=== PATIENT | male | born 1945 | race Caucasian/White ===

== ENCOUNTER 2016-03-18 11:15 | Inpatient (IN) | payer MEDICARE, OTHER ==
[~2016-03-18] VITALS: Ht 180.3 cm; Wt 81.6 kg
[2016-03-18] MEDS ORDERED: PRAV10TA2 PO (11:37)
[2016-03-18] MEDS ORDERED: AMLO10TA2 PO (11:37)
[2016-03-18] MEDS ORDERED: METF500T4 PO (11:37)
[2016-03-18] MEDS ORDERED: FLUO20TA11 PO (11:37)
[2016-03-18 12:19] LABS: BASO % 0 % (0-3); EOS % 0 % (0-3); HEMATOCRIT 48.8 % (39.0-53.0); LYMPH # 1.9 x10^3/uL (1.0-4.8); LYMPH % 12 % (24-48); MEAN CORPUSCULAR HEMOGLOBIN 30 pg (25-35); MEAN CORPUSCULAR HGB CONC 33 g/dL (31-37); MEAN CORPUSCULAR VOLUME 90 fL (79-100); MONO % 6 % (0-9); NEUT % 82 % (31-73); PLATELET COUNT 232 x10^3/uL (140-400); WHITE BLOOD COUNT 15.9 x10^3/uL (4.0-11.0)
[2016-03-18] MEDS ORDERED: CYAN10005 PO (12:27)
--- NOTE | 2016-03-18 12:27 | RAD ---
Clinical indications: Altered mental status. Fall. Neck pain.. NONCONTRAST HEAD CT Technique: Noncontrast axial cross sectional scanning of the head was performed. PQRS Compliance Statement: One or more of the following individualized dose reduction techniques were utilized for this examination: 1. Automated exposure control 2. Adjustment of the mA and/or kV according to patient size 3. Use of iterative reconstruction technique Comparison: None available. Findings: No acute intracranial hemorrhage or midline shift or mass-effect or r extra-axial fluid collection is seen. Mild ventriculomegaly is seen commensurate with the amount of cerebral atrophy. There is extensive hypodensity of both sides of the cerebellum and there is hypodensity involving occipital lobes bilaterally. Findings may represent edema from an acute or subacute infarct involving the posterior circulation. No skull fracture or pneumocephalus is seen. No opacification of the mastoid sinuses or the middle ear cavities is seen. There is opacification of the upper aspect of the right maxillary sinus The maxillary sinuses are not completely seen in this study. Impression: Extensive edema of the cerebellum on both sides and the medial aspect of both occipital lobes consistent with acute or subacute infarct of at least 24 hours involving the posterior circulation. MRI study of the brain with and without contrast and intracranial MRA is recommended. No acute intracranial hemorrhage is seen. Right maxillary sinusitis. CERVICAL SPINE CT WITHOUT CONTRAST Technique: Noncontrast helical CT scanning of the cervical spine was performed. Multiplanar 2-D reconstructions were generated. PQRS Compliance Statement: One or more of the following individualized dose reduction techniques were utilized for this examination: 1. Automated exposure control 2. Adjustment of the mA and/or kV according to patient size 3. Use of iterative reconstruction technique Findings: No acute fracture is evident. There is moderate degenerative disc space narrowing and endplate spurring at C3-4 and C4-5. No discitis or osteolytic process or prevertebral soft tissue swelling is evident. IMPRESSION: No acute fracture.
[2016-03-18 12:28] LABS: CALCIUM 9.6 mg/dL (8.5-10.1); GFR 73.5; POTASSIUM 3.9 mmol/L (3.5-5.1)
--- NOTE | 2016-03-18 12:39 | RAD ---
Portable AP upright view CXR: Clinical indications: Fell yesterday. Altered mental status.. Findings: No acute lung infiltrate or pleural effusion or pulmonary edema or lung mass or pneumothorax is seen. The heart size, pulmonary vasculature, mediastinum and both avni are unremarkable. Impression: No acute radiographic abnormality is seen.
[2016-03-18 13:00] LABS: BILIRUBIN,URINE NEGATIVE (NEG); GLUCOSE,URINE NEGATIVE (NEG); NITRITE,URINE NEGATIVE (NEG); PH,URINE 7.5; PROTEIN,URINE 30 mg/dL (NEG-TRACE)
--- NOTE | 2016-03-18 13:01 | EKG ---
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
[2016-03-18 13:02] LABS: BARBITURATES NEG (NEG); BENZODIAZEPINES NEG (NEG); CANNABINOIDS NEG (NEG); COCAINE NEG (NEG); ETHANOL, URINE NEG (NEG); METHADONE NEG (NEG); OPIATES NEG (NEG); PHENCYCLIDINE NEG (NEG)
--- NOTE | 2016-03-18 13:09 | PHYS DOC ---
Past Medical History Past Medical History: Depression, Diabetes-Type II, High Cholesterol, Hypertension Past Surgical History: Other Additional Past Surgical Histo: cleft palate repair Additional Information: 4-5 cigarettes per day Alcohol Use: Rarely Drug Use: Marijuana Social History Narrative: reports using marijuana once per month Adult General Chief Complaint Chief Complaint: ALTERED MENTAL STATUS HPI HPI This is a 70-year-old male who had a fall night at his assisted living facility and has significant right periorbital swelling and bruising as well as questionable slurring of speech. Patient at this time is able to answer all my questions and follow my commands. He denies any specific complaints. He is not sure why he fell. Patient does have history of hypertension, diabetes type 2, hypercholesterolemia. He denies any chest pain or shortness of breath. He denies any headache. He denies any fever or chills. Review of Systems Review of Systems Constitutional: Denies fever or chills [] Eyes: Denies change in visual acuity, redness, or eye pain [] HENT: Denies nasal congestion or sore throat [] Respiratory: Denies cough or shortness of breath [] Cardiovascular: No additional information not addressed in HPI [] GI: Denies abdominal pain, nausea, vomiting, bloody stools or diarrhea [] : Denies dysuria or hematuria [] Musculoskeletal: Denies back pain or joint pain [] Integument: Denies rash or skin lesions [] Neurologic: Denies headache, focal weakness or sensory changes [] Endocrine: Denies polyuria or polydipsia [] Current Medications Current Medications Current Medications Medications (Trade) Dose Ordered Sig/John Start Time Stop Time Status Last Admin Dose Admin Ondansetron HCl (Zofran) 4 mg PRN Q8HRS PRN 03/18/16 13:15 03/19/16 13:14 Allergies Allergies Allergies Coded Allergies Type Severity Reaction Last Updated Verified iodine Allergy Intermediate 03/18/16 Yes Physical Exam Physical Exam Constitutional: Well developed, well nourished, no acute distress, non-toxic appearance. [] HENT: Normocephalic, noted area of periorbital swelling and ecchymosis on the right with no evidence of any entrapment, bilateral external ears normal, oropharynx moist, no oral exudates, nose normal. [] Eyes: PERRLA, EOMI, conjunctiva normal, no discharge. [] Neck: Normal range of motion, no tenderness, supple, no stridor. [] Cardiovascular:Heart rate regular rhythm, no murmur [] Lungs & Thorax: Bilateral breath sounds clear to auscultation [] Abdomen: Bowel sounds normal, soft, no tenderness, no masses, no pulsatile masses. [] Skin: Warm, dry, no erythema, no rash. [] Back: No tenderness, no CVA tenderness. [] Extremities: No tenderness, no cyanosis, no clubbing, ROM intact, no edema. [] Neurologic: Alert and oriented X 3, normal motor function, normal sensory function, no focal deficits noted. [] Psychologic: Affect normal, judgement normal, mood normal. [] Current Patient Data Vital Signs Vital Signs Date Time Temp Pulse Resp B/P Pulse Ox O2 Delivery O2 Flow Rate FiO2 03/18/16 13:00 90 18 150/67 92 03/18/16 11:15 97.8 Room Air 97.8 Lab Values Laboratory Tests Test 03/18/16 12:10 03/18/16 12:40 White Blood Count 15.9x10^3/uL (4.0-11.0) H Red Blood Count 5.40x10^6/uL (4.30-5.70) Hemoglobin 16.0g/dL (13.0-17.5) Hematocrit 48.8% (39.0-53.0) Mean Corpuscular Volume 90fL (79-100) Mean Corpuscular Hemoglobin 30pg (25-35) Mean Corpuscular Hemoglobin Concent 33g/dL (31-37) Red Cell Distribution Width 14.0% (11.5-14.5) Platelet Count 232x10^3/uL (140-400) Neutrophils (%) (Auto) 82% (31-73) H Lymphocytes (%) (Auto) 12% (24-48) L Monocytes (%) (Auto) 6% (0-9) Eosinophils (%) (Auto) 0% (0-3) Basophils (%) (Auto) 0% (0-3) Neutrophils # (Auto) 13.0x10^3uL (1.8-7.7) H Lymphocytes # (Auto) 1.9x10^3/uL (1.0-4.8) Monocytes # (Auto) 0.9x10^3/uL (0.0-1.1) Eosinophils # (Auto) 0.0x10^3/uL (0.0-0.7) Basophils # (Auto) 0.0x10^3/uL (0.0-0.2) Segmented Neutrophils % 86% (35-66) H Band Neutrophils % 2% (0-9) Lymphocytes % 6% (24-48) L Monocytes % 5% (0-10) Basophils % 1% (0-3) Platelet Estimate Adequate (ADEQUATE) Sodium Level 140mmol/L (136-145) Potassium Level 3.9mmol/L (3.5-5.1) Chloride Level 104mmol/L (98-107) Carbon Dioxide Level 26mmol/L (21-32) Anion Gap 10 (6-14) Blood Urea Nitrogen 19mg/dL (8-26) Creatinine 1.0mg/dL (0.7-1.3) Estimated GFR (Cockcroft-Gault) 73.5 Glucose Level 150mg/dL (70-99) H Calcium Level 9.6mg/dL (8.5-10.1) Troponin I Quantitative < 0.017ng/mL (0.000-0.055) Urine Collection Type U cath Urine Color Yellow Urine Clarity Clear Urine pH 7.5 Urine Specific [place] 1.015 Urine Protein 30mg/dL (NEG-TRACE) Urine Glucose (UA) Negativemg/dL (NEG) Urine Ketones (Stick) Negativemg/dL (NEG) Urine Blood Negative (NEG) Urine Nitrite Negative (NEG) Urine Bilirubin Negative (NEG) Urine Urobilinogen Dipstick 1.0mg/dL (0.2 mg/dL) Urine Leukocyte Esterase Negative (NEG) Urine RBC Occ/HPF (0-2) Urine WBC 0/HPF (0-4) Urine Squamous Epithelial Cells Few/LPF Urine Bacteria 0/HPF (0-FEW) Urine Mucus Slight/LPF Urine Opiates Screen Neg (NEG) Urine Methadone Screen Neg (NEG) Urine Barbiturates Neg (NEG) Urine Phencyclidine Screen Neg (NEG) Urine Amphetamine/Methamphetamine Neg (NEG) Urine Benzodiazepines Screen Neg (NEG) Urine Cocaine Screen Neg (NEG) Urine Cannabinoids Screen Neg (NEG) Urine Ethyl Alcohol Neg (NEG) Laboratory Tests 03/18/16 12:10 Laboratory Tests 03/18/16 12:10 EKG EKG EKG as interpreted by me shows sinus rhythm with rate of 56 bpm. I do not see any acute signs of ischemia on this EKG. Intervals are normal. Radiology/Procedures Radiology/Procedures CT of the head/cervical spine demonstrates the following: NONCONTRAST HEAD CT Technique: Noncontrast axial cross sectional scanning of the head was performed. PQRS Compliance Statement: One or more of the following individualized dose reduction techniques were utilized for this examination: 1. Automated exposure control 2. Adjustment of the mA and/or kV according to patient size 3. Use of iterative reconstruction technique Comparison: None available. Findings: No acute intracranial hemorrhage or midline shift or mass-effect or r extra-axial fluid collection is seen. Mild ventriculomegaly is seen commensurate with the amount of cerebral atrophy. There is extensive hypodensity of both sides of the cerebellum and there is hypodensity involving occipital lobes bilaterally. Findings may represent edema from an acute or subacute infarct involving the posterior circulation. No skull fracture or pneumocephalus is seen. No opacification of the mastoid sinuses or the middle ear cavities is seen. There is opacification of the upper aspect of the right maxillary sinus The maxillary sinuses are not completely seen in this study. Impression: Extensive edema of the cerebellum on both sides and the medial aspect of both occipital lobes consistent with acute or subacute infarct of at least 24 hours involving the posterior circulation. MRI study of the brain with and without contrast and intracranial MRA is recommended. No acute intracranial hemorrhage is seen. Right maxillary sinusitis. CERVICAL SPINE CT WITHOUT CONTRAST Technique: Noncontrast helical CT scanning of the cervical spine was performed. Multiplanar 2-D reconstructions were generated. PQRS Compliance Statement: One or more of the following individualized dose reduction techniques were utilized for this examination: 1. Automated exposure control 2. Adjustment of the mA and/or kV according to patient size 3. Use of iterative reconstruction technique Findings: No acute fracture is evident. There is moderate degenerative disc space narrowing and endplate spurring at C3-4 and C4-5. No discitis or osteolytic process or prevertebral soft tissue swelling is evident. IMPRESSION: No acute fracture. Brain MRI demonstrated the followin. There are large recent infarcts of the bilateral cerebellum, also foci of the occipital temporal lobes greater on the right and also the thalami greater on the left. Signal features characteristics favor acute/early subacute infarcts. There is some associated mild hemorrhage most notable right temporal and left occipital lobes. There is abnormal signal in the proximal left intradural vertebral artery at the skull base concerning for thromboembolism. Critical results were called Tyrese Angel 03/18/2016 at 14:22. 2. There is generalized supratentorial atrophy. 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 3. There is air-fluid level right maxillary sinus with heterogeneous signal characteristics which may be due to complex debris/mucus or blood products. There is right preseptal periorbital soft tissue swelling. There may be right inferior orbital wall fracture. There is fluid in the right mastoid air cells. One view of the chest does not demonstrate acute cardiopulmonary process. Course & Med Decision Making Course & Med Decision Making Pertinent Labs and Imaging studies reviewed. (See chart for details) 70-year-old male who had a fall at his nursing facility had CT without contrast demonstrated findings concerning for acute versus subacute infarct of the cerebellar area with noted edema. He had a brain MRI that also demonstrated acute infarct of the cerebellum with noted vertebral artery thromboembolism as well as areas of hemorrhage in the temporal lobe. These findings were all communicated to the neurologist. Trauma surgery was additionally consult that is there is evidence of a possible right inferior orbital wall fracture for which a CT of the maxillofacial bones was administered. Patient has no signs of entrapment upon my exam is not having any obvious extraocular motion abnormalities. Laboratory work was unremarkable otherwise. He is admitted to the ICU with these imaging findings for further evaluation and treatment with neurology and trauma surgery. Dragon Disclaimer Dragon Disclaimer This electronic medical record was generated, in whole or in part, using a voice recognition dictation system. Departure Departure Impression: Primary Impression: Cerebellar edema Additional Impressions: Fall Head injury Disposition: 09 ADMITTED INPATIENT Admitting Physician: Suraj Martines Condition: STABLE Problem Qualifiers TYRESE ANGEL DO Mar 18, 2016 13:09
[2016-03-18] MEDS ORDERED: ONDANSETRON PF 4 MG/2 ML VIAL. IV PRN ×2 (13:15→14:15)
[2016-03-18 13:23] LABS: BACTERIA,URINE 0 /HPF (0-FEW); RBC,URINE OCC /HPF (0-2); SQUAMOUS EPITHELIAL CELL,UR FEW /LPF; WBC,URINE 0 /HPF (0-4)
[2016-03-18 13:26] LABS: % BASOS 1 % (0-3); PLT ESTIMATE ADEQUATE (ADEQUATE)
[2016-03-18] MEDS ORDERED: IV NORMAL SALINE 1000ML BAG 1,000 ML IV ONE (13:30)
[2016-03-18] MEDS ORDERED: GADOBUTROL 7.5 MMOL/7.5 ML VIAL IV ONE (13:45)
[2016-03-18] MEDS: IV NORMAL SALINE 1000ML BAG 1,000 ML IV SCH ×2 (14:03→15:10)
[2016-03-18] MEDS ORDERED: 0.9 % SODIUM CHLORIDE 10 ML DISP.SYRIN. IV PRN (14:15)
[2016-03-18] MEDS ORDERED: ACETAMINOPHEN 650 MG SUPP.RECT. PR PRN (14:15)
[2016-03-18] MEDS ORDERED: ACETAMINOPHEN 325 MG TABLET. PO PRN (14:15)
[2016-03-18] MEDS ORDERED: LABETALOL 20 MG/4 ML DISP.SYRIN. IV PRN (14:15)
--- NOTE | 2016-03-18 14:28 | RAD ---
PROCEDURE MRI brain without and with contrast. HISTORY Severe altered mental status, severe weakness TECHNIQUE Multiplanar, multi sequential pre and post contrast MR imaging was performed of the brain. Contrast: 7.5 cc Gadavist COMPARISON There is no previous similar exam available. FINDINGS There are large foci of restricted diffusion of the cerebellum bilaterally greater on the right with associated T2 and FLAIR hyperintense signal and mild mass effect, no significant associated enhancement. There are also foci of restricted diffusion of the bilateral occipital temporal lobes greater on the right, also foci of the thalami greater on the left. These foci are associated with variable T2 and FLAIR hyperintense signal abnormality. There is abnormal signal in the left intradural vertebral artery proximally. There are some small foci of decreased signal gradient echo sequence such as of the right temporal lobe and left occipital lobe likely due to small foci of associated hemorrhage. There is mild generalized supratentorial atrophy, ventricular size within normal limits. There is old infarct extending to the cortical surface of the left parietal lobe with associated gliosis, also small old lacunar infarct of the left centrum semiovale. There is other minimal T2 and FLAIR hyperintense signal abnormality of the periventricular white matter bilaterally. There is mild to moderate fluid of the right mastoid air cells, left mastoid air cells aerated. There is air-fluid level right maxillary sinus, heterogeneous internal signal characteristics. There is mild sphenoid sinus and mild to moderate patchy ethmoid air cell mucosal thickening, also mild frontal sinus mucosal thickening. Cerebellar tonsils are normal in location. There is preservation of the marrow signal clivus. No abnormality pineal gland or pituitary gland. There is no nodular parenchymal or leptomeningeal enhancement. There is nonspecific right pre septal periorbital soft tissue swelling. There may be right inferior orbital wall fracture. IMPRESSION 1. There are large recent infarcts of the bilateral cerebellum, also foci of the occipital temporal lobes greater on the right and also the thalami greater on the left. Signal features characteristics favor acute/early subacute infarcts. There is some associated mild hemorrhage most notable right temporal and left occipital lobes. There is abnormal signal in the proximal left intradural vertebral artery at the skull base concerning for thromboembolism. Critical results were called Tyrese Angel 03/18/2016 at 14:22. 2. There is generalized supratentorial atrophy. 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 3. There is air-fluid level right maxillary sinus with heterogeneous signal characteristics which may be due to complex debris/mucus or blood products. There is right preseptal periorbital soft tissue swelling. There may be right inferior orbital wall fracture. There is fluid in the right mastoid air cells. Electronically signed by: Rene Brand MD (Mar 18, 2016 14:27:31)
--- NOTE | 2016-03-18 14:46 | ACF ---
Admission Forms Criteria NEUROLOGY GRG Clinical Indications for Admission to Inpatient Care (Place ' X' for any and all applicable criteria): Hospital admission is needed for appropriate care of the patient because of ANY ONE of the following: [ ]I. New-onset or worsening altered mental status remaining after emergency or observation level care (as appropriate) (9)(10)(11) [ ]II. Severe [employer] infections or inflammatory conditions, including ANY ONE of the following(1)(2)(3): [ ]a) Intracranial abscess [ ]b) Spinal abscess or myelitis [ ]c) Tuberculous or other nonbacterial, nonviral [employer] infection(8) [ ]III. Encephalitis(1)(2)(3) [ ]IV. Status epilepticus or repetitive seizures not controlled with emergent treatment [A] (7)(8) [ ]V. Transient alteration in consciousness with high-risk etiology; examples include (12)(13): [ ]a) Cardiovascular source [ ]b) Cataplexy [ ]. Cerebral aneurysm requiring ANY ONE of the following(14): [ ]a) IV antihypertensives or vasoactive agents [ ]b) Sedation and analgesia for suspected leak [ ]c) Need for external ventricular drainage and cerebral perfusion pressure monitoring [ ]d) Emergent evaluation to determine need for surgical clipping or endovascular coiling by interventional radiology. If surgery is required ( Also use Craniotomy, Supratentorial, for Surgery of Bleeding Intracranial Aneurysm (for bleeding aneurysm) or Craniotomy, Supratentorial (for nonbleeding aneurysm) as appropriate. [ ]VII. Altered mental status that is severe or persistent(16) [X]VIII New-onset severe neurologic findings requiring inpatient care; examples include: [ ]a) Papilledema [X]b) Cerebral edema [ ]c) Mass effect on imaging [ ]IX. New-onset severe neurologic symptom requiring inpatient care indicated by ANY ONE of the following: [ ]a) Aphasia(15) [ ]b) Weakness (grade 3 or less) [ ]c) Paralysis (eg, hemiplegia) [ ]d) Spasticity(16) [ ]e) Ataxia(17) [ ]f) Amnesia(18) [ ]g) Involuntary movements(19) [ ]h) Vertigo [ ]i) Other severe neurologic symptom not treatable at alternative level of care (eg, observation care) [ ]X. Guillain-Endicott syndrome(20) [ ]XI. Myasthenia gravis crisis or inpatient monitoring need as indicated by ANY ONE of the following(21): [ ]a) Inadequate airway protection [ ]b) Respiratory insufficiency requiring intubation or inpatient. monitoring [ ]c) Progressive dysphagia with failure to thrive [ ]d) Intensive treatment (eg, course of plasmapheresis) with inadequate outpatient situation to monitor patients status [ ]XII. Multiple sclerosis or other acute demyelinating disease requiring inpatient care as indicated by ANY ONE of the following (22)(23): [ ]a) Acute severe deterioration requiring inpatient treatment (eg, IV steroids, plasmapheresis, close observation) [ ]b) Acute complication requiring inpatient care (eg, sepsis, severe decubitus, aspiration) [ ]XIII. Intracranial hypertension (eg, pseudotumor cerebri) requiring inpatient care (eg, acute visual loss, inadequate oral intake) (24) [ ]XIV.Parkinson disease requiring inpatient care (Also use Optimal Recovery Care Criteria or General Recovery Criteria as appropriate) indicated by ANY ONE of the following(25): [ ]a) Infection (eg, aspiration pneumonia) not treatable at alternative level of care [ ]b) Volume depletion not responsive to emergency and observation care treatment (as appropriate) [ ]c) Life-threatening agitation or psychotic behavior not treatable on emergency, observation care, or alternative level (eg, residential) basis [ ]d) Severe medication withdrawal effects (eg, freezing, neuroleptic malignant syndrome) not responsive to emergency and observation care treatment (as appropriate) [ ]e) Other severe manifestation not treatable at alternative level of care [ ]XV.Amyotrophic lateral sclerosis with inpatient care needs as indicated by ANY ONE of the following(26): [ ]a) Acute complications requiring inpatient care (Use Optimal Recovery Care Criteria or General Recovery Criteria as appropriate); examples include: [ ]i) Aspiration pneumonia [ ]ii) Sepsis [ ]b) Dehydration or hypovolemia (not responsive to emergency and observation care treatment as appropriate) AND artificial support desired [ ]c) Inadequate airway protection AND artificial support desired [ ]d) Severe ventilatory insufficiency AND artificial support desired [ ]XVI.Severe myopathy, neuropathy, or other neuromuscular disease as indicated by ANY ONE of the following: [ ]a) New-onset severe diffuse weakness (eg, strength 3/5 or less) [ ]b) Severe dysphagia [ ]c) Dyspnea at rest or with minimal exertion (new) [ ]d) Inadequate airway protection [ ]e) Inadequate ventilation as indicated by ANY ONE of the following : [ ]i) Partial pressure of carbon dioxide greater than 44 mm Hg (5.9 kPa) (new) [ ]ii) Reduced peak expiratory flow rate (new) [ ]iii) Vital capacity less than 50% of predicted ( less than 15 mL/kg) [ ]iv) Peak inspiratory force less negative than -30 cm H20 (-2942 Pa) [ ]XVII.Complications of congenital or degenerative disease (eg, infection, seizures, dehydration, injury) not responsive to emergency and observation care treatment (as appropriate ) [C](16)(29)(30) [ ]XVIII.Suspected or confirmed nerve or muscle toxic injury, including ANY ONE of the following: [ ]a) Rhabdomyolysis(31) [ ]b) Botulism(32) [ ]c) Other severe toxin-induced sign or symptom [ ]XIX. Neurologic trauma requiring inpatient treatment (medical) indicated by ANY ONE of the following(33)(34): [ ]a) Vital signs or neurologic signs more frequently than every 4 hours [ ]b) Hyperosmolar therapy [ ]c) Respiratory monitoring [ ]d) Intracranial pressure monitoring and treatment [ ]e) Stabilization and immobilization device placement (eg, braces, body jacket) [ ]f) Intubation & mechanical ventilation for airway protection or therapeutic hyperventilation [ ]g) Other treatment or monitoring needed that requires inpatient level of care [ ]XX.Complications of neurologic devices (eg, ventricular shunt, neurostimulator) requiring ANY ONE of the following(35)(36): [ ]a) IV antibiotics with monitoring while awaiting culture results [ ]b) Monitoring for hydrocephalus [ ]XXI Vasculitis with ANY ONE of the following(4)(5): [ ]a) Altered mental status [ ]b) Psychosis [ ]c) Seizures [ ]XXII. Neurology condition and ALL of the following: [ ]a) Symptom or finding for which emergency and observation care have failed or are not considered appropriate (Use General Criteria: Observation Care as appropriate) [ ]b) Presence of ANY ONE of the following: [ ]i) A General Admission Criteria [ ]ii A Pediatric General Admission Criteria The original [facility] content created by Angeline Carranza has been revised. The portions of the content which have been revised are identified through the use of italic text or in bold, and [facility] has neither reviewed nor approved the modified material. All other unmodified content is copyright [facility] Please see references footnoted in the original [facility] edition 2016 Admission Criteria Met?: Yes GA ARENAS Mar 18, 2016 14:46
[2016-03-18] MEDS ORDERED: ENOXAPARIN 40 MG/0.4 ML DISP.SYRIN. SQ SCH (15:00)
--- NOTE | 2016-03-18 15:23 | PDOC2 ---
NEUROLOGY CONSULT Date of Admission Date of Admission DATE: 03/18/16 TIME: 15:16 Reason for Consult Reason for Consult: stroke Referring Physician Referring Physician: Dr. Martines Source Source: Chart review, Patient History of Present Illness History of Present Illness The patient is a 70-year-old right-handed male assisted living resident who fell last night. He continued to have trouble with walking today and was brought into the emergency department. There is no prior history of stroke, seizure, or head injury. He has abnormal CT had an MRI as reviewed below. He denies dysarthria, dysphagia, or diplopia. Past Medical History Cardiovascular: HTN Past Surgical History Past Surgical History: No pertinent history Family History Family History: CVA Social History Social History Smokes a half a pack of cigarettes per day, occasional alcohol, lives in assisted living, single Current Medications Current Medications Current Medications Ondansetron HCl 4 mg 4 mg PRN Q8HRS PRN IV NAUSEA/VOMITING; Start 03/18/16 at 13:15; Stop 03/19/16 at 13:14 Sodium Chloride 1,000 ml @ 125 mls/hr Q8H IV Last administered on 03/18/16 15 :10; Start 03/18/16 at 15:00; Stop 03/19/16 at 14:59 Sodium Chloride (Iv Sodium Chloride 0.9% 1000ml Bag) 1,000 ml @ 1,000 mls/hr 1X ONCE IV Last administered on 03/18/16 13:19; Start 03/18/16 at 13:30; Stop 03/18/16 at 14:29; Status DC Gadobutrol (Gadavist) 7.5 mmol 1X ONCE IV Last administered on 03/18/16 14:04 ; Start 03/18/16 at 13:45; Stop 03/18/16 at 13:48; Status DC Sodium Chloride 3 ml 3 ml QSHIFT PRN IV AFTER MEDS AND BLOOD DRAWS; Start 03/18 at 14:15 Sodium Chloride (Iv Sodium Chloride 0.9% 1000ml Bag) 1,000 ml @ 100 mls/hr Q10H IV ; Start 03/18/16 at 14:03 Labetalol HCl (Normodyne) 10 mg PRN Q10MIN PRN IV HYPERTENSION, SEE COMMENTS; Start 03/18/16 at 14:15 Acetaminophen (Tylenol) 650 mg PRN Q6HRS PRN PO FEVER; Start 03/18/16 at 14:15 Acetaminophen (Tylenol) 650 mg PRN Q6HRS PRN ME FEVER; Start 03/18/16 at 14:15 Ondansetron HCl (Zofran) 4 mg PRN Q6HRS PRN IV NAUSEA/VOMITING; Start 03/18/16 at 14:15 Enoxaparin Sodium (Lovenox 40mg Syringe) 40 mg Q24H SQ Last administered on t 15:14; Start 03/18/16 at 15:00 Active Scripts Active Reported Vitamin B-12 (Cyanocobalamin (Vitamin B-12)) 1,000 Mcg Tablet 1 Tab PO DAILY Pravastatin Sodium 10 Mg Tablet 1 Tab PO QHS Metformin Hcl 500 Mg Tablet 1 Tab PO BID Fluoxetine Hcl 20 Mg Tablet 1 Tab PO DAILY Amlodipine Besylate 10 Mg Tablet 10 Mg PO DAILY Allergies Allergies: Coded Allergies: iodine (Verified Allergy, Intermediate, 03/18/16) ROS Review of System Patient denies fevers, chills, weight loss, dyspnea, angina, abdominal pain, change in bowels, or dysuria. 14 point review of systems is negative. Physical Exam Physical Examination PHYSICAL EXAMINATION: Vital signs: see above. General appearance is normal and in no acute distress. HEENT: Normocephalic, large ecchymosis over the right orbit. Eyes, nose, ears , and throat are unremarkable. Neck is supple. No lymphadenopathy. No bruits are heard over the carotid artery. No crepitus. NEUROLOGICAL EXAMINATION: Mental Status Examination: Alert. Oriented to time, place, and person. Answers questions and follows commends. I cannot examine the right eye, the left pupil does react. Extraocular movements are intact. Visual field exam shows no defect on the direct confrontation. No motor or sensory deficits on the facial exam. Uvula in the midline and the soft palate elevated symmetrically. No deviation of the tongue to any direction. Gross hearing is normal. Shoulder shrug normal. Muscle tone is normal. Muscle strength is 5. Deep tendon reflexes are 2+ all around. Plantar reflex is with flexion response bilaterally. There is bilateral dysmetria on finger-nose finger. Alternative movements are accurate. Gait not tested. Sensory exam shows no deficits. No cerebellar signs are elicited. Vitals VITALS Vital Signs Date Time Temp Pulse Resp B/P Pulse Ox O2 Delivery O2 Flow Rate FiO2 03/18/16 15:07 72 16 156/83 95 Room Air 03/18/16 11:15 97.8 97.8 Labs Labs Laboratory Tests Test 03/18/16 12:10 03/18/16 12:40 White Blood Count 15.9x10^3/uL (4.0-11.0) Red Blood Count 5.40x10^6/uL (4.30-5.70) Hemoglobin 16.0g/dL (13.0-17.5) Hematocrit 48.8% (39.0-53.0) Mean Corpuscular Volume 90fL (79-100) Mean Corpuscular Hemoglobin 30pg (25-35) Mean Corpuscular Hemoglobin Concent 33g/dL (31-37) Red Cell Distribution Width 14.0% (11.5-14.5) Platelet Count 232x10^3/uL (140-400) Neutrophils (%) (Auto) 82% (31-73) Lymphocytes (%) (Auto) 12% (24-48) Monocytes (%) (Auto) 6% (0-9) Eosinophils (%) (Auto) 0% (0-3) Basophils (%) (Auto) 0% (0-3) Neutrophils # (Auto) 13.0x10^3uL (1.8-7.7) Lymphocytes # (Auto) 1.9x10^3/uL (1.0-4.8) Monocytes # (Auto) 0.9x10^3/uL (0.0-1.1) Eosinophils # (Auto) 0.0x10^3/uL (0.0-0.7) Basophils # (Auto) 0.0x10^3/uL (0.0-0.2) Segmented Neutrophils % 86% (35-66) Band Neutrophils % 2% (0-9) Lymphocytes % 6% (24-48) Monocytes % 5% (0-10) Basophils % 1% (0-3) Platelet Estimate Adequate (ADEQUATE) Sodium Level 140mmol/L (136-145) Potassium Level 3.9mmol/L (3.5-5.1) Chloride Level 104mmol/L (98-107) Carbon Dioxide Level 26mmol/L (21-32) Anion Gap 10 (6-14) Blood Urea Nitrogen 19mg/dL (8-26) Creatinine 1.0mg/dL (0.7-1.3) Estimated GFR (Cockcroft-Gault) 73.5 Glucose Level 150mg/dL (70-99) Calcium Level 9.6mg/dL (8.5-10.1) Troponin I Quantitative < 0.017ng/mL (0.000-0.055) Urine Collection Type U cath Urine Color Yellow Urine Clarity Clear Urine pH 7.5 Urine Specific [place] 1.015 Urine Protein 30mg/dL (NEG-TRACE) Urine Glucose (UA) Negativemg/dL (NEG) Urine Ketones (Stick) Negativemg/dL (NEG) Urine Blood Negative (NEG) Urine Nitrite Negative (NEG) Urine Bilirubin Negative (NEG) Urine Urobilinogen Dipstick 1.0mg/dL (0.2 mg/dL) Urine Leukocyte Esterase Negative (NEG) Urine RBC Occ/HPF (0-2) Urine WBC 0/HPF (0-4) Urine Squamous Epithelial Cells Few/LPF Urine Bacteria 0/HPF (0-FEW) Urine Mucus Slight/LPF Urine Opiates Screen Neg (NEG) Urine Methadone Screen Neg (NEG) Urine Barbiturates Neg (NEG) Urine Phencyclidine Screen Neg (NEG) Urine Amphetamine/Methamphetamine Neg (NEG) Urine Benzodiazepines Screen Neg (NEG) Urine Cocaine Screen Neg (NEG) Urine Cannabinoids Screen Neg (NEG) Urine Ethyl Alcohol Neg (NEG) Laboratory Tests Test 03/18/16 12:10 03/18/16 12:40 White Blood Count 15.9x10^3/uL (4.0-11.0) Red Blood Count 5.40x10^6/uL (4.30-5.70) Hemoglobin 16.0g/dL (13.0-17.5) Hematocrit 48.8% (39.0-53.0) Mean Corpuscular Volume 90fL (79-100) Mean Corpuscular Hemoglobin 30pg (25-35) Mean Corpuscular Hemoglobin Concent 33g/dL (31-37) Red Cell Distribution Width 14.0% (11.5-14.5) Platelet Count 232x10^3/uL (140-400) Neutrophils (%) (Auto) 82% (31-73) Lymphocytes (%) (Auto) 12% (24-48) Monocytes (%) (Auto) 6% (0-9) Eosinophils (%) (Auto) 0% (0-3) Basophils (%) (Auto) 0% (0-3) Neutrophils # (Auto) 13.0x10^3uL (1.8-7.7) Lymphocytes # (Auto) 1.9x10^3/uL (1.0-4.8) Monocytes # (Auto) 0.9x10^3/uL (0.0-1.1) Eosinophils # (Auto) 0.0x10^3/uL (0.0-0.7) Basophils # (Auto) 0.0x10^3/uL (0.0-0.2) Segmented Neutrophils % 86% (35-66) Band Neutrophils % 2% (0-9) Lymphocytes % 6% (24-48) Monocytes % 5% (0-10) Basophils % 1% (0-3) Platelet Estimate Adequate (ADEQUATE) Sodium Level 140mmol/L (136-145) Potassium Level 3.9mmol/L (3.5-5.1) Chloride Level 104mmol/L (98-107) Carbon Dioxide Level 26mmol/L (21-32) Anion Gap 10 (6-14) Blood Urea Nitrogen 19mg/dL (8-26) Creatinine 1.0mg/dL (0.7-1.3) Estimated GFR (Cockcroft-Gault) 73.5 Glucose Level 150mg/dL (70-99) Calcium Level 9.6mg/dL (8.5-10.1) Troponin I Quantitative < 0.017ng/mL (0.000-0.055) Urine Collection Type U cath Urine Color Yellow Urine Clarity Clear Urine pH 7.5 Urine Specific [place] 1.015 Urine Protein 30mg/dL (NEG-TRACE) Urine Glucose (UA) Negativemg/dL (NEG) Urine Ketones (Stick) Negativemg/dL (NEG) Urine Blood Negative (NEG) Urine Nitrite Negative (NEG) Urine Bilirubin Negative (NEG) Urine Urobilinogen Dipstick 1.0mg/dL (0.2 mg/dL) Urine Leukocyte Esterase Negative (NEG) Urine RBC Occ/HPF (0-2) Urine WBC 0/HPF (0-4) Urine Squamous Epithelial Cells Few/LPF Urine Bacteria 0/HPF (0-FEW) Urine Mucus Slight/LPF Urine Opiates Screen Neg (NEG) Urine Methadone Screen Neg (NEG) Urine Barbiturates Neg (NEG) Urine Phencyclidine Screen Neg (NEG) Urine Amphetamine/Methamphetamine Neg (NEG) Urine Benzodiazepines Screen Neg (NEG) Urine Cocaine Screen Neg (NEG) Urine Cannabinoids Screen Neg (NEG) Urine Ethyl Alcohol Neg (NEG) Images Images Brain MRI and CT head images reviewed. Brain MRI report: 1. There are large recent infarcts of the bilateral cerebellum, also foci of the occipital temporal lobes greater on the right and also the thalami greater on the left. Signal features characteristics favor acute/early subacute infarcts. There is some associated mild hemorrhage most notable right temporal and left occipital lobes. There is abnormal signal in the right orbital wall fracture proximal left intradural vertebral artery at the skull base concerning for thromboembolism. Critical results were called Tyrese Angel 03/18/2016 at 14:22. 2. There is generalized supratentorial atrophy. 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 3. There is air-fluid level right maxillary sinus with heterogeneous signal characteristics which may be due to complex debris/mucus or blood products. There is right preseptal periorbital soft tissue swelling. There may be right inferior orbital wall fracture. There is fluid in the right mastoid air cells. 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 Martines Thank you for letting me help with the patient's care. ABHISHEK DIAZ MD Mar 18, 2016 15:23
[2016-03-18 18:05] VITALS: BP 159/77
[2016-03-18 19:00] VITALS: BP 153/71
[2016-03-18 20:00] VITALS: BP 158/73
[2016-03-18 21:00] VITALS: BP 147/68
[2016-03-18 22:00] VITALS: BP 161/77
[2016-03-18 23:00] VITALS: BP 157/75
[2016-03-19] VITALS (22 sets, daily range): BP systolic 106–179; BP diastolic 56–117
[2016-03-19] MEDS: IV NORMAL SALINE 1000ML BAG 1,000 ML IV SCH ×3 (00:03→07:00)
[2016-03-19 07:21] LABS: CALCIUM 8.3 mg/dL (8.5-10.1); CREATININE 0.8 mg/dL (0.7-1.3); POTASSIUM 3.7 mmol/L (3.5-5.1)
[2016-03-19 07:23] LABS: CHOLESTEROL/HDL RATIO 3.8
[2016-03-19 07:25] LABS: BASO % 0 % (0-3); EOS % 0 % (0-3); HEMATOCRIT 43.2 % (39.0-53.0); HEMOGLOBIN 14.1 g/dL (13.0-17.5); LYMPH # 2.2 x10^3/uL (1.0-4.8); LYMPH % 19 % (24-48); MEAN CORPUSCULAR HEMOGLOBIN 29 pg (25-35); MEAN CORPUSCULAR HGB CONC 33 g/dL (31-37); MEAN CORPUSCULAR VOLUME 90 fL (79-100); MONO % 8 % (0-9); NEUT % 74 % (31-73); PLATELET COUNT 198 x10^3/uL (140-400); RED BLOOD COUNT 4.79 x10^6/uL (4.30-5.70); RED CELL DISTRIBUTION WIDTH 14.1 % (11.5-14.5); WHITE BLOOD COUNT 11.8 x10^3/uL (4.0-11.0)
[2016-03-19] MEDS: METFORMIN 500 MG TABLET. PO SCH ×2 (08:00→16:59)
[2016-03-19] MEDS: AMLODIPINE BESYLATE 10 MG TABLET PO SCH (09:00)
[2016-03-19] MEDS: FLUOXETINE HCL 20 MG CAPSULE PO SCH (09:00)
[2016-03-19] MEDS: CYANOCOBALAMIN (VITAMIN B-12) 1,000 MCG TABLET. PO SCH (09:00)
--- NOTE | 2016-03-19 10:04 | RAD ---
MAXILLOFACIAL WO CONTRAST History:orbital wall fracture Technique: Noncontrast CT imaging was performed of the maxillofacial region, multiplanar reconstruction images submitted. Exposure: One or more of the following individualized dose reduction techniques were utilized for this exam: 1. Automated exposure control. 2. Adjustment of the mA and/or KV according to patient size. 3. Use of iterative reconstruction technique. Comparison: There is no previous similar exam available. Findings:There is displaced inferior right orbital wall fracture, displacement of bone fragment inferiorly by approximately 6 mm. No appreciable muscle involvement is identified at the fracture site, fat present. There is dependent air-fluid level of the right maxillary sinus with density measurements suggestive of hemorrhage. There is right preseptal periorbital soft tissue swelling. Globes are symmetric in size and density characteristics, no asymmetric postseptal density identified. There is mild left maxillary sinus mucosal thickening. There is fracture of the right nasal bone although probably chronic. There is bony defect of the right paracentral and central maxillary bone although this is also probably chronic. There is a horizontally oriented tooth in this region. There is abnormal periapical lucency about another right paracentral maxillary tooth. The entirety of the mandible was not entirely included on this exam. There is abnormal low-density of the bilateral cerebellum as seen on recent CT head exam. Impression: 1.There is displaced right inferior orbital wall fracture, dependent hemorrhage in the right maxillary sinus. 2. There is bony defect of the central right paracentral maxillary bone although this may be chronic, horizontally oriented tooth in this area, also abnormal periapical lucency about another right paracentral maxillary tooth which may be due to loosening or infection. Mandible was not entirely included on this exam. 3. There is again abnormal low-density of the visualized bilateral cerebellum as seen on recent head CT exam.
--- NOTE | 2016-03-19 10:05 | PDOC2 ---
CONSULT Date of Consult Date of Consult DATE: 03/19/16 TIME: 09:59 Reason for Consult Reason for Consult: Trauma fall Identification/Chief Complaint Chief Complaint Headache Source Source: Patient History of Present Illness Reason for Visit: 70 yo male who fell hitting his head on the floor. Fell due to loss of balance likely from stroke. Resting comfortably sitting up in chair. Past Medical History Cardiovascular: HTN Past Surgical History Past Surgical History: No pertinent history Current Problem List Problem List Problems Medical Problems: (1) Cerebellar edema Status: Acute (2) Fall Status: Acute (3) Head injury Status: Acute Current Medications Current Medications Current Medications Ondansetron HCl 4 mg 4 mg PRN Q8HRS PRN IV NAUSEA/VOMITING; Start 03/18/16 at 13:15; Stop 03/19/16 at 13:14 Sodium Chloride 1,000 ml @ 125 mls/hr Q8H IV Last administered on 03/19/16 00 :13; Start 03/18/16 at 15:00; Stop 03/19/16 at 14:59 Sodium Chloride (Iv Sodium Chloride 0.9% 1000ml Bag) 1,000 ml @ 1,000 mls/hr 1X ONCE IV Last administered on 03/18/16 13:19; Start 03/18/16 at 13:30; Stop 03/18/16 at 14:29; Status DC Gadobutrol (Gadavist) 7.5 mmol 1X ONCE IV Last administered on 03/18/16 14:04 ; Start 03/18/16 at 13:45; Stop 03/18/16 at 13:48; Status DC Sodium Chloride 3 ml 3 ml QSHIFT PRN IV AFTER MEDS AND BLOOD DRAWS; Start 03/18 at 14:15 Sodium Chloride (Iv Sodium Chloride 0.9% 1000ml Bag) 1,000 ml @ 100 mls/hr Q10H IV ; Start 03/18/16 at 14:03 Labetalol HCl (Normodyne) 10 mg PRN Q10MIN PRN IV HYPERTENSION, SEE COMMENTS; Start 03/18/16 at 14:15 Acetaminophen (Tylenol) 650 mg PRN Q6HRS PRN PO FEVER; Start 03/18/16 at 14:15 Acetaminophen (Tylenol) 650 mg PRN Q6HRS PRN [place] FEVER; Start 03/18/16 at 14:15 Ondansetron HCl (Zofran) 4 mg PRN Q6HRS PRN IV NAUSEA/VOMITING; Start 03/18/16 at 14:15 Enoxaparin Sodium (Lovenox 40mg Syringe) 40 mg Q24H SQ Last administered on t 15:14; Start 03/18/16 at 15:00; Stop 03/18/16 at 15:18; Status DC Amlodipine Besylate (Norvasc) 10 mg DAILY PO ; Start 03/19/16 at 09:00 Cyanocobalamin (Vitamin B-12) 1,000 mcg DAILY PO ; Start 03/19/16 at 09:00 Metformin HCl (Glucophage) 500 mg BIDWMEALS PO ; Start 03/19/16 at 08:00 Fluoxetine HCl (Prozac) 20 mg DAILY PO ; Start 03/19/16 at 09:00 Atorvastatin Calcium (Lipitor) 5 mg QHS PO ; Start 03/19/16 at 21:00 Active Scripts Active Reported Vitamin B-12 (Cyanocobalamin (Vitamin B-12)) 1,000 Mcg Tablet 1 Tab PO DAILY Pravastatin Sodium 10 Mg Tablet 1 Tab PO QHS Metformin Hcl 500 Mg Tablet 1 Tab PO BID Fluoxetine Hcl 20 Mg Tablet 1 Tab PO DAILY Amlodipine Besylate 10 Mg Tablet 10 Mg PO DAILY Allergies Allergies: Coded Allergies: iodine (Verified Allergy, Intermediate, 03/18/16) ROS HEENT: YES: [place] Physical Exam General: Alert, Oriented X3, Cooperative, mild distress HEENT: Other (contusion over both eyes R>L no visual loss) Lungs: Clear to auscultation, Normal air movement Heart: Regular rate, No murmurs Abdomen: Normal bowel sounds, Soft, No tenderness Extremities: No clubbing, No cyanosis, No edema Skin: No significant lesion Neuro: Normal speech Psych/Mental Status: Mental status NL Vitals VITALS Vital Signs Date Time Temp Pulse Resp B/P Pulse Ox O2 Delivery O2 Flow Rate FiO2 03/19/16 06:00 82 19 147/78 95 Room Air 03/19/16 04:00 98.2 98.2 Labs Labs Laboratory Tests Test 03/18/16 12:10 03/18/16 12:40 03/19/16 06:31 White Blood Count 15.9x10^3/uL (4.0-11.0) 11.8x10^3/uL (4.0-11.0) Red Blood Count 5.40x10^6/uL (4.30-5.70) 4.79x10^6/uL (4.30-5.70) Hemoglobin 16.0g/dL (13.0-17.5) 14.1g/dL (13.0-17.5) Hematocrit 48.8% (39.0-53.0) 43.2% (39.0-53.0) Mean Corpuscular Volume 90fL (79-100) 90fL (79-100) Mean Corpuscular Hemoglobin 30pg (25-35) 29pg (25-35) Mean Corpuscular Hemoglobin Concent 33g/dL (31-37) 33g/dL (31-37) Red Cell Distribution Width 14.0% (11.5-14.5) 14.1% (11.5-14.5) Platelet Count 232x10^3/uL (140-400) 198x10^3/uL (140-400) Neutrophils (%) (Auto) 82% (31-73) 74% (31-73) Lymphocytes (%) (Auto) 12% (24-48) 19% (24-48) Monocytes (%) (Auto) 6% (0-9) 8% (0-9) Eosinophils (%) (Auto) 0% (0-3) 0% (0-3) Basophils (%) (Auto) 0% (0-3) 0% (0-3) Neutrophils # (Auto) 13.0x10^3uL (1.8-7.7) 8.7x10^3uL (1.8-7.7) Lymphocytes # (Auto) 1.9x10^3/uL (1.0-4.8) 2.2x10^3/uL (1.0-4.8) Monocytes # (Auto) 0.9x10^3/uL (0.0-1.1) 0.9x10^3/uL (0.0-1.1) Eosinophils # (Auto) 0.0x10^3/uL (0.0-0.7) 0.0x10^3/uL (0.0-0.7) Basophils # (Auto) 0.0x10^3/uL (0.0-0.2) 0.0x10^3/uL (0.0-0.2) Segmented Neutrophils % 86% (35-66) Band Neutrophils % 2% (0-9) Lymphocytes % 6% (24-48) Monocytes % 5% (0-10) Basophils % 1% (0-3) Platelet Estimate Adequate (ADEQUATE) Sodium Level 140mmol/L (136-145) 141mmol/L (136-145) Potassium Level 3.9mmol/L (3.5-5.1) 3.7mmol/L (3.5-5.1) Chloride Level 104mmol/L (98-107) 107mmol/L (98-107) Carbon Dioxide Level 26mmol/L (21-32) 22mmol/L (21-32) Anion Gap 10 (6-14) 12 (6-14) Blood Urea Nitrogen 19mg/dL (8-26) 15mg/dL (8-26) Creatinine 1.0mg/dL (0.7-1.3) 0.8mg/dL (0.7-1.3) Estimated GFR (Cockcroft-Gault) 73.5 95.0 Glucose Level 150mg/dL (70-99) 118mg/dL (70-99) Calcium Level 9.6mg/dL (8.5-10.1) 8.3mg/dL (8.5-10.1) Troponin I Quantitative < 0.017ng/mL (0.000-0.055) Urine Collection Type U cath Urine Color Yellow Urine Clarity Clear Urine pH 7.5 Urine Specific [place] 1.015 Urine Protein 30mg/dL (NEG-TRACE) Urine Glucose (UA) Negativemg/dL (NEG) Urine Ketones (Stick) Negativemg/dL (NEG) Urine Blood Negative (NEG) Urine Nitrite Negative (NEG) Urine Bilirubin Negative (NEG) Urine Urobilinogen Dipstick 1.0mg/dL (0.2 mg/dL) Urine Leukocyte Esterase Negative (NEG) Urine RBC Occ/HPF (0-2) Urine WBC 0/HPF (0-4) Urine Squamous Epithelial Cells Few/LPF Urine Bacteria 0/HPF (0-FEW) Urine Mucus Slight/LPF Urine Opiates Screen Neg (NEG) Urine Methadone Screen Neg (NEG) Urine Barbiturates Neg (NEG) Urine Phencyclidine Screen Neg (NEG) Urine Amphetamine/Methamphetamine Neg (NEG) Urine Benzodiazepines Screen Neg (NEG) Urine Cocaine Screen Neg (NEG) Urine Cannabinoids Screen Neg (NEG) Urine Ethyl Alcohol Neg (NEG) Triglycerides Level 102mg/dL (0-150) Cholesterol Level 133mg/dL (0-200) LDL Cholesterol, Calculated 78mg/dL (0-100) VLDL Cholesterol, Calculated 20mg/dL (0-40) HDL Cholesterol 35mg/dL (40-60) Cholesterol/HDL Ratio 3.8 Laboratory Tests Test 03/18/16 12:10 03/18/16 12:40 03/19/16 06:31 White Blood Count 15.9x10^3/uL (4.0-11.0) 11.8x10^3/uL (4.0-11.0) Red Blood Count 5.40x10^6/uL (4.30-5.70) 4.79x10^6/uL (4.30-5.70) Hemoglobin 16.0g/dL (13.0-17.5) 14.1g/dL (13.0-17.5) Hematocrit 48.8% (39.0-53.0) 43.2% (39.0-53.0) Mean Corpuscular Volume 90fL (79-100) 90fL (79-100) Mean Corpuscular Hemoglobin 30pg (25-35) 29pg (25-35) Mean Corpuscular Hemoglobin Concent 33g/dL (31-37) 33g/dL (31-37) Red Cell Distribution Width 14.0% (11.5-14.5) 14.1% (11.5-14.5) Platelet Count 232x10^3/uL (140-400) 198x10^3/uL (140-400) Neutrophils (%) (Auto) 82% (31-73) 74% (31-73) Lymphocytes (%) (Auto) 12% (24-48) 19% (24-48) Monocytes (%) (Auto) 6% (0-9) 8% (0-9) Eosinophils (%) (Auto) 0% (0-3) 0% (0-3) Basophils (%) (Auto) 0% (0-3) 0% (0-3) Neutrophils # (Auto) 13.0x10^3uL (1.8-7.7) 8.7x10^3uL (1.8-7.7) Lymphocytes # (Auto) 1.9x10^3/uL (1.0-4.8) 2.2x10^3/uL (1.0-4.8) Monocytes # (Auto) 0.9x10^3/uL (0.0-1.1) 0.9x10^3/uL (0.0-1.1) Eosinophils # (Auto) 0.0x10^3/uL (0.0-0.7) 0.0x10^3/uL (0.0-0.7) Basophils # (Auto) 0.0x10^3/uL (0.0-0.2) 0.0x10^3/uL (0.0-0.2) Segmented Neutrophils % 86% (35-66) Band Neutrophils % 2% (0-9) Lymphocytes % 6% (24-48) Monocytes % 5% (0-10) Basophils % 1% (0-3) Platelet Estimate Adequate (ADEQUATE) Sodium Level 140mmol/L (136-145) 141mmol/L (136-145) Potassium Level 3.9mmol/L (3.5-5.1) 3.7mmol/L (3.5-5.1) Chloride Level 104mmol/L (98-107) 107mmol/L (98-107) Carbon Dioxide Level 26mmol/L (21-32) 22mmol/L (21-32) Anion Gap 10 (6-14) 12 (6-14) Blood Urea Nitrogen 19mg/dL (8-26) 15mg/dL (8-26) Creatinine 1.0mg/dL (0.7-1.3) 0.8mg/dL (0.7-1.3) Estimated GFR (Cockcroft-Gault) 73.5 95.0 Glucose Level 150mg/dL (70-99) 118mg/dL (70-99) Calcium Level 9.6mg/dL (8.5-10.1) 8.3mg/dL (8.5-10.1) Troponin I Quantitative < 0.017ng/mL (0.000-0.055) Urine Collection Type U cath Urine Color Yellow Urine Clarity Clear Urine pH 7.5 Urine Specific [place] 1.015 Urine Protein 30mg/dL (NEG-TRACE) Urine Glucose (UA) Negativemg/dL (NEG) Urine Ketones (Stick) Negativemg/dL (NEG) Urine Blood Negative (NEG) Urine Nitrite Negative (NEG) Urine Bilirubin Negative (NEG) Urine Urobilinogen Dipstick 1.0mg/dL (0.2 mg/dL) Urine Leukocyte Esterase Negative (NEG) Urine RBC Occ/HPF (0-2) Urine WBC 0/HPF (0-4) Urine Squamous Epithelial Cells Few/LPF Urine Bacteria 0/HPF (0-FEW) Urine Mucus Slight/LPF Urine Opiates Screen Neg (NEG) Urine Methadone Screen Neg (NEG) Urine Barbiturates Neg (NEG) Urine Phencyclidine Screen Neg (NEG) Urine Amphetamine/Methamphetamine Neg (NEG) Urine Benzodiazepines Screen Neg (NEG) Urine Cocaine Screen Neg (NEG) Urine Cannabinoids Screen Neg (NEG) Urine Ethyl Alcohol Neg (NEG) Triglycerides Level 102mg/dL (0-150) Cholesterol Level 133mg/dL (0-200) LDL Cholesterol, Calculated 78mg/dL (0-100) VLDL Cholesterol, Calculated 20mg/dL (0-40) HDL Cholesterol 35mg/dL (40-60) Cholesterol/HDL Ratio 3.[address] of the head showing evidence of stroke and right orbital fracture Maxillary CT pending Assessment/Plan Assessment/Plan Patient stable. Neurology addressing stroke May need OMF surgery for orbital fracture once edema has resolved. No general surgical concerns ANA GARCIA MD Mar 19, 2016 10:05
--- NOTE | 2016-03-19 11:52 | RAD ---
ANGIOGRAPHY NECK WO CONTRAST History:CVA Technique: Noncontrast MR angiography was performed of the neck, multiplanar reconstruction images submitted. Contrast: None as per request Comparison: There is no previous similar exam available, correlation made with MRI brain performed yesterday Findings:Any determination of stenosis is based on NASCET criteria. There is motion degradation. Exam is also limited without any contrast. Left vertebral artery is mostly not seen, minimal flow proximally. There is antegrade flow of segments of the bilateral common and internal carotid arteries as well as right vertebral artery. No significant focal stenosis is identified of the cervical internal carotid arteries allowing for motion artifact. Common carotid arteries are overall patent without significant focal stenosis. Origins are not adequately evaluated on this exam, artifact in this area and not fully included. Impression: 1.Exam is degraded by motion, also on contrast. Cervical left vertebral artery is mostly not seen other than minimal flow proximally, otherwise appears occluded. Critical results called to the patient's nurse Daniella 03/19/2016 11:47 AM.
--- NOTE | 2016-03-19 11:53 | RAD ---
ANGIOGRAPHY BRAIN WO CONTRAST History:CVA Technique: 3-D [id number] MR angiography was performed of the head. Comparison: There is no previous similar exam available, correlation made with MRI brain performed on 03/18/2016 which demonstrated large cerebellar infarcts and abnormal signal left vertebral artery Findings:Determination of stenosis is based on NASCET criteria. There is motion degradation. Both vertebral arteries constitute the basilar artery although small caliber distal left intradural vertebral artery and proximally not well visualized with truncated appearance. There is least moderate narrowing of the right vertebrobasilar junction. 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 PICAs are not seen on this exam. There is visualization bilateral AICAs, larger caliber on the right. There is visualization bilateral superior cerebellar arteries. There is visualization of the petrous, cavernous, common internal carotid arteries bilaterally. There is visualization of the anterior, middle, posterior cerebral arteries bilaterally. However there is more truncated appearance of the left posterior cerebral artery distally at the P3 segment. No significant posterior communicating arteries are visualized. No significant anterior communicating artery is visualized. There is mild more focal narrowing of the left P1-P2 junction. There is other scattered wall irregularity of the intracranial vasculature probably due to intracranial atherosclerosis. 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 There is at least moderate narrowing of the right vertebrobasilar junction. There is truncated appearance of the distal left posterior cerebral artery, likely occluded. Critical results called to the patient's nurse Daniella 03/19/2016 11:47 AM.
[2016-03-19] MEDS ORDERED: IV NORMAL SALINE 1000ML BAG 1,000 ML IV SCH (17:01)
[2016-03-19] MEDS ORDERED: ENALAPRILAT 2.5 MG/2 ML VIAL. IV ONE (18:30)
--- NOTE | 2016-03-19 18:36 | PDOC ---
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 Fall precautions History of Present Illness History of Present Illness Seen this am 8 doing better sitting inchair Vitals Vitals Vital Signs Date Time Temp Pulse Resp B/P Pulse Ox O2 Delivery O2 Flow Rate FiO2 03/19/16 17:00 99.1 69 16 157/77 94 Room Air 99.1 Physical Exam General: Alert, Oriented X3, Cooperative, mild distress Heart: Regular rate, Normal S1, Normal S2, No murmurs Lungs: Wheezing Abdomen: Normal bowel sounds, Soft, No tenderness Extremities: No clubbing, No cyanosis, No edema Skin: No significant lesion, Other (failed finger nose test, right eye bruise) Labs LABS Laboratory Tests Test 03/19/16 06:31 03/19/16 17:43 White Blood Count 11.8x10^3/uL (4.0-11.0) Red Blood Count 4.79x10^6/uL (4.30-5.70) Hemoglobin 14.1g/dL (13.0-17.5) Hematocrit 43.2% (39.0-53.0) Mean Corpuscular Volume 90fL (79-100) Mean Corpuscular Hemoglobin 29pg (25-35) Mean Corpuscular Hemoglobin Concent 33g/dL (31-37) Red Cell Distribution Width 14.1% (11.5-14.5) Platelet Count 198x10^3/uL (140-400) Neutrophils (%) (Auto) 74% (31-73) Lymphocytes (%) (Auto) 19% (24-48) Monocytes (%) (Auto) 8% (0-9) Eosinophils (%) (Auto) 0% (0-3) Basophils (%) (Auto) 0% (0-3) Neutrophils # (Auto) 8.7x10^3uL (1.8-7.7) Lymphocytes # (Auto) 2.2x10^3/uL (1.0-4.8) Monocytes # (Auto) 0.9x10^3/uL (0.0-1.1) Eosinophils # (Auto) 0.0x10^3/uL (0.0-0.7) Basophils # (Auto) 0.0x10^3/uL (0.0-0.2) Sodium Level 141mmol/L (136-145) Potassium Level 3.7mmol/L (3.5-5.1) Chloride Level 107mmol/L (98-107) Carbon Dioxide Level 22mmol/L (21-32) Anion Gap 12 (6-14) Blood Urea Nitrogen 15mg/dL (8-26) Creatinine 0.8mg/dL (0.7-1.3) Estimated GFR (Cockcroft-Gault) 95.0 Glucose Level 118mg/dL (70-99) Calcium Level 8.3mg/dL (8.5-10.1) Triglycerides Level 102mg/dL (0-150) Cholesterol Level 133mg/dL (0-200) LDL Cholesterol, Calculated 78mg/dL (0-100) VLDL Cholesterol, Calculated 20mg/dL (0-40) HDL Cholesterol 35mg/dL (40-60) Cholesterol/HDL Ratio 3.8 Glucose (Fingerstick) 108mg/dL (70-99) Assessment and Plan Assessmemt and Plan Problems Medical Problems: (1) Cerebellar edema Status: Acute (2) Fall Status: Acute (3) Head injury Status: Acute Problems: Comment Review of Relevant I have reviewed the following items sandro (where applicable) has been applied. Labs Laboratory Tests Test 03/18/16 12:10 03/18/16 12:40 03/18/16 18:20 03/19/16 06:31 White Blood Count 15.9x10^3/uL (4.0-11.0) 11.8x10^3/uL (4.0-11.0) Red Blood Count 5.40x10^6/uL (4.30-5.70) 4.79x10^6/uL (4.30-5.70) Hemoglobin 16.0g/dL (13.0-17.5) 14.1g/dL (13.0-17.5) Hematocrit 48.8% (39.0-53.0) 43.2% (39.0-53.0) Mean Corpuscular Volume 90fL (79-100) 90fL (79-100) Mean Corpuscular Hemoglobin 30pg (25-35) 29pg (25-35) Mean Corpuscular Hemoglobin Concent 33g/dL (31-37) 33g/dL (31-37) Red Cell Distribution Width 14.0% (11.5-14.5) 14.1% (11.5-14.5) Platelet Count 232x10^3/uL (140-400) 198x10^3/uL (140-400) Neutrophils (%) (Auto) 82% (31-73) 74% (31-73) Lymphocytes (%) (Auto) 12% (24-48) 19% (24-48) Monocytes (%) (Auto) 6% (0-9) 8% (0-9) Eosinophils (%) (Auto) 0% (0-3) 0% (0-3) Basophils (%) (Auto) 0% (0-3) 0% (0-3) Neutrophils # (Auto) 13.0x10^3uL (1.8-7.7) 8.7x10^3uL (1.8-7.7) Lymphocytes # (Auto) 1.9x10^3/uL (1.0-4.8) 2.2x10^3/uL (1.0-4.8) Monocytes # (Auto) 0.9x10^3/uL (0.0-1.1) 0.9x10^3/uL (0.0-1.1) Eosinophils # (Auto) 0.0x10^3/uL (0.0-0.7) 0.0x10^3/uL (0.0-0.7) Basophils # (Auto) 0.0x10^3/uL (0.0-0.2) 0.0x10^3/uL (0.0-0.2) Segmented Neutrophils % 86% (35-66) Band Neutrophils % 2% (0-9) Lymphocytes % 6% (24-48) Monocytes % 5% (0-10) Basophils % 1% (0-3) Platelet Estimate Adequate (ADEQUATE) Sodium Level 140mmol/L (136-145) 141mmol/L (136-145) Potassium Level 3.9mmol/L (3.5-5.1) 3.7mmol/L (3.5-5.1) Chloride Level 104mmol/L (98-107) 107mmol/L (98-107) Carbon Dioxide Level 26mmol/L (21-32) 22mmol/L (21-32) Anion Gap 10 (6-14) 12 (6-14) Blood Urea Nitrogen 19mg/dL (8-26) 15mg/dL (8-26) Creatinine 1.0mg/dL (0.7-1.3) 0.8mg/dL (0.7-1.3) Estimated GFR (Cockcroft-Gault) 73.5 95.0 Glucose Level 150mg/dL (70-99) 118mg/dL (70-99) Calcium Level 9.6mg/dL (8.5-10.1) 8.3mg/dL (8.5-10.1) Troponin I Quantitative < 0.017ng/mL (0.000-0.055) Urine Collection Type U cath Urine Color Yellow Urine Clarity Clear Urine pH 7.5 Urine Specific [place] 1.015 Urine Protein 30mg/dL (NEG-TRACE) Urine Glucose (UA) Negativemg/dL (NEG) Urine Ketones (Stick) Negativemg/dL (NEG) Urine Blood Negative (NEG) Urine Nitrite Negative (NEG) Urine Bilirubin Negative (NEG) Urine Urobilinogen Dipstick 1.0mg/dL (0.2 mg/dL) Urine Leukocyte Esterase Negative (NEG) Urine RBC Occ/HPF (0-2) Urine WBC 0/HPF (0-4) Urine Squamous Epithelial Cells Few/LPF Urine Bacteria 0/HPF (0-FEW) Urine Mucus Slight/LPF Urine Opiates Screen Neg (NEG) Urine Methadone Screen Neg (NEG) Urine Barbiturates Neg (NEG) Urine Phencyclidine Screen Neg (NEG) Urine Amphetamine/Methamphetamine Neg (NEG) Urine Benzodiazepines Screen Neg (NEG) Urine Cocaine Screen Neg (NEG) Urine Cannabinoids Screen Neg (NEG) Urine Ethyl Alcohol Neg (NEG) Nasal Screen MRSA (PCR) Negative (Negative) Triglycerides Level 102mg/dL (0-150) Cholesterol Level 133mg/dL (0-200) LDL Cholesterol, Calculated 78mg/dL (0-100) VLDL Cholesterol, Calculated 20mg/dL (0-40) HDL Cholesterol 35mg/dL (40-60) Cholesterol/HDL Ratio 3.8 Test 03/19/16 17:43 Glucose (Fingerstick) 108mg/dL (70-99) Laboratory Tests Test 03/19/16 06:31 03/19/16 17:43 White Blood Count 11.8x10^3/uL (4.0-11.0) Red Blood Count 4.79x10^6/uL (4.30-5.70) Hemoglobin 14.1g/dL (13.0-17.5) Hematocrit 43.2% (39.0-53.0) Mean Corpuscular Volume 90fL (79-100) Mean Corpuscular Hemoglobin 29pg (25-35) Mean Corpuscular Hemoglobin Concent 33g/dL (31-37) Red Cell Distribution Width 14.1% (11.5-14.5) Platelet Count 198x10^3/uL (140-400) Neutrophils (%) (Auto) 74% (31-73) Lymphocytes (%) (Auto) 19% (24-48) Monocytes (%) (Auto) 8% (0-9) Eosinophils (%) (Auto) 0% (0-3) Basophils (%) (Auto) 0% (0-3) Neutrophils # (Auto) 8.7x10^3uL (1.8-7.7) Lymphocytes # (Auto) 2.2x10^3/uL (1.0-4.8) Monocytes # (Auto) 0.9x10^3/uL (0.0-1.1) Eosinophils # (Auto) 0.0x10^3/uL (0.0-0.7) Basophils # (Auto) 0.0x10^3/uL (0.0-0.2) Sodium Level 141mmol/L (136-145) Potassium Level 3.7mmol/L (3.5-5.1) Chloride Level 107mmol/L (98-107) Carbon Dioxide Level 22mmol/L (21-32) Anion Gap 12 (6-14) Blood Urea Nitrogen 15mg/dL (8-26) Creatinine 0.8mg/dL (0.7-1.3) Estimated GFR (Cockcroft-Gault) 95.0 Glucose Level 118mg/dL (70-99) Calcium Level 8.3mg/dL (8.5-10.1) Triglycerides Level 102mg/dL (0-150) Cholesterol Level 133mg/dL (0-200) LDL Cholesterol, Calculated 78mg/dL (0-100) VLDL Cholesterol, Calculated 20mg/dL (0-40) HDL Cholesterol 35mg/dL (40-60) Cholesterol/HDL Ratio 3.8 Glucose (Fingerstick) 108mg/dL (70-99) Medications Current Medications Ondansetron HCl 4 mg 4 mg PRN Q8HRS PRN IV NAUSEA/VOMITING; Start 03/18/16 at 13:15; Stop 03/19/16 at 11:12; Status DC Sodium Chloride 1,000 ml @ 125 mls/hr Q8H IV Last administered on 03/19/16 07 :00; Start 03/18/16 at 15:00; Stop 03/19/16 at 14:59; Status DC Sodium Chloride (Iv Sodium Chloride 0.9% 1000ml Bag) 1,000 ml @ 1,000 mls/hr 1X ONCE IV Last administered on 03/18/16 13:19; Start 03/18/16 at 13:30; Stop 03/18/16 at 14:29; Status DC Gadobutrol (Gadavist) 7.5 mmol 1X ONCE IV Last administered on 03/18/16 14:04 ; Start 03/18/16 at 13:45; Stop 03/18/16 at 13:48; Status DC Sodium Chloride 3 ml 3 ml QSHIFT PRN IV AFTER MEDS AND BLOOD DRAWS; Start 03/18 at 14:15 Sodium Chloride (Iv Sodium Chloride 0.9% 1000ml Bag) 1,000 ml @ 100 mls/hr Q10H IV ; Start 03/18/16 at 14:03; Stop 03/19/16 at 17:01; Status DC Labetalol HCl (Normodyne) 10 mg PRN Q10MIN PRN IV HYPERTENSION, SEE COMMENTS; Start 03/18/16 at 14:15 Acetaminophen (Tylenol) 650 mg PRN Q6HRS PRN PO FEVER; Start 03/18/16 at 14:15 Acetaminophen (Tylenol) 650 mg PRN Q6HRS PRN [place] FEVER; Start 03/18/16 at 14:15 Ondansetron HCl (Zofran) 4 mg PRN Q6HRS PRN IV NAUSEA/VOMITING; Start 03/18/16 at 14:15 Enoxaparin Sodium (Lovenox 40mg Syringe) 40 mg Q24H SQ Last administered on t 15:14; Start 03/18/16 at 15:00; Stop 03/18/16 at 15:18; Status DC Amlodipine Besylate (Norvasc) 10 mg DAILY PO ; Start 03/19/16 at 09:00 Cyanocobalamin (Vitamin B-12) 1,000 mcg DAILY PO ; Start 03/19/16 at 09:00 Metformin HCl (Glucophage) 500 mg BIDWMEALS PO ; Start 03/19/16 at 08:00 Fluoxetine HCl (Prozac) 20 mg DAILY PO ; Start 03/19/16 at 09:00 Atorvastatin Calcium 5 mg 5 mg QHS PO ; Start 03/19/16 at 21:00 Sodium Chloride (Iv Sodium Chloride 0.9% 1000ml Bag) 1,000 ml @ 125 mls/hr Q8H IV Last administered on 03/19/16 17:41; Start 03/19/16 at 17:01; Stop at 16:59 Active Scripts Active Reported Vitamin B-12 (Cyanocobalamin (Vitamin B-12)) 1,000 Mcg Tablet 1 Tab PO DAILY Pravastatin Sodium 10 Mg Tablet 1 Tab PO QHS Metformin Hcl 500 Mg Tablet 1 Tab PO BID Fluoxetine Hcl 20 Mg Tablet 1 Tab PO DAILY Amlodipine Besylate 10 Mg Tablet 10 Mg PO DAILY Vitals/I & O Vital Sign - Last 24 Hours 03/18/16 03/18/16 03/18/16 03/18/16 19:00 20:00 21:00 22:00 Temp 97.6 97.6 Pulse 84 87 82 87 Resp B/P 153/71 158/73 147/68 161/77 Pulse Ox 97 97 91 93 O2 Delivery Room Air Room Air Room Air Room Air 03/18/16 03/19/16 03/19/16 03/19/16 23:00 00:00 01:00 02:00 Temp 98.0 98.0 Pulse 62 59 71 67 Resp 19 12 15 14 B/P 157/75 153/60 135/63 171/83 Pulse Ox 95 94 95 95 O2 Delivery Room Air Room Air Room Air Room Air 03/19/16 03/19/16 03/19/16 03/19/16 03:00 04:00 05:00 06:00 Temp 98.2 98.2 Pulse 54 71 62 82 Resp 21 16 19 B/P 106/56 120/59 113/61 147/78 Pulse Ox 96 94 95 95 O2 Delivery Room Air Room Air Room Air Room Air 03/19/16 03/19/16 03/19/16 03/19/16 08:00 09:00 10:00 12:00 Temp 97.8 98.7 97.8 98.7 Pulse 56 54 62 66 Resp 15 16 16 14 B/P 179/101 171/77 153/75 153/79 Pulse Ox 94 94 94 97 O2 Delivery Room Air Room Air Room Air Room Air 03/19/16 03/19/16 03/19/16 03/19/16 13:00 14:00 15:00 16:00 Temp 99.1 99.1 Pulse 58 56 56 65 Resp 14 16 16 B/P 132/68 162/84 133/71 166/82 Pulse Ox 95 95 95 95 O2 Delivery Room Air Room Air Room Air Room Air 03/19/16 17:00 Temp 99.1 99.1 Pulse 69 Resp 16 B/P 157/77 Pulse Ox 94 O2 Delivery Room Air Intake and Output 03/18/16 03/18/16 03/19/16 15:00 23:00 07:00 Intake Total 1000 ml 0 ml 1440.0 ml Output Total 1200 ml 300 ml 475 ml Balance -200 ml -300 ml 965.0 ml DIAMOND RILEY MD Mar 19, 2016 18:36
--- NOTE | 2016-03-19 18:52 | PDOC ---
PROGRESS NOTES Assessment Problems Medical Problems: (1) Cerebellar edema Status: Acute (2) Fall Status: Acute (3) Head injury Status: Acute CVAs: bilateral cerebellum, occipital temporal lobes greater on the right, and also the thalami greater on the left. Mild hemorrhagic transformation. Left vertebral, basilar artery thrombosis Orbital fractures Plan He has severe cerebrovascular disease as described above, causing multiple infarcts in the posterior circulation. Unfortunately there is hemorrhagic transformation making anticoagulation contraindicated. He is not a candidate for interventional radiology at this late time. Thankfully he is neurologically stable. Continue supportive care. Still awaiting swallow evaluation, nursing will do bedside evaluation for now. Holding on antiplatelet agents or anticoagulation because of the hemorrhagic transformation All rehabilitation modalities Apparently does not need transfer regarding the orbital fracture but eventually will need ENT consultation. Subjective He denies pain Objective Vital Signs Date Time Temp Pulse Resp B/P Pulse Ox O2 Delivery O2 Flow Rate FiO2 03/19/16 17:00 99.1 69 16 157/77 94 Room Air 99.1 Intake and Output 03/19/16 07:00 Intake Total 2440.0 ml Output Total 1975 ml Balance 465.0 ml Intake Oral 0 ml IV Total 2440.0 ml Output Urine Total 1975 ml # Voids 1 PHYSICAL EXAM Alert. Oriented to time, place and person. Unable to examine the right eye well, left pupil reacts and eyes move freely CN: no focal findings. Muscle tone: normal. Muscle strength: 5/5 DTR: 1+ Plantar reflex: Flexor Gait: not examined in bed. Sensory exam: no abnormal findings. Bilateral dysmetria, truncakl ataxia Review of Relevant I have reviewed the following items sandro (where applicable) has been applied. Labs Laboratory Tests Test 03/18/16 12:10 03/18/16 12:40 03/18/16 18:20 03/19/16 06:31 White Blood Count 15.9x10^3/uL (4.0-11.0) 11.8x10^3/uL (4.0-11.0) Red Blood Count 5.40x10^6/uL (4.30-5.70) 4.79x10^6/uL (4.30-5.70) Hemoglobin 16.0g/dL (13.0-17.5) 14.1g/dL (13.0-17.5) Hematocrit 48.8% (39.0-53.0) 43.2% (39.0-53.0) Mean Corpuscular Volume 90fL (79-100) 90fL (79-100) Mean Corpuscular Hemoglobin 30pg (25-35) 29pg (25-35) Mean Corpuscular Hemoglobin Concent 33g/dL (31-37) 33g/dL (31-37) Red Cell Distribution Width 14.0% (11.5-14.5) 14.1% (11.5-14.5) Platelet Count 232x10^3/uL (140-400) 198x10^3/uL (140-400) Neutrophils (%) (Auto) 82% (31-73) 74% (31-73) Lymphocytes (%) (Auto) 12% (24-48) 19% (24-48) Monocytes (%) (Auto) 6% (0-9) 8% (0-9) Eosinophils (%) (Auto) 0% (0-3) 0% (0-3) Basophils (%) (Auto) 0% (0-3) 0% (0-3) Neutrophils # (Auto) 13.0x10^3uL (1.8-7.7) 8.7x10^3uL (1.8-7.7) Lymphocytes # (Auto) 1.9x10^3/uL (1.0-4.8) 2.2x10^3/uL (1.0-4.8) Monocytes # (Auto) 0.9x10^3/uL (0.0-1.1) 0.9x10^3/uL (0.0-1.1) Eosinophils # (Auto) 0.0x10^3/uL (0.0-0.7) 0.0x10^3/uL (0.0-0.7) Basophils # (Auto) 0.0x10^3/uL (0.0-0.2) 0.0x10^3/uL (0.0-0.2) Segmented Neutrophils % 86% (35-66) Band Neutrophils % 2% (0-9) Lymphocytes % 6% (24-48) Monocytes % 5% (0-10) Basophils % 1% (0-3) Platelet Estimate Adequate (ADEQUATE) Sodium Level 140mmol/L (136-145) 141mmol/L (136-145) Potassium Level 3.9mmol/L (3.5-5.1) 3.7mmol/L (3.5-5.1) Chloride Level 104mmol/L (98-107) 107mmol/L (98-107) Carbon Dioxide Level 26mmol/L (21-32) 22mmol/L (21-32) Anion Gap 10 (6-14) 12 (6-14) Blood Urea Nitrogen 19mg/dL (8-26) 15mg/dL (8-26) Creatinine 1.0mg/dL (0.7-1.3) 0.8mg/dL (0.7-1.3) Estimated GFR (Cockcroft-Gault) 73.5 95.0 Glucose Level 150mg/dL (70-99) 118mg/dL (70-99) Calcium Level 9.6mg/dL (8.5-10.1) 8.3mg/dL (8.5-10.1) Troponin I Quantitative < 0.017ng/mL (0.000-0.055) Urine Collection Type U cath Urine Color Yellow Urine Clarity Clear Urine pH 7.5 Urine Specific [place] 1.015 Urine Protein 30mg/dL (NEG-TRACE) Urine Glucose (UA) Negativemg/dL (NEG) Urine Ketones (Stick) Negativemg/dL (NEG) Urine Blood Negative (NEG) Urine Nitrite Negative (NEG) Urine Bilirubin Negative (NEG) Urine Urobilinogen Dipstick 1.0mg/dL (0.2 mg/dL) Urine Leukocyte Esterase Negative (NEG) Urine RBC Occ/HPF (0-2) Urine WBC 0/HPF (0-4) Urine Squamous Epithelial Cells Few/LPF Urine Bacteria 0/HPF (0-FEW) Urine Mucus Slight/LPF Urine Opiates Screen Neg (NEG) Urine Methadone Screen Neg (NEG) Urine Barbiturates Neg (NEG) Urine Phencyclidine Screen Neg (NEG) Urine Amphetamine/Methamphetamine Neg (NEG) Urine Benzodiazepines Screen Neg (NEG) Urine Cocaine Screen Neg (NEG) Urine Cannabinoids Screen Neg (NEG) Urine Ethyl Alcohol Neg (NEG) Nasal Screen MRSA (PCR) Negative (Negative) Triglycerides Level 102mg/dL (0-150) Cholesterol Level 133mg/dL (0-200) LDL Cholesterol, Calculated 78mg/dL (0-100) VLDL Cholesterol, Calculated 20mg/dL (0-40) HDL Cholesterol 35mg/dL (40-60) Cholesterol/HDL Ratio 3.8 Test 03/19/16 17:43 Glucose (Fingerstick) 108mg/dL (70-99) Laboratory Tests Test 03/19/16 06:31 03/19/16 17:43 White Blood Count 11.8x10^3/uL (4.0-11.0) Red Blood Count 4.79x10^6/uL (4.30-5.70) Hemoglobin 14.1g/dL (13.0-17.5) Hematocrit 43.2% (39.0-53.0) Mean Corpuscular Volume 90fL (79-100) Mean Corpuscular Hemoglobin 29pg (25-35) Mean Corpuscular Hemoglobin Concent 33g/dL (31-37) Red Cell Distribution Width 14.1% (11.5-14.5) Platelet Count 198x10^3/uL (140-400) Neutrophils (%) (Auto) 74% (31-73) Lymphocytes (%) (Auto) 19% (24-48) Monocytes (%) (Auto) 8% (0-9) Eosinophils (%) (Auto) 0% (0-3) Basophils (%) (Auto) 0% (0-3) Neutrophils # (Auto) 8.7x10^3uL (1.8-7.7) Lymphocytes # (Auto) 2.2x10^3/uL (1.0-4.8) Monocytes # (Auto) 0.9x10^3/uL (0.0-1.1) Eosinophils # (Auto) 0.0x10^3/uL (0.0-0.7) Basophils # (Auto) 0.0x10^3/uL (0.0-0.2) Sodium Level 141mmol/L (136-145) Potassium Level 3.7mmol/L (3.5-5.1) Chloride Level 107mmol/L (98-107) Carbon Dioxide Level 22mmol/L (21-32) Anion Gap 12 (6-14) Blood Urea Nitrogen 15mg/dL (8-26) Creatinine 0.8mg/dL (0.7-1.3) Estimated GFR (Cockcroft-Gault) 95.0 Glucose Level 118mg/dL (70-99) Calcium Level 8.3mg/dL (8.5-10.1) Triglycerides Level 102mg/dL (0-150) Cholesterol Level 133mg/dL (0-200) LDL Cholesterol, Calculated 78mg/dL (0-100) VLDL Cholesterol, Calculated 20mg/dL (0-40) HDL Cholesterol 35mg/dL (40-60) Cholesterol/HDL Ratio 3.8 Glucose (Fingerstick) 108mg/dL (70-99) Medications Current Medications Ondansetron HCl 4 mg 4 mg PRN Q8HRS PRN IV NAUSEA/VOMITING; Start 03/18/16 at 13:15; Stop 03/19/16 at 11:12; Status DC Sodium Chloride 1,000 ml @ 125 mls/hr Q8H IV Last administered on 03/19/16 07 :00; Start 03/18/16 at 15:00; Stop 03/19/16 at 14:59; Status DC Sodium Chloride (Iv Sodium Chloride 0.9% 1000ml Bag) 1,000 ml @ 1,000 mls/hr 1X ONCE IV Last administered on 03/18/16 13:19; Start 03/18/16 at 13:30; Stop 03/18/16 at 14:29; Status DC Gadobutrol (Gadavist) 7.5 mmol 1X ONCE IV Last administered on 03/18/16 14:04 ; Start 03/18/16 at 13:45; Stop 03/18/16 at 13:48; Status DC Sodium Chloride 3 ml 3 ml QSHIFT PRN IV AFTER MEDS AND BLOOD DRAWS; Start 03/18 at 14:15 Sodium Chloride (Iv Sodium Chloride 0.9% 1000ml Bag) 1,000 ml @ 100 mls/hr Q10H IV ; Start 03/18/16 at 14:03; Stop 03/19/16 at 17:01; Status DC Labetalol HCl (Normodyne) 10 mg PRN Q10MIN PRN IV HYPERTENSION, SEE COMMENTS; Start 03/18/16 at 14:15 Acetaminophen (Tylenol) 650 mg PRN Q6HRS PRN PO FEVER; Start 03/18/16 at 14:15 Acetaminophen (Tylenol) 650 mg PRN Q6HRS PRN [place] FEVER; Start 03/18/16 at 14:15 Ondansetron HCl (Zofran) 4 mg PRN Q6HRS PRN IV NAUSEA/VOMITING; Start 03/18/16 at 14:15 Enoxaparin Sodium (Lovenox 40mg Syringe) 40 mg Q24H SQ Last administered on t 15:14; Start 03/18/16 at 15:00; Stop 03/18/16 at 15:18; Status DC Amlodipine Besylate (Norvasc) 10 mg DAILY PO ; Start 03/19/16 at 09:00 Cyanocobalamin (Vitamin B-12) 1,000 mcg DAILY PO ; Start 03/19/16 at 09:00 Metformin HCl (Glucophage) 500 mg BIDWMEALS PO ; Start 03/19/16 at 08:00 Fluoxetine HCl (Prozac) 20 mg DAILY PO ; Start 03/19/16 at 09:00 Atorvastatin Calcium 5 mg 5 mg QHS PO ; Start 03/19/16 at 21:00 Sodium Chloride (Iv Sodium Chloride 0.9% 1000ml Bag) 1,000 ml @ 125 mls/hr Q8H IV Last administered on 03/19/16t 17:41; Start 03/19/16 at 17:01; Stop at 18:37; Status DC Enalaprilat 2.5 mg 2.5 mg 1X ONCE IV ; Start 03/19/16 at 18:30; Stop 03/19/16 at 18:31; Status UNV Amino Acids/ Glycerin/ Electrolytes (Procalamine) 1,000 ml @ 80 mls/hr [id number] IV ; Start 03/19/16 at 18:30; Status UNV Active Scripts Active Reported Vitamin B-12 (Cyanocobalamin (Vitamin B-12)) 1,000 Mcg Tablet 1 Tab PO DAILY Pravastatin Sodium 10 Mg Tablet 1 Tab PO QHS Metformin Hcl 500 Mg Tablet 1 Tab PO BID Fluoxetine Hcl 20 Mg Tablet 1 Tab PO DAILY Amlodipine Besylate 10 Mg Tablet 10 Mg PO DAILY Vitals/I & O Vital Sign - Last 24 Hours 03/18/16 03/18/16 03/18/16 03/18/16 19:00 20:00 21:00 22:00 Temp 97.6 97.6 Pulse 84 87 82 87 Resp 17 B/P 153/71 158/73 147/68 161/77 Pulse Ox 97 97 91 93 O2 Delivery Room Air Room Air Room Air Room Air 03/18/16 03/19/16 03/19/16 03/19/16 23:00 00:00 01:00 02:00 Temp 98.0 98.0 Pulse 62 59 71 67 Resp 19 15 14 B/P 157/75 153/60 135/63 171/83 Pulse Ox 95 94 95 95 O2 Delivery Room Air Room Air Room Air Room Air 03/19/16 03/19/16 03/19/16 03/19/16 03:00 04:00 05:00 06:00 Temp 98.2 98.2 Pulse 54 71 62 82 Resp 19 B/P 106/56 120/59 113/61 147/78 Pulse Ox 96 94 95 95 O2 Delivery Room Air Room Air Room Air Room Air 03/19/16 03/19/16 03/19/16 03/19/16 08:00 09:00 10:00 12:00 Temp 97.8 98.7 97.8 98.7 Pulse 56 54 62 66 Resp 16 14 B/P 179/101 171/77 153/75 153/79 Pulse Ox 94 94 94 97 O2 Delivery Room Air Room Air Room Air Room Air 03/19/16 03/19/16 03/19/16 03/19/16 13:00 14:00 15:00 16:00 Temp 99.1 99.1 Pulse 58 56 56 65 Resp 16 16 B/P 132/68 162/84 133/71 166/82 Pulse Ox 95 95 95 95 O2 Delivery Room Air Room Air Room Air Room Air 03/19/16 17:00 Temp 99.1 99.1 Pulse 69 Resp 16 B/P 157/77 Pulse Ox 94 O2 Delivery Room Air Intake and Output 03/18/16 03/18/16 03/19/16 15:00 23:00 07:00 Intake Total 1000 ml 0 ml 1440.0 ml Output Total 1200 ml 300 ml 475 ml Balance -200 ml -300 ml 965.0 ml Images MRA: There is severe narrowing of the proximal basilar artery with abnormal signal likely due to internal thromboembolism. 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 There is at least moderate narrowing of the right vertebrobasilar junction. There is truncated appearance of the distal left posterior cerebral artery, likely occluded. Echocardiogram: Pending ABHISHEK DIAZ MD Mar 19, 2016 18:52
[2016-03-19] MEDS: ATORVASTATIN CALCIUM 10 MG TABLET. PO SCH (20:35)
[2016-03-19] MEDS: AA 3%/ELECTROLYTE-TPN SOLN/GLY 1,000 ML IV SCH (20:36)
[2016-03-20] VITALS (20 sets, daily range): BP systolic 115–167; BP diastolic 46–90
--- NOTE | 2016-03-20 04:04 | HP ---
ADMIT DATE: 03/18/2016 CHIEF COMPLAINT: CVA. HISTORY OF PRESENT ILLNESS: A 70-year-old male patient with history of hypertension brought to the hospital after sustaining a mechanical fall last night. The patient was living at an assisted living facility. At the time of arrival, the patient was noted to have some right-sided bruise, which is obvious due to his fall, but at the time of examination, his mentation is clear. Denies any symptoms to suggest slurring of speech or weakness. PAST MEDICAL HISTORY: Hypertension. PAST SURGICAL HISTORY: None. FAMILY HISTORY: CVA. PERSONAL HISTORY: Former smoker, no alcohol, no drug abuse. REVIEW OF SYSTEMS: CONSTITUTIONAL: No fever or chills. EYES: No recent vision changes. SKIN: No rash or itching. CARDIOVASCULAR: No chest pain, syncope, palpitations or edema. RESPIRATORY: No shortness of breath, cough. GASTROINTESTINAL: No nausea, vomiting, diarrhea or abdominal pain. NEUROLOGICAL: No headache, paralysis. ENDOCRINOLOGIC: No cold or heat intolerance. GENITOURINARY: No burning with urination, no urgency. MUSCULOSKELETAL: Falls. LYMPHATICS: No enlarged nodes. PSYCHIATRIC: No anxiety or depression. PHYSICAL EXAMINATION: GENERAL: The patient is not in acute distress, able to answer questions. VITAL SIGNS: At the time of exam, temperature 97.8, pulse is 72, respirations 16, blood pressure 156/83, pulse ox 95% on room air. HEENT: Head normocephalic and right-sided large ecchymosis around the right orbit seen. NECK: Supple, no JVD. LUNGS: Clear to auscultation. HEART: Regular rate and rhythm; S1, S2 present; pulses intact. ABDOMEN: Soft and positive bowel sounds. EXTREMITIES: No cyanosis or edema. NEUROLOGIC: Alert and oriented x 3, able to answer all questions, following commands. Strength is intact in all of her upper and lower extremities. PSYCHIATRIC: Normal affect, normal mood. SKIN: No ulceration. LABORATORY FINDINGS: Hemoglobin is 16, hematocrit 48, MCV is 90, MCHC is 33, platelets 232. Chemistry: Sodium 140, potassium 3.9, chloride 104, carbon dioxide 26, anion gap is 10, BUN is 19, creatinine 1, GFR 75. Troponin is less than 0.017. Toxicology negative. Urine negative. IMAGING STUDIES: 1. Head and cervical spine CT, extensive edema of the cerebellum on both sides and medial aspect of the both occipital lobes consistent with acute and subacute infarct. 2. Chest x-ray, no acute radiographic findings. 3. MRI of brain ordered pending. ASSESSMENT: 1. 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 2. Possible petechial hemorrhages. 3. Right orbital fracture. 4. Hypertension. 5. Type 2 diabetes mellitus. 6. Hyperlipidemia. PLAN: 1. MRI of brain is pending. 2. Neurology has been consulted. Case discussed with Dr. Mahoney. 3. Ophthalmology has been consulted. 4. The patient has been admitted to critical care unit to monitor vitals, neuro checks closely. 5. Blood pressure goal less than 150 systolic blood pressure. 6. Home medication is to be verified and continued. 7. Workup such as echocardiogram and carotid Dopplers. 8. Prognosis guarded. 9. Physical therapy and occupational therapy. DIAMOND RILEY MD DR: LEANDRA/antonio JOB#: [id number] / [id number] JENNIFER
[2016-03-20] MEDS: METFORMIN 500 MG TABLET. PO SCH ×2 (08:00→15:52)
[2016-03-20] MEDS: FLUOXETINE HCL 20 MG CAPSULE PO SCH (09:00)
[2016-03-20] MEDS: CYANOCOBALAMIN (VITAMIN B-12) 1,000 MCG TABLET. PO SCH (09:00)
--- NOTE | 2016-03-20 09:01 | PDOC ---
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 Fall precautions SNU placement History of Present Illness History of Present Illness Seen this am 10 doing better sitting inchair Vitals Vitals Vital Signs Date Time Temp Pulse Resp B/P Pulse Ox O2 Delivery O2 Flow Rate FiO2 03/20/16 06:00 52 15 142/84 96 Room Air 03/20/16 04:00 98.9 98.9 Physical Exam General: Alert, Oriented X3, Cooperative, mild distress Heart: Regular rate, Normal S1, Normal S2, No murmurs Lungs: Wheezing Abdomen: Normal bowel sounds, Soft, No tenderness Extremities: No clubbing, No cyanosis, No edema Skin: No significant lesion, Other (failed finger nose test, right eye bruise) Labs LABS Laboratory Tests Test 03/19/16 17:43 Glucose (Fingerstick) 108mg/dL (70-99) Assessment and Plan Assessmemt and Plan Problems Medical Problems: (1) Cerebellar edema Status: Acute (2) Fall Status: Acute (3) Head injury Status: Acute Problems: Comment Review of Relevant I have reviewed the following items sandro (where applicable) has been applied. Labs Laboratory Tests Test 03/18/16 12:10 03/18/16 12:40 03/18/16 18:20 03/19/16 06:31 White Blood Count 15.9x10^3/uL (4.0-11.0) 11.8x10^3/uL (4.0-11.0) Red Blood Count 5.40x10^6/uL (4.30-5.70) 4.79x10^6/uL (4.30-5.70) Hemoglobin 16.0g/dL (13.0-17.5) 14.1g/dL (13.0-17.5) Hematocrit 48.8% (39.0-53.0) 43.2% (39.0-53.0) Mean Corpuscular Volume 90fL (79-100) 90fL (79-100) Mean Corpuscular Hemoglobin 30pg (25-35) 29pg (25-35) Mean Corpuscular Hemoglobin Concent 33g/dL (31-37) 33g/dL (31-37) Red Cell Distribution Width 14.0% (11.5-14.5) 14.1% (11.5-14.5) Platelet Count 232x10^3/uL (140-400) 198x10^3/uL (140-400) Neutrophils (%) (Auto) 82% (31-73) 74% (31-73) Lymphocytes (%) (Auto) 12% (24-48) 19% (24-48) Monocytes (%) (Auto) 6% (0-9) 8% (0-9) Eosinophils (%) (Auto) 0% (0-3) 0% (0-3) Basophils (%) (Auto) 0% (0-3) 0% (0-3) Neutrophils # (Auto) 13.0x10^3uL (1.8-7.7) 8.7x10^3uL (1.8-7.7) Lymphocytes # (Auto) 1.9x10^3/uL (1.0-4.8) 2.2x10^3/uL (1.0-4.8) Monocytes # (Auto) 0.9x10^3/uL (0.0-1.1) 0.9x10^3/uL (0.0-1.1) Eosinophils # (Auto) 0.0x10^3/uL (0.0-0.7) 0.0x10^3/uL (0.0-0.7) Basophils # (Auto) 0.0x10^3/uL (0.0-0.2) 0.0x10^3/uL (0.0-0.2) Segmented Neutrophils % 86% (35-66) Band Neutrophils % 2% (0-9) Lymphocytes % 6% (24-48) Monocytes % 5% (0-10) Basophils % 1% (0-3) Platelet Estimate Adequate (ADEQUATE) Sodium Level 140mmol/L (136-145) 141mmol/L (136-145) Potassium Level 3.9mmol/L (3.5-5.1) 3.7mmol/L (3.5-5.1) Chloride Level 104mmol/L (98-107) 107mmol/L (98-107) Carbon Dioxide Level 26mmol/L (21-32) 22mmol/L (21-32) Anion Gap 10 (6-14) 12 (6-14) Blood Urea Nitrogen 19mg/dL (8-26) 15mg/dL (8-26) Creatinine 1.0mg/dL (0.7-1.3) 0.8mg/dL (0.7-1.3) Estimated GFR (Cockcroft-Gault) 73.5 95.0 Glucose Level 150mg/dL (70-99) 118mg/dL (70-99) Calcium Level 9.6mg/dL (8.5-10.1) 8.3mg/dL (8.5-10.1) Troponin I Quantitative < 0.017ng/mL (0.000-0.055) Urine Collection Type U cath Urine Color Yellow Urine Clarity Clear Urine pH 7.5 Urine Specific [place] 1.015 Urine Protein 30mg/dL (NEG-TRACE) Urine Glucose (UA) Negativemg/dL (NEG) Urine Ketones (Stick) Negativemg/dL (NEG) Urine Blood Negative (NEG) Urine Nitrite Negative (NEG) Urine Bilirubin Negative (NEG) Urine Urobilinogen Dipstick 1.0mg/dL (0.2 mg/dL) Urine Leukocyte Esterase Negative (NEG) Urine RBC Occ/HPF (0-2) Urine WBC 0/HPF (0-4) Urine Squamous Epithelial Cells Few/LPF Urine Bacteria 0/HPF (0-FEW) Urine Mucus Slight/LPF Urine Opiates Screen Neg (NEG) Urine Methadone Screen Neg (NEG) Urine Barbiturates Neg (NEG) Urine Phencyclidine Screen Neg (NEG) Urine Amphetamine/Methamphetamine Neg (NEG) Urine Benzodiazepines Screen Neg (NEG) Urine Cocaine Screen Neg (NEG) Urine Cannabinoids Screen Neg (NEG) Urine Ethyl Alcohol Neg (NEG) Nasal Screen MRSA (PCR) Negative (Negative) Triglycerides Level 102mg/dL (0-150) Cholesterol Level 133mg/dL (0-200) LDL Cholesterol, Calculated 78mg/dL (0-100) VLDL Cholesterol, Calculated 20mg/dL (0-40) HDL Cholesterol 35mg/dL (40-60) Cholesterol/HDL Ratio 3.8 Test 03/19/16 17:43 Glucose (Fingerstick) 108mg/dL (70-99) Laboratory Tests Test 03/19/16 17:43 Glucose (Fingerstick) 108mg/dL (70-99) Medications Current Medications Ondansetron HCl 4 mg 4 mg PRN Q8HRS PRN IV NAUSEA/VOMITING; Start 03/18/16 at 13:15; Stop 03/19/16 at 11:12; Status DC Sodium Chloride 1,000 ml @ 125 mls/hr Q8H IV Last administered on 03/19/16 07 :00; Start 03/18/16 at 15:00; Stop 03/19/16 at 14:59; Status DC Sodium Chloride (Iv Sodium Chloride 0.9% 1000ml Bag) 1,000 ml @ 1,000 mls/hr 1X ONCE IV Last administered on 03/18/16 13:19; Start 03/18/16 at 13:30; Stop 03/18/16 at 14:29; Status DC Gadobutrol (Gadavist) 7.5 mmol 1X ONCE IV Last administered on 03/18/16 14:04 ; Start 03/18/16 at 13:45; Stop 03/18/16 at 13:48; Status DC Sodium Chloride 3 ml 3 ml QSHIFT PRN IV AFTER MEDS AND BLOOD DRAWS; Start 03/18 at 14:15 Sodium Chloride (Iv Sodium Chloride 0.9% 1000ml Bag) 1,000 ml @ 100 mls/hr Q10H IV ; Start 03/18/16 at 14:03; Stop 03/19/16 at 17:01; Status DC Labetalol HCl (Normodyne) 10 mg PRN Q10MIN PRN IV HYPERTENSION, SEE COMMENTS; Start 03/18/16 at 14:15 Acetaminophen (Tylenol) 650 mg PRN Q6HRS PRN PO FEVER; Start 03/18/16 at 14:15 Acetaminophen (Tylenol) 650 mg PRN Q6HRS PRN [place] FEVER; Start 03/18/16 at 14:15 Ondansetron HCl (Zofran) 4 mg PRN Q6HRS PRN IV NAUSEA/VOMITING; Start 03/18/16 at 14:15 Enoxaparin Sodium (Lovenox 40mg Syringe) 40 mg Q24H SQ Last administered on 15:14; Start 03/18/16 at 15:00; Stop 03/18/16 at 15:18; Status DC Amlodipine Besylate (Norvasc) 10 mg DAILY PO ; Start 03/19/16 at 09:00 Cyanocobalamin (Vitamin B-12) 1,000 mcg DAILY PO ; Start 03/19/16 at 09:00 Metformin HCl (Glucophage) 500 mg BIDWMEALS PO ; Start 03/19/16 at 08:00 Fluoxetine HCl (Prozac) 20 mg DAILY PO ; Start 03/19/16 at 09:00 Atorvastatin Calcium 5 mg 5 mg QHS PO Last administered on 03/19/16 20:35; Start 03/19/16 at 21:00 Sodium Chloride (Iv Sodium Chloride 0.9% 1000ml Bag) 1,000 ml @ 125 mls/hr Q8H IV Last administered on 03/19/16 17:41; Start 03/19/16 at 17:01; Stop at 18:37; Status DC Enalaprilat 2.5 mg 2.5 mg 1X ONCE IV ; Start 03/19/16 at 18:30; Stop 03/19/16 at 18:47; Status DC Amino Acids/ Glycerin/ Electrolytes (Procalamine) 1,000 ml @ 80 mls/hr [id number] IV Last administered on 03/19/16 20:36; Start 03/19/16 at 18:30 Active Scripts Active Reported Vitamin B-12 (Cyanocobalamin (Vitamin B-12)) 1,000 Mcg Tablet 1 Tab PO DAILY Pravastatin Sodium 10 Mg Tablet 1 Tab PO QHS Metformin Hcl 500 Mg Tablet 1 Tab PO BID Fluoxetine Hcl 20 Mg Tablet 1 Tab PO DAILY Amlodipine Besylate 10 Mg Tablet 10 Mg PO DAILY Vitals/I & O Vital Sign - Last 24 Hours 03/19/16 03/19/16 03/19/16 03/19/16 10:00 12:00 13:00 14:00 Temp 98.7 98.7 Pulse 62 66 58 56 Resp 16 14 14 16 B/P 153/75 153/79 132/68 162/84 Pulse Ox 94 97 95 95 O2 Delivery Room Air Room Air Room Air Room Air 03/19/16 03/19/16 03/19/16 03/19/16 15:00 16:00 17:00 18:00 Temp 99.1 99.1 Pulse 56 65 69 56 Resp 14 B/P 133/71 166/82 157/77 162/80 Pulse Ox 95 95 94 95 O2 Delivery Room Air Room Air Room Air Room Air 03/19/16 03/19/16 03/19/16 03/19/16 19:00 20:00 21:00 22:00 Temp 98.4 98.4 Pulse 56 68 98 54 Resp 14 B/P 143/77 147/64 151/117 160/63 Pulse Ox 95 94 95 98 O2 Delivery Room Air Room Air Room Air Room Air 03/19/16 03/20/16 03/20/16 03/20/16 23:00 00:00 01:00 02:00 Temp 98.8 98.8 Pulse 58 70 70 58 Resp 14 B/P 148/63 167/80 165/89 147/81 Pulse Ox 94 95 95 94 O2 Delivery Room Air Room Air Room Air Room Air 03/20/16 03/20/16 03/20/16 03/20/16 03:00 04:00 05:00 06:00 Temp 98.9 98.9 Pulse 54 52 52 52 Resp 11 20 16 15 B/P 137/56 117/58 147/46 142/84 Pulse Ox 95 94 93 96 O2 Delivery Room Air Room Air Room Air Room Air Intake and Output 03/19/16 03/19/16 03/20/16 15:00 23:00 07:00 Intake Total 1281 ml 313 ml Output Total 400 ml 725 ml 850 ml Balance -400 ml 556 ml -537 ml DIAMOND RILEY MD Mar 20, 2016 09:01
[2016-03-20] MEDS: AA 3%/ELECTROLYTE-TPN SOLN/GLY 1,000 ML IV SCH ×2 (10:45→21:17)
--- NOTE | 2016-03-20 14:10 | PDOC ---
PROGRESS NOTES Assessment Problems Medical Problems: (1) Cerebellar edema Status: Acute (2) Fall Status: Acute (3) Head injury Status: Acute CVAs: bilateral cerebellum, occipital temporal lobes greater on the right, and also the thalami greater on the left. Mild hemorrhagic transformation. Left vertebral, basilar artery thrombosis Orbital fractures Plan He has severe cerebrovascular disease as described above, causing multiple infarcts in the posterior circulation. Unfortunately there is hemorrhagic transformation making anticoagulation contraindicated. He is not a candidate for interventional radiology at this late time. Thankfully he is neurologically stable. Continue supportive care. Note swallow evaluation, NPO. Holding on antiplatelet agents or anticoagulation because of the hemorrhagic transformation All rehabilitation modalities Apparently does not need transfer regarding the orbital fracture but eventually will need ENT consultation. Follow-up head CT tomorrow Transfer out of ICU tomorrow if head CT stable Subjective No complaints Objective Vital Signs Date Time Temp Pulse Resp B/P Pulse Ox O2 Delivery O2 Flow Rate FiO2 03/20/16 06:00 52 15 142/84 96 Room Air 03/20/16 04:00 98.9 98.9 Intake and Output 03/20/16 07:00 Intake Total 1594 ml Output Total 1975 ml Balance -381 ml IV Total 1594 ml Output Urine Total 1975 ml # Voids 1 PHYSICAL EXAM Alert. Oriented to time, place and person. right eye swelling much better, PERRL, EOMI CN: no focal findings. Muscle tone: normal. Muscle strength: 5/5 DTR: 1+ Plantar reflex: Flexor Gait: not examined in bed. Sensory exam: no abnormal findings. Bilateral dysmetria, truncal ataxia, better Review of Relevant I have reviewed the following items sandro (where applicable) has been applied. Labs Laboratory Tests Test 03/18/16 18:20 03/19/16 06:31 03/19/16 17:43 Nasal Screen MRSA (PCR) Negative (Negative) White Blood Count 11.8x10^3/uL (4.0-11.0) Red Blood Count 4.79x10^6/uL (4.30-5.70) Hemoglobin 14.1g/dL (13.0-17.5) Hematocrit 43.2% (39.0-53.0) Mean Corpuscular Volume 90fL (79-100) Mean Corpuscular Hemoglobin 29pg (25-35) Mean Corpuscular Hemoglobin Concent 33g/dL (31-37) Red Cell Distribution Width 14.1% (11.5-14.5) Platelet Count 198x10^3/uL (140-400) Neutrophils (%) (Auto) 74% (31-73) Lymphocytes (%) (Auto) 19% (24-48) Monocytes (%) (Auto) 8% (0-9) Eosinophils (%) (Auto) 0% (0-3) Basophils (%) (Auto) 0% (0-3) Neutrophils # (Auto) 8.7x10^3uL (1.8-7.7) Lymphocytes # (Auto) 2.2x10^3/uL (1.0-4.8) Monocytes # (Auto) 0.9x10^3/uL (0.0-1.1) Eosinophils # (Auto) 0.0x10^3/uL (0.0-0.7) Basophils # (Auto) 0.0x10^3/uL (0.0-0.2) Sodium Level 141mmol/L (136-145) Potassium Level 3.7mmol/L (3.5-5.1) Chloride Level 107mmol/L (98-107) Carbon Dioxide Level 22mmol/L (21-32) Anion Gap 12 (6-14) Blood Urea Nitrogen 15mg/dL (8-26) Creatinine 0.8mg/dL (0.7-1.3) Estimated GFR (Cockcroft-Gault) 95.0 Glucose Level 118mg/dL (70-99) Calcium Level 8.3mg/dL (8.5-10.1) Triglycerides Level 102mg/dL (0-150) Cholesterol Level 133mg/dL (0-200) LDL Cholesterol, Calculated 78mg/dL (0-100) VLDL Cholesterol, Calculated 20mg/dL (0-40) HDL Cholesterol 35mg/dL (40-60) Cholesterol/HDL Ratio 3.8 Glucose (Fingerstick) 108mg/dL (70-99) Laboratory Tests Test 03/19/16 17:43 Glucose (Fingerstick) 108mg/dL (70-99) Medications Current Medications Ondansetron HCl 4 mg 4 mg PRN Q8HRS PRN IV NAUSEA/VOMITING; Start 03/18/16 at 13:15; Stop 03/19/16 at 11:12; Status DC Sodium Chloride 1,000 ml @ 125 mls/hr Q8H IV Last administered on 03/19/16 07 :00; Start 03/18/16 at 15:00; Stop 03/19/16 at 14:59; Status DC Sodium Chloride (Iv Sodium Chloride 0.9% 1000ml Bag) 1,000 ml @ 1,000 mls/hr 1X ONCE IV Last administered on 03/18/16 13:19; Start 03/18/16 at 13:30; Stop 03/18/16 at 14:29; Status DC Gadobutrol (Gadavist) 7.5 mmol 1X ONCE IV Last administered on 03/18/16 14:04 ; Start 03/18/16 at 13:45; Stop 03/18/16 at 13:48; Status DC Sodium Chloride 3 ml 3 ml QSHIFT PRN IV AFTER MEDS AND BLOOD DRAWS; Start 03/18 at 14:15 Sodium Chloride (Iv Sodium Chloride 0.9% 1000ml Bag) 1,000 ml @ 100 mls/hr Q10H IV ; Start 03/18/16 at 14:03; Stop 03/19/16 at 17:01; Status DC Labetalol HCl (Normodyne) 10 mg PRN Q10MIN PRN IV HYPERTENSION, SEE COMMENTS; Start 03/18/16 at 14:15 Acetaminophen (Tylenol) 650 mg PRN Q6HRS PRN PO FEVER; Start 03/18/16 at 14:15 Acetaminophen (Tylenol) 650 mg PRN Q6HRS PRN [place] FEVER; Start 03/18/16 at 14:15 Ondansetron HCl (Zofran) 4 mg PRN Q6HRS PRN IV NAUSEA/VOMITING; Start 03/18/16 at 14:15 Enoxaparin Sodium (Lovenox 40mg Syringe) 40 mg Q24H SQ Last administered on 15:14; Start 03/18/16 at 15:00; Stop 03/18/16 at 15:18; Status DC Amlodipine Besylate (Norvasc) 10 mg DAILY PO ; Start 03/19/16 at 09:00 Cyanocobalamin (Vitamin B-12) 1,000 mcg DAILY PO ; Start 03/19/16 at 09:00 Metformin HCl (Glucophage) 500 mg BIDWMEALS PO ; Start 03/19/16 at 08:00 Fluoxetine HCl (Prozac) 20 mg DAILY PO ; Start 03/19/16 at 09:00 Atorvastatin Calcium 5 mg 5 mg QHS PO Last administered on 03/19/16 20:35; Start 03/19/16 at 21:00 Sodium Chloride (Iv Sodium Chloride 0.9% 1000ml Bag) 1,000 ml @ 125 mls/hr Q8H IV Last administered on 03/19/16 17:41; Start 03/19/16 at 17:01; Stop at 18:37; Status DC Enalaprilat 2.5 mg 2.5 mg 1X ONCE IV ; Start 03/19/16 at 18:30; Stop 03/19/16 at 18:47; Status DC Amino Acids/ Glycerin/ Electrolytes (Procalamine) 1,000 ml @ 80 mls/hr [id number] IV Last administered on 03/20/16 10:45; Start 03/19/16 at 18:30 Active Scripts Active Reported Vitamin B-12 (Cyanocobalamin (Vitamin B-12)) 1,000 Mcg Tablet 1 Tab PO DAILY Pravastatin Sodium 10 Mg Tablet 1 Tab PO QHS Metformin Hcl 500 Mg Tablet 1 Tab PO BID Fluoxetine Hcl 20 Mg Tablet 1 Tab PO DAILY Amlodipine Besylate 10 Mg Tablet 10 Mg PO DAILY Vitals/I & O Vital Sign - Last 24 Hours 03/19/16 03/19/16 03/19/16 03/19/16 15:00 16:00 17:00 18:00 Temp 99.1 99.1 Pulse 56 65 69 56 Resp 14 B/P 133/71 166/82 157/77 162/80 Pulse Ox 95 95 94 95 O2 Delivery Room Air Room Air Room Air Room Air 03/19/16 03/19/16 03/19/16 03/19/16 19:00 20:00 21:00 22:00 Temp 98.4 98.4 Pulse 56 68 98 54 Resp 14 B/P 143/77 147/64 151/117 160/63 Pulse Ox 95 94 95 98 O2 Delivery Room Air Room Air Room Air Room Air 03/19/16 03/20/16 03/20/16 03/20/16 23:00 00:00 01:00 02:00 Temp 98.8 98.8 Pulse 58 70 70 58 Resp 14 16 23 14 B/P 148/63 167/80 165/89 147/81 Pulse Ox 94 95 95 94 O2 Delivery Room Air Room Air Room Air Room Air 03/20/16 03/20/16 03/20/16 03/20/16 03:00 04:00 05:00 06:00 Temp 98.9 98.9 Pulse 54 52 52 52 Resp 11 20 16 15 B/P 137/56 117/58 147/46 142/84 Pulse Ox 95 94 93 96 O2 Delivery Room Air Room Air Room Air Room Air Intake and Output 03/19/16 03/19/16 03/20/16 15:00 23:00 07:00 Intake Total 1281 ml 313 ml Output Total 400 ml 725 ml 850 ml Balance -400 ml 556 ml -537 ml ABHISHEK DIAZ MD Mar 20, 2016 14:10
[2016-03-20] MEDS: AMLODIPINE BESYLATE 10 MG TABLET PO SCH (17:17)
[2016-03-20] MEDS: ATORVASTATIN CALCIUM 10 MG TABLET. PO SCH (21:00)
[2016-03-21] VITALS (7 sets, daily range): BP systolic 126–159; BP diastolic 62–84
[2016-03-21] MEDS: FLUOXETINE HCL 20 MG CAPSULE PO SCH (09:06)
[2016-03-21] MEDS: CYANOCOBALAMIN (VITAMIN B-12) 1,000 MCG TABLET. PO SCH (09:07)
[2016-03-21] MEDS: AMLODIPINE BESYLATE 10 MG TABLET PO SCH (09:07)
[2016-03-21] MEDS: METFORMIN 500 MG TABLET. PO SCH ×2 (09:09→17:00)
--- NOTE | 2016-03-21 09:44 | PDOC ---
PROGRESS NOTES Assessment Problems Medical Problems: (1) Cerebellar edema Status: Acute (2) Fall Status: Acute (3) Head injury Status: Acute CVAs: bilateral cerebellum, occipital temporal lobes greater on the right, and also the thalami greater on the left. Mild hemorrhagic transformation. Left vertebral, basilar artery thrombosis Orbital fractures Plan He has severe cerebrovascular disease as described above, causing multiple infarcts in the posterior circulation. Unfortunately there is hemorrhagic transformation making anticoagulation contraindicated. He is not a candidate for interventional radiology at this late time. Thankfully he is neurologically stable. Continue supportive care. Note swallow evaluation, NPO, will need decision regarding PEG. Holding on antiplatelet agents or anticoagulation because of the hemorrhagic transformation Rehabilitation modalities Eventually will need ENT consultation. Follow-up head CT today Transfer out of ICU today if head CT stable Subjective No complaints, denies pain Objective Vital Signs Date Time Temp Pulse Resp B/P Pulse Ox O2 Delivery O2 Flow Rate FiO2 03/21/16 09:07 73 127/67 03/21/16 08:00 99.1 16 96 Room Air 99.1 Intake and Output 03/21/16 07:00 Intake Total 1507 ml Output Total 2600 ml Balance -1093 ml IV Total 1507 ml Output Urine Total 2600 ml PHYSICAL EXAM Alert. Oriented to time, place and person. PERRL, EOMI CN: no focal findings. Muscle tone: normal. Muscle strength: 5/5 DTR: 1+ Plantar reflex: Flexor Gait: not examined in bed. Sensory exam: no abnormal findings. Bilateral dysmetria, truncal ataxia, improving Review of Relevant I have reviewed the following items sandro (where applicable) has been applied. Labs Laboratory Tests Test 03/19/16 17:43 03/20/16 17:14 Glucose (Fingerstick) 108mg/dL (70-99) 116mg/dL (70-99) Laboratory Tests Test 03/20/16 17:14 Glucose (Fingerstick) 116mg/dL (70-99) Medications Current Medications Ondansetron HCl 4 mg 4 mg PRN Q8HRS PRN IV NAUSEA/VOMITING; Start 03/18/16 at 13:15; Stop 03/19/16 at 11:12; Status DC Sodium Chloride 1,000 ml @ 125 mls/hr Q8H IV Last administered on 03/19/16t 07 :00; Start 03/18/16 at 15:00; Stop 03/19/16 at 14:59; Status DC Sodium Chloride (Iv Sodium Chloride 0.9% 1000ml Bag) 1,000 ml @ 1,000 mls/hr 1X ONCE IV Last administered on 03/18/16 13:19; Start 03/18/16 at 13:30; Stop 03/18/16 at 14:29; Status DC Gadobutrol (Gadavist) 7.5 mmol 1X ONCE IV Last administered on 03/18/16 14:04 ; Start 03/18/16 at 13:45; Stop 03/18/16 at 13:48; Status DC Sodium Chloride 3 ml 3 ml QSHIFT PRN IV AFTER MEDS AND BLOOD DRAWS; Start 03/18 at 14:15 Sodium Chloride (Iv Sodium Chloride 0.9% 1000ml Bag) 1,000 ml @ 100 mls/hr Q10H IV ; Start 03/18/16 at 14:03; Stop 03/19/16 at 17:01; Status DC Labetalol HCl (Normodyne) 10 mg PRN Q10MIN PRN IV HYPERTENSION, SEE COMMENTS; Start 03/18/16 at 14:15 Acetaminophen (Tylenol) 650 mg PRN Q6HRS PRN PO FEVER; Start 03/18/16 at 14:15 Acetaminophen (Tylenol) [address] FEVER; Start 03/18/16 at 14:15 Ondansetron HCl (Zofran) 4 mg PRN Q6HRS PRN IV NAUSEA/VOMITING; Start 03/18/16 at 14:15 Enoxaparin Sodium (Lovenox 40mg Syringe) 40 mg Q24H SQ Last administered on 15:14; Start 03/18/16 at 15:00; Stop 03/18/16 at 15:18; Status DC Amlodipine Besylate (Norvasc) 10 mg DAILY PO Last administered on 03/21/16 09: 07; Start 03/19/16 at 09:00 Cyanocobalamin (Vitamin B-12) 1,000 mcg DAILY PO Last administered on 09:07; Start 03/19/16 at 09:00 Metformin HCl (Glucophage) 500 mg BIDWMEALS PO Last administered on 03/21/16 09:09; Start 03/19/16 at 08:00 Fluoxetine HCl (Prozac) 20 mg DAILY PO Last administered on 03/21/16 09:06; Start 03/19/16 at 09:00 Atorvastatin Calcium 5 mg 5 mg QHS PO Last administered on 03/19/16 20:35; Start 03/19/16 at 21:00 Sodium Chloride (Iv Sodium Chloride 0.9% 1000ml Bag) 1,000 ml @ 125 mls/hr Q8H IV Last administered on 03/19/16 17:41; Start 03/19/16 at 17:01; Stop at 18:37; Status DC Enalaprilat 2.5 mg 2.5 mg 1X ONCE IV ; Start 03/19/16 at 18:30; Stop 03/19/16 at 18:47; Status DC Amino Acids/ Glycerin/ Electrolytes (Procalamine) 1,000 ml @ 80 mls/hr [id number] IV Last administered on 03/20/16 21:17; Start 03/19/16 at 18:30 Active Scripts Active Reported Vitamin B-12 (Cyanocobalamin (Vitamin B-12)) 1,000 Mcg Tablet 1 Tab PO DAILY Pravastatin Sodium 10 Mg Tablet 1 Tab PO QHS Metformin Hcl 500 Mg Tablet 1 Tab PO BID Fluoxetine Hcl 20 Mg Tablet 1 Tab PO DAILY Amlodipine Besylate 10 Mg Tablet 10 Mg PO DAILY Vitals/I & O Vital Sign - Last 24 Hours 03/20/16 03/20/16 03/20/16 03/20/16 10:00 11:00 12:00 13:00 Temp 98.2 98.2 Pulse 60 58 88 54 Resp B/P 128/71 115/75 131/64 147/76 Pulse Ox 94 95 97 96 O2 Delivery Room Air Room Air Room Air Room Air 03/20/16 03/20/16 03/20/16 03/20/16 14:00 15:00 16:00 17:00 Temp 98.0 98.0 Pulse 56 82 53 65 Resp 14 16 16 15 B/P 132/65 160/90 140/72 160/90 Pulse Ox 94 97 97 94 O2 Delivery Room Air Room Air Room Air Room Air 03/20/16 03/20/16 03/20/16 03/21/16 17:17 17:57 20:00 00:00 Temp 98.6 98.6 98.6 98.6 Pulse 68 62 62 Resp 16 19 20 B/P 160/90 138/79 133/82 126/62 Pulse Ox 92 97 97 O2 Delivery Room Air Room Air Room Air 03/21/16 03/21/16 03/21/16 04:00 08:00 09:07 Temp 98.1 99.1 98.1 99.1 Pulse 65 62 73 Resp 30 16 B/P 145/73 159/84 127/67 Pulse Ox 97 96 O2 Delivery Room Air Room Air Intake and Output 03/20/16 03/20/16 03/21/16 15:00 23:00 07:00 Intake Total 918 ml 589 ml Output Total 350 ml 1750 ml 500 ml Balance -350 ml -832 ml 89 ml Images Echocardiogram pending ABHISHEK DIAZ MD Mar 21, 2016 09:43
--- NOTE | 2016-03-21 10:20 | RAD ---
INDICATION: f/u posterior fossa strokes, hemorrhages COMPARISON: 03/18/2016 TECHNIQUE: Axial CT images obtained through the head without intravenous contrast. FINDINGS: No evidence of midline shift. Ventricles and sulci are again prominent. Repeat demonstration of foci of low attenuation within the bilateral cerebellum as well as scattered throughout the supratentorial region as well including the right greater than left occipital lobe. There is high density material in the right maxillary sinus. The patient's known microhemorrhages seen on MRI are not as well seen on CT IMPRESSION: 1. Repeat demonstration of low attenuation within the bilateral cerebellum as well as within the bilateral cerebral hemispheres including the occipital lobes which could be secondary to edema from the patient's known stroke. The patient's known regions of microhemorrhages seen on MRI are not as well seen on CT. 2. There is some high density material within the right maxillary sinus. Could be from sinusitis or sinus congestion. PQRS Compliance Statement: One or more of the following individualized dose reduction techniques were utilized for this examination: 1. Automated exposure control 2. Adjustment of the mA and/or kV according to patient size 3. Use of iterative reconstruction technique
--- NOTE | 2016-03-21 11:51 | PDOC2 ---
CONSULT Date of Consult Date of Consult DATE: 03/21/16 TIME: 11:41 Reason for Consult Reason for Consult: S. 70 yrs W male, had a fall before or after a stroke he developed at home and hit his face on hard surface. Came to [facility] , and had an orbital fracture Rt. The lids are bruised , no change in vision, no double vision with one or both eyes open. Seeing reasonably well. O. EOM Full and normal, no restriction in eye movements in any gaze direction, no diplopia in any gaze direction binocularly Ext 2+ bruising of all lids, and nose , no gross laceration seen Conj No subconjunctival hemorrhage seen OU Cornea clear and compact OU AC moderate normal depth OU no hyphema OU Pupil 3 mm round reacting equal , no APD OU Lens NS 2+ with cortical changes OU Fundus Good red reflex, No gross vitreous or retinal bleed seen OU A. Traumatic Orbital Fracture Rt/ Cataract OU/ Bruising of Lids P. Reassurance Explained to pt that there was no sign of muscle entrapment after orbital fracture, so no intervention needed at this time. Bruising would clear up with time Needed complete exam in my office when discharged from [facility]. Thanking you, Margret Fox MD Past Medical History Cardiovascular: HTN Past Surgical History Past Surgical History: No pertinent history Current Problem List Problem List Problems Medical Problems: (1) Cerebellar edema Status: Acute (2) Fall Status: Acute (3) Head injury Status: Acute Current Medications Current Medications Current Medications Ondansetron HCl 4 mg 4 mg PRN Q8HRS PRN IV NAUSEA/VOMITING; Start 03/18/16 at 13:15; Stop 03/19/16 at 11:12; Status DC Sodium Chloride 1,000 ml @ 125 mls/hr Q8H IV Last administered on 03/19/16 07 :00; Start 03/18/16 at 15:00; Stop 03/19/16 at 14:59; Status DC Sodium Chloride (Iv Sodium Chloride 0.9% 1000ml Bag) 1,000 ml @ 1,000 mls/hr 1X ONCE IV Last administered on 03/18/16 13:19; Start 03/18/16 at 13:30; Stop 03/18/16 at 14:29; Status DC Gadobutrol (Gadavist) 7.5 mmol 1X ONCE IV Last administered on 03/18/16 14:04 ; Start 03/18/16 at 13:45; Stop 03/18/16 at 13:48; Status DC Sodium Chloride 3 ml 3 ml QSHIFT PRN IV AFTER MEDS AND BLOOD DRAWS; Start 03/18 at 14:15 Sodium Chloride (Iv Sodium Chloride 0.9% 1000ml Bag) 1,000 ml @ 100 mls/hr Q10H IV ; Start 03/18/16 at 14:03; Stop 03/19/16 at 17:01; Status DC Labetalol HCl (Normodyne) 10 mg PRN Q10MIN PRN IV HYPERTENSION, SEE COMMENTS; Start 03/18/16 at 14:15 Acetaminophen (Tylenol) 650 mg PRN Q6HRS PRN PO FEVER; Start 03/18/16 at 14:15 Acetaminophen (Tylenol) 650 mg PRN Q6HRS PRN [place] FEVER; Start 03/18/16 at 14:15 Ondansetron HCl (Zofran) 4 mg PRN Q6HRS PRN IV NAUSEA/VOMITING; Start 03/18/16 at 14:15 Enoxaparin Sodium (Lovenox 40mg Syringe) 40 mg Q24H SQ Last administered on 15:14; Start 03/18/16 at 15:00; Stop 03/18/16 at 15:18; Status DC Amlodipine Besylate (Norvasc) 10 mg DAILY PO Last administered on 03/21/16 09: 07; Start 03/19/16 at 09:00 Cyanocobalamin (Vitamin B-12) 1,000 mcg DAILY PO Last administered on 09:07; Start 03/19/16 at 09:00 Metformin HCl (Glucophage) 500 mg BIDWMEALS PO Last administered on 03/21/16 09:09; Start 03/19/16 at 08:00 Fluoxetine HCl (Prozac) 20 mg DAILY PO Last administered on 03/21/16 09:06; Start 03/19/16 at 09:00 Atorvastatin Calcium 5 mg 5 mg QHS PO Last administered on 03/19/16 20:35; Start 03/19/16 at 21:00 Sodium Chloride (Iv Sodium Chloride 0.9% 1000ml Bag) 1,000 ml @ 125 mls/hr Q8H IV Last administered on 03/19/16 17:41; Start 03/19/16 at 17:01; Stop at 18:37; Status DC Enalaprilat 2.5 mg 2.5 mg 1X ONCE IV ; Start 03/19/16 at 18:30; Stop 03/19/16 at 18:47; Status DC Amino Acids/ Glycerin/ Electrolytes (Procalamine) 1,000 ml @ 80 mls/hr [id number] IV Last administered on 03/20/16 21:17; Start 03/19/16 at 18:30 Enoxaparin Sodium (Lovenox 30mg Syringe) 30 mg Q24H SQ ; Start 03/21/16 at 10:45 Aspirin (Aspirin) 300 mg DAILY [place] ; Start 03/21/16 at 11:00 Active Scripts Active Reported Vitamin B-12 (Cyanocobalamin (Vitamin B-12)) 1,000 Mcg Tablet 1 Tab PO DAILY Pravastatin Sodium 10 Mg Tablet 1 Tab PO QHS Metformin Hcl 500 Mg Tablet 1 Tab PO BID Fluoxetine Hcl 20 Mg Tablet 1 Tab PO DAILY Amlodipine Besylate 10 Mg Tablet 10 Mg PO DAILY Allergies Allergies: Coded Allergies: iodine (Verified Allergy, Intermediate, 03/18/16) Vitals VITALS Vital Signs Date Time Temp Pulse Resp B/P Pulse Ox O2 Delivery O2 Flow Rate FiO2 03/21/16 09:07 73 127/67 03/21/16 08:00 99.1 16 96 Room Air 99.1 Labs Labs Laboratory Tests Test 03/19/16 17:43 03/20/16 17:14 Glucose (Fingerstick) 108mg/dL (70-99) 116mg/dL (70-99) Laboratory Tests Test 03/20/16 17:14 Glucose (Fingerstick) 116mg/dL (70-99) MELINDA FOX MD Mar 21, 2016 11:51
--- NOTE | 2016-03-21 13:16 | PDOC ---
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 Fall precautions SNU placement add dvt ppx and asa as per neuro CT repeated on 03/21 History of Present Illness History of Present Illness doing better sitting inchair still right side weakness, failed swallow Vitals Vitals Vital Signs Date Time Temp Pulse Resp B/P Pulse Ox O2 Delivery O2 Flow Rate FiO2 03/21/16 09:07 73 127/67 03/21/16 08:00 99.1 16 96 Room Air 99.1 Physical Exam General: Alert, Oriented X3, Cooperative, mild distress Heart: Regular rate, Normal S1, Normal S2, No murmurs Lungs: Wheezing Abdomen: Normal bowel sounds, Soft, No tenderness Extremities: No clubbing, No cyanosis, No edema Skin: No significant lesion, Other (failed finger nose test, right eye bruise) Labs LABS Laboratory Tests Test 03/20/16 17:14 Glucose (Fingerstick) 116mg/dL (70-99) Review of Systems Review of Systems no fever, chills, sob or chest pain Assessment and Plan Assessmemt and Plan Problems Medical Problems: (1) Cerebellar edema Status: Acute (2) Fall Status: Acute (3) Head injury Status: Acute Problems: Comment Review of Relevant I have reviewed the following items sandro (where applicable) has been applied. Labs Laboratory Tests Test 03/19/16 17:43 03/20/16 17:14 Glucose (Fingerstick) 108mg/dL (70-99) 116mg/dL (70-99) Laboratory Tests Test 03/20/16 17:14 Glucose (Fingerstick) 116mg/dL (70-99) Medications Current Medications Ondansetron HCl 4 mg 4 mg PRN Q8HRS PRN IV NAUSEA/VOMITING; Start 03/18/16 at 13:15; Stop 03/19/16 at 11:12; Status DC Sodium Chloride 1,000 ml @ 125 mls/hr Q8H IV Last administered on 03/19/16t 07 :00; Start 03/18/16 at 15:00; Stop 03/19/16 at 14:59; Status DC Sodium Chloride (Iv Sodium Chloride 0.9% 1000ml Bag) 1,000 ml @ 1,000 mls/hr 1X ONCE IV Last administered on 03/18/16 13:19; Start 03/18/16 at 13:30; Stop 03/18/16 at 14:29; Status DC Gadobutrol (Gadavist) 7.5 mmol 1X ONCE IV Last administered on 03/18/16 14:04 ; Start 03/18/16 at 13:45; Stop 03/18/16 at 13:48; Status DC Sodium Chloride 3 ml 3 ml QSHIFT PRN IV AFTER MEDS AND BLOOD DRAWS; Start 03/18 at 14:15 Sodium Chloride (Iv Sodium Chloride 0.9% 1000ml Bag) 1,000 ml @ 100 mls/hr Q10H IV ; Start 03/18/16 at 14:03; Stop 03/19/16 at 17:01; Status DC Labetalol HCl (Normodyne) 10 mg PRN Q10MIN PRN IV HYPERTENSION, SEE COMMENTS; Start 03/18/16 at 14:15 Acetaminophen (Tylenol) 650 mg PRN Q6HRS PRN PO FEVER; Start 03/18/16 at 14:15 Acetaminophen (Tylenol) 650 mg PRN Q6HRS PRN [place] FEVER; Start 03/18/16 at 14:15 Ondansetron HCl (Zofran) 4 mg PRN Q6HRS PRN IV NAUSEA/VOMITING; Start 03/18/16 at 14:15 Enoxaparin Sodium (Lovenox 40mg Syringe) 40 mg Q24H SQ Last administered on 15:14; Start 03/18/16 at 15:00; Stop 03/18/16 at 15:18; Status DC Amlodipine Besylate (Norvasc) 10 mg DAILY PO Last administered on 03/21/16 09: 07; Start 03/19/16 at 09:00 Cyanocobalamin (Vitamin B-12) 1,000 mcg DAILY PO Last administered on 09:07; Start 03/19/16 at 09:00 Metformin HCl (Glucophage) 500 mg BIDWMEALS PO Last administered on 03/21/16 09:09; Start 03/19/16 at 08:00 Fluoxetine HCl (Prozac) 20 mg DAILY PO Last administered on 03/21/16 09:06; Start 03/19/16 at 09:00 Atorvastatin Calcium 5 mg 5 mg QHS PO Last administered on 03/19/16 20:35; Start 03/19/16 at 21:00 Sodium Chloride (Iv Sodium Chloride 0.9% 1000ml Bag) 1,000 ml @ 125 mls/hr Q8H IV Last administered on 03/19/16 17:41; Start 03/19/16 at 17:01; Stop at 18:37; Status DC Enalaprilat 2.5 mg 2.5 mg 1X ONCE IV ; Start 03/19/16 at 18:30; Stop 03/19/16 at 18:47; Status DC Amino Acids/ Glycerin/ Electrolytes (Procalamine) 1,000 ml @ 80 mls/hr [id number] IV Last administered on 03/20/16 21:17; Start 03/19/16 at 18:30 Enoxaparin Sodium (Lovenox 30mg Syringe) 30 mg Q24H SQ ; Start 03/21/16 at 10:45 Aspirin (Aspirin) 300 mg DAILY [place] ; Start 03/21/16 at 11:00 Active Scripts Active Reported Vitamin B-12 (Cyanocobalamin (Vitamin B-12)) 1,000 Mcg Tablet 1 Tab PO DAILY Pravastatin Sodium 10 Mg Tablet 1 Tab PO QHS Metformin Hcl 500 Mg Tablet 1 Tab PO BID Fluoxetine Hcl 20 Mg Tablet 1 Tab PO DAILY Amlodipine Besylate 10 Mg Tablet 10 Mg PO DAILY Vitals/I & O Vital Sign - Last 24 Hours 03/20/16 03/20/16 03/20/16 03/20/16 14:00 15:00 16:00 17:00 Temp 98.0 98.0 Pulse 56 82 53 65 Resp 14 16 16 15 B/P 132/65 160/90 140/72 160/90 Pulse Ox 94 97 97 94 O2 Delivery Room Air Room Air Room Air Room Air 03/20/16 03/20/16 03/20/16 03/21/16 17:17 17:57 20:00 00:00 Temp 98.6 98.6 98.6 98.6 Pulse 68 62 62 Resp 16 19 20 B/P 160/90 138/79 133/82 126/62 Pulse Ox 92 97 97 O2 Delivery Room Air Room Air Room Air 03/21/16 03/21/16 03/21/16 04:00 08:00 09:07 Temp 98.1 99.1 98.1 99.1 Pulse 65 62 73 Resp 30 16 B/P 145/73 159/84 127/67 Pulse Ox 97 96 O2 Delivery Room Air Room Air Intake and Output 03/20/16 03/20/16 03/21/16 15:00 23:00 07:00 Intake Total 918 ml 589 ml Output Total 350 ml 1750 ml 500 ml Balance -350 ml -832 ml 89 ml WM BRADLEY MD Mar 21, 2016 13:16
[2016-03-21] MEDS: ENOXAPARIN 30 MG/0.3 ML DISP.SYRIN. SQ SCH (13:36)
[2016-03-21] MEDS: AA 3%/ELECTROLYTE-TPN SOLN/GLY 1,000 ML IV SCH ×2 (13:37→21:41)
--- NOTE | 2016-03-21 18:57 | CARD ---
APPROVED REPORT EXAM: Two-dimensional and M-mode echocardiogram with Doppler and color Doppler. Other Information Quality : Good INDICATION CVA/TIA 2D DIMENSIONS RVDd3.3 (2.9-3.5cm)Left Atrium(2D)4.2 (1.6-4.0cm) IVSd1.2 (0.7-1.1cm)Aortic Root(2D)3.1 (2.0-3.7cm) LVDd4.8 (3.9-5.9cm)LVOT Diameter2.3 (1.8-2.4cm) PWd1.0 (0.7-1.1cm)LVDs2.9 (2.5-4.0cm) FS (%) 30.0 %SV78.5 ml LVEF(%)60.0 (>50%) Aortic Valve AoV Peak Parrish.111.6cm/sAoV VTI19.6cm AO Peak GR.5.0mmHgLVOT VTI 16.43cm AO Mean GR.2mmHgAVA (VTI)3.50cm2 Mitral Valve MV E Jpwczulj68.6cm/sMV DECEL WVYF147er MV A Funbobgk32.3cm/sE/A Ratio0.7 TDI Lateral E' P. V7.59cm/sMedial E' P. V5.66cm/s E/Lateral E'7.1E/Medial E'9.5 Tricuspid Valve TR P. Nbdqmdbn024bx/sRAP BFJPHZCH8auVu TR Peak Gr.11qjVxHXRX60esEh Pulmonary Vein S1 Lwjcblqt01.3cm/sS2 Gzxddpkm24.52cm/s D2 Kceimvzn86.5cm/sPVa ovnvsjeu725salv LEFT VENTRICLE The left ventricle is normal size. There is mild concentric left ventricular hypertrophy. The left ve ntricular systolic function is normal and the ejection fraction is within normal range. The Ejection Fraction is 60%. There is normal LV segmental wall motion. Transmitral Doppler flow pattern is Grade I-abnormal relaxation pattern. RIGHT VENTRICLE The right ventricle is normal size. The right ventricular systolic function is normal. ATRIA The left atrium is mildly dilated. The right atrium size is normal. The interatrial septum is intact with no evidence for an atrial septal defect or patent foramen ovale as noted on 2-D or Doppler imagi ng. AORTIC VALVE The aortic valve is calcified but opens well. Doppler and Color Flow revealed no significant aortic r egurgitation. There is no significant aortic valvular stenosis. MITRAL VALVE The mitral valve is calcified but opens well. There is no evidence of mitral valve prolapse. There is no mitral valve stenosis. Doppler and Color-flow revealed trace mitral regurgitation. TRICUSPID VALVE The tricuspid valve is normal in structure Doppler and Color Flow revealed trace tricuspid regurgitat ion. There is mild pulmonary hypertension. The PA pressure was estimated at 34 mmHg. There is no tric uspid valve stenosis. PULMONIC VALVE The pulmonary valve is normal in structure Doppler and Color Flow revealed trace pulmonic valvular re gurgitation. There is no pulmonic valvular stenosis. GREAT VESSELS The aortic root is normal in size. The ascending aorta is mildly dilated at 3.4 cm. The IVC is normal in size and collapses >50% with inspiration. PERICARDIAL EFFUSION There is no evidence of significant pericardial effusion. Critical Notification Critical Value: No <Conclusion> The left ventricular systolic function is normal and the ejection fraction is within normal range. The Ejection Fraction is 60%. There is mild concentric left ventricular hypertrophy. Transmitral Doppler flow pattern is Grade I-abnormal relaxation pattern. The left atrium is mildly dilated. The right atrium size is normal. The aortic valve is calcified but opens well. Doppler and Color-flow revealed trace mitral regurgitation. The mitral valve is calcified but opens well. Doppler and Color Flow revealed trace tricuspid regurgitation. There is mild pulmonary hypertension. The PA pressure was estimated at 34 mmHg. Doppler and Color Flow revealed trace pulmonic valvular regurgitation. The ascending aorta is mildly dilated at 3.4 cm. There is no evidence of significant pericardial effusion.
[2016-03-21] MEDS: ASPIRIN 300 MG SUPP.RECT PR SCH (19:42)
[2016-03-21] MEDS: ATORVASTATIN CALCIUM 10 MG TABLET. PO SCH (19:42)
[2016-03-22 03:51] VITALS: BP 139/78
[2016-03-22 05:54] LABS: BASO # 0.1 x10^3/uL (0.0-0.2); BASO % 1 % (0-3); CALCIUM 8.9 mg/dL (8.5-10.1); CREATININE 0.9 mg/dL (0.7-1.3); EOS % 1 % (0-3); GFR 82.9; HEMATOCRIT 45.8 % (39.0-53.0); HEMOGLOBIN 15.3 g/dL (13.0-17.5); LYMPH # 2.8 x10^3/uL (1.0-4.8); LYMPH % 27 % (24-48); MEAN CORPUSCULAR HEMOGLOBIN 29 pg (25-35); MEAN CORPUSCULAR HGB CONC 33 g/dL (31-37); MEAN CORPUSCULAR VOLUME 87 fL (79-100); MONO % 7 % (0-9); NEUT % 65 % (31-73); PLATELET COUNT 260 x10^3/uL (140-400); POTASSIUM 3.6 mmol/L (3.5-5.1); RED BLOOD COUNT 5.24 x10^6/uL (4.30-5.70); WHITE BLOOD COUNT 10.6 x10^3/uL (4.0-11.0)
[2016-03-22 07:00] VITALS: BP 135/78
[2016-03-22] MEDS: METFORMIN 500 MG TABLET. PO SCH ×3 (08:00→16:55)
[2016-03-22] MEDS: AA 3%/ELECTROLYTE-TPN SOLN/GLY 1,000 ML IV SCH ×2 (09:42→20:58)
--- NOTE | 2016-03-22 10:22 | PDOC2 ---
GI CONSULT Reason For Consult: PEG HPI: HPI: 70 y/o male admitted from assisted living after fall, trouble walking. Imaging revealed CVAs and right inferior orbital wall fracture. He is neurologically stable but failed a swallow eval. GI consult was requested for possible PEG placement. Discussed briefly w/ MANPOWER DEVELOPMENT SPECIALIST MANAGER; videoswallow is planned for today. The pt is w/o complaints except his mouth is dry. Denies GI history including reflux/heartburn, n/v, abd pain, diarrhea, constipation, hematochezia/melena. No previous EGD or colonoscopy. No abd surgeries. PMH: PMH: HTN, HLD, DM, depression, cleft palate repair FH: Family History: CVA Social History: Smoke: <1 pack per day ALCOHOL: none Drugs: None ROS: GEN: Denies fevers, chills, sweats HEENT: Denies sore throat CV: Denies chest pain RESP: Denies shortness of air, cough GI: Per HPI : Denies hematuria, dysuria ENDO: Denies weight changes NEURO: Denies confusion MSK: Denies joint pain/swelling SKIN: +bruising VItals: Vitals: Vital Signs Date Time Temp Pulse Resp B/P Pulse Ox O2 Delivery O2 Flow Rate FiO2 03/22/16 07:00 97.7 66 22 135/78 97 Room Air 97.7 Labs: Labs: Laboratory Tests Test 03/21/16 13:12 03/21/16 16:39 03/21/16 21:11 03/22/16 04:40 Glucose (Fingerstick) 149mg/dL (70-99) 104mg/dL (70-99) 92mg/dL (70-99) White Blood Count 10.6x10^3/uL (4.0-11.0) Red Blood Count 5.24x10^6/uL (4.30-5.70) Hemoglobin 15.3g/dL (13.0-17.5) Hematocrit 45.8% (39.0-53.0) Mean Corpuscular Volume 87fL (79-100) Mean Corpuscular Hemoglobin 29pg (25-35) Mean Corpuscular Hemoglobin Concent 33g/dL (31-37) Red Cell Distribution Width 14.0% (11.5-14.5) Platelet Count 260x10^3/uL (140-400) Neutrophils (%) (Auto) 65% (31-73) Lymphocytes (%) (Auto) 27% (24-48) Monocytes (%) (Auto) 7% (0-9) Eosinophils (%) (Auto) 1% (0-3) Basophils (%) (Auto) 1% (0-3) Neutrophils # (Auto) 6.9x10^3uL (1.8-7.7) Lymphocytes # (Auto) 2.8x10^3/uL (1.0-4.8) Monocytes # (Auto) 0.7x10^3/uL (0.0-1.1) Eosinophils # (Auto) 0.1x10^3/uL (0.0-0.7) Basophils # (Auto) 0.1x10^3/uL (0.0-0.2) Sodium Level 140mmol/L (136-145) Potassium Level 3.6mmol/L (3.5-5.1) Chloride Level 104mmol/L (98-107) Carbon Dioxide Level 25mmol/L (21-32) Anion Gap 11 (6-14) Blood Urea Nitrogen 23mg/dL (8-26) Creatinine 0.9mg/dL (0.7-1.3) Estimated GFR (Cockcroft-Gault) 82.9 Glucose Level 110mg/dL (70-99) Calcium Level 8.9mg/dL (8.5-10.1) Test 03/22/16 07:44 Glucose (Fingerstick) 107mg/dL (70-99) Allergies: Coded Allergies: iodine (Verified Allergy, Intermediate, 03/18/16) Medications: Current Medications Medications (Trade) Dose Ordered Sig/John Route PRN Reason Start Time Stop Time Status Last Admin Dose Admin Enoxaparin Sodium (Lovenox 30mg Syringe) 30 mg Q24H SQ 03/21/16 10:45 03/21/16 13:36 Imaging: Imaging: MANPOWER DEVELOPMENT SPECIALIST MANAGER Bedside Swallow Eval: Pt demo's inconsistent s/s aspiration across consistencies. Noted discoordination of both oral pharyngeal swallow phases, c/w CVA. Current dysphagia appears mild. No safe PO consistency identified. Duration of need for NPO dependent on progress over next 2-3 days. See full BSE report for details. Recommendations: NPO. Will continue MANPOWER DEVELOPMENT SPECIALIST MANAGER f/u to determine safety of PO intake. PE: GEN: NAD HEENT: ecchymosis LUNGS: clear anteriorly HEART: RRR ABD: NABS, S/ND/NT EXTREMITY: No edema SKIN: No rashes, no jaundice NEURO/PSYCH: A & O 3 A/P: A/P: S/p CVAs w/ abnormal swallow eval CRC screen -no previous colonoscopy -- Discussed PEG placement w/ pt; he would like to proceed w/ video swallow and consider based on results. MARGE MARSHALL Mar 22, 2016 10:22
[2016-03-22] MEDS ORDERED: BARIUM SULFATE 40% (APPLE) 148 GM PWD. PO ONE (10:30)
[2016-03-22 11:00] VITALS: BP 127/74
--- NOTE | 2016-03-22 11:06 | RAD ---
Video dysphasia study, 03/22/2016: History: Dysphasia The swallowing mechanism was examined fluoroscopically in the lateral projection while the patient ingested a variety of food materials mixed with barium. 0.9 minutes of fluoroscopy time was utilized. One video fluoroscopic loop was recorded by a member of the speech Department. The patient demonstrated good oral control of the barium materials. When ingesting the thin liquids there was mild transient laryngeal penetration. No luiz aspiration occurred. Similar findings were evident when the patient ingested the thin liquids with a straw. Within the patient ingested the thicker materials and barium coated solids were there was no significant laryngeal penetration or aspiration. The majority of the barium bolus passed normally through the cervical esophagus. IMPRESSION: No evidence of aspiration.
--- NOTE | 2016-03-22 11:56 | PDOC ---
PROGRESS NOTES Assessment Problems Medical Problems: (1) Cerebellar edema Status: Acute (2) Fall Status: Acute (3) Head injury Status: Acute CVAs: bilateral cerebellum, occipital temporal lobes greater on the right, and also the thalami greater on the left. Mild hemorrhagic transformation. Left vertebral, basilar artery thrombosis Orbital fractures Plan He has severe cerebrovascular disease as described above, causing multiple infarcts in the posterior circulation. Unfortunately there is hemorrhagic transformation making anticoagulation contraindicated. He is not a candidate for interventional radiology at this late time. Thankfully he is neurologically stable. Continue supportive care. Note swallow evaluation, NPO, will need decision regarding PEG. I discussed this with the patient's daughter Given the negative follow-up head CT for gross hemorrhage, I started Lovenox and rectal aspirin Rehabilitation modalities Eventually will need ENT consultation. SNU evaluation Subjective No complaints, denies pain Objective Vital Signs Date Time Temp Pulse Resp B/P Pulse Ox O2 Delivery O2 Flow Rate FiO2 03/22/16 11:00 97.5 67 20 127/74 93 Room Air 97.5 Intake and Output 03/22/16 07:00 Intake Total 1237 ml Output Total 1075 ml Balance 162 ml Intake Oral 0 ml IV Total 957 ml Other 280 ml Output Urine Total 1075 ml PHYSICAL EXAM Alert. Oriented to time, place and person. PERRL, EOMI CN: no focal findings. Muscle tone: normal. Muscle strength: 5/5 DTR: 1+ Plantar reflex: Flexor Gait: not examined in bed. Sensory exam: no abnormal findings. Bilateral dysmetria, truncal ataxia Review of Relevant I have reviewed the following items sandro (where applicable) has been applied. Labs Laboratory Tests Test 03/20/16 17:14 03/21/16 13:12 03/21/16 16:39 03/21/16 21:11 Glucose (Fingerstick) 116mg/dL (70-99) 149mg/dL (70-99) 104mg/dL (70-99) 92mg/dL (70-99) Test 03/22/16 04:40 03/22/16 07:44 03/22/16 11:08 White Blood Count 10.6x10^3/uL (4.0-11.0) Red Blood Count 5.24x10^6/uL (4.30-5.70) Hemoglobin 15.3g/dL (13.0-17.5) Hematocrit 45.8% (39.0-53.0) Mean Corpuscular Volume 87fL (79-100) Mean Corpuscular Hemoglobin 29pg (25-35) Mean Corpuscular Hemoglobin Concent 33g/dL (31-37) Red Cell Distribution Width 14.0% (11.5-14.5) Platelet Count 260x10^3/uL (140-400) Neutrophils (%) (Auto) 65% (31-73) Lymphocytes (%) (Auto) 27% (24-48) Monocytes (%) (Auto) 7% (0-9) Eosinophils (%) (Auto) 1% (0-3) Basophils (%) (Auto) 1% (0-3) Neutrophils # (Auto) 6.9x10^3uL (1.8-7.7) Lymphocytes # (Auto) 2.8x10^3/uL (1.0-4.8) Monocytes # (Auto) 0.7x10^3/uL (0.0-1.1) Eosinophils # (Auto) 0.1x10^3/uL (0.0-0.7) Basophils # (Auto) 0.1x10^3/uL (0.0-0.2) Sodium Level 140mmol/L (136-145) Potassium Level 3.6mmol/L (3.5-5.1) Chloride Level 104mmol/L (98-107) Carbon Dioxide Level 25mmol/L (21-32) Anion Gap 11 (6-14) Blood Urea Nitrogen 23mg/dL (8-26) Creatinine 0.9mg/dL (0.7-1.3) Estimated GFR (Cockcroft-Gault) 82.9 Glucose Level 110mg/dL (70-99) Calcium Level 8.9mg/dL (8.5-10.1) Glucose (Fingerstick) 107mg/dL (70-99) 157mg/dL (70-99) Laboratory Tests Test 03/21/16 13:12 03/21/16 16:39 03/21/16 21:11 03/22/16 04:40 Glucose (Fingerstick) 149mg/dL (70-99) 104mg/dL (70-99) 92mg/dL (70-99) White Blood Count 10.6x10^3/uL (4.0-11.0) Red Blood Count 5.24x10^6/uL (4.30-5.70) Hemoglobin 15.3g/dL (13.0-17.5) Hematocrit 45.8% (39.0-53.0) Mean Corpuscular Volume 87fL (79-100) Mean Corpuscular Hemoglobin 29pg (25-35) Mean Corpuscular Hemoglobin Concent 33g/dL (31-37) Red Cell Distribution Width 14.0% (11.5-14.5) Platelet Count 260x10^3/uL (140-400) Neutrophils (%) (Auto) 65% (31-73) Lymphocytes (%) (Auto) 27% (24-48) Monocytes (%) (Auto) 7% (0-9) Eosinophils (%) (Auto) 1% (0-3) Basophils (%) (Auto) 1% (0-3) Neutrophils # (Auto) 6.9x10^3uL (1.8-7.7) Lymphocytes # (Auto) 2.8x10^3/uL (1.0-4.8) Monocytes # (Auto) 0.7x10^3/uL (0.0-1.1) Eosinophils # (Auto) 0.1x10^3/uL (0.0-0.7) Basophils # (Auto) 0.1x10^3/uL (0.0-0.2) Sodium Level 140mmol/L (136-145) Potassium Level 3.6mmol/L (3.5-5.1) Chloride Level 104mmol/L (98-107) Carbon Dioxide Level 25mmol/L (21-32) Anion Gap 11 (6-14) Blood Urea Nitrogen 23mg/dL (8-26) Creatinine 0.9mg/dL (0.7-1.3) Estimated GFR (Cockcroft-Gault) 82.9 Glucose Level 110mg/dL (70-99) Calcium Level 8.9mg/dL (8.5-10.1) Test 03/22/16 07:44 03/22/16 11:08 Glucose (Fingerstick) 107mg/dL (70-99) 157mg/dL (70-99) Medications Current Medications Ondansetron HCl 4 mg 4 mg PRN Q8HRS PRN IV NAUSEA/VOMITING; Start 03/18/16 at 13:15; Stop 03/19/16 at 11:12; Status DC Sodium Chloride 1,000 ml @ 125 mls/hr Q8H IV Last administered on 03/19/16 07 :00; Start 03/18/16 at 15:00; Stop 03/19/16 at 14:59; Status DC Sodium Chloride (Iv Sodium Chloride 0.9% 1000ml Bag) 1,000 ml @ 1,000 mls/hr 1X ONCE IV Last administered on 03/18/16 13:19; Start 03/18/16 at 13:30; Stop 03/18/16 at 14:29; Status DC Gadobutrol (Gadavist) 7.5 mmol 1X ONCE IV Last administered on 03/18/16 14:04 ; Start 03/18/16 at 13:45; Stop 03/18/16 at 13:48; Status DC Sodium Chloride 3 ml 3 ml QSHIFT PRN IV AFTER MEDS AND BLOOD DRAWS; Start 03/18 at 14:15 Sodium Chloride (Iv Sodium Chloride 0.9% 1000ml Bag) 1,000 ml @ 100 mls/hr Q10H IV ; Start 03/18/16 at 14:03; Stop 03/19/16 at 17:01; Status DC Labetalol HCl (Normodyne) 10 mg PRN Q10MIN PRN IV HYPERTENSION, SEE COMMENTS; Start 03/18/16 at 14:15 Acetaminophen (Tylenol) 650 mg PRN Q6HRS PRN PO FEVER; Start 03/18/16 at 14:15 Acetaminophen (Tylenol) 650 mg PRN Q6HRS PRN [place] FEVER; Start 03/18/16 at 14:15 Ondansetron HCl (Zofran) 4 mg PRN Q6HRS PRN IV NAUSEA/VOMITING; Start 03/18/16 at 14:15 Enoxaparin Sodium (Lovenox 40mg Syringe) 40 mg Q24H SQ Last administered on 15:14; Start 03/18/16 at 15:00; Stop 03/18/16 at 15:18; Status DC Amlodipine Besylate (Norvasc) 10 mg DAILY PO Last administered on 03/21/16 09: 07; Start 03/19/16 at 09:00 Cyanocobalamin (Vitamin B-12) 1,000 mcg DAILY PO Last administered on 09:07; Start 03/19/16 at 09:00 Metformin HCl (Glucophage) 500 mg BIDWMEALS PO Last administered on 03/21/16 09:09; Start 03/19/16 at 08:00 Fluoxetine HCl (Prozac) 20 mg DAILY PO Last administered on 03/21/16 09:06; Start 03/19/16 at 09:00 Atorvastatin Calcium 5 mg 5 mg QHS PO Last administered on 03/19/16 20:35; Start 03/19/16 at 21:00 Sodium Chloride (Iv Sodium Chloride 0.9% 1000ml Bag) 1,000 ml @ 125 mls/hr Q8H IV Last administered on 03/19/16 17:41; Start 03/19/16 at 17:01; Stop at 18:37; Status DC Enalaprilat 2.5 mg 2.5 mg 1X ONCE IV ; Start 03/19/16 at 18:30; Stop 03/19/16 at 18:47; Status DC Amino Acids/ Glycerin/ Electrolytes (Procalamine) 1,000 ml @ 80 mls/hr [id number] IV Last administered on 03/22/16 09:42; Start 03/19/16 at 18:30 Enoxaparin Sodium (Lovenox 30mg Syringe) 30 mg Q24H SQ Last administered on 13:36; Start 03/21/16 at 10:45 Aspirin (Aspirin) 300 mg DAILY [place] ; Start 03/21/16 at 11:00 Barium Sulfate (Varibar Thin Liquid) 148 gm 1X ONCE PO ; Start 03/22/16 at 10: 30; Stop 03/22/16 at 10:31; Status DC Active Scripts Active Reported Vitamin B-12 (Cyanocobalamin (Vitamin B-12)) 1,000 Mcg Tablet 1 Tab PO DAILY Pravastatin Sodium 10 Mg Tablet 1 Tab PO QHS Metformin Hcl 500 Mg Tablet 1 Tab PO BID Fluoxetine Hcl 20 Mg Tablet 1 Tab PO DAILY Amlodipine Besylate 10 Mg Tablet 10 Mg PO DAILY Vitals/I & O Vital Sign - Last 24 Hours 03/21/16 03/21/16 03/21/16 03/21/16 12:00 15:00 19:00 19:45 Temp 98.6 97.5 97.6 98.6 97.5 97.6 Pulse 63 69 70 Resp 14 16 24 B/P 133/68 137/77 144/74 Pulse Ox 95 92 93 O2 Delivery Room Air Room Air Room Air Room Air 03/21/16 03/22/16 03/22/16 03/22/16 23:00 03:51 07:00 11:00 Temp 98.4 97.7 97.7 97.5 98.4 97.7 97.7 97.5 Pulse 79 72 66 67 Resp 22 20 22 20 B/P 126/77 139/78 135/78 127/74 Pulse Ox 95 93 97 93 O2 Delivery Room Air Room Air Room Air Room Air Intake and Output 03/21/16 03/21/16 03/22/16 15:00 23:00 07:00 Intake Total 0 ml 280 ml 957 ml Output Total 300 ml 150 ml 625 ml Balance -300 ml 130 ml [address]: 1. Repeat demonstration of low attenuation within the bilateral cerebellum as well as within the bilateral cerebral hemispheres including the occipital lobes which could be secondary to edema from the patient's known stroke. The patient's known regions of microhemorrhages seen on MRI are not as well seen on CT. 2. There is some high density material within the right maxillary sinus. Could be from sinusitis or sinus congestion. ABHISHEK DIAZ MD Mar 22, 2016 11:56
[2016-03-22] MEDS: ASPIRIN 300 MG SUPP.RECT PR SCH (12:31)
[2016-03-22] MEDS: CYANOCOBALAMIN (VITAMIN B-12) 1,000 MCG TABLET. PO SCH (12:31)
[2016-03-22] MEDS: AMLODIPINE BESYLATE 10 MG TABLET PO SCH (12:31)
[2016-03-22] MEDS: ENOXAPARIN 30 MG/0.3 ML DISP.SYRIN. SQ SCH (12:34)
[2016-03-22] MEDS: FLUOXETINE HCL 20 MG CAPSULE PO SCH (12:44)
[2016-03-22 14:56] VITALS: BP 137/70
--- NOTE | 2016-03-22 15:25 | PDOC ---
PROGRESS NOTES Chief Complaint Chief Complaint Cerebellar shower emboli with hemorrhagic transformation ASSESSMENT AND PLAN: 1. 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 Vascular risk stratification: occlusion/narrowing of proximal basilar artery, left intradural vertebral artery, right vertebrobasilar junction, distal left posterior cerebral artery. on lovenox, asa as per Dr Rae's recommendation 3. Orbital fracture, R: healing. no intervention recommended by ophthal. 4. Dysphagia: rpt video swallow study w/o aspiration.. rec. regular (cardiac ) diet. stop PPN 5. HTN: well controlled on current 6. DM: very good control. 7. Dispo: OT/PT eval. poss SNF placement Vitals Vitals Vital Signs Date Time Temp Pulse Resp B/P Pulse Ox O2 Delivery O2 Flow Rate FiO2 03/22/16 14:56 97.5 60 18 137/70 96 Room Air 97.5 Physical Exam General: Alert, Cooperative, No acute distress Heart: Regular rate, No murmurs Lungs: Clear Abdomen: Normal bowel sounds, Soft, No tenderness Extremities: No clubbing, No cyanosis, No edema Skin: No significant lesion, Other (R orbital hematoma) Labs LABS Laboratory Tests Test 03/21/16 16:39 03/21/16 21:11 03/22/16 04:40 03/22/16 07:44 Glucose (Fingerstick) 104mg/dL (70-99) 92mg/dL (70-99) 107mg/dL (70-99) White Blood Count 10.6x10^3/uL (4.0-11.0) Red Blood Count 5.24x10^6/uL (4.30-5.70) Hemoglobin 15.3g/dL (13.0-17.5) Hematocrit 45.8% (39.0-53.0) Mean Corpuscular Volume 87fL (79-100) Mean Corpuscular Hemoglobin 29pg (25-35) Mean Corpuscular Hemoglobin Concent 33g/dL (31-37) Red Cell Distribution Width 14.0% (11.5-14.5) Platelet Count 260x10^3/uL (140-400) Neutrophils (%) (Auto) 65% (31-73) Lymphocytes (%) (Auto) 27% (24-48) Monocytes (%) (Auto) 7% (0-9) Eosinophils (%) (Auto) 1% (0-3) Basophils (%) (Auto) 1% (0-3) Neutrophils # (Auto) 6.9x10^3uL (1.8-7.7) Lymphocytes # (Auto) 2.8x10^3/uL (1.0-4.8) Monocytes # (Auto) 0.7x10^3/uL (0.0-1.1) Eosinophils # (Auto) 0.1x10^3/uL (0.0-0.7) Basophils # (Auto) 0.1x10^3/uL (0.0-0.2) Sodium Level 140mmol/L (136-145) Potassium Level 3.6mmol/L (3.5-5.1) Chloride Level 104mmol/L (98-107) Carbon Dioxide Level 25mmol/L (21-32) Anion Gap 11 (6-14) Blood Urea Nitrogen 23mg/dL (8-26) Creatinine 0.9mg/dL (0.7-1.3) Estimated GFR (Cockcroft-Gault) 82.9 Glucose Level 110mg/dL (70-99) Calcium Level 8.9mg/dL (8.5-10.1) Test 03/22/16 11:08 Glucose (Fingerstick) 157mg/dL (70-99) Review of Systems Review of Systems denies MANCERA. ready to "get up and go" Comment Review of Relevant JAKE KEE MD Mar 22, 2016 15:25
[2016-03-22 19:55] VITALS: BP 122/72
[2016-03-22] MEDS: ATORVASTATIN CALCIUM 10 MG TABLET. PO SCH (20:57)
[2016-03-22 23:20] VITALS: BP 124/72
[2016-03-23 03:21] VITALS: BP 127/67
[2016-03-23 07:00] VITALS: BP 137/69
[2016-03-23 07:19] LABS: BASO % 0 % (0-3); EOS % 1 % (0-3); HEMATOCRIT 44.2 % (39.0-53.0); HEMOGLOBIN 14.6 g/dL (13.0-17.5); LYMPH # 2.8 x10^3/uL (1.0-4.8); LYMPH % 29 % (24-48); MEAN CORPUSCULAR HEMOGLOBIN 30 pg (25-35); MEAN CORPUSCULAR HGB CONC 33 g/dL (31-37); MEAN CORPUSCULAR VOLUME 89 fL (79-100); MONO % 7 % (0-9); NEUT % 63 % (31-73); PLATELET COUNT 239 x10^3/uL (140-400); RED BLOOD COUNT 4.94 x10^6/uL (4.30-5.70); RED CELL DISTRIBUTION WIDTH 13.7 % (11.5-14.5); WHITE BLOOD COUNT 9.7 x10^3/uL (4.0-11.0)
[2016-03-23 07:51] LABS: CALCIUM 8.7 mg/dL (8.5-10.1); CREATININE 0.8 mg/dL (0.7-1.3); POTASSIUM 4.2 mmol/L (3.5-5.1)
[2016-03-23] MEDS: ASPIRIN 300 MG SUPP.RECT PR SCH (09:00)
--- NOTE | 2016-03-23 09:51 | PDOC ---
Objective: Objective: Per RN - doing well w/ swallowing/eating. No GI concerns. Vital Signs: Vital Signs Date Time Temp Pulse Resp B/P Pulse Ox O2 Delivery O2 Flow Rate FiO2 03/23/16 07:00 97.8 65 22 137/69 92 Room Air 97.8 Labs: Laboratory Tests Test 03/22/16 11:08 03/22/16 17:07 03/22/16 20:46 03/23/16 06:50 Glucose (Fingerstick) 157mg/dL 92mg/dL 102mg/dL White Blood Count 9.7x10^3/uL Red Blood Count 4.94x10^6/uL Hemoglobin 14.6g/dL Hematocrit 44.2% Mean Corpuscular Volume 89fL Mean Corpuscular Hemoglobin 30pg Mean Corpuscular Hemoglobin Concent 33g/dL Red Cell Distribution Width 13.7% Platelet Count 239x10^3/uL Neutrophils (%) (Auto) 63% Lymphocytes (%) (Auto) 29% Monocytes (%) (Auto) 7% Eosinophils (%) (Auto) 1% Basophils (%) (Auto) 0% Neutrophils # (Auto) 6.1x10^3uL Lymphocytes # (Auto) 2.8x10^3/uL Monocytes # (Auto) 0.7x10^3/uL Eosinophils # (Auto) 0.1x10^3/uL Basophils # (Auto) 0.0x10^3/uL Sodium Level 142mmol/L Potassium Level 4.2mmol/L Chloride Level 105mmol/L Carbon Dioxide Level 25mmol/L Anion Gap 12 Blood Urea Nitrogen 21mg/dL Creatinine 0.8mg/dL Estimated GFR (Cockcroft-Gault) 95.0 Glucose Level 97mg/dL Calcium Level 8.7mg/dL Test 03/23/16 07:19 Glucose (Fingerstick) 100mg/dL PE: GEN: NAD NEURO/PSYCH: asleep A/P: S/p CVAs -had abnormal bedside swallow w/ normal videoswallow, no issues w/ swallowing -- Other per Dr. Lerner. MARGE MARSHALL Mar 23, 2016 09:51
[2016-03-23] MEDS ORDERED: ASPIRIN 325 MG TABLET PO SCH (10:00)
[2016-03-23] MEDS: AA 3%/ELECTROLYTE-TPN SOLN/GLY 1,000 ML IV SCH (10:00)
--- NOTE | 2016-03-23 10:05 | PDOC ---
PROGRESS NOTES Assessment Problems Medical Problems: (1) Cerebellar edema Status: Acute (2) Fall Status: Acute (3) Head injury Status: Acute CVAs: bilateral cerebellum, occipital temporal lobes greater on the right, and also the thalami greater on the left. Mild hemorrhagic transformation. Left vertebral, basilar artery thrombosis Orbital fractures Note swallow results Plan Diet ordered Continue supportive care. Oral aspirin Rehabilitation modalities Eventually will need ENT consultation. SNU evaluation Subjective He denies pain Objective Vital Signs Date Time Temp Pulse Resp B/P Pulse Ox O2 Delivery O2 Flow Rate FiO2 03/23/16 07:00 97.8 65 22 137/69 92 Room Air 97.8 Intake and Output 03/23/16 07:00 Intake Total 840 ml Output Total 800 ml Balance 40 ml Intake Oral 840 ml Output Urine Total 800 ml PHYSICAL EXAM Alert. Oriented to time, place and person. PERRL, EOMI CN: no focal findings. Muscle tone: normal. Muscle strength: 5/5 DTR: 1+ Plantar reflex: Flexor Gait: not examined in bed. Sensory exam: no abnormal findings. Bilateral dysmetria, truncal ataxia Review of Relevant I have reviewed the following items sandro (where applicable) has been applied. Labs Laboratory Tests Test 03/21/16 13:12 03/21/16 16:39 03/21/16 21:11 03/22/16 04:40 Glucose (Fingerstick) 149mg/dL (70-99) 104mg/dL (70-99) 92mg/dL (70-99) White Blood Count 10.6x10^3/uL (4.0-11.0) Red Blood Count 5.24x10^6/uL (4.30-5.70) Hemoglobin 15.3g/dL (13.0-17.5) Hematocrit 45.8% (39.0-53.0) Mean Corpuscular Volume 87fL (79-100) Mean Corpuscular Hemoglobin 29pg (25-35) Mean Corpuscular Hemoglobin Concent 33g/dL (31-37) Red Cell Distribution Width 14.0% (11.5-14.5) Platelet Count 260x10^3/uL (140-400) Neutrophils (%) (Auto) 65% (31-73) Lymphocytes (%) (Auto) 27% (24-48) Monocytes (%) (Auto) 7% (0-9) Eosinophils (%) (Auto) 1% (0-3) Basophils (%) (Auto) 1% (0-3) Neutrophils # (Auto) 6.9x10^3uL (1.8-7.7) Lymphocytes # (Auto) 2.8x10^3/uL (1.0-4.8) Monocytes # (Auto) 0.7x10^3/uL (0.0-1.1) Eosinophils # (Auto) 0.1x10^3/uL (0.0-0.7) Basophils # (Auto) 0.1x10^3/uL (0.0-0.2) Sodium Level 140mmol/L (136-145) Potassium Level 3.6mmol/L (3.5-5.1) Chloride Level 104mmol/L (98-107) Carbon Dioxide Level 25mmol/L (21-32) Anion Gap 11 (6-14) Blood Urea Nitrogen 23mg/dL (8-26) Creatinine 0.9mg/dL (0.7-1.3) Estimated GFR (Cockcroft-Gault) 82.9 Glucose Level 110mg/dL (70-99) Calcium Level 8.9mg/dL (8.5-10.1) Test 03/22/16 07:44 03/22/16 11:08 03/22/16 17:07 03/22/16 20:46 Glucose (Fingerstick) 107mg/dL (70-99) 157mg/dL (70-99) 92mg/dL (70-99) 102mg/dL (70-99) Test 03/23/16 06:50 03/23/16 07:19 White Blood Count 9.7x10^3/uL (4.0-11.0) Red Blood Count 4.94x10^6/uL (4.30-5.70) Hemoglobin 14.6g/dL (13.0-17.5) Hematocrit 44.2% (39.0-53.0) Mean Corpuscular Volume 89fL (79-100) Mean Corpuscular Hemoglobin 30pg (25-35) Mean Corpuscular Hemoglobin Concent 33g/dL (31-37) Red Cell Distribution Width 13.7% (11.5-14.5) Platelet Count 239x10^3/uL (140-400) Neutrophils (%) (Auto) 63% (31-73) Lymphocytes (%) (Auto) 29% (24-48) Monocytes (%) (Auto) 7% (0-9) Eosinophils (%) (Auto) 1% (0-3) Basophils (%) (Auto) 0% (0-3) Neutrophils # (Auto) 6.1x10^3uL (1.8-7.7) Lymphocytes # (Auto) 2.8x10^3/uL (1.0-4.8) Monocytes # (Auto) 0.7x10^3/uL (0.0-1.1) Eosinophils # (Auto) 0.1x10^3/uL (0.0-0.7) Basophils # (Auto) 0.0x10^3/uL (0.0-0.2) Sodium Level 142mmol/L (136-145) Potassium Level 4.2mmol/L (3.5-5.1) Chloride Level 105mmol/L (98-107) Carbon Dioxide Level 25mmol/L (21-32) Anion Gap 12 (6-14) Blood Urea Nitrogen 21mg/dL (8-26) Creatinine 0.8mg/dL (0.7-1.3) Estimated GFR (Cockcroft-Gault) 95.0 Glucose Level 97mg/dL (70-99) Calcium Level 8.7mg/dL (8.5-10.1) Glucose (Fingerstick) 100mg/dL (70-99) Laboratory Tests Test 03/22/16 11:08 03/22/16 17:07 03/22/16 20:46 03/23/16 06:50 Glucose (Fingerstick) 157mg/dL (70-99) 92mg/dL (70-99) 102mg/dL (70-99) White Blood Count 9.7x10^3/uL (4.0-11.0) Red Blood Count 4.94x10^6/uL (4.30-5.70) Hemoglobin 14.6g/dL (13.0-17.5) Hematocrit 44.2% (39.0-53.0) Mean Corpuscular Volume 89fL (79-100) Mean Corpuscular Hemoglobin 30pg (25-35) Mean Corpuscular Hemoglobin Concent 33g/dL (31-37) Red Cell Distribution Width 13.7% (11.5-14.5) Platelet Count 239x10^3/uL (140-400) Neutrophils (%) (Auto) 63% (31-73) Lymphocytes (%) (Auto) 29% (24-48) Monocytes (%) (Auto) 7% (0-9) Eosinophils (%) (Auto) 1% (0-3) Basophils (%) (Auto) 0% (0-3) Neutrophils # (Auto) 6.1x10^3uL (1.8-7.7) Lymphocytes # (Auto) 2.8x10^3/uL (1.0-4.8) Monocytes # (Auto) 0.7x10^3/uL (0.0-1.1) Eosinophils # (Auto) 0.1x10^3/uL (0.0-0.7) Basophils # (Auto) 0.0x10^3/uL (0.0-0.2) Sodium Level 142mmol/L (136-145) Potassium Level 4.2mmol/L (3.5-5.1) Chloride Level 105mmol/L (98-107) Carbon Dioxide Level 25mmol/L (21-32) Anion Gap 12 (6-14) Blood Urea Nitrogen 21mg/dL (8-26) Creatinine 0.8mg/dL (0.7-1.3) Estimated GFR (Cockcroft-Gault) 95.0 Glucose Level 97mg/dL (70-99) Calcium Level 8.7mg/dL (8.5-10.1) Test 03/23/16 07:19 Glucose (Fingerstick) 100mg/dL (70-99) Medications Current Medications Ondansetron HCl 4 mg 4 mg PRN Q8HRS PRN IV NAUSEA/VOMITING; Start 03/18/16 at 13:15; Stop 03/19/16 at 11:12; Status DC Sodium Chloride 1,000 ml @ 125 mls/hr Q8H IV Last administered on 03/19/16t 07 :00; Start 03/18/16 at 15:00; Stop 03/19/16 at 14:59; Status DC Sodium Chloride (Iv Sodium Chloride 0.9% 1000ml Bag) 1,000 ml @ 1,000 mls/hr 1X ONCE IV Last administered on 03/18/16 13:19; Start 03/18/16 at 13:30; Stop 03/18/16 at 14:29; Status DC Gadobutrol (Gadavist) 7.5 mmol 1X ONCE IV Last administered on 03/18/16 14:04 ; Start 03/18/16 at 13:45; Stop 03/18/16 at 13:48; Status DC Sodium Chloride 3 ml 3 ml QSHIFT PRN IV AFTER MEDS AND BLOOD DRAWS; Start 03/18 at 14:15 Sodium Chloride (Iv Sodium Chloride 0.9% 1000ml Bag) 1,000 ml @ 100 mls/hr Q10H IV ; Start 03/18/16 at 14:03; Stop 03/19/16 at 17:01; Status DC Labetalol HCl (Normodyne) 10 mg PRN Q10MIN PRN IV HYPERTENSION, SEE COMMENTS; Start 03/18/16 at 14:15 Acetaminophen (Tylenol) 650 mg PRN Q6HRS PRN PO FEVER Last administered on 03/22 20:57; Start 03/18/16 at 14:15 Acetaminophen (Tylenol) 650 mg PRN Q6HRS PRN MO FEVER; Start 03/18/16 at 14:15 Ondansetron HCl (Zofran) 4 mg PRN Q6HRS PRN IV NAUSEA/VOMITING; Start 03/18/16 at 14:15 Enoxaparin Sodium (Lovenox 40mg Syringe) 40 mg Q24H SQ Last administered on 15:14; Start 03/18/16 at 15:00; Stop 03/18/16 at 15:18; Status DC Amlodipine Besylate (Norvasc) 10 mg DAILY PO Last administered on 03/22/16 12: 31; Start 03/19/16 at 09:00 Cyanocobalamin (Vitamin B-12) 1,000 mcg DAILY PO Last administered on 12:31; Start 03/19/16 at 09:00 Metformin HCl (Glucophage) 500 mg BIDWMEALS PO Last administered on 03/22/16 16:55; Start 03/19/16 at 08:00 Fluoxetine HCl (Prozac) 20 mg DAILY PO Last administered on 03/22/16 12:44; Start 03/19/16 at 09:00 Atorvastatin Calcium 5 mg 5 mg QHS PO Last administered on 03/22/16 20:57; Start 03/19/16 at 21:00 Sodium Chloride (Iv Sodium Chloride 0.9% 1000ml Bag) 1,000 ml @ 125 mls/hr Q8H IV Last administered on 03/19/16 17:41; Start 03/19/16 at 17:01; Stop at 18:37; Status DC Enalaprilat 2.5 mg 2.5 mg 1X ONCE IV ; Start 03/19/16 at 18:30; Stop 03/19/16 at 18:47; Status DC Amino Acids/ Glycerin/ Electrolytes (Procalamine) 1,000 ml @ 80 mls/hr [id number] IV Last administered on 03/22/16 20:58; Start 03/19/16 at 18:30 Enoxaparin Sodium (Lovenox 30mg Syringe) 30 mg Q24H SQ Last administered on 12:34; Start 03/21/16 at 10:45 Aspirin (Aspirin) 300 mg DAILY MO Last administered on 03/22/16 12:31; Start 03/21/16 at 11:00; Stop 03/23/16 at 09:39; Status DC Barium Sulfate (Varibar Thin Liquid) 148 gm 1X ONCE PO ; Start 03/22/16 at 10: 30; Stop 03/22/16 at 10:31; Status DC Aspirin (Guy Aspirin) 325 mg DAILYWBKFT PO ; Start 03/23/16 at 10:00 Active Scripts Active Reported Vitamin B-12 (Cyanocobalamin (Vitamin B-12)) 1,000 Mcg Tablet 1 Tab PO DAILY Pravastatin Sodium 10 Mg Tablet 1 Tab PO QHS Metformin Hcl 500 Mg Tablet 1 Tab PO BID Fluoxetine Hcl 20 Mg Tablet 1 Tab PO DAILY Amlodipine Besylate 10 Mg Tablet 10 Mg PO DAILY Vitals/I & O Vital Sign - Last 24 Hours 03/22/16 03/22/16 03/22/16 03/22/16 11:00 12:31 14:56 19:55 Temp 97.5 97.5 98.1 97.5 97.5 98.1 Pulse 67 67 60 69 Resp 20 18 18 B/P 127/74 127/74 137/70 122/72 Pulse Ox 93 96 94 O2 Delivery Room Air Room Air Room Air 03/22/16 03/22/16 03/23/16 03/23/16 20:00 23:20 03:21 07:00 Temp 98.0 98.2 97.8 98.0 98.2 97.8 Pulse 65 69 65 Resp 18 18 22 B/P 124/72 127/67 137/69 Pulse Ox 94 91 92 O2 Delivery Room Air Room Air Room Air Room Air Intake and Output 03/22/16 03/22/16 03/23/16 15:00 23:00 07:00 Intake Total 600 ml 240 ml Output Total 800 ml Balance -200 ml 240 ml ABHISHEK DIAZ MD Mar 23, 2016 10:05
[2016-03-23] MEDS: METFORMIN 500 MG TABLET. PO SCH ×2 (10:15→17:16)
[2016-03-23] MEDS: FLUOXETINE HCL 20 MG CAPSULE PO SCH (10:15)
[2016-03-23] MEDS: CYANOCOBALAMIN (VITAMIN B-12) 1,000 MCG TABLET. PO SCH (10:15)
[2016-03-23] MEDS: AMLODIPINE BESYLATE 10 MG TABLET PO SCH (10:16)
[2016-03-23] MEDS: ENOXAPARIN 30 MG/0.3 ML DISP.SYRIN. SQ SCH (10:19)
--- NOTE | 2016-03-23 10:24 | PDOC ---
PROGRESS NOTES Chief Complaint Chief Complaint Cerebellar shower emboli with hemorrhagic transformation ASSESSMENT AND PLAN: 1. 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 Vascular risk stratification: occlusion/narrowing of proximal basilar artery, left intradural vertebral artery, right vertebrobasilar junction, distal left posterior cerebral artery. on lovenox, asa as per Dr Rae's recommendation 3. Orbital fracture, R: healing. no intervention recommended by ophthal. 4. Dysphagia: rpt video swallow study w/o aspiration.. rec. regular (cardiac ) diet. stop PPN 5. Urinary retention: re-place Gomez. start flomax. Urology consult vs O/P F /U 5. HTN: well controlled on current 6. DM: very good control. 7. Dispo: OT/PT eval. poss SNF placement Vitals Vitals Vital Signs Date Time Temp Pulse Resp B/P Pulse Ox O2 Delivery O2 Flow Rate FiO2 03/23/16 10:16 65 137/69 03/23/16 07:00 97.8 22 92 Room Air 97.8 Physical Exam General: Alert, Cooperative, No acute distress Heart: Regular rate, No murmurs Lungs: Clear Abdomen: Normal bowel sounds, Soft, No tenderness Extremities: No clubbing, No cyanosis, No edema Skin: No significant lesion, Other (R orbital hematoma) Labs LABS Laboratory Tests Test 03/22/16 11:08 03/22/16 17:07 03/22/16 20:46 03/23/16 06:50 Glucose (Fingerstick) 157mg/dL (70-99) 92mg/dL (70-99) 102mg/dL (70-99) White Blood Count 9.7x10^3/uL (4.0-11.0) Red Blood Count 4.94x10^6/uL (4.30-5.70) Hemoglobin 14.6g/dL (13.0-17.5) Hematocrit 44.2% (39.0-53.0) Mean Corpuscular Volume 89fL (79-100) Mean Corpuscular Hemoglobin 30pg (25-35) Mean Corpuscular Hemoglobin Concent 33g/dL (31-37) Red Cell Distribution Width 13.7% (11.5-14.5) Platelet Count 239x10^3/uL (140-400) Neutrophils (%) (Auto) 63% (31-73) Lymphocytes (%) (Auto) 29% (24-48) Monocytes (%) (Auto) 7% (0-9) Eosinophils (%) (Auto) 1% (0-3) Basophils (%) (Auto) 0% (0-3) Neutrophils # (Auto) 6.1x10^3uL (1.8-7.7) Lymphocytes # (Auto) 2.8x10^3/uL (1.0-4.8) Monocytes # (Auto) 0.7x10^3/uL (0.0-1.1) Eosinophils # (Auto) 0.1x10^3/uL (0.0-0.7) Basophils # (Auto) 0.0x10^3/uL (0.0-0.2) Sodium Level 142mmol/L (136-145) Potassium Level 4.2mmol/L (3.5-5.1) Chloride Level 105mmol/L (98-107) Carbon Dioxide Level 25mmol/L (21-32) Anion Gap 12 (6-14) Blood Urea Nitrogen 21mg/dL (8-26) Creatinine 0.8mg/dL (0.7-1.3) Estimated GFR (Cockcroft-Gault) 95.0 Glucose Level 97mg/dL (70-99) Calcium Level 8.7mg/dL (8.5-10.1) Test 03/23/16 07:19 Glucose (Fingerstick) 100mg/dL (70-99) Assessment and Plan Assessmemt and Plan feeling well thia AM, after severe bladder distention with pain last night. Gomez re-placed Problems: Comment Review of Relevant JAKE KEE MD Mar 23, 2016 10:24
[2016-03-23 12:00] VITALS: BP 131/74
[2016-03-23 16:00] VITALS: BP 112/67
[2016-03-23 20:20] VITALS: BP 134/78
[2016-03-23] MEDS: TAMSULOSIN 0.4 MG CAP.ER.24H. PO SCH (20:23)
[2016-03-23] MEDS: ATORVASTATIN CALCIUM 10 MG TABLET. PO SCH (20:23)
[2016-03-23 23:28] VITALS: BP 113/66
[2016-03-24 04:17] VITALS: BP 132/77
[2016-03-24 06:28] LABS: HEMATOCRIT 42.7 % (39.0-53.0); HEMOGLOBIN 14.3 g/dL (13.0-17.5); RED BLOOD COUNT 4.81 x10^6/uL (4.30-5.70); RED CELL DISTRIBUTION WIDTH 13.9 % (11.5-14.5)
[2016-03-24 08:00] VITALS: BP 130/78
[2016-03-24 08:33] LABS: CREATININE 0.9 mg/dL (0.7-1.3); GFR 82.9; POTASSIUM 3.7 mmol/L (3.5-5.1)
[2016-03-24] MEDS: ENOXAPARIN 30 MG/0.3 ML DISP.SYRIN. SQ SCH (09:04)
[2016-03-24] MEDS: CYANOCOBALAMIN (VITAMIN B-12) 1,000 MCG TABLET. PO SCH (09:04)
[2016-03-24] MEDS: ASPIRIN ENTERIC COATED 325 MG TABLET.DR. PO SCH (09:05)
[2016-03-24] MEDS: METFORMIN 500 MG TABLET. PO SCH ×2 (09:05→17:17)
[2016-03-24] MEDS: AMLODIPINE BESYLATE 10 MG TABLET PO SCH (09:05)
[2016-03-24] MEDS: FLUOXETINE HCL 20 MG CAPSULE PO SCH (09:05)
--- NOTE | 2016-03-24 11:54 | PDOC ---
PROGRESS NOTES Assessment Problems Medical Problems: (1) Cerebellar edema Status: Acute (2) Fall Status: Acute (3) Head injury Status: Acute CVAs: bilateral cerebellum, occipital temporal lobes greater on the right, and also the thalami greater on the left. Mild hemorrhagic transformation. Left vertebral, basilar artery thrombosis Orbital fractures Note swallow results Note urinary retention, yanez in place Plan Continue supportive care. Oral aspirin Rehabilitation modalities Eventually will need ENT consultation. SNU PMR consult Subjective denies pain Objective Vital Signs Date Time Temp Pulse Resp B/P Pulse Ox O2 Delivery O2 Flow Rate FiO2 03/24/16 09:05 74 132/77 03/24/16 08:00 98.4 18 92 Room Air 98.4 Intake and Output 03/24/16 07:00 Intake Total 1470 ml Output Total 2575 ml Balance -1105 ml Intake Oral 1470 ml Output Urine Total 2575 ml PHYSICAL EXAM Alert. Oriented to time, place and person. PERRL, EOMI CN: no focal findings. Muscle tone: normal. Muscle strength: 5/5 DTR: 1+ Plantar reflex: Flexor Gait: not examined in bed. Sensory exam: no abnormal findings. Bilateral dysmetria, truncal ataxia Review of Relevant I have reviewed the following items sandro (where applicable) has been applied. Labs Laboratory Tests Test 03/22/16 17:07 03/22/16 20:46 03/23/16 06:50 03/23/16 07:19 Glucose (Fingerstick) 92mg/dL (70-99) 102mg/dL (70-99) 100mg/dL (70-99) White Blood Count 9.7x10^3/uL (4.0-11.0) Red Blood Count 4.94x10^6/uL (4.30-5.70) Hemoglobin 14.6g/dL (13.0-17.5) Hematocrit 44.2% (39.0-53.0) Mean Corpuscular Volume 89fL (79-100) Mean Corpuscular Hemoglobin 30pg (25-35) Mean Corpuscular Hemoglobin Concent 33g/dL (31-37) Red Cell Distribution Width 13.7% (11.5-14.5) Platelet Count 239x10^3/uL (140-400) Neutrophils (%) (Auto) 63% (31-73) Lymphocytes (%) (Auto) 29% (24-48) Monocytes (%) (Auto) 7% (0-9) Eosinophils (%) (Auto) 1% (0-3) Basophils (%) (Auto) 0% (0-3) Neutrophils # (Auto) 6.1x10^3uL (1.8-7.7) Lymphocytes # (Auto) 2.8x10^3/uL (1.0-4.8) Monocytes # (Auto) 0.7x10^3/uL (0.0-1.1) Eosinophils # (Auto) 0.1x10^3/uL (0.0-0.7) Basophils # (Auto) 0.0x10^3/uL (0.0-0.2) Sodium Level 142mmol/L (136-145) Potassium Level 4.2mmol/L (3.5-5.1) Chloride Level 105mmol/L (98-107) Carbon Dioxide Level 25mmol/L (21-32) Anion Gap 12 (6-14) Blood Urea Nitrogen 21mg/dL (8-26) Creatinine 0.8mg/dL (0.7-1.3) Estimated GFR (Cockcroft-Gault) 95.0 Glucose Level 97mg/dL (70-99) Calcium Level 8.7mg/dL (8.5-10.1) Test 03/23/16 11:05 03/23/16 16:02 03/24/16 05:55 03/24/16 08:00 Glucose (Fingerstick) 96mg/dL (70-99) 126mg/dL (70-99) White Blood Count 10.0x10^3/uL (4.0-11.0) Red Blood Count 4.81x10^6/uL (4.30-5.70) Hemoglobin 14.3g/dL (13.0-17.5) Hematocrit 42.7% (39.0-53.0) Mean Corpuscular Volume 89fL (79-100) Mean Corpuscular Hemoglobin 30pg (25-35) Mean Corpuscular Hemoglobin Concent 34g/dL (31-37) Red Cell Distribution Width 13.9% (11.5-14.5) Platelet Count 248x10^3/uL (140-400) Sodium Level 142mmol/L (136-145) Potassium Level 3.7mmol/L (3.5-5.1) Chloride Level 105mmol/L (98-107) Carbon Dioxide Level 27mmol/L (21-32) Anion Gap 10 (6-14) Blood Urea Nitrogen 15mg/dL (8-26) Creatinine 0.9mg/dL (0.7-1.3) Estimated GFR (Cockcroft-Gault) 82.9 Glucose Level 116mg/dL (70-99) Calcium Level 9.0mg/dL (8.5-10.1) Laboratory Tests Test 03/23/16 16:02 03/24/16 05:55 03/24/16 08:00 Glucose (Fingerstick) 126mg/dL (70-99) White Blood Count 10.0x10^3/uL (4.0-11.0) Red Blood Count 4.81x10^6/uL (4.30-5.70) Hemoglobin 14.3g/dL (13.0-17.5) Hematocrit 42.7% (39.0-53.0) Mean Corpuscular Volume 89fL (79-100) Mean Corpuscular Hemoglobin 30pg (25-35) Mean Corpuscular Hemoglobin Concent 34g/dL (31-37) Red Cell Distribution Width 13.9% (11.5-14.5) Platelet Count 248x10^3/uL (140-400) Sodium Level 142mmol/L (136-145) Potassium Level 3.7mmol/L (3.5-5.1) Chloride Level 105mmol/L (98-107) Carbon Dioxide Level 27mmol/L (21-32) Anion Gap 10 (6-14) Blood Urea Nitrogen 15mg/dL (8-26) Creatinine 0.9mg/dL (0.7-1.3) Estimated GFR (Cockcroft-Gault) 82.9 Glucose Level 116mg/dL (70-99) Calcium Level 9.0mg/dL (8.5-10.1) Medications Current Medications Ondansetron HCl 4 mg 4 mg PRN Q8HRS PRN IV NAUSEA/VOMITING; Start 03/18/16 at 13:15; Stop 03/19/16 at 11:12; Status DC Sodium Chloride 1,000 ml @ 125 mls/hr Q8H IV Last administered on 03/19/16 07 :00; Start 03/18/16 at 15:00; Stop 03/19/16 at 14:59; Status DC Sodium Chloride (Iv Sodium Chloride 0.9% 1000ml Bag) 1,000 ml @ 1,000 mls/hr 1X ONCE IV Last administered on 03/18/16 13:19; Start 03/18/16 at 13:30; Stop 03/18/16 at 14:29; Status DC Gadobutrol (Gadavist) 7.5 mmol 1X ONCE IV Last administered on 03/18/16 14:04 ; Start 03/18/16 at 13:45; Stop 03/18/16 at 13:48; Status DC Sodium Chloride 3 ml 3 ml QSHIFT PRN IV AFTER MEDS AND BLOOD DRAWS; Start 03/18 at 14:15 Sodium Chloride (Iv Sodium Chloride 0.9% 1000ml Bag) 1,000 ml @ 100 mls/hr Q10H IV ; Start 03/18/16 at 14:03; Stop 03/19/16 at 17:01; Status DC Labetalol HCl (Normodyne) 10 mg PRN Q10MIN PRN IV HYPERTENSION, SEE COMMENTS; Start 03/18/16 at 14:15 Acetaminophen (Tylenol) 650 mg PRN Q6HRS PRN PO FEVER Last administered on 03/22 20:57; Start 03/18/16 at 14:15 Acetaminophen (Tylenol) 650 mg PRN Q6HRS PRN OR FEVER; Start 03/18/16 at 14:15 Ondansetron HCl (Zofran) 4 mg PRN Q6HRS PRN IV NAUSEA/VOMITING; Start 03/18/16 at 14:15 Enoxaparin Sodium (Lovenox 40mg Syringe) 40 mg Q24H SQ Last administered on 15:14; Start 03/18/16 at 15:00; Stop 03/18/16 at 15:18; Status DC Amlodipine Besylate (Norvasc) 10 mg DAILY PO Last administered on 03/24/16 09: 05; Start 03/19/16 at 09:00 Cyanocobalamin (Vitamin B-12) 1,000 mcg DAILY PO Last administered on 09:04; Start 03/19/16 at 09:00 Metformin HCl (Glucophage) 500 mg BIDWMEALS PO Last administered on 03/24/16 09:05; Start 03/19/16 at 08:00 Fluoxetine HCl (Prozac) 20 mg DAILY PO Last administered on 03/24/16 09:05; Start 03/19/16 at 09:00 Atorvastatin Calcium 5 mg 5 mg QHS PO Last administered on 03/23/16 20:23; Start 03/19/16 at 21:00 Sodium Chloride (Iv Sodium Chloride 0.9% 1000ml Bag) 1,000 ml @ 125 mls/hr Q8H IV Last administered on 03/19/16 17:41; Start 03/19/16 at 17:01; Stop at 18:37; Status DC Enalaprilat 2.5 mg 2.5 mg 1X ONCE IV ; Start 03/19/16 at 18:30; Stop 03/19/16 at 18:47; Status DC Amino Acids/ Glycerin/ Electrolytes (Procalamine) 1,000 ml @ 80 mls/hr [id number] IV Last administered on 03/22/16 20:58; Start 03/19/16 at 18:30; Stop at 10:24; Status DC Enoxaparin Sodium (Lovenox 30mg Syringe) 30 mg Q24H SQ Last administered on 09:04; Start 03/21/16 at 10:45 Aspirin (Aspirin) 300 mg DAILY OR Last administered on 03/22/16 12:31; Start 03/21/16 at 11:00; Stop 03/23/16 at 09:39; Status DC Barium Sulfate (Varibar Thin Liquid) 148 gm 1X ONCE PO ; Start 03/22/16 at 10: 30; Stop 03/22/16 at 10:31; Status DC Aspirin (Guy Aspirin) 325 mg DAILYWBKFT PO Last administered on 03/23/16 10: 15; Start 03/23/16 at 10:00; Stop 03/23/16 at 10:26; Status DC Aspirin (Ecotrin) 325 mg DAILYWBKFT PO Last administered on 03/24/16 09:05; Start 03/24/16 at 08:00 Tamsulosin HCl (Flomax) 0.4 mg QHS PO Last administered on 03/23/16t 20:23; Start 03/23/16 at 21:00 Active Scripts Active Reported Vitamin B-12 (Cyanocobalamin (Vitamin B-12)) 1,000 Mcg Tablet 1 Tab PO DAILY Pravastatin Sodium 10 Mg Tablet 1 Tab PO QHS Metformin Hcl 500 Mg Tablet 1 Tab PO BID Fluoxetine Hcl 20 Mg Tablet 1 Tab PO DAILY Amlodipine Besylate 10 Mg Tablet 10 Mg PO DAILY Vitals/I & O Vital Sign - Last 24 Hours 03/23/16 03/23/16 03/23/16 03/23/16 12:00 16:00 19:35 20:20 Temp 98.1 98.4 98.8 98.1 98.4 98.8 Pulse 66 72 73 Resp 20 20 20 B/P 131/74 112/67 134/78 Pulse Ox 100 94 93 O2 Delivery Room Air Room Air Room Air Room Air 03/23/16 03/24/16 03/24/16 03/24/16 23:28 04:17 08:00 09:05 Temp 97.8 97.9 98.4 97.8 97.9 98.4 Pulse 74 74 66 74 Resp 20 18 18 B/P 113/66 132/77 130/78 132/77 Pulse Ox 90 92 92 O2 Delivery Room Air Room Air Room Air Intake and Output 03/23/16 03/23/16 03/24/16 15:00 23:00 07:00 Intake Total 1220 ml 250 ml Output Total 1200 ml 975 ml 400 ml Balance -1200 ml 245 ml -150 ml ABHISHEK DIAZ MD Mar 24, 2016 11:54
[2016-03-24 12:00] VITALS: BP 135/64
--- NOTE | 2016-03-24 12:22 | PDOC ---
PROGRESS NOTES Chief Complaint Chief Complaint Cerebellar shower emboli with hemorrhagic transformation ASSESSMENT AND PLAN: 1. 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 Vascular risk stratification: occlusion/narrowing of proximal basilar artery, left intradural vertebral artery, right vertebrobasilar junction, distal left posterior cerebral artery. on lovenox, asa as per Dr Rae's recommendation 3. Orbital fracture, R: healing. no intervention recommended by ophthal. 4. Dysphagia: rpt video swallow study w/o aspiration. rec.s for regular ( cardiac) diet. 5. Urinary retention: re-place Gomez. start flomax. Urology consult 5. HTN: well controlled on current 6. DM: very good control. 7. Dispo: SNF placement Vitals Vitals Vital Signs Date Time Temp Pulse Resp B/P Pulse Ox O2 Delivery O2 Flow Rate FiO2 03/24/16 09:05 74 132/77 03/24/16 08:00 98.4 18 92 Room Air 98.4 Physical Exam General: Alert, Cooperative, No acute distress Heart: Regular rate, No murmurs Lungs: Clear Abdomen: Normal bowel sounds, Soft, No tenderness Extremities: No clubbing, No cyanosis, No edema Skin: No significant lesion, Other (R orbital hematoma) Labs LABS Laboratory Tests Test 03/23/16 16:02 03/24/16 05:55 03/24/16 08:00 Glucose (Fingerstick) 126mg/dL (70-99) White Blood Count 10.0x10^3/uL (4.0-11.0) Red Blood Count 4.81x10^6/uL (4.30-5.70) Hemoglobin 14.3g/dL (13.0-17.5) Hematocrit 42.7% (39.0-53.0) Mean Corpuscular Volume 89fL (79-100) Mean Corpuscular Hemoglobin 30pg (25-35) Mean Corpuscular Hemoglobin Concent 34g/dL (31-37) Red Cell Distribution Width 13.9% (11.5-14.5) Platelet Count 248x10^3/uL (140-400) Sodium Level 142mmol/L (136-145) Potassium Level 3.7mmol/L (3.5-5.1) Chloride Level 105mmol/L (98-107) Carbon Dioxide Level 27mmol/L (21-32) Anion Gap 10 (6-14) Blood Urea Nitrogen 15mg/dL (8-26) Creatinine 0.9mg/dL (0.7-1.3) Estimated GFR (Cockcroft-Gault) 82.9 Glucose Level 116mg/dL (70-99) Calcium Level 9.0mg/dL (8.5-10.1) Review of Systems Review of Systems doing ok. no new issues JAKE KEE MD Mar 24, 2016 12:22
[2016-03-24 16:00] VITALS: BP 127/75
--- NOTE | 2016-03-24 17:02 | PDOC2 ---
CONSULT Date of Consult Date of Consult DATE: 03/24/16 TIME: 16:46 Reason for Consult Reason for Consult: rehab evaluation Referring Physician Referring Physician: Identification/Chief Complaint Chief Complaint recent CVA with mobility and self care deficits Source Source: Chart review, Patient History of Present Illness Reason for Visit: This is a 70 year old right handed male,with known hypertension,fell at home on 03/18/2016,admitted through emergency with continued balance problems and dizziness on 03/19/2016 and was found with posterior circulation multiple infarcts from thromboembolism involving left vertebral artery and he is receiving anticoagulation and being followed by physical and occupational therapy and he continues to require to person help with transfers and also found with urinary retention. Past Medical History Cardiovascular: HTN, Hyperlipidemia Past Surgical History Past Surgical History: No pertinent history Family History Family History: Stroke Social History <1 pack per day ALCOHOL: none Drugs: None Current Problem List Problem List Problems Medical Problems: (1) Cerebellar edema Status: Acute (2) Fall Status: Acute (3) Head injury Status: Acute ataxia urinary retention Current Medications Current Medications Current Medications Ondansetron HCl 4 mg 4 mg PRN Q8HRS PRN IV NAUSEA/VOMITING; Start 03/18/16 at 13:15; Stop 03/19/16 at 11:12; Status DC Sodium Chloride 1,000 ml @ 125 mls/hr Q8H IV Last administered on 03/19/16 07 :00; Start 03/18/16 at 15:00; Stop 03/19/16 at 14:59; Status DC Sodium Chloride (Iv Sodium Chloride 0.9% 1000ml Bag) 1,000 ml @ 1,000 mls/hr 1X ONCE IV Last administered on 03/18/16 13:19; Start 03/18/16 at 13:30; Stop 03/18/16 at 14:29; Status DC Gadobutrol (Gadavist) 7.5 mmol 1X ONCE IV Last administered on 03/18/16 14:04 ; Start 03/18/16 at 13:45; Stop 03/18/16 at 13:48; Status DC Sodium Chloride 3 ml 3 ml QSHIFT PRN IV AFTER MEDS AND BLOOD DRAWS; Start 03/18 at 14:15 Sodium Chloride (Iv Sodium Chloride 0.9% 1000ml Bag) 1,000 ml @ 100 mls/hr Q10H IV ; Start 03/18/16 at 14:03; Stop 03/19/16 at 17:01; Status DC Labetalol HCl (Normodyne) 10 mg PRN Q10MIN PRN IV HYPERTENSION, SEE COMMENTS; Start 03/18/16 at 14:15 Acetaminophen (Tylenol) 650 mg PRN Q6HRS PRN PO FEVER Last administered on 03/22 20:57; Start 03/18/16 at 14:15 Acetaminophen (Tylenol) 650 mg PRN Q6HRS PRN IN FEVER; Start 03/18/16 at 14:15 Ondansetron HCl (Zofran) 4 mg PRN Q6HRS PRN IV NAUSEA/VOMITING; Start 03/18/16 at 14:15 Enoxaparin Sodium (Lovenox 40mg Syringe) 40 mg Q24H SQ Last administered on 15:14; Start 03/18/16 at 15:00; Stop 03/18/16 at 15:18; Status DC Amlodipine Besylate (Norvasc) 10 mg DAILY PO Last administered on 03/24/16 09: 05; Start 03/19/16 at 09:00 Cyanocobalamin (Vitamin B-12) 1,000 mcg DAILY PO Last administered on 09:04; Start 03/19/16 at 09:00 Metformin HCl (Glucophage) 500 mg BIDWMEALS PO Last administered on 03/24/16 09:05; Start 03/19/16 at 08:00 Fluoxetine HCl (Prozac) 20 mg DAILY PO Last administered on 03/24/16 09:05; Start 03/19/16 at 09:00 Atorvastatin Calcium 5 mg 5 mg QHS PO Last administered on 03/23/16 20:23; Start 03/19/16 at 21:00 Sodium Chloride (Iv Sodium Chloride 0.9% 1000ml Bag) 1,000 ml @ 125 mls/hr Q8H IV Last administered on 03/19/16 17:41; Start 03/19/16 at 17:01; Stop at 18:37; Status DC Enalaprilat 2.5 mg 2.5 mg 1X ONCE IV ; Start 03/19/16 at 18:30; Stop 03/19/16 at 18:47; Status DC Amino Acids/ Glycerin/ Electrolytes (Procalamine) 1,000 ml @ 80 mls/hr [id number] IV Last administered on 03/22/16 20:58; Start 03/19/16 at 18:30; Stop at 10:24; Status DC Enoxaparin Sodium (Lovenox 30mg Syringe) 30 mg Q24H SQ Last administered on 09:04; Start 03/21/16 at 10:45 Aspirin (Aspirin) 300 mg DAILY IN Last administered on 03/22/16 12:31; Start 03/21/16 at 11:00; Stop 03/23/16 at 09:39; Status DC Barium Sulfate (Varibar Thin Liquid) 148 gm 1X ONCE PO ; Start 03/22/16 at 10: 30; Stop 03/22/16 at 10:31; Status DC Aspirin (Guy Aspirin) 325 mg DAILYWBKFT PO Last administered on 03/23/16 10: 15; Start 03/23/16 at 10:00; Stop 03/23/16 at 10:26; Status DC Aspirin (Ecotrin) 325 mg DAILYWBKFT PO Last administered on 03/24/16 09:05; Start 03/24/16 at 08:00 Tamsulosin HCl (Flomax) 0.4 mg QHS PO Last administered on 03/23/16 20:23; Start 03/23/16 at 21:00 Active Scripts Active Reported Vitamin B-12 (Cyanocobalamin (Vitamin B-12)) 1,000 Mcg Tablet 1 Tab PO DAILY Pravastatin Sodium 10 Mg Tablet 1 Tab PO QHS Metformin Hcl 500 Mg Tablet 1 Tab PO BID Fluoxetine Hcl 20 Mg Tablet 1 Tab PO DAILY Amlodipine Besylate 10 Mg Tablet 10 Mg PO DAILY Allergies Allergies: Coded Allergies: iodine (Verified Allergy, Intermediate, 03/18/16) ROS Neurological: Yes Bowel/Bladder ControlChng, Yes Dizziness, Yes Gait Disturbance, Yes Impaired Coord/balance Physical Exam General: Alert, Oriented X3, Cooperative, No acute distress HEENT: Atraumatic Skin: No rashes, No breakdown, Other Neuro: Normal gait, Other MUSCULOSKELETAL: Other Vitals VITALS Vital Signs Date Time Temp Pulse Resp B/P Pulse Ox O2 Delivery O2 Flow Rate FiO2 03/24/16 12:00 97.9 71 18 135/64 91 Room Air 97.9 Labs Labs Laboratory Tests Test 03/22/16 17:07 03/22/16 20:46 03/23/16 06:50 03/23/16 07:19 Glucose (Fingerstick) 92mg/dL (70-99) 102mg/dL (70-99) 100mg/dL (70-99) White Blood Count 9.7x10^3/uL (4.0-11.0) Red Blood Count 4.94x10^6/uL (4.30-5.70) Hemoglobin 14.6g/dL (13.0-17.5) Hematocrit 44.2% (39.0-53.0) Mean Corpuscular Volume 89fL (79-100) Mean Corpuscular Hemoglobin 30pg (25-35) Mean Corpuscular Hemoglobin Concent 33g/dL (31-37) Red Cell Distribution Width 13.7% (11.5-14.5) Platelet Count 239x10^3/uL (140-400) Neutrophils (%) (Auto) 63% (31-73) Lymphocytes (%) (Auto) 29% (24-48) Monocytes (%) (Auto) 7% (0-9) Eosinophils (%) (Auto) 1% (0-3) Basophils (%) (Auto) 0% (0-3) Neutrophils # (Auto) 6.1x10^3uL (1.8-7.7) Lymphocytes # (Auto) 2.8x10^3/uL (1.0-4.8) Monocytes # (Auto) 0.7x10^3/uL (0.0-1.1) Eosinophils # (Auto) 0.1x10^3/uL (0.0-0.7) Basophils # (Auto) 0.0x10^3/uL (0.0-0.2) Sodium Level 142mmol/L (136-145) Potassium Level 4.2mmol/L (3.5-5.1) Chloride Level 105mmol/L (98-107) Carbon Dioxide Level 25mmol/L (21-32) Anion Gap 12 (6-14) Blood Urea Nitrogen 21mg/dL (8-26) Creatinine 0.8mg/dL (0.7-1.3) Estimated GFR (Cockcroft-Gault) 95.0 Glucose Level 97mg/dL (70-99) Calcium Level 8.7mg/dL (8.5-10.1) Test 03/23/16 11:05 03/23/16 16:02 03/24/16 05:55 03/24/16 08:00 Glucose (Fingerstick) 96mg/dL (70-99) 126mg/dL (70-99) White Blood Count 10.0x10^3/uL (4.0-11.0) Red Blood Count 4.81x10^6/uL (4.30-5.70) Hemoglobin 14.3g/dL (13.0-17.5) Hematocrit 42.7% (39.0-53.0) Mean Corpuscular Volume 89fL (79-100) Mean Corpuscular Hemoglobin 30pg (25-35) Mean Corpuscular Hemoglobin Concent 34g/dL (31-37) Red Cell Distribution Width 13.9% (11.5-14.5) Platelet Count 248x10^3/uL (140-400) Sodium Level 142mmol/L (136-145) Potassium Level 3.7mmol/L (3.5-5.1) Chloride Level 105mmol/L (98-107) Carbon Dioxide Level 27mmol/L (21-32) Anion Gap 10 (6-14) Blood Urea Nitrogen 15mg/dL (8-26) Creatinine 0.9mg/dL (0.7-1.3) Estimated GFR (Cockcroft-Gault) 82.9 Glucose Level 116mg/dL (70-99) Calcium Level 9.0mg/dL (8.5-10.1) Laboratory Tests Test 03/24/16 05:55 03/24/16 08:00 White Blood Count 10.0x10^3/uL (4.0-11.0) Red Blood Count 4.81x10^6/uL (4.30-5.70) Hemoglobin 14.3g/dL (13.0-17.5) Hematocrit 42.7% (39.0-53.0) Mean Corpuscular Volume 89fL (79-100) Mean Corpuscular Hemoglobin 30pg (25-35) Mean Corpuscular Hemoglobin Concent 34g/dL (31-37) Red Cell Distribution Width 13.9% (11.5-14.5) Platelet Count 248x10^3/uL (140-400) Sodium Level 142mmol/L (136-145) Potassium Level 3.7mmol/L (3.5-5.1) Chloride Level 105mmol/L (98-107) Carbon Dioxide Level 27mmol/L (21-32) Anion Gap 10 (6-14) Blood Urea Nitrogen 15mg/dL (8-26) Creatinine 0.9mg/dL (0.7-1.3) Estimated GFR (Cockcroft-Gault) 82.9 Glucose Level 116mg/dL (70-99) Calcium Level 9.0mg/dL (8.5-10.1) Images Images He was found with orbital fracture,multiple posterior circulation infarcts involving cerebellum,occipital lobes,thalami.No evidence of any clots in his heart as for echocardiogram. Assessment/Plan Assessment/Plan He had skin abrasion over right knee and he had [id number] using right upper and lower extremities and no obvious visual field cut or facial asymmetry was noted and he requires 2 person assistance with transfers and he had indwelling Gomez catheter in place. ALEXANDER DE JESUS MD Mar 24, 2016 17:02
[2016-03-24 19:00] VITALS: BP 136/73
[2016-03-24] MEDS: TAMSULOSIN 0.4 MG CAP.ER.24H. PO SCH (21:34)
[2016-03-24] MEDS: ATORVASTATIN CALCIUM 10 MG TABLET. PO SCH (21:34)
[2016-03-24 23:00] VITALS: BP 124/69
[2016-03-25 03:00] VITALS: BP 123/71
--- NOTE | 2016-03-25 04:12 | CONS ---
DATE OF CONSULTATION: 03/24/2016 CHIEF COMPLAINT: Urinary retention. HISTORY OF PRESENT ILLNESS: This is a 70-year-old male that was residing in an extended care facility when he evidently experienced a fall. He was brought to the Emergency Room. The patient had contusions and abrasions as well as orbital fracture. Further workup indicated that he had some recent cerebellar infarcts. During his hospital course, the patient had developed urinary retention and a Gomez catheter was placed and it is later removed and had to be replaced. The patient states that he did not have any problems with voiding prior to his admission. He said he had nocturia x 1. During the day, he void about every 3 hours ____ into the bladder completely. He denies any previous prostate surgery. ALLERGIES: THE PATIENT IS ALLERGIC TO IODINE. PAST MEDICAL HISTORY: Significant for hypertension. PAST SURGICAL HISTORY: No previous surgeries. MEDICATIONS: List was reviewed. PHYSICAL EXAMINATION: GENERAL DESCRIPTION: A 70-year-old male. He appears to be fairly alert and oriented. He is resting in bed and denies any acute pain. ABDOMEN: Soft, nontender. Negative for flank pain bilaterally. No palpable abdominal masses. No suprapubic tenderness. GENITALIA: The patient has an indwelling Gomez catheter draining marilee colored urine to dependent drain bag. RECTAL: Not performed today. MUSCULOSKELETAL: Negative for cyanosis or edema. LABORATORY DATA: The patient's hemoglobin 14.3, hematocrit 42.7, platelet count was adequate. The patient's electrolytes are normal. His BUN 15, creatinine 0.9. Urine on admission was essentially negative. X-RAY STUDIES: There are no x-rays pertinent to the genitourinary system. IMPRESSION: 1. Urinary retention. 2. Status post cerebral infarcts. 3. The patient is not ambulatory at this time. SUGGESTIONS: 1. I agree with starting the patient on Flomax. 2. I think he is going to need an indwelling Gomez catheter until he has had a chance for rehabilitation and to be ambulatory once again. During his rehabilitation would suggest a voiding trial by removing the Gomez catheter in the morning and checking his bladder with bladder scans. The patient may need a cystoscopy in the future after he has completed rehabilitation. Thank you for the opportunity to participate in care of this patient. DANIELLA KEMP DO DR: Seda JOB#: [id number] / [id number]
[2016-03-25 07:00] VITALS: BP 133/72
[2016-03-25] MEDS: FLUOXETINE HCL 20 MG CAPSULE PO SCH (08:16)
[2016-03-25] MEDS: METFORMIN 500 MG TABLET. PO SCH (08:16)
[2016-03-25] MEDS: ASPIRIN ENTERIC COATED 325 MG TABLET.DR. PO SCH (08:16)
[2016-03-25] MEDS: CYANOCOBALAMIN (VITAMIN B-12) 1,000 MCG TABLET. PO SCH (08:16)
[2016-03-25] MEDS: AMLODIPINE BESYLATE 10 MG TABLET PO SCH (08:18)
--- NOTE | 2016-03-25 08:22 | PDOC ---
PROGRESS NOTES Assessment Problems Medical Problems: (1) Cerebellar edema Status: Acute (2) Fall Status: Acute (3) Head injury Status: Acute CVAs: bilateral cerebellum, occipital temporal lobes greater on the right, and also the thalami greater on the left. Mild hemorrhagic transformation. Left vertebral, basilar artery thrombosis Orbital fractures Note swallow results Note urinary retention, yanez in place Plan Continue supportive care. Oral aspirin Rehabilitation modalities Eventually will need ENT consultation. Ready to go to SNU or inpatient rehab, note plans for [facility] Subjective Denies pain Objective Vital Signs Date Time Temp Pulse Resp B/P Pulse Ox O2 Delivery O2 Flow Rate FiO2 03/25/16 08:18 71 133/72 03/25/16 03:00 98.1 18 93 Room Air 98.1 Intake and Output 03/25/16 07:00 Intake Total 1140 ml Output Total 1300 ml Balance -160 ml Intake Oral 1140 ml Output Urine Total 1300 ml PHYSICAL EXAM Alert. Oriented to time, place and person. PERRL, EOMI CN: no focal findings. Muscle tone: normal. Muscle strength: 5/5 DTR: 1+ Plantar reflex: Flexor Gait: not examined in bed. Sensory exam: no abnormal findings. Bilateral dysmetria, truncal ataxia Review of Relevant I have reviewed the following items sandro (where applicable) has been applied. Labs Laboratory Tests Test 03/23/16 11:05 03/23/16 16:02 03/24/16 05:55 03/24/16 08:00 Glucose (Fingerstick) 96mg/dL (70-99) 126mg/dL (70-99) White Blood Count 10.0x10^3/uL (4.0-11.0) Red Blood Count 4.81x10^6/uL (4.30-5.70) Hemoglobin 14.3g/dL (13.0-17.5) Hematocrit 42.7% (39.0-53.0) Mean Corpuscular Volume 89fL (79-100) Mean Corpuscular Hemoglobin 30pg (25-35) Mean Corpuscular Hemoglobin Concent 34g/dL (31-37) Red Cell Distribution Width 13.9% (11.5-14.5) Platelet Count 248x10^3/uL (140-400) Sodium Level 142mmol/L (136-145) Potassium Level 3.7mmol/L (3.5-5.1) Chloride Level 105mmol/L (98-107) Carbon Dioxide Level 27mmol/L (21-32) Anion Gap 10 (6-14) Blood Urea Nitrogen 15mg/dL (8-26) Creatinine 0.9mg/dL (0.7-1.3) Estimated GFR (Cockcroft-Gault) 82.9 Glucose Level 116mg/dL (70-99) Calcium Level 9.0mg/dL (8.5-10.1) Test 03/25/16 08:15 Glucose (Fingerstick) 98mg/dL (70-99) Laboratory Tests Test 03/25/16 08:15 Glucose (Fingerstick) 98mg/dL (70-99) Medications Current Medications Ondansetron HCl 4 mg 4 mg PRN Q8HRS PRN IV NAUSEA/VOMITING; Start 03/18/16 at 13:15; Stop 03/19/16 at 11:12; Status DC Sodium Chloride 1,000 ml @ 125 mls/hr Q8H IV Last administered on 03/19/16 07 :00; Start 03/18/16 at 15:00; Stop 03/19/16 at 14:59; Status DC Sodium Chloride (Iv Sodium Chloride 0.9% 1000ml Bag) 1,000 ml @ 1,000 mls/hr 1X ONCE IV Last administered on 03/18/16 13:19; Start 03/18/16 at 13:30; Stop 03/18/16 at 14:29; Status DC Gadobutrol (Gadavist) 7.5 mmol 1X ONCE IV Last administered on 03/18/16 14:04 ; Start 03/18/16 at 13:45; Stop 03/18/16 at 13:48; Status DC Sodium Chloride 3 ml 3 ml QSHIFT PRN IV AFTER MEDS AND BLOOD DRAWS; Start 03/18 at 14:15 Sodium Chloride (Iv Sodium Chloride 0.9% 1000ml Bag) 1,000 ml @ 100 mls/hr Q10H IV ; Start 03/18/16 at 14:03; Stop 03/19/16 at 17:01; Status DC Labetalol HCl (Normodyne) 10 mg PRN Q10MIN PRN IV HYPERTENSION, SEE COMMENTS; Start 03/18/16 at 14:15 Acetaminophen (Tylenol) 650 mg PRN Q6HRS PRN PO FEVER Last administered on 03/22 20:57; Start 03/18/16 at 14:15 Acetaminophen (Tylenol) 650 mg PRN Q6HRS PRN [place] FEVER; Start 03/18/16 at 14:15 Ondansetron HCl (Zofran) 4 mg PRN Q6HRS PRN IV NAUSEA/VOMITING; Start 03/18/16 at 14:15 Enoxaparin Sodium (Lovenox 40mg Syringe) 40 mg Q24H SQ Last administered on 15:14; Start 03/18/16 at 15:00; Stop 03/18/16 at 15:18; Status DC Amlodipine Besylate (Norvasc) 10 mg DAILY PO Last administered on 03/25/16 08: 18; Start 03/19/16 at 09:00 Cyanocobalamin (Vitamin B-12) 1,000 mcg DAILY PO Last administered on 08:16; Start 03/19/16 at 09:00 Metformin HCl (Glucophage) 500 mg BIDWMEALS PO Last administered on 03/25/16 08:16; Start 03/19/16 at 08:00 Fluoxetine HCl (Prozac) 20 mg DAILY PO Last administered on 03/25/16 08:16; Start 03/19/16 at 09:00 Atorvastatin Calcium 5 mg 5 mg QHS PO Last administered on 03/24/16 21:34; Start 03/19/16 at 21:00 Sodium Chloride (Iv Sodium Chloride 0.9% 1000ml Bag) 1,000 ml @ 125 mls/hr Q8H IV Last administered on 03/19/16 17:41; Start 03/19/16 at 17:01; Stop at 18:37; Status DC Enalaprilat 2.5 mg 2.5 mg 1X ONCE IV ; Start 03/19/16 at 18:30; Stop 03/19/16 at 18:47; Status DC Amino Acids/ Glycerin/ Electrolytes (Procalamine) 1,000 ml @ 80 mls/hr [id number] IV Last administered on 03/22/16 20:58; Start 03/19/16 at 18:30; Stop at 10:24; Status DC Enoxaparin Sodium (Lovenox 30mg Syringe) 30 mg Q24H SQ Last administered on 09:04; Start 03/21/16 at 10:45 Aspirin (Aspirin) 300 mg DAILY [place] Last administered on 03/22/16 12:31; Start 03/21/16 at 11:00; Stop 03/23/16 at 09:39; Status DC Barium Sulfate (Varibar Thin Liquid) 148 gm 1X ONCE PO ; Start 03/22/16 at 10: 30; Stop 03/22/16 at 10:31; Status DC Aspirin (Guy Aspirin) 325 mg DAILYWBKFT PO Last administered on 03/23/16 10: 15; Start 03/23/16 at 10:00; Stop 03/23/16 at 10:26; Status DC Aspirin (Ecotrin) 325 mg DAILYWBKFT PO Last administered on 03/25/16 08:16; Start 03/24/16 at 08:00 Tamsulosin HCl (Flomax) 0.4 mg QHS PO Last administered on 03/24/16 21:34; Start 03/23/16 at 21:00 Active Scripts Active Reported Vitamin B-12 (Cyanocobalamin (Vitamin B-12)) 1,000 Mcg Tablet 1 Tab PO DAILY Pravastatin Sodium 10 Mg Tablet 1 Tab PO QHS Metformin Hcl 500 Mg Tablet 1 Tab PO BID Fluoxetine Hcl 20 Mg Tablet 1 Tab PO DAILY Amlodipine Besylate 10 Mg Tablet 10 Mg PO DAILY Vitals/I & O Vital Sign - Last 24 Hours 03/24/16 03/24/16 03/24/16 03/24/16 09:05 12:00 16:00 19:00 Temp 97.9 97.7 98.5 97.9 97.7 98.5 Pulse 74 71 76 67 Resp 18 18 18 B/P 132/77 135/64 127/75 136/73 Pulse Ox 91 91 91 O2 Delivery Room Air Room Air Room Air 03/24/16 03/24/16 03/25/16 03/25/16 20:00 23:00 03:00 08:18 Temp 97.9 98.1 97.9 98.1 Pulse 68 66 71 Resp 18 18 B/P 124/69 123/71 133/72 Pulse Ox 90 93 O2 Delivery Room Air Room Air Room Air Intake and Output 03/24/16 03/24/16 03/25/16 15:00 23:00 07:00 Intake Total 240 ml 900 ml Output Total 1300 ml Balance -1060 ml 900 ml ABHISHEK DIAZ MD Mar 25, 2016 08:22
--- NOTE | 2016-03-25 09:22 | PDOC ---
PROGRESS NOTES Chief Complaint Chief Complaint Cerebellar shower emboli with hemorrhagic transformation ASSESSMENT AND PLAN: 1. 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 Vascular risk stratification: occlusion/narrowing of proximal basilar artery, left intradural vertebral artery, right vertebrobasilar junction, distal left posterior cerebral artery. on asa as per Dr Rae's recommendation 3. Orbital fracture, R: healing. no intervention recommended by ophthal. 4. Dysphagia: rpt video swallow study w/o aspiration. rec.s for regular ( cardiac) diet. 5. Urinary retention: re-place Gomez. start flomax. Urology consult 5. HTN: well controlled on current 6. DM: very good control. 7. Dispo: SNF placement Vitals Vitals Vital Signs Date Time Temp Pulse Resp B/P Pulse Ox O2 Delivery O2 Flow Rate FiO2 03/25/16 08:18 71 133/72 03/25/16 03:00 98.1 18 93 Room Air 98.1 Physical Exam General: Alert, Oriented X3, Cooperative, No acute distress Heart: Regular rate, No murmurs Lungs: Clear Abdomen: Normal bowel sounds, Soft, No tenderness Extremities: No clubbing, No cyanosis, No edema Skin: No rashes, No breakdown, Other Labs LABS Laboratory Tests Test 03/25/16 08:15 Glucose (Fingerstick) 98mg/dL (70-99) Review of Systems Review of Systems no MANCERA. unstable with walking Comment Labs Laboratory Tests Test 03/23/16 11:05 03/23/16 16:02 03/24/16 05:55 03/24/16 08:00 Glucose (Fingerstick) 96mg/dL (70-99) 126mg/dL (70-99) White Blood Count 10.0x10^3/uL (4.0-11.0) Red Blood Count 4.81x10^6/uL (4.30-5.70) Hemoglobin 14.3g/dL (13.0-17.5) Hematocrit 42.7% (39.0-53.0) Mean Corpuscular Volume 89fL (79-100) Mean Corpuscular Hemoglobin 30pg (25-35) Mean Corpuscular Hemoglobin Concent 34g/dL (31-37) Red Cell Distribution Width 13.9% (11.5-14.5) Platelet Count 248x10^3/uL (140-400) Sodium Level 142mmol/L (136-145) Potassium Level 3.7mmol/L (3.5-5.1) Chloride Level 105mmol/L (98-107) Carbon Dioxide Level 27mmol/L (21-32) Anion Gap 10 (6-14) Blood Urea Nitrogen 15mg/dL (8-26) Creatinine 0.9mg/dL (0.7-1.3) Estimated GFR (Cockcroft-Gault) 82.9 Glucose Level 116mg/dL (70-99) Calcium Level 9.0mg/dL (8.5-10.1) Test 03/25/16 08:15 Glucose (Fingerstick) 98mg/dL (70-99) Laboratory Tests Test 03/25/16 08:15 Glucose (Fingerstick) 98mg/dL (70-99) Medications Current Medications Ondansetron HCl 4 mg 4 mg PRN Q8HRS PRN IV NAUSEA/VOMITING; Start 03/18/16 at 13:15; Stop 03/19/16 at 11:12; Status DC Sodium Chloride 1,000 ml @ 125 mls/hr Q8H IV Last administered on 03/19/16 07 :00; Start 03/18/16 at 15:00; Stop 03/19/16 at 14:59; Status DC Sodium Chloride (Iv Sodium Chloride 0.9% 1000ml Bag) 1,000 ml @ 1,000 mls/hr 1X ONCE IV Last administered on 03/18/16 13:19; Start 03/18/16 at 13:30; Stop 03/18/16 at 14:29; Status DC Gadobutrol (Gadavist) 7.5 mmol 1X ONCE IV Last administered on 03/18/16 14:04 ; Start 03/18/16 at 13:45; Stop 03/18/16 at 13:48; Status DC Sodium Chloride 3 ml 3 ml QSHIFT PRN IV AFTER MEDS AND BLOOD DRAWS; Start 03/18 at 14:15 Sodium Chloride (Iv Sodium Chloride 0.9% 1000ml Bag) 1,000 ml @ 100 mls/hr Q10H IV ; Start 03/18/16 at 14:03; Stop 03/19/16 at 17:01; Status DC Labetalol HCl (Normodyne) 10 mg PRN Q10MIN PRN IV HYPERTENSION, SEE COMMENTS; Start 03/18/16 at 14:15 Acetaminophen (Tylenol) 650 mg PRN Q6HRS PRN PO FEVER Last administered on 03/22 20:57; Start 03/18/16 at 14:15 Acetaminophen (Tylenol) 650 mg PRN Q6HRS PRN [place] FEVER; Start 03/18/16 at 14:15 Ondansetron HCl (Zofran) 4 mg PRN Q6HRS PRN IV NAUSEA/VOMITING; Start 03/18/16 at 14:15 Enoxaparin Sodium (Lovenox 40mg Syringe) 40 mg Q24H SQ Last administered on 15:14; Start 03/18/16 at 15:00; Stop 03/18/16 at 15:18; Status DC Amlodipine Besylate (Norvasc) 10 mg DAILY PO Last administered on 03/25/16 08: 18; Start 03/19/16 at 09:00 Cyanocobalamin (Vitamin B-12) 1,000 mcg DAILY PO Last administered on 08:16; Start 03/19/16 at 09:00 Metformin HCl (Glucophage) 500 mg BIDWMEALS PO Last administered on 03/25/16 08:16; Start 03/19/16 at 08:00 Fluoxetine HCl (Prozac) 20 mg DAILY PO Last administered on 03/25/16 08:16; Start 03/19/16 at 09:00 Atorvastatin Calcium 5 mg 5 mg QHS PO Last administered on 03/24/16 21:34; Start 03/19/16 at 21:00 Sodium Chloride (Iv Sodium Chloride 0.9% 1000ml Bag) 1,000 ml @ 125 mls/hr Q8H IV Last administered on 03/19/16 17:41; Start 03/19/16 at 17:01; Stop at 18:37; Status DC Enalaprilat 2.5 mg 2.5 mg 1X ONCE IV ; Start 03/19/16 at 18:30; Stop 03/19/16 at 18:47; Status DC Amino Acids/ Glycerin/ Electrolytes (Procalamine) 1,000 ml @ 80 mls/hr [id number] IV Last administered on 03/22/16 20:58; Start 03/19/16 at 18:30; Stop at 10:24; Status DC Enoxaparin Sodium (Lovenox 30mg Syringe) 30 mg Q24H SQ Last administered on 09:04; Start 03/21/16 at 10:45 Aspirin (Aspirin) 300 mg DAILY [place] Last administered on 03/22/16 12:31; Start 03/21/16 at 11:00; Stop 03/23/16 at 09:39; Status DC Barium Sulfate (Varibar Thin Liquid) 148 gm 1X ONCE PO ; Start 03/22/16 at 10: 30; Stop 03/22/16 at 10:31; Status DC Aspirin (Guy Aspirin) 325 mg DAILYWBKFT PO Last administered on 03/23/16 10: 15; Start 03/23/16 at 10:00; Stop 03/23/16 at 10:26; Status DC Aspirin (Ecotrin) 325 mg DAILYWBKFT PO Last administered on 03/25/16 08:16; Start 03/24/16 at 08:00 Tamsulosin HCl (Flomax) 0.4 mg QHS PO Last administered on 03/24/16 21:34; Start 03/23/16 at 21:00 Active Scripts Active Reported Vitamin B-12 (Cyanocobalamin (Vitamin B-12)) 1,000 Mcg Tablet 1 Tab PO DAILY Pravastatin Sodium 10 Mg Tablet 1 Tab PO QHS Metformin Hcl 500 Mg Tablet 1 Tab PO BID Fluoxetine Hcl 20 Mg Tablet 1 Tab PO DAILY Amlodipine Besylate 10 Mg Tablet 10 Mg PO DAILY Vitals/I & O Vital Sign - Last 24 Hours 03/24/16 03/24/16 03/24/16 03/24/16 12:00 16:00 19:00 20:00 Temp 97.9 97.7 98.5 97.9 97.7 98.5 Pulse 71 76 67 Resp 18 18 18 B/P 135/64 127/75 136/73 Pulse Ox 91 91 91 O2 Delivery Room Air Room Air Room Air Room Air 03/24/16 03/25/16 03/25/16 23:00 03:00 08:18 Temp 97.9 98.1 97.9 98.1 Pulse 68 66 71 Resp 18 18 B/P 124/69 123/71 133/72 Pulse Ox 90 93 O2 Delivery Room Air Room Air Intake and Output 03/24/16 03/24/16 03/25/16 15:00 23:00 07:00 Intake Total 240 ml 900 ml Output Total 1300 ml Balance -1060 ml 900 ml JAKE KEE MD Mar 25, 2016 09:22
[2016-03-25 11:00] VITALS: BP 122/72
--- NOTE | 2016-03-25 11:10 | PDOC ---
PROGRESS NOTES Subjective Subjective No new complaints. Objective Objective Vital Signs Date Time Temp Pulse Resp B/P Pulse Ox O2 Delivery O2 Flow Rate FiO2 03/25/16 08:18 71 133/72 03/25/16 07:30 Room Air 03/25/16 07:00 98.1 16 91 98.1 Intake and Output 03/25/16 07:00 Intake Total 1140 ml Output Total 1300 ml Balance -160 ml Intake Oral 1140 ml Output Urine Total 1300 ml Physical Exam Physical Exam He is alert and comfortable but continues with ataxia and mobility and self care limitations and he had indwelling Gomez catheter in place. Assessment Assessment Problems Medical Problems: (1) Cerebellar edema Status: Acute (2) Fall Status: Acute (3) Head injury Status: Acute Plan Plan of Care To rehab unit for continued care when medically stable. Comment Review of Relevant I have reviewed the following items sandro (where applicable) has been applied. Labs Laboratory Tests Test 03/23/16 16:02 03/24/16 05:55 03/24/16 08:00 03/25/16 08:15 Glucose (Fingerstick) 126mg/dL (70-99) 98mg/dL (70-99) White Blood Count 10.0x10^3/uL (4.0-11.0) Red Blood Count 4.81x10^6/uL (4.30-5.70) Hemoglobin 14.3g/dL (13.0-17.5) Hematocrit 42.7% (39.0-53.0) Mean Corpuscular Volume 89fL (79-100) Mean Corpuscular Hemoglobin 30pg (25-35) Mean Corpuscular Hemoglobin Concent 34g/dL (31-37) Red Cell Distribution Width 13.9% (11.5-14.5) Platelet Count 248x10^3/uL (140-400) Sodium Level 142mmol/L (136-145) Potassium Level 3.7mmol/L (3.5-5.1) Chloride Level 105mmol/L (98-107) Carbon Dioxide Level 27mmol/L (21-32) Anion Gap 10 (6-14) Blood Urea Nitrogen 15mg/dL (8-26) Creatinine 0.9mg/dL (0.7-1.3) Estimated GFR (Cockcroft-Gault) 82.9 Glucose Level 116mg/dL (70-99) Calcium Level 9.0mg/dL (8.5-10.1) Laboratory Tests Test 03/25/16 08:15 Glucose (Fingerstick) 98mg/dL (70-99) Medications Current Medications Ondansetron HCl 4 mg 4 mg PRN Q8HRS PRN IV NAUSEA/VOMITING; Start 03/18/16 at 13:15; Stop 03/19/16 at 11:12; Status DC Sodium Chloride 1,000 ml @ 125 mls/hr Q8H IV Last administered on 03/19/16 07 :00; Start 03/18/16 at 15:00; Stop 03/19/16 at 14:59; Status DC Sodium Chloride (Iv Sodium Chloride 0.9% 1000ml Bag) 1,000 ml @ 1,000 mls/hr 1X ONCE IV Last administered on 03/18/16 13:19; Start 03/18/16 at 13:30; Stop 03/18/16 at 14:29; Status DC Gadobutrol (Gadavist) 7.5 mmol 1X ONCE IV Last administered on 03/18/16 14:04 ; Start 03/18/16 at 13:45; Stop 03/18/16 at 13:48; Status DC Sodium Chloride 3 ml 3 ml QSHIFT PRN IV AFTER MEDS AND BLOOD DRAWS; Start 03/18 at 14:15 Sodium Chloride (Iv Sodium Chloride 0.9% 1000ml Bag) 1,000 ml @ 100 mls/hr Q10H IV ; Start 03/18/16 at 14:03; Stop 03/19/16 at 17:01; Status DC Labetalol HCl (Normodyne) 10 mg PRN Q10MIN PRN IV HYPERTENSION, SEE COMMENTS; Start 03/18/16 at 14:15 Acetaminophen (Tylenol) 650 mg PRN Q6HRS PRN PO FEVER Last administered on 03/22 20:57; Start 03/18/16 at 14:15 Acetaminophen (Tylenol) 650 mg PRN Q6HRS PRN TN FEVER; Start 03/18/16 at 14:15 Ondansetron HCl (Zofran) 4 mg PRN Q6HRS PRN IV NAUSEA/VOMITING; Start 03/18/16 at 14:15 Enoxaparin Sodium (Lovenox 40mg Syringe) 40 mg Q24H SQ Last administered on 15:14; Start 03/18/16 at 15:00; Stop 03/18/16 at 15:18; Status DC Amlodipine Besylate (Norvasc) 10 mg DAILY PO Last administered on 03/25/16 08: 18; Start 03/19/16 at 09:00 Cyanocobalamin (Vitamin B-12) 1,000 mcg DAILY PO Last administered on 08:16; Start 03/19/16 at 09:00 Metformin HCl (Glucophage) 500 mg BIDWMEALS PO Last administered on 03/25/16 08:16; Start 03/19/16 at 08:00 Fluoxetine HCl (Prozac) 20 mg DAILY PO Last administered on 03/25/16 08:16; Start 03/19/16 at 09:00 Atorvastatin Calcium 5 mg 5 mg QHS PO Last administered on 03/24/16 21:34; Start 03/19/16 at 21:00 Sodium Chloride (Iv Sodium Chloride 0.9% 1000ml Bag) 1,000 ml @ 125 mls/hr Q8H IV Last administered on 03/19/16 17:41; Start 03/19/16 at 17:01; Stop at 18:37; Status DC Enalaprilat 2.5 mg 2.5 mg 1X ONCE IV ; Start 03/19/16 at 18:30; Stop 03/19/16 at 18:47; Status DC Amino Acids/ Glycerin/ Electrolytes (Procalamine) 1,000 ml @ 80 mls/hr [id number] IV Last administered on 03/22/16 20:58; Start 03/19/16 at 18:30; Stop at 10:24; Status DC Enoxaparin Sodium (Lovenox 30mg Syringe) 30 mg Q24H SQ Last administered on 09:04; Start 03/21/16 at 10:45 Aspirin (Aspirin) 300 mg DAILY TN Last administered on 03/22/16 12:31; Start 03/21/16 at 11:00; Stop 03/23/16 at 09:39; Status DC Barium Sulfate (Varibar Thin Liquid) 148 gm 1X ONCE PO ; Start 03/22/16 at 10: 30; Stop 03/22/16 at 10:31; Status DC Aspirin (Guy Aspirin) 325 mg DAILYWBKFT PO Last administered on 03/23/16 10: 15; Start 03/23/16 at 10:00; Stop 03/23/16 at 10:26; Status DC Aspirin (Ecotrin) 325 mg DAILYWBKFT PO Last administered on 03/25/16 08:16; Start 03/24/16 at 08:00 Tamsulosin HCl (Flomax) 0.4 mg QHS PO Last administered on 03/24/16 21:34; Start 03/23/16 at 21:00 Active Scripts Active Reported Vitamin B-12 (Cyanocobalamin (Vitamin B-12)) 1,000 Mcg Tablet 1 Tab PO DAILY Pravastatin Sodium 10 Mg Tablet 1 Tab PO QHS Metformin Hcl 500 Mg Tablet 1 Tab PO BID Fluoxetine Hcl 20 Mg Tablet 1 Tab PO DAILY Amlodipine Besylate 10 Mg Tablet 10 Mg PO DAILY Vitals/I & O Vital Sign - Last 24 Hours 03/24/16 03/24/16 03/24/16 03/24/16 12:00 16:00 19:00 20:00 Temp 97.9 97.7 98.5 97.9 97.7 98.5 Pulse 71 76 67 Resp 18 B/P 135/64 127/75 136/73 Pulse Ox 91 91 91 O2 Delivery Room Air Room Air Room Air Room Air 03/24/16 03/25/16 03/25/16 03/25/16 23:00 03:00 07:00 07:30 Temp 97.9 98.1 98.1 97.9 98.1 98.1 Pulse 68 66 71 Resp 18 18 16 B/P 124/69 123/71 133/72 Pulse Ox 90 93 91 O2 Delivery Room Air Room Air Room Air Room Air 03/25/16 08:18 Pulse 71 B/P 133/72 Intake and Output 03/24/16 03/24/16 03/25/16 15:00 23:00 07:00 Intake Total 240 ml 900 ml Output Total 1300 ml Balance -1060 ml 900 ml ALEXANDER DE JESUS MD Mar 25, 2016 11:10
[2016-03-25] MEDS ORDERED: BISACODYL 10 MG SUPP.RECT PR PRN (11:15)
[2016-03-25] MEDS ORDERED: POLYETHYLENE GLYCOL 3350 17 GM PACKET. PO SCH (11:30)
[2016-03-25] MEDS: ENOXAPARIN 30 MG/0.3 ML DISP.SYRIN. SQ SCH (11:41)
--- NOTE | 2016-03-27 00:02 | DS ---
DATE OF DISCHARGE: 03/25/2016 CHIEF COMPLAINT: Cerebellar shower emboli with hemorrhagic transformation, status post fall with orbital fracture. HOSPITAL COURSE: The patient is a 70-year-old gentleman who fell at home with injury to his face and when he was brought in and evaluated in the Emergency Room, was found with shower emboli to the cerebrum with some hemorrhagic transformation developing during hospitalization. Neurology consult was obtained and recommendations for anticoagulation were followed. Vascular risk assessment showed significant disease in multiple posterior vessels including the proximal basilar artery, the intradural vertebral artery and the vertebrobasilar junction as well as posterior cerebral. His orbital fracture was evaluated by trauma team, no intervention was recommended by Ophthalmology. He seemed to have some dysphagia with food. However, formal video swallow study did not show any deficiencies. Because of ongoing balance difficulties, he was deemed appropriate for acute rehabilitation. He was found with urinary retention requiring replacement of his Gomez catheter. He was started on Flomax and discharged with leg bag. He will follow up with Dr. Monroe on an outpatient basis. PHYSICAL EXAMINATION: Please refer to note from discharge date. DISCHARGE DATE: 03/25/2016 DISCHARGE DISPOSITION: To SNF DISCHARGE CONDITION: Improved. DISCHARGE DIAGNOSES: 1. Cerebellar infarct. 2. Orbital fracture. 3. Urinary retention. DISCHARGE MEDICATIONS: Please refer to MAR. DISCHARGE INSTRUCTIONS: The patient will follow up with PCP in 1-2 weeks. He will see Dr. Monroe from Urology in 2 weeks. Greater than 30 minutes were spent in arranging discharge. JAKE KEE MD DR: XIANG/nts JOB#: [id number] / [id number] JENNIFER
== END 2016-03-25 14:15 | DRG 64 ==
LOC: ER 11:15 → 4 NORTH 13:18 → 1 WEST ICU 15:49 → 4 NORTH 03-21 14:15
PROVIDERS: ADMIT Internal Medicine; ATTEND Internal Medicine
DX: I63.9 Cerebral infarction, unspecified (principal); G93.6 Cerebral edema; S02.81XA Fracture of other specified skull and facial bones, right side, initial encounter for closed fracture; E11.9 Type 2 diabetes mellitus without complications; E78.00 Pure hypercholesterolemia, unspecified; E78.5 Hyperlipidemia, unspecified; F17.210 Nicotine dependence, cigarettes, uncomplicated; F32.9 Major depressive disorder, single episode, unspecified; H26.9 Unspecified cataract; I10 Essential (primary) hypertension; F12.90 Cannabis use, unspecified, uncomplicated; I65.1 Occlusion and stenosis of basilar artery; J32.0 Chronic maxillary sinusitis; R13.10 Dysphagia, unspecified; R33.9 Retention of urine, unspecified; W18.39XA Other fall on same level, initial encounter; Q35.9 Cleft palate, unspecified; Y93.89 Activity, other specified; Y92.098 Other place in other non-institutional residence as the place of occurrence of the external cause; Y99.8 Other external cause status; Z82.3 Family history of stroke; Z87.730 Personal history of (corrected) cleft lip and palate; Z79.899 Other long term (current) drug therapy; Z91.041 Radiographic dye allergy status
CPT/HCPCS: 36415; 51701; 70450; 70486; 70544; 70547; 70553; 71010; 72125; 74230; 80048; 80061; 81001; 82947; 84484; 85007; 85027; 87641; 93005; 93306; 96361; 96372; 96374; G0481; J1650; J7030; 92526; 92610; 92611; 97110; 97116; 97530; 97535; 99285-25; A9585

== ENCOUNTER 2016-04-25 20:08 | Inpatient (IN) | payer MEDICARE, OTHER ==
[~2016-04-25] VITALS: Ht 180.3 cm; Wt 79.6 kg
[~2016-04-25 20:08] MED LIST: AMLO10TA2 PO; CYAN10005 PO; FLUO20TA11 PO; METF500T4 PO; PRAV10TA2 PO
[2016-04-25] MEDS ORDERED: FENTANYL PF 100 MCG/2 ML VIAL. IV PRN (21:15)
--- NOTE | 2016-04-25 22:21 | RAD ---
PROCEDURE CT Head without contrast. HISTORY Fall with head injury. Stroke 6 weeks ago. TECHNIQUE Noncontrast CT head was obtained. One or more of the following individualized dose reduction techniques were utilized for this exam: 1. Automated exposure control. 2. Adjustment of the mA and/or kV according to patient's size. 3. Use of iterative reconstruction technique. COMPARISON March 21, 2016. FINDINGS Posterior circulation infarcts involving the occipital lobes and cerebellum have similar distribution and size compared to prior. They demonstrate expected evolution. No new infarct is identified. There is prominence of the ventricles and sulci. There is mild probable small-vessel ischemic disease. There is no acute intracranial hemorrhage or extra-axial fluid collection. There are air-fluid levels in the maxillary sinuses. There is maxillary mucosal thickening. IMPRESSION Expected evolution of cerebellar and occipital infarcts bilaterally. No CT evidence of an acute infarct. Electronically signed by: Reji Norman MD (Apr 25, 2016 22:20:21)
--- NOTE | 2016-04-25 22:39 | PHYS DOC ---
Past Medical History Past Medical History: CVA, Other Additional Past Medical Histor: Metformin for prediabetes, restless leg syndrome, hypertension Additional Past Surgical Histo: cleft palate repair Alcohol Use: Rarely Drug Use: Marijuana Adult General Chief Complaint Chief Complaint: HIP PAIN HPI HPI Patient is a 71 year old male who presents with right hip pain after falling out of his wheelchair this afternoon. He states he hit the right side of his body on the floor. States his right hip hurts most.. He did hit his head on the ground, but denies loss of consciousness or headache or vision changes or neck pain. He also has minimal pain to his right shoulder without impedance of his movement or use. He denies chest pain, dyspnea, back pain, abdominal pain, nausea or vomiting, dizziness, new numbness, new tingling, new weakness. Review of Systems Review of Systems Constitutional: Denies fever or chills [] Eyes: Denies change in visual acuity, redness, or eye pain [] HENT: Denies nasal congestion or sore throat [] Respiratory: Denies cough or shortness of breath [] Cardiovascular: No additional information not addressed in HPI [] GI: Denies abdominal pain, nausea, vomiting, bloody stools or diarrhea [] : Denies dysuria or hematuria [] Musculoskeletal: Denies back pain [] Integument: Denies rash or skin lesions [] Neurologic: Denies headache, focal weakness or sensory changes [] Endocrine: Denies polyuria or polydipsia [] Current Medications Current Medications Current Medications Medications (Trade) Dose Ordered Sig/John Start Time Stop Time Status Last Admin Dose Admin Fentanyl Citrate (Fentanyl 2ml Vial) 25 mcg PRN Q15MIN PRN 04/25/16 21:15 04/26/16 21:14 Allergies Allergies Allergies Coded Allergies Type Severity Reaction Last Updated Verified iodine Allergy Intermediate 03/18/16 Yes Physical Exam Physical Exam Constitutional: Well developed, well nourished, no acute distress, non-toxic appearance. [] HENT: Normocephalic, bilateral external ears normal, oropharynx moist, no oral exudates, nose normal. Some ecchymosis to right lateral periorbital area with small well-approximated laceration that does not involve eyelid margin. No german sign, hemotympanum, raccoon eyes [] Eyes: PERRLA, EOMI, conjunctiva normal, no discharge. [] Neck: Normal range of motion, no tenderness, supple. [] Cardiovascular:Heart rate regular rhythm [] Lungs & Thorax: Bilateral breath sounds clear to auscultation [] Abdomen: Bowel sounds normal, soft, no tenderness. [] Skin: Warm, dry, no erythema, no rash. [] Back: No tenderness, no CVA tenderness. [] Extremities: RUE with obvious deformity; has minimal rubor to deltoid; minimal tenderness to deltoid with no bony tenderness; Full ROM with shoulder/elbow/ wrist/hand; Can pronate/supinate; Can make fist/ok sign/thumb up/finger cross and spread; Can flex/ex wrist; Good radial pulse and brisk cap refill equal bilaterally; sensation intact to light touch m/u/r/ax nerves . RLE with no obvious deformity or discoloration; Has tenderness to lateral hip with no palpable abnormality; Hip flex/ex/IR/ER very restricted ROM due to pain , knee full rom, ankle df/pf full, toes df/pf full; SILT; good dp and pt pulses equal bilaterally Neurologic: Alert and oriented X 3, normal motor function, normal sensory function, no focal deficits noted. [] Psychologic: Affect normal, judgement normal, mood normal. [] Current Patient Data Vital Signs Vital Signs Date Time Temp Pulse Resp B/P Pulse Ox O2 Delivery O2 Flow Rate FiO2 04/25/16 20:14 98.6 78 18 95 Room Air 98.6 Radiology/Procedures Radiology/Procedures X-ray right hip and pelvis as interpreted by me shows a displaced neurologic right greater trochanter fracture, otherwise nonacute Head CT without contrast IMPRESSION Expected evolution of cerebellar and occipital infarcts bilaterally. No CT evidence of an acute infarct. Electronically signed by: Reji Norman MD (Apr 25, 2016 22:20:21) Course & Med Decision Making Course & Med Decision Making Pertinent Labs and Imaging studies reviewed. (See chart for details) Has right hip pain and intolerance of walking due to pain. Has fracture of greater trochanter. Will admit for pain control and ortho evaluation. Discussed case with Dr. Rodriguez, orthopedics, who recommends CT of the pelvis. Discussed case with Dr. Khan, who will admit. Dragon Disclaimer Dragon Disclaimer This electronic medical record was generated, in whole or in part, using a voice recognition dictation system. Departure Departure Impression: Primary Impression: Closed fracture of greater trochanter of right femur Disposition: ADMITTED INPATIENT Condition: STABLE Referrals: NO PCP (PCP) Problem Qualifiers Primary Impression: Closed fracture of greater trochanter of right femur Encounter type: initial encounter Qualified Code: S72.111A - Displaced fracture of greater trochanter of right femur, initial encounter for closed fracture Shane PURI MD Apr 25, 2016 22:39
--- NOTE | 2016-04-25 23:18 | RAD ---
PROCEDURE CT pelvis without contrast. HISTORY Right hip pain. Right hip fracture. TECHNIQUE Axial images and coronal and sagittal re-formatted images are provided. One or more of the following individualized dose reduction techniques were utilized for this exam: 1. Automated exposure control. 2. Adjustment of the mA and/or kV according to patient's size. 3. Use of iterative reconstruction technique. COMPARISON Hip radiographs from earlier today. FINDINGS Acute fracture involving the right greater trochanter is noted. An additional fracture is not identified. There is no dislocation. Probable bone island near the symphysis pubis is noted. Infrarenal abdominal aorta is aneurysmal, 3.4 centimeters AP with with minimal atheromatous disease. There are diverticula in the colon. Gomez catheter is noted. IMPRESSION Fracture involving the right greater trochanter. Electronically signed by: Reji Norman MD (Apr 25, 2016 23:17:20)
--- NOTE | 2016-04-25 23:24 | ACF ---
Admission Forms Criteria MUSCULOSKELETAL DISEASE GRG Clinical Indications for Admission to Inpatient Care (Place 'X' for any and all applicable criteria): Hospital admission is needed for appropriate care of the patient because of ANY ONE of the following: [X ]I. Fracture, dislocation, or other musculoskeletal injury requiring inpatient care(medical) as indicated by ANY ONE of the following(4)(5)(6)(7) [ ]a) Vertebral fracture requiring observation for instability or neurologic compromise (8) [ ]b) Compartment syndrome (proven or cannot be ruled out during observation level of care) (9) [ ]c) Limb-threatening injury [ ]d) Major injury requiring inpatient stabilization such as traction initiation or external fixation before internal fixation or closure of complex or open fracture [X ]e) Major injury requiring inpatient treatment after emergency or observation level care (as appropriate) [ ]f) Severe pain requiring acute inpatient management [ ]II. Newly diagnosed or suspected bone, joint, or orthopedic device infection (e.g., osteomyelitis, septic arthritis) needing ANY ONE of the following(1)(2)(3) [ ]a) IV antibiotics that cannot be initiated in other than inpatient setting (e.g., patient too unstable or home infusion not available) [ ]b) Device removal or replacement [ ]c) Bone or soft tissue debridement [ ]d) Joint drainage (drain placement or repetitive aspirations) [ ]III. Severe rheumatologic disease (e.g., systemic lupus erythematosus, rheumatoid arthritis) with complications or comorbidities (Also use Optimal Recovery Care Criteria or General Recovery Criteria as appropriate on the basis of predominant condition), including ANY ONE of the following(10 )(11)(12)(13) [ ]a) Severe infection (e.g., MACHINE STAPLER infection, sepsis) (14) [ ]b) Respiratory complications, including ANY ONE of the following: [ ]i) Pleural effusion with respiratory compromise [ ]ii) Pulmonary hypertension with congestive failure [ ]iii) Respiratory failure [ ]iv) Pulmonary hemorrhage (15) [ ]c) Hematologic disease, including ANY ONE of the following: [ ]i) Coagulopathy with bleeding [ ]ii) Thrombosis with hypercoagulable state [ ]iii) Thrombotic thrombocytopenic purpura [ ]d) Cerebritis with seizures, psychosis, or other severe abnormalities [ ]e) Vertebral destruction with monitoring needed for cervical myelopathy& possible respiratory compromise [ ]f) Exacerbation that requires inpatient treatment (e.g., intravenous immunosuppression) (16) [ ]g) Acute renal failure [ ]IV. Severe vasculitis with complications or comorbidities (Also use Optimal Recovery Care Criteria or General Recovery Criteria as appropriate on the basis of predominant condition), including ANY ONE of the following(11)(12)(17)(18)(19)(20) [ ]a) MACHINE STAPLER vasculitis with seizures, psychosis, or other severe abnormalities (22) [ ]b) Renal failure (16) [ ]c) Pulmonary hemorrhage (15) [ ]d) Cerebral infarction [ ]e) Gastrointestinal ischemia [ ]f) Gangrene or threatened amputation [ ]g) Exacerbation that requires inpatient treatment (e.g., intravenous immunosuppression) (19)(21) [ ]V. Severe myopathy as indicated by ANY ONE of the following (28)(29) [ ]a) New onset of airway compromise or inability to swallow [ ]b) Respiratory deterioration with observation needed for impending respiratory failure [ ]c) Exacerbation that requires inpatient treatment (e.g., intravenous immunosuppression) [ ]. Severe gout (crystal arthropathy) as indicated by ANY ONE of the following (23)(24) [ ]a) Severe pain requiring acute inpatient management [ ]b) Exacerbation that requires inpatient treatment (e.g., intravenous treatment) [ ]VII.Rhabdomyolysis and ANY ONE of the following (25)(26)(27) [ ]a) Acute renal failure [ ]b) Need for intravenous hydration after emergency or observation level care (as appropriate) [ ]c) Inability to maintain oral hydration [ ]d) Change in mental status [ ]e) Electrolyte abnormality that remains after emergency or observation level care (as appropriate) [ ]VIII Post amputation complication, as indicated by ANY ONE of the following [ ]a) Infection [ ]b) Dehiscence [ ]c) Myodesis failure [ ]IX. Severe pain requiring acute inpatient management as indicated by ALL of the following (30)(31)(32) [ ]a) Continuous or frequent (e.g., every 2 to 4 hrs) parenteral analgesics required [A] [ ]b) Rapid improvement expected from treatment or acute intervention ( e.g., surgery, anesthesia procedure[B] [ ]X. Musculoskeletal Disease and ALL of the following: [ ]a) Symptom or finding for which emergency and observation care have failed or are not considered appropriate (Use General Criteria: Observation Care as appropriate) [ ]b) Presence of ANY ONE of the following [ ]i) A General Admission Criteria [ ]ii) A Pediatric General Admission Criteria The original [facility] content created by [facility] has been revised. The portions of the content which have been revised are identified through the use of italic text or in bold, and [facility] has neither reviewed nor approved the modified material. All other unmodified content is copyright [facility]. Please see references footnoted in the original [facility] edition 2016 Admission Criteria Met?: Yes SAAD REYNA Apr 25, 2016 23:24
[2016-04-25] MEDS ORDERED: ONDANSETRON PF 4 MG/2 ML VIAL. IV PRN (23:30)
[2016-04-25] MEDS ORDERED: ACETAMINOPHEN 325 MG TABLET. PO PRN (23:30)
[2016-04-25 23:31] LABS: BASO % 0 % (0-3); EOS % 0 % (0-3); HEMATOCRIT 40.1 % (39.0-53.0); LYMPH # 2.3 x10^3/uL (1.0-4.8); LYMPH % 18 % (24-48); MEAN CORPUSCULAR HEMOGLOBIN 29 pg (25-35); MEAN CORPUSCULAR HGB CONC 33 g/dL (31-37); MEAN CORPUSCULAR VOLUME 89 fL (79-100); MONO % 6 % (0-9); NEUT % 75 % (31-73); PLATELET COUNT 231 x10^3/uL (140-400); RED CELL DISTRIBUTION WIDTH 13.8 % (11.5-14.5); WHITE BLOOD COUNT 12.5 x10^3/uL (4.0-11.0)
[2016-04-25 23:45] VITALS: BP 126/62
[2016-04-25 23:46] LABS: CALCIUM 8.8 mg/dL (8.5-10.1); CREATININE 0.9 mg/dL (0.7-1.3); GFR 82.7; POTASSIUM 3.1 mmol/L (3.5-5.1)
[2016-04-26] MEDS: FENTANYL PF 100 MCG/2 ML VIAL. IV PRN ×4 (02:59→10:35)
[2016-04-26 03:30] VITALS: BP 131/70
[2016-04-26 07:00] VITALS: BP 125/69
[2016-04-26] MEDS: POTASSIUM CL 20MEQ D5-0.45NACL 1,000 ML IV SCH ×2 (07:52→16:42)
--- NOTE | 2016-04-26 08:18 | RAD ---
Pelvis with right hip, 3 views, 04/25/2016: History: Fall, pain The bony pelvis is unremarkable. There is a fracture of the right greater trochanter with mild superior displacement of the major fracture fragment. No extension into the intertrochanteric region or femoral neck is evident. The hip joints are fairly well-maintained with mild marginal spurring. IMPRESSION: Acute fracture of the right greater trochanter.
--- NOTE | 2016-04-26 08:52 | PDOC1 ---
History and Physical Date of Admission Date of Admission DATE: 04/26/16 TIME: 08:52 Identification/Chief Complaint Chief Complaint right leg pain Source Source: Chart review, Patient History of Present Illness History of Present Illness Mr. Engel, is a 71 year old male who presents with right hip pain after falling out of his wheelchair this afternoon. He states he hit the right side of his body on the floor. States his right hip hurts most.. He did hit his head on the ground, but denies loss of consciousness or headache or vision changes or neck pain. He also has minimal pain to his right shoulder without impedance of his movement or use. He denies chest pain, dyspnea, back pain, abdominal pain , nausea or vomiting, dizziness, new numbness, new tingling, new weakness. Past Medical History Cardiovascular: HTN, Hyperlipidemia CENTRAL NERVOUS SYSTEM: CVA Past Surgical History Past Surgical History: No pertinent history Family History Family History: No Significant, Stroke Social History ALCOHOL: none Drugs: None Current Problem List Problem List Problems Medical Problems: (1) Closed fracture of greater trochanter of right femur Status: Acute (2) Femur fracture, right Status: Acute Problems: Current Medications Current Medications Current Medications Fentanyl Citrate (Fentanyl 2ml Vial) 25 mcg PRN Q15MIN PRN IV PAIN GREATER THAN 3/10 Last administered on 04/25/16 23:23; Start 04/25/16 at 21:15; Stop at 00:00; Status DC Ondansetron HCl (Zofran) 4 mg PRN Q8HRS PRN IV NAUSEA/VOMITING Last administered on 04/26/16 02:59; Start 04/25/16 at 23:30; Stop 04/26/16 at 23:29 Fentanyl Citrate (Fentanyl 2ml Vial) 50 mcg PRN Q2HR PRN IV SEVERE PAIN Last administered on 04/26/16 07:52; Start 04/25/16 at 23:30; Stop 04/26/16 at 23:29 Acetaminophen 650 mg 650 mg PRN Q4HRS PRN PO FEVER Last administered on 04:56; Start 04/25/16 at 23:30; Stop 04/26/16 at 23:29 Potassium Chloride/Dextrose/ Sod Cl (KCl 20 Meq In D5W-1/2 NS) 1,000 ml @ 100 mls/hr Q10H IV Last administered on 04/26/16t 07:52; Start 04/26/16 at 07:15 Active Scripts Active Reported Vitamin B-12 (Cyanocobalamin (Vitamin B-12)) 1,000 Mcg Tablet 1 Tab PO DAILY Pravastatin Sodium 10 Mg Tablet 1 Tab PO QHS Metformin Hcl 500 Mg Tablet 1 Tab PO BID Fluoxetine Hcl 20 Mg Tablet 1 Tab PO DAILY Amlodipine Besylate 10 Mg Tablet 10 Mg PO DAILY Allergies Allergies: Coded Allergies: iodine (Verified Allergy, Intermediate, 03/18/16) ROS General: No: Appetite, Fatigue, Malaise, Other PSYCHOLOGICAL ROS: No: Anxiety, Behavioral Disorder, Concentration difficultie , Decreased libido, Depression, Disorientation, Hallucinations, Hostility, Irritablity, Memory difficulties, Mood Swings, Obsessive thoughts, Other, Physical abuse, Sexual abuse, Sleep disturbances, Suicidal ideation Eyes: No Blurry vision, No Decreased vision, No Double vision, No Dry eyes, No Excessive tearing, No Eye Pain, No Itchy Eyes, No Loss of vision, No Other, No Photophobia, No Scotomata, No Uses contacts, No Uses glasses Respiratory: No: Cough, Hemoptysis, Orthopnea, Other, Pleuritic Pain, SOB with excertion, Shortness of breath, Sputum Changes, Stridor, Tachypnea, Wheezing Cardiovascular: No Chest Pain, No Edema, No Lt Headedness, No Orthopnea, No Other, No Palpitations, No Paroxysmal Noc. Dyspnea Gastrointestinal: No Abdominal Pain, No Constipation, No Diarrhea, No Hematochezia, No Melena, No Nausea, No Other, No Vomiting Genitourinary: No , No , No , No , No , No , No , No Discharge, No Dysuria, No Flank Pain, No Frequency, No Hematuria, No Incontinence, No Other, No Pain, No Retention, No Urgency Musculoskeletal: Yes Gait Disturbance, Yes Joint Pain, Yes Joint Stiffness, Yes Muscular Weakness (better post CVA), Yes Pain In: (right leg) Neurological: Yes Gait Disturbance, No Behavorial Changes, No Bowel/Bladder ControlChng, No Confusion, No Dizziness, No Headaches, No Impaired Coord/balance, No Memory Loss, No Numbness/ Tingling, No Other, No Seizures, No Speech Problems, No Tremors, No Visual Changes, No Weakness Skin: No Acne, No Dry Skin, No Eczema, No Hair Changes, No Lumps, No Mole Changes, No Mottling, No Nail Changes, No Other, No Pruritus, No Rash, No Skin Lesion Changes Physical Exam General: Alert, Oriented X3, Cooperative HEENT: Atraumatic Lungs: Clear to auscultation, Normal air movement Heart: RRR, no murmurs Abdomen: Normal bowel sounds, Soft, No tenderness Rectal Exam: not examined Extremities: No clubbing, No edema, Normal pulses Skin: No rashes, No significant lesion Neuro: Normal speech, Normal tone, Sensation intact Psych/Mental Status: Mental status NL, Mood NL Vitals Vitals Vital Signs Date Time Temp Pulse Resp B/P Pulse Ox O2 Delivery O2 Flow Rate FiO2 04/26/16 07:00 98.9 73 18 125/69 91 Room Air 98.9 Labs Labs Laboratory Tests Test 04/25/16 23:25 White Blood Count 12.5x10^3/uL (4.0-11.0) Red Blood Count 4.50x10^6/uL (4.30-5.70) Hemoglobin 13.0g/dL (13.0-17.5) Hematocrit 40.1% (39.0-53.0) Mean Corpuscular Volume 89fL (79-100) Mean Corpuscular Hemoglobin 29pg (25-35) Mean Corpuscular Hemoglobin Concent 33g/dL (31-37) Red Cell Distribution Width 13.8% (11.5-14.5) Platelet Count 231x10^3/uL (140-400) Neutrophils (%) (Auto) 75% (31-73) Lymphocytes (%) (Auto) 18% (24-48) Monocytes (%) (Auto) 6% (0-9) Eosinophils (%) (Auto) 0% (0-3) Basophils (%) (Auto) 0% (0-3) Neutrophils # (Auto) 9.3x10^3uL (1.8-7.7) Lymphocytes # (Auto) 2.3x10^3/uL (1.0-4.8) Monocytes # (Auto) 0.8x10^3/uL (0.0-1.1) Eosinophils # (Auto) 0.1x10^3/uL (0.0-0.7) Basophils # (Auto) 0.0x10^3/uL (0.0-0.2) Sodium Level 139mmol/L (136-145) Potassium Level 3.1mmol/L (3.5-5.1) Chloride Level 103mmol/L (98-107) Carbon Dioxide Level 26mmol/L (21-32) Anion Gap 10 (6-14) Blood Urea Nitrogen 14mg/dL (8-26) Creatinine 0.9mg/dL (0.7-1.3) Estimated GFR (Cockcroft-Gault) 82.7 Glucose Level 107mg/dL (70-99) Calcium Level 8.8mg/dL (8.5-10.1) Laboratory Tests Test 04/25/16 23:25 White Blood Count 12.5x10^3/uL (4.0-11.0) Red Blood Count 4.50x10^6/uL (4.30-5.70) Hemoglobin 13.0g/dL (13.0-17.5) Hematocrit 40.1% (39.0-53.0) Mean Corpuscular Volume 89fL (79-100) Mean Corpuscular Hemoglobin 29pg (25-35) Mean Corpuscular Hemoglobin Concent 33g/dL (31-37) Red Cell Distribution Width 13.8% (11.5-14.5) Platelet Count 231x10^3/uL (140-400) Neutrophils (%) (Auto) 75% (31-73) Lymphocytes (%) (Auto) 18% (24-48) Monocytes (%) (Auto) 6% (0-9) Eosinophils (%) (Auto) 0% (0-3) Basophils (%) (Auto) 0% (0-3) Neutrophils # (Auto) 9.3x10^3uL (1.8-7.7) Lymphocytes # (Auto) 2.3x10^3/uL (1.0-4.8) Monocytes # (Auto) 0.8x10^3/uL (0.0-1.1) Eosinophils # (Auto) 0.1x10^3/uL (0.0-0.7) Basophils # (Auto) 0.0x10^3/uL (0.0-0.2) Sodium Level 139mmol/L (136-145) Potassium Level 3.1mmol/L (3.5-5.1) Chloride Level 103mmol/L (98-107) Carbon Dioxide Level 26mmol/L (21-32) Anion Gap 10 (6-14) Blood Urea Nitrogen 14mg/dL (8-26) Creatinine 0.9mg/dL (0.7-1.3) Estimated GFR (Cockcroft-Gault) 82.7 Glucose Level 107mg/dL (70-99) Calcium Level 8.8mg/dL (8.5-10.1) Images Images CT FINDINGS Acute fracture involving the right greater trochanter is noted. An additional fracture is not identified. There is no dislocation. Probable bone island near the symphysis pubis is noted. Infrarenal abdominal aorta is aneurysmal, 3.4 centimeters AP with with minimal atheromatous disease. There are diverticula in the colon. VTE Prophylaxis Ordered VTE Prophylaxis Devices: Yes VTE Pharmacological Prophylaxi: No Assessment/Plan Assessment/Plan Acute fracture right greater trochanter Hypertension restless leg s/p CVA, 03/25, still in subacute rehab for weakness, was in wheelchair restless leg syndrome, he reports daytime problems with this, and pain Leukocytosis, reactive, hypokalemia, replaced in IV fluid overnight admitted, ortho to see JOSÉ JASMINE MD Apr 26, 2016 08:52
[2016-04-26 09:07] LABS: BILIRUBIN,URINE NEGATIVE (NEG); GLUCOSE,URINE NEGATIVE (NEG); NITRITE,URINE NEGATIVE (NEG); PROTEIN,URINE NEGATIVE (NEG-TRACE)
[2016-04-26] MEDS ORDERED: POTASSIUM CHLORIDE 20 MEQ TABLET.ER. PO ONE (09:15)
[2016-04-26 09:29] LABS: BACTERIA,URINE MANY /HPF (0-FEW)
[2016-04-26] MEDS ORDERED: MAGNESIUM SULFATE 2GM 50 ML IV ONE (09:30)
[2016-04-26] MEDS: rOPINIRole 0.25 MG TABLET. PO SCH ×3 (09:42→21:27)
[2016-04-26] MEDS: CYANOCOBALAMIN (VITAMIN B-12) 1,000 MCG TABLET. PO SCH (09:42)
[2016-04-26] MEDS: AMLODIPINE BESYLATE 10 MG TABLET PO SCH (09:42)
[2016-04-26] MEDS: FLUOXETINE HCL 20 MG CAPSULE PO SCH (09:48)
[2016-04-26] MEDS: OXYCODONE/APAP 5/325 TABLET. PO PRN ×3 (10:34→18:41)
[2016-04-26 11:00] VITALS: BP 99/58
[2016-04-26 14:58] VITALS: BP 124/60
--- NOTE | 2016-04-26 16:11 | PDOC2 ---
CONSULT Date of Consult Date of Consult DATE: 04/26/16 TIME: 16:07 Reason for Consult Reason for Consult: Right hip pain, fall with right hip fracture Identification/Chief Complaint Chief Complaint Right hip pain after a fall Source Source: Chart review, Patient History of Present Illness Reason for Visit: This 71-year-old man lived at [facility] assisted living, with partial independence until March when he had a stroke. Since then he has been wheelchair bound, and unable to use his right leg. He has been in a rehabilitation facility. Yesterday he forgot to lock his wheelchair, and was attempting to get out of the wheelchair, and fell to the ground injuring his hip. He also hit his head but denies any loss of consciousness. The hip is the only thing that is sore now. Past Medical History Cardiovascular: HTN, Hyperlipidemia CENTRAL NERVOUS SYSTEM: CVA Past Surgical History Past Surgical History: No pertinent history Family History Family History: No Significant, Stroke Social History ALCOHOL: none Drugs: None Lives: Skilled Nursing Current Problem List Problem List Problems Medical Problems: (1) Closed fracture of greater trochanter of right femur Status: Acute (2) Femur fracture, right Status: Acute Current Medications Current Medications Current Medications Fentanyl Citrate (Fentanyl 2ml Vial) 25 mcg PRN Q15MIN PRN IV PAIN GREATER THAN 3/10 Last administered on 04/25/16 23:23; Start 04/25/16 at 21:15; Stop at 00:00; Status DC Ondansetron HCl (Zofran) 4 mg PRN Q8HRS PRN IV NAUSEA/VOMITING Last administered on 04/26/16 02:59; Start 04/25/16 at 23:30; Stop 04/26/16 at 23:29 Fentanyl Citrate (Fentanyl 2ml Vial) 50 mcg PRN Q2HR PRN IV SEVERE PAIN Last administered on 04/26/16 10:35; Start 04/25/16 at 23:30; Stop 04/27/16 at 23:59 Acetaminophen 650 mg 650 mg PRN Q4HRS PRN PO FEVER Last administered on 04:56; Start 04/25/16 at 23:30; Stop 04/26/16 at 23:29 Potassium Chloride/Dextrose/ Sod Cl (KCl 20 Meq In D5W-1/2 NS) 1,000 ml @ 100 mls/hr Q10H IV Last administered on 04/26/16 07:52; Start 04/26/16 at 07:15 Amlodipine Besylate (Norvasc) 10 mg DAILY PO Last administered on 04/26/16 09: 42; Start 04/26/16 at 09:00 Cyanocobalamin (Vitamin B-12) 1,000 mcg DAILY PO Last administered on 09:42; Start 04/26/16 at 09:00 Fluoxetine HCl (Prozac) 20 mg DAILY PO Last administered on 04/26/16 09:48; Start 04/26/16 at 09:00 Atorvastatin Calcium 5 mg 5 mg QHS PO ; Start 04/26/16 at 21:00 Magnesium Sulfate/ Dextrose (Magnesium Sulfate PREMIX 2GM) 50 ml @ 25 mls/hr 1X ONCE IV Last administered on 04/26/16 09:43; Start 04/26/16 at 09:30; Stop 04/26/16 at 11:29; Status DC Ropinirole HCl (Requip) 0.25 mg TID PO Last administered on 04/26/16 14:38; Start 04/26/16 at 09:15 Potassium Chloride (Klor-Con) 20 meq 1X ONCE PO Last administered on 09:48; Start 04/26/16 at 09:15; Stop 04/26/16 at 09:16; Status DC Oxycodone/ Acetaminophen (Percocet 5/325) 1 tab PRN Q4HRS PRN PO PAIN Last administered on 04/26/16 14:38; Start 04/26/16 at 10:15 Active Scripts Active Reported Vitamin B-12 (Cyanocobalamin (Vitamin B-12)) 1,000 Mcg Tablet 1 Tab PO DAILY Pravastatin Sodium 10 Mg Tablet 1 Tab PO QHS Metformin Hcl 500 Mg Tablet 1 Tab PO BID Fluoxetine Hcl 20 Mg Tablet 1 Tab PO DAILY Amlodipine Besylate 10 Mg Tablet 10 Mg PO DAILY Allergies Allergies: Coded Allergies: iodine (Verified Allergy, Intermediate, 03/18/16) Physical Exam General: Alert, Cooperative HEENT: Other (small abrasions/hematoma) Lungs: Normal air movement Heart: Regular rate Abdomen: Soft Extremities: Other (the right leg is in a flexed contracted position. There is a tiny amount of ecchymosis the right hip. He is tender at the right hip greater trochanter. The skin is intact over the fracture.) Neuro: Other (unable to flex or extend the knee or foot on the right leg.) Psych/Mental Status: Mood NL Vitals VITALS Vital Signs Date Time Temp Pulse Resp B/P Pulse Ox O2 Delivery O2 Flow Rate FiO2 04/26/16 14:58 97.5 78 18 124/60 93 Room Air 97.5 Labs Labs Laboratory Tests Test 04/25/16 23:25 04/26/16 08:00 04/26/16 10:39 White Blood Count 12.5x10^3/uL (4.0-11.0) Red Blood Count 4.50x10^6/uL (4.30-5.70) Hemoglobin 13.0g/dL (13.0-17.5) Hematocrit 40.1% (39.0-53.0) Mean Corpuscular Volume 89fL (79-100) Mean Corpuscular Hemoglobin 29pg (25-35) Mean Corpuscular Hemoglobin Concent 33g/dL (31-37) Red Cell Distribution Width 13.8% (11.5-14.5) Platelet Count 231x10^3/uL (140-400) Neutrophils (%) (Auto) 75% (31-73) Lymphocytes (%) (Auto) 18% (24-48) Monocytes (%) (Auto) 6% (0-9) Eosinophils (%) (Auto) 0% (0-3) Basophils (%) (Auto) 0% (0-3) Neutrophils # (Auto) 9.3x10^3uL (1.8-7.7) Lymphocytes # (Auto) 2.3x10^3/uL (1.0-4.8) Monocytes # (Auto) 0.8x10^3/uL (0.0-1.1) Eosinophils # (Auto) 0.1x10^3/uL (0.0-0.7) Basophils # (Auto) 0.0x10^3/uL (0.0-0.2) Sodium Level 139mmol/L (136-145) Potassium Level 3.1mmol/L (3.5-5.1) Chloride Level 103mmol/L (98-107) Carbon Dioxide Level 26mmol/L (21-32) Anion Gap 10 (6-14) Blood Urea Nitrogen 14mg/dL (8-26) Creatinine 0.9mg/dL (0.7-1.3) Estimated GFR (Cockcroft-Gault) 82.7 Glucose Level 107mg/dL (70-99) Calcium Level 8.8mg/dL (8.5-10.1) Urine Collection Type Unknown Urine Color Yellow Urine Clarity Cloudy Urine pH 8.0 Urine Specific Anderson 1.010 Urine Protein Negativemg/dL (NEG-TRACE) Urine Glucose (UA) Negativemg/dL (NEG) Urine Ketones (Stick) Negativemg/dL (NEG) Urine Blood Moderate (NEG) Urine Nitrite Negative (NEG) Urine Bilirubin Negative (NEG) Urine Urobilinogen Dipstick 1.0mg/dL (0.2 mg/dL) Urine Leukocyte Esterase Large (NEG) Urine RBC 1-2/HPF (0-2) Urine WBC 5-10/HPF (0-4) Urine Bacteria Many/HPF (0-FEW) Magnesium Level 2.2mg/dL (1.8-2.4) Laboratory Tests Test 04/25/16 23:25 04/26/16 08:00 04/26/16 10:39 White Blood Count 12.5x10^3/uL (4.0-11.0) Red Blood Count 4.50x10^6/uL (4.30-5.70) Hemoglobin 13.0g/dL (13.0-17.5) Hematocrit 40.1% (39.0-53.0) Mean Corpuscular Volume 89fL (79-100) Mean Corpuscular Hemoglobin 29pg (25-35) Mean Corpuscular Hemoglobin Concent 33g/dL (31-37) Red Cell Distribution Width 13.8% (11.5-14.5) Platelet Count 231x10^3/uL (140-400) Neutrophils (%) (Auto) 75% (31-73) Lymphocytes (%) (Auto) 18% (24-48) Monocytes (%) (Auto) 6% (0-9) Eosinophils (%) (Auto) 0% (0-3) Basophils (%) (Auto) 0% (0-3) Neutrophils # (Auto) 9.3x10^3uL (1.8-7.7) Lymphocytes # (Auto) 2.3x10^3/uL (1.0-4.8) Monocytes # (Auto) 0.8x10^3/uL (0.0-1.1) Eosinophils # (Auto) 0.1x10^3/uL (0.0-0.7) Basophils # (Auto) 0.0x10^3/uL (0.0-0.2) Sodium Level 139mmol/L (136-145) Potassium Level 3.1mmol/L (3.5-5.1) Chloride Level 103mmol/L (98-107) Carbon Dioxide Level 26mmol/L (21-32) Anion Gap 10 (6-14) Blood Urea Nitrogen 14mg/dL (8-26) Creatinine 0.9mg/dL (0.7-1.3) Estimated GFR (Cockcroft-Gault) 82.7 Glucose Level 107mg/dL (70-99) Calcium Level 8.8mg/dL (8.5-10.1) Urine Collection Type Unknown Urine Color Yellow Urine Clarity Cloudy Urine pH 8.0 Urine Specific Anderson 1.010 Urine Protein Negativemg/dL (NEG-TRACE) Urine Glucose (UA) Negativemg/dL (NEG) Urine Ketones (Stick) Negativemg/dL (NEG) Urine Blood Moderate (NEG) Urine Nitrite Negative (NEG) Urine Bilirubin Negative (NEG) Urine Urobilinogen Dipstick 1.0mg/dL (0.2 mg/dL) Urine Leukocyte Esterase Large (NEG) Urine RBC 1-2/HPF (0-2) Urine WBC 5-10/HPF (0-4) Urine Bacteria Many/HPF (0-FEW) Magnesium Level 2.2mg/dL (1.8-2.4) Images Images I reviewed the CT scan and the plain x-rays, and reports. He has a minimally displaced greater trochanter fracture. There does not seem to be any extension into the intertrochanteric region. Assessment/Plan Assessment/Plan Nonoperative treatment for this injury is recommended. Normally I would've allowed partial weightbearing with a walker, although with his inability to use that extremity anyway, his function may continue to be severely limited as it has been. He may continue with his stroke rehabilitation, without major restrictions. Office follow-up with me in 2-3 weeks. We will check a vitamin D level. OBI VASQUES MD Apr 26, 2016 16:11
[2016-04-26] MEDS ORDERED: CYCLOBENZAPRINE 10 MG TABLET. PO PRN (16:15)
[2016-04-26] MEDS ORDERED: POLYETHYLENE GLYCOL 3350 17 GM PACKET. PO ONE (16:15)
[2016-04-26] MEDS: OXYCODONE IR 5 MG TABLET. PO PRN (16:36)
[2016-04-26 19:15] VITALS: BP 119/65
[2016-04-26] MEDS: ATORVASTATIN CALCIUM 10 MG TABLET. PO SCH (21:26)
[2016-04-26] MEDS: BACLOFEN 10 MG TABLET PO SCH (21:27)
[2016-04-26 23:11] VITALS: BP 122/61
--- NOTE | 2016-04-27 02:08 | CONS ---
DATE OF CONSULTATION: 04/26/2016 ATTENDING PHYSICIAN: Dr. Shahid. The patient was seen at the request of Dr. Shahid for rehab evaluation. HISTORY OF PRESENT ILLNESS: This is a 71-year-old male who fell out of a wheelchair on the evening of 04/27/2016 and complained of pain in his right hip. The patient did hit his head, but denies any loss of consciousness, headache, visual changes, or neck pain. He had minimal pain in his right shoulder. 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 CT scan of the brain revealed expected evolution of cerebellar and occipital infarct bilaterally. No evidence of any acute infarct. The patient with known hypertension and hyperlipidemia. 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 The patient is known ALLERGIC TO IODINE. The patient has been attending to home health physical therapy at his assisted living facility. He had some difficulty with emptying the bladder and has seen an urologist who wanted to keep indwelling Gomez catheter until May. The patient denies any difficulty with constipation or speech or swallowing. PHYSICAL EXAMINATION: Today revealed an elderly male. He is alert, oriented to time, place, person and circumstance and follows commands appropriately, moves all 4 extremities voluntarily where he had 4+/5 grade muscle strength with relatively increased weakness in right lower extremity muscle groups. He had significant increased muscle tone in his right hip flexors and knee flexors. He keeps his right hip and knee in a position of flexion. The patient had exaggerated deep tendon reflexes bilaterally and he had decreased touch and pinprick sensation over right side of his body. No obvious visual field cut or facial asymmetry noted. He had pain on right hip abduction and resists to right hip abduction. I have not tested his transfer or ambulation skills at this time. ASSESSMENT: An elderly male with recent cerebrovascular accident with spastic right hemiparesis with significantly increased flexor muscle tone in his right hamstring muscles keeping his knee in a position of flexion and recent fall and fracture of the greater trochanter on the right side to also rule out associated cervical spinal stenosis causing his hyperreflexia in his lower extremities. He is not symptomatic about any neck pain at present time. RECOMMENDATIONS: Agree with the plan for physical therapy and occupational therapy and transfer back to assisted living facility when he is medically stable to proceed with Botox injection to his right hamstring muscles to help ease some of his spasticity and also try baclofen to control his spasticity. Dr. Shahid, I appreciate asking me to participate in the care of this interesting patient. I will be glad to follow him with you as needed for the rehabilitation. ALEXANDER DE JESUS MD DR: LIZ/antonio JOB#: [id number] / [id number]
[2016-04-27 03:03] VITALS: BP 120/64
[2016-04-27] MEDS: POTASSIUM CL 20MEQ D5-0.45NACL 1,000 ML IV SCH (04:02)
[2016-04-27] MEDS: BACLOFEN 10 MG TABLET PO SCH ×3 (05:56→21:40)
[2016-04-27 07:00] VITALS: BP 116/60
[2016-04-27] MEDS: rOPINIRole 0.25 MG TABLET. PO SCH ×3 (08:38→21:40)
[2016-04-27] MEDS: FLUOXETINE HCL 20 MG CAPSULE PO SCH (08:38)
[2016-04-27] MEDS: DOCUSATE SODIUM 100 MG CAPSULE PO SCH (08:38)
[2016-04-27] MEDS: POLYETHYLENE GLYCOL 3350 17 GM PACKET. PO SCH (08:38)
[2016-04-27] MEDS: CYANOCOBALAMIN (VITAMIN B-12) 1,000 MCG TABLET. PO SCH (08:38)
[2016-04-27] MEDS: OXYCODONE/APAP 5/325 TABLET. PO PRN (08:38)
[2016-04-27] MEDS: AMLODIPINE BESYLATE 10 MG TABLET PO SCH (08:39)
[2016-04-27] MEDS ORDERED: ONABOTULINUMTOXINA 100 UNIT VIAL. IM ONE (09:00)
[2016-04-27] MEDS: OXYCODONE IR 5 MG TABLET. PO PRN ×3 (10:09→18:45)
[2016-04-27] MEDS ORDERED: POTASSIUM CHLORIDE 20 MEQ TABLET.ER. PO ONE (10:30)
[2016-04-27 11:00] VITALS: BP 105/66
--- NOTE | 2016-04-27 11:04 | PDOC ---
PROGRESS NOTES Subjective Subjective No new complaints. Objective Objective Vital Signs Date Time Temp Pulse Resp B/P Pulse Ox O2 Delivery O2 Flow Rate FiO2 04/27/16 08:39 71 116/60 04/27/16 08:00 Nasal Cannula 3.0 04/27/16 07:00 99.5 20 91 99.5 Intake and Output 04/27/16 07:00 Intake Total 3273 ml Output Total 1675 ml Balance 1598 ml Intake Oral 1240 ml IV Total 2033 ml Output Urine Total 1675 ml Physical Exam Physical Exam He is sitting up in bedside chair and he continues with tightness of his right hamstring muscles. Assessment Assessment Problems Medical Problems: (1) Closed fracture of greater trochanter of right femur Status: Acute (2) Femur fracture, right Status: Acute Plan Plan of Care I thought of injecting his hamstring muscles with botox but after talking to physical therapy to hold it for the time being. Comment Review of Relevant I have reviewed the following items sandro (where applicable) has been applied. Labs Laboratory Tests Test 04/25/16 23:25 04/26/16 08:00 04/26/16 10:39 White Blood Count 12.5x10^3/uL (4.0-11.0) Red Blood Count 4.50x10^6/uL (4.30-5.70) Hemoglobin 13.0g/dL (13.0-17.5) Hematocrit 40.1% (39.0-53.0) Mean Corpuscular Volume 89fL (79-100) Mean Corpuscular Hemoglobin 29pg (25-35) Mean Corpuscular Hemoglobin Concent 33g/dL (31-37) Red Cell Distribution Width 13.8% (11.5-14.5) Platelet Count 231x10^3/uL (140-400) Neutrophils (%) (Auto) 75% (31-73) Lymphocytes (%) (Auto) 18% (24-48) Monocytes (%) (Auto) 6% (0-9) Eosinophils (%) (Auto) 0% (0-3) Basophils (%) (Auto) 0% (0-3) Neutrophils # (Auto) 9.3x10^3uL (1.8-7.7) Lymphocytes # (Auto) 2.3x10^3/uL (1.0-4.8) Monocytes # (Auto) 0.8x10^3/uL (0.0-1.1) Eosinophils # (Auto) 0.1x10^3/uL (0.0-0.7) Basophils # (Auto) 0.0x10^3/uL (0.0-0.2) Sodium Level 139mmol/L (136-145) Potassium Level 3.1mmol/L (3.5-5.1) Chloride Level 103mmol/L (98-107) Carbon Dioxide Level 26mmol/L (21-32) Anion Gap 10 (6-14) Blood Urea Nitrogen 14mg/dL (8-26) Creatinine 0.9mg/dL (0.7-1.3) Estimated GFR (Cockcroft-Gault) 82.7 Glucose Level 107mg/dL (70-99) Calcium Level 8.8mg/dL (8.5-10.1) Urine Collection Type Unknown Urine Color Yellow Urine Clarity Cloudy Urine pH 8.0 Urine Specific [place] 1.010 Urine Protein Negativemg/dL (NEG-TRACE) Urine Glucose (UA) Negativemg/dL (NEG) Urine Ketones (Stick) Negativemg/dL (NEG) Urine Blood Moderate (NEG) Urine Nitrite Negative (NEG) Urine Bilirubin Negative (NEG) Urine Urobilinogen Dipstick 1.0mg/dL (0.2 mg/dL) Urine Leukocyte Esterase Large (NEG) Urine RBC 1-2/HPF (0-2) Urine WBC 5-10/HPF (0-4) Urine Bacteria Many/HPF (0-FEW) Nasal Screen MRSA (PCR) Negative (Negative) Magnesium Level 2.2mg/dL (1.8-2.4) Medications Current Medications Fentanyl Citrate (Fentanyl 2ml Vial) 25 mcg PRN Q15MIN PRN IV PAIN GREATER THAN 3/10 Last administered on 04/25/16 23:23; Start 04/25/16 at 21:15; Stop at 00:00; Status DC Ondansetron HCl (Zofran) 4 mg PRN Q8HRS PRN IV NAUSEA/VOMITING Last administered on 04/26/16 02:59; Start 04/25/16 at 23:30; Stop 04/26/16 at 23:29 ; Status DC Fentanyl Citrate (Fentanyl 2ml Vial) 50 mcg PRN Q2HR PRN IV SEVERE PAIN Last administered on 04/26/16 10:35; Start 04/25/16 at 23:30; Stop 04/27/16 at 23:59 Acetaminophen 650 mg 650 mg PRN Q4HRS PRN PO FEVER Last administered on 04:56; Start 04/25/16 at 23:30; Stop 04/26/16 at 23:29; Status DC Potassium Chloride/Dextrose/ Sod Cl (KCl 20 Meq In D5W-1/2 NS) 1,000 ml @ 100 mls/hr Q10H IV Last administered on 04/27/16 04:02; Start 04/26/16 at 07:15; Stop 04/27/16 at 09:57; Status DC Amlodipine Besylate (Norvasc) 10 mg DAILY PO Last administered on 04/27/16 08: 39; Start 04/26/16 at 09:00 Cyanocobalamin (Vitamin B-12) 1,000 mcg DAILY PO Last administered on 08:38; Start 04/26/16 at 09:00 Fluoxetine HCl (Prozac) 20 mg DAILY PO Last administered on 04/27/16 08:38; Start 04/26/16 at 09:00 Atorvastatin Calcium 5 mg 5 mg QHS PO Last administered on 04/26/16 21:26; Start 04/26/16 at 21:00 Magnesium Sulfate/ Dextrose (Magnesium Sulfate PREMIX 2GM) 50 ml @ 25 mls/hr 1X ONCE IV Last administered on 04/26/16 09:43; Start 04/26/16 at 09:30; Stop 04/26/16 at 11:29; Status DC Ropinirole HCl (Requip) 0.25 mg TID PO Last administered on 04/27/16 08:38; Start 04/26/16 at 09:15 Potassium Chloride (Klor-Con) 20 meq 1X ONCE PO Last administered on 09:48; Start 04/26/16 at 09:15; Stop 04/26/16 at 09:16; Status DC Oxycodone/ Acetaminophen (Percocet 5/325) 1 tab PRN Q4HRS PRN PO PAIN Last administered on 04/27/16 08:38; Start 3/21/17 at 10:15 Oxycodone HCl (Roxicodone) 10 mg PRN Q4HRS PRN PO PAIN Last administered on 10:09; Start 04/26/16 at 16:15 Polyethylene Glycol (miraLAX PACKET) 17 gm 1X ONCE PO Last administered on 16:36; Start 04/26/16 at 16:15; Stop 04/26/16 at 16:16; Status DC Polyethylene Glycol (miraLAX PACKET) 17 gm DAILY PO Last administered on 08:38; Start 04/27/16 at 09:00 Docusate Sodium (Colace) 100 mg DAILY PO Last administered on 04/27/16 08:38; Start 04/27/16 at 09:00 Cyclobenzaprine HCl (Flexeril) 10 mg PRN Q6HRS PRN PO MUSCLE SPASMS Last administered on 04/26/16 16:36; Start 04/26/16 at 16:15; Stop 04/26/16 at 18:55 ; Status DC Botulinum Toxin Type A (Botox) 100 unit 1X ONCE IM ; Start 04/27/16 at 09:00; Stop 04/27/16 at 09:01; Status UNV Baclofen 10 mg 10 mg Q8HRS PO Last administered on 04/27/16 05:56; Start 04/26 at 22:00 Ceftriaxone Sodium/Sodium Chloride (Rocephin/Iv Sodium Chloride 0.9% 50ml) 50 ml @ 100 mls/hr Q24H IV ; Start 04/27/16 at 11:00 Potassium Chloride (Klor-Con) 20 meq 1X ONCE PO Last administered on 10:09; Start 04/27/16 at 10:30; Stop 04/27/16 at 10:31; Status DC Potassium Chloride (Klor-Con) 20 meq DAILYWBKFT PO ; Start 04/28/16 at 08:00 Active Scripts Active Reported Vitamin B-12 (Cyanocobalamin (Vitamin B-12)) 1,000 Mcg Tablet 1 Tab PO DAILY Pravastatin Sodium 10 Mg Tablet 1 Tab PO QHS Metformin Hcl 500 Mg Tablet 1 Tab PO BID Fluoxetine Hcl 20 Mg Tablet 1 Tab PO DAILY Amlodipine Besylate 10 Mg Tablet 10 Mg PO DAILY Vitals/I & O Vital Sign - Last 24 Hours 04/26/16 04/26/16 04/26/16 04/26/16 14:58 19:15 20:00 23:11 Temp 97.5 99.4 98.8 97.5 99.4 98.8 Pulse 78 70 65 Resp 18 18 18 B/P 124/60 119/65 122/61 Pulse Ox 93 92 91 O2 Delivery Room Air Nasal Cannula Nasal Cannula Nasal Cannula O2 Flow Rate 2.0 2.0 2.0 04/27/16 04/27/16 04/27/16 04/27/16 03:03 07:00 08:00 08:39 Temp 98.3 99.5 98.3 99.5 Pulse 66 71 71 Resp 18 20 B/P 120/64 116/60 116/60 Pulse Ox 90 91 O2 Delivery Nasal Cannula Nasal Cannula Nasal Cannula O2 Flow Rate 2.0 2.0 3.0 Intake and Output 04/26/16 04/26/16 04/27/16 15:00 23:00 07:00 Intake Total 1733 ml 1540 ml Output Total 825 ml 850 ml Balance 908 ml 690 ml ALEXANDER DE JESUS MD Apr 27, 2016 11:03
[2016-04-27] MEDS: CEFTRIAXONE SODIUM 1 GM in IV NORMAL SALINE 50ML 50 ML IV SCH (11:52)
--- NOTE | 2016-04-27 13:03 | PDOC ---
PROGRESS NOTES Chief Complaint Chief Complaint Acute, traumatic, fracture right greater trochanter Hypertension restless leg syndrome s/p CVA, 03/25, still in subacute rehab for weakness, Leukocytosis, reactive, hypokalemia, UTI History of Present Illness History of Present Illness up to chair feels a little better no appettie, still lethargic, hip pain better he has urinary retention, has chronic yanez, changed weekly, will consult Dr. Monroe to follow, change yanez rocephin for UTI, cx pendign Vitals Vitals Vital Signs Date Time Temp Pulse Resp B/P Pulse Ox O2 Delivery O2 Flow Rate FiO2 04/27/16 11:00 99.1 80 22 105/66 91 Nasal Cannula 2.0 99.1 Physical Exam General: Alert, Cooperative, No acute distress Heart: Regular rate, No murmurs Lungs: Clear Abdomen: Soft Extremities: Other (the right leg is in a flexed contracted position. There is a tiny amount of ecchymosis the right hip. He is tender at the right hip greater trochanter. The skin is intact over the fracture.) Skin: No rashes, No significant lesion Review of Systems Review of Systems no n.v.d Assessment and Plan Assessmemt and Plan Problems Medical Problems: (1) Closed fracture of greater trochanter of right femur Status: Acute (2) Femur fracture, right Status: Acute Problems: Comment Review of Relevant I have reviewed the following items sandro (where applicable) has been applied. Labs Laboratory Tests Test 04/25/16 23:25 04/26/16 08:00 04/26/16 10:39 White Blood Count 12.5x10^3/uL (4.0-11.0) Red Blood Count 4.50x10^6/uL (4.30-5.70) Hemoglobin 13.0g/dL (13.0-17.5) Hematocrit 40.1% (39.0-53.0) Mean Corpuscular Volume 89fL (79-100) Mean Corpuscular Hemoglobin 29pg (25-35) Mean Corpuscular Hemoglobin Concent 33g/dL (31-37) Red Cell Distribution Width 13.8% (11.5-14.5) Platelet Count 231x10^3/uL (140-400) Neutrophils (%) (Auto) 75% (31-73) Lymphocytes (%) (Auto) 18% (24-48) Monocytes (%) (Auto) 6% (0-9) Eosinophils (%) (Auto) 0% (0-3) Basophils (%) (Auto) 0% (0-3) Neutrophils # (Auto) 9.3x10^3uL (1.8-7.7) Lymphocytes # (Auto) 2.3x10^3/uL (1.0-4.8) Monocytes # (Auto) 0.8x10^3/uL (0.0-1.1) Eosinophils # (Auto) 0.1x10^3/uL (0.0-0.7) Basophils # (Auto) 0.0x10^3/uL (0.0-0.2) Sodium Level 139mmol/L (136-145) Potassium Level 3.1mmol/L (3.5-5.1) Chloride Level 103mmol/L (98-107) Carbon Dioxide Level 26mmol/L (21-32) Anion Gap 10 (6-14) Blood Urea Nitrogen 14mg/dL (8-26) Creatinine 0.9mg/dL (0.7-1.3) Estimated GFR (Cockcroft-Gault) 82.7 Glucose Level 107mg/dL (70-99) Calcium Level 8.8mg/dL (8.5-10.1) Urine Collection Type Unknown Urine Color Yellow Urine Clarity Cloudy Urine pH 8.0 Urine Specific [place] 1.010 Urine Protein Negativemg/dL (NEG-TRACE) Urine Glucose (UA) Negativemg/dL (NEG) Urine Ketones (Stick) Negativemg/dL (NEG) Urine Blood Moderate (NEG) Urine Nitrite Negative (NEG) Urine Bilirubin Negative (NEG) Urine Urobilinogen Dipstick 1.0mg/dL (0.2 mg/dL) Urine Leukocyte Esterase Large (NEG) Urine RBC 1-2/HPF (0-2) Urine WBC 5-10/HPF (0-4) Urine Bacteria Many/HPF (0-FEW) Nasal Screen MRSA (PCR) Negative (Negative) Magnesium Level 2.2mg/dL (1.8-2.4) Medications Current Medications Fentanyl Citrate (Fentanyl 2ml Vial) 25 mcg PRN Q15MIN PRN IV PAIN GREATER THAN 3/10 Last administered on 04/25/16t 23:23; Start 04/25/16 at 21:15; Stop at 00:00; Status DC Ondansetron HCl (Zofran) 4 mg PRN Q8HRS PRN IV NAUSEA/VOMITING Last administered on 04/26/16 02:59; Start 04/25/16 at 23:30; Stop 04/26/16 at 23:29 ; Status DC Fentanyl Citrate (Fentanyl 2ml Vial) 50 mcg PRN Q2HR PRN IV SEVERE PAIN Last administered on 04/26/16 10:35; Start 04/25/16 at 23:30; Stop 04/27/16 at 23:59 Acetaminophen 650 mg 650 mg PRN Q4HRS PRN PO FEVER Last administered on 04:56; Start 04/25/16 at 23:30; Stop 04/26/16 at 23:29; Status DC Potassium Chloride/Dextrose/ Sod Cl (KCl 20 Meq In D5W-1/2 NS) 1,000 ml @ 100 mls/hr Q10H IV Last administered on 04/27/16 04:02; Start 04/26/16 at 07:15; Stop 04/27/16 at 09:57; Status DC Amlodipine Besylate (Norvasc) 10 mg DAILY PO Last administered on 04/27/16 08: 39; Start 04/26/16 at 09:00 Cyanocobalamin (Vitamin B-12) 1,000 mcg DAILY PO Last administered on 08:38; Start 04/26/16 at 09:00 Fluoxetine HCl (Prozac) 20 mg DAILY PO Last administered on 04/27/16 08:38; Start 04/26/16 at 09:00 Atorvastatin Calcium 5 mg 5 mg QHS PO Last administered on 04/26/16 21:26; Start 04/26/16 at 21:00 Magnesium Sulfate/ Dextrose (Magnesium Sulfate PREMIX 2GM) 50 ml @ 25 mls/hr 1X ONCE IV Last administered on 04/26/16 09:43; Start 04/26/16 at 09:30; Stop 04/26/16 at 11:29; Status DC Ropinirole HCl (Requip) 0.25 mg TID PO Last administered on 04/27/16 08:38; Start 04/26/16 at 09:15 Potassium Chloride (Klor-Con) 20 meq 1X ONCE PO Last administered on 09:48; Start 04/26/16 at 09:15; Stop 04/26/16 at 09:16; Status DC Oxycodone/ Acetaminophen (Percocet 5/325) 1 tab PRN Q4HRS PRN PO PAIN Last administered on 04/27/16 08:38; Start 04/26/16 at 10:15 Oxycodone HCl (Roxicodone) 10 mg PRN Q4HRS PRN PO PAIN Last administered on 10:09; Start 04/26/16 at 16:15 Polyethylene Glycol (miraLAX PACKET) 17 gm 1X ONCE PO Last administered on 16:36; Start 04/26/16 at 16:15; Stop 04/26/16 at 16:16; Status DC Polyethylene Glycol (miraLAX PACKET) 17 gm DAILY PO Last administered on 08:38; Start 04/27/16 at 09:00 Docusate Sodium (Colace) 100 mg DAILY PO Last administered on 04/27/16 08:38; Start 04/27/16 at 09:00 Cyclobenzaprine HCl (Flexeril) 10 mg PRN Q6HRS PRN PO MUSCLE SPASMS Last administered on 04/26/16 16:36; Start 04/26/16 at 16:15; Stop 04/26/16 at 18:55 ; Status DC Botulinum Toxin Type A (Botox) 100 unit 1X ONCE IM ; Start 04/27/16 at 09:00; Stop 04/27/16 at 09:01; Status UNV Baclofen 10 mg 10 mg Q8HRS PO Last administered on 04/27/16 05:56; Start 04/26 at 22:00 Ceftriaxone Sodium/Sodium Chloride (Rocephin/Iv Sodium Chloride 0.9% 50ml) 50 ml @ 100 mls/hr Q24H IV Last administered on 04/27/16 11:52; Start 04/27/16 at 11:00 Potassium Chloride (Klor-Con) 20 meq 1X ONCE PO Last administered on 10:09; Start 04/27/16 at 10:30; Stop 04/27/16 at 10:31; Status DC Potassium Chloride (Klor-Con) 20 meq DAILYWBKFT PO ; Start 04/28/16 at 08:00 Active Scripts Active Reported Vitamin B-12 (Cyanocobalamin (Vitamin B-12)) 1,000 Mcg Tablet 1 Tab PO DAILY Pravastatin Sodium 10 Mg Tablet 1 Tab PO QHS Metformin Hcl 500 Mg Tablet 1 Tab PO BID Fluoxetine Hcl 20 Mg Tablet 1 Tab PO DAILY Amlodipine Besylate 10 Mg Tablet 10 Mg PO DAILY Vitals/I & O Vital Sign - Last 24 Hours 04/26/16 04/26/16 04/26/16 04/26/16 14:58 19:15 20:00 23:11 Temp 97.5 99.4 98.8 97.5 99.4 98.8 Pulse 78 70 65 Resp 18 18 18 B/P 124/60 119/65 122/61 Pulse Ox 93 92 91 O2 Delivery Room Air Nasal Cannula Nasal Cannula Nasal Cannula O2 Flow Rate 2.0 2.0 2.0 04/27/16 04/27/16 04/27/16 04/27/16 03:03 07:00 08:00 08:39 Temp 98.3 99.5 98.3 99.5 Pulse 66 71 71 Resp 18 20 B/P 120/64 116/60 116/60 Pulse Ox 90 91 O2 Delivery Nasal Cannula Nasal Cannula Nasal Cannula O2 Flow Rate 2.0 2.0 3.0 04/27/16 11:00 Temp 99.1 99.1 Pulse 80 Resp 22 B/P 105/66 Pulse Ox 91 O2 Delivery Nasal Cannula O2 Flow Rate 2.0 Intake and Output 04/26/16 04/26/16 04/27/16 15:00 23:00 07:00 Intake Total 1733 ml 1540 ml Output Total 825 ml 850 ml Balance 908 ml 690 ml JOSÉ JASMINE MD Apr 27, 2016 13:03
[2016-04-27 15:00] VITALS: BP 111/64
[2016-04-27 19:10] VITALS: BP 122/72
[2016-04-27] MEDS ORDERED: IPRATRPIUM/ALBUTEROL 0.5/2.5MG 3 ML NEBU. NEB ONE (20:30)
[2016-04-27] MEDS ORDERED: IPRATRPIUM/ALBUTEROL 0.5/2.5MG 3 ML NEBU. NEB SCH (20:30)
--- NOTE | 2016-04-27 20:48 | RAD ---
PROCEDURE Portable chest radiograph. HISTORY Decreased O2 saturations and diminished lung sounds. TECHNIQUE Upright portable chest radiograph was obtained. COMPARISON March 18, 2016. FINDINGS There is no airspace disease. The heart is not enlarged. There is no definite heart failure. There is no blunting of the costophrenic sulci. Bony structures appear intact. IMPRESSION No acute thoracic findings. Electronically signed by: Reji Norman MD (Apr 27, 2016 20:47:26)
[2016-04-27 21:08] LABS: HCO3 ABG 25 mmol/L (21-28); PCO2 ABG 44 mmHg (35-46); PH ABG 7.37 (7.35-7.45); PO2 ABG 59 mmHg (65-108); SAT O2 ABG 91 % (92-99)
[2016-04-27] MEDS: ATORVASTATIN CALCIUM 10 MG TABLET. PO SCH (21:40)
[2016-04-27 23:23] VITALS: BP 109/61
[2016-04-28 03:25] VITALS: BP 115/57
[2016-04-28] MEDS: OXYCODONE/APAP 5/325 TABLET. PO PRN ×3 (05:52→13:22)
[2016-04-28] MEDS: BACLOFEN 10 MG TABLET PO SCH (05:52)
[2016-04-28 07:00] VITALS: BP 106/58
[2016-04-28] MEDS ORDERED: POTASSIUM CHLORIDE 20 MEQ TABLET.ER. PO SCH (08:00)
[2016-04-28] MEDS: FLUOXETINE HCL 20 MG CAPSULE PO SCH (08:39)
[2016-04-28] MEDS: CYANOCOBALAMIN (VITAMIN B-12) 1,000 MCG TABLET. PO SCH (08:39)
[2016-04-28] MEDS: AMLODIPINE BESYLATE 10 MG TABLET PO SCH (08:40)
[2016-04-28] MEDS: POLYETHYLENE GLYCOL 3350 17 GM PACKET. PO SCH (08:40)
[2016-04-28] MEDS: DOCUSATE SODIUM 100 MG CAPSULE PO SCH (08:40)
[2016-04-28] MEDS: rOPINIRole 0.25 MG TABLET. PO SCH ×2 (08:40→13:22)
[2016-04-28] MEDS ORDERED: OXYC1TAB7 PO (09:42)
[2016-04-28] MEDS ORDERED: PHENOL ORAL SPRAY 177ML BOTTLE. PO PRN (09:45)
[2016-04-28 11:00] VITALS: BP 111/59
[2016-04-28] MEDS: CEFTRIAXONE SODIUM 1 GM in IV NORMAL SALINE 50ML 50 ML IV SCH (11:01)
[2016-04-28] MEDS ORDERED: BACLOFEN 10 MG TABLET. PO SCH (14:00)
--- NOTE | 2016-04-28 15:44 | PDOC ---
PROGRESS NOTES Subjective Subjective No new complaints. Objective Objective Vital Signs Date Time Temp Pulse Resp B/P Pulse Ox O2 Delivery O2 Flow Rate FiO2 04/28/16 13:22 Room Air 04/28/16 11:00 97.6 72 14 111/59 91 4.0 97.6 Intake and Output 04/28/16 07:00 Output Total 1050 ml Balance -1050 ml Output Urine Total 1050 ml Physical Exam Physical Exam He is supine in bed and had his right knee in almost full extension but continues with some tightness of right hamstring muscles. Assessment Assessment Problems Medical Problems: (1) Closed fracture of greater trochanter of right femur Status: Acute (2) Femur fracture, right Status: Acute Plan Plan of Care Agree with plans for transfer to assisted living facility with home health follow up. Comment Review of Relevant I have reviewed the following items sandro (where applicable) has been applied. Labs Laboratory Tests Test 04/27/16 03:33 04/27/16 20:49 25-Hydroxy Vitamin D Total 32.0ng/mL (30.0-100.0) O2 Saturation 91% (92-99) Arterial Blood pH 7.37 (7.35-7.45) Arterial Blood pCO2 at Patient Temp 44mmHg (35-46) Arterial Blood pO2 at Patient Temp 59mmHg (65-108) Arterial Blood HCO3 25mmol/L (21-28) Arterial Blood Base Excess -1mmol/L (-3-3) Laboratory Tests Test 04/27/16 20:49 O2 Saturation 91% (92-99) Arterial Blood pH 7.37 (7.35-7.45) Arterial Blood pCO2 at Patient Temp 44mmHg (35-46) Arterial Blood pO2 at Patient Temp 59mmHg (65-108) Arterial Blood HCO3 25mmol/L (21-28) Arterial Blood Base Excess -1mmol/L (-3-3) Microbiology 04/27/16 Urine Culture - Preliminary, Resulted 04/27/16 Urine Culture Result 1 (MICHAEL) - Preliminary, Resulted Medications Current Medications Fentanyl Citrate (Fentanyl 2ml Vial) 25 mcg PRN Q15MIN PRN IV PAIN GREATER THAN 3/10 Last administered on 04/25/16t 23:23; Start 04/25/16 at 21:15; Stop at 00:00; Status DC Ondansetron HCl (Zofran) 4 mg PRN Q8HRS PRN IV NAUSEA/VOMITING Last administered on 04/26/16 02:59; Start 04/25/16 at 23:30; Stop 04/26/16 at 23:29 ; Status DC Fentanyl Citrate (Fentanyl 2ml Vial) 50 mcg PRN Q2HR PRN IV SEVERE PAIN Last administered on 04/26/16 10:35; Start 04/25/16 at 23:30; Stop 04/28/16 at 13:59 ; Status DC Acetaminophen 650 mg 650 mg PRN Q4HRS PRN PO FEVER Last administered on 04:56; Start 04/25/16 at 23:30; Stop 04/26/16 at 23:29; Status DC Potassium Chloride/Dextrose/ Sod Cl (KCl 20 Meq In D5W-1/2 NS) 1,000 ml @ 100 mls/hr Q10H IV Last administered on 04/27/16 04:02; Start 04/26/16 at 07:15; Stop 04/27/16 at 09:57; Status DC Amlodipine Besylate (Norvasc) 10 mg DAILY PO Last administered on 04/28/16 08: 40; Start 04/26/16 at 09:00; Stop 04/28/16 at 13:59; Status DC Cyanocobalamin (Vitamin B-12) 1,000 mcg DAILY PO Last administered on 08:39; Start 04/26/16 at 09:00; Stop 04/28/16 at 13:59; Status DC Fluoxetine HCl (Prozac) 20 mg DAILY PO Last administered on 04/28/16 08:39; Start 04/26/16 at 09:00; Stop 04/28/16 at 13:59; Status DC Atorvastatin Calcium 5 mg 5 mg QHS PO Last administered on 04/27/16 21:40; Start 04/26/16 at 21:00; Stop 04/28/16 at 13:59; Status DC Magnesium Sulfate/ Dextrose (Magnesium Sulfate PREMIX 2GM) 50 ml @ 25 mls/hr 1X ONCE IV Last administered on 04/26/16 09:43; Start 04/26/16 at 09:30; Stop 04/26/16 at 11:29; Status DC Ropinirole HCl (Requip) 0.25 mg TID PO Last administered on 04/28/16 13:22; Start 04/26/16 at 09:15; Stop 04/28/16 at 13:59; Status DC Potassium Chloride (Klor-Con) 20 meq 1X ONCE PO Last administered on 09:48; Start 04/26/16 at 09:15; Stop 04/26/16 at 09:16; Status DC Oxycodone/ Acetaminophen (Percocet 5/325) 1 tab PRN Q4HRS PRN PO PAIN Last administered on 04/28/16 13:22; Start 04/26/16 at 10:15; Stop 04/28/16 at 13:59 ; Status DC Oxycodone HCl (Roxicodone) 10 mg PRN Q4HRS PRN PO PAIN Last administered on 18:45; Start 04/26/16 at 16:15; Stop 04/28/16 at 13:59; Status DC Polyethylene Glycol (miraLAX PACKET) 17 gm 1X ONCE PO Last administered on 16:36; Start 04/26/16 at 16:15; Stop 04/26/16 at 16:16; Status DC Polyethylene Glycol (miraLAX PACKET) 17 gm DAILY PO Last administered on 08:40; Start 04/27/16 at 09:00; Stop 04/28/16 at 13:59; Status DC Docusate Sodium (Colace) 100 mg DAILY PO Last administered on 04/28/16 08:40; Start 04/27/16 at 09:00; Stop 04/28/16 at 13:59; Status DC Cyclobenzaprine HCl (Flexeril) 10 mg PRN Q6HRS PRN PO MUSCLE SPASMS Last administered on 04/26/16 16:36; Start 04/26/16 at 16:15; Stop 04/26/16 at 18:55 ; Status DC Botulinum Toxin Type A (Botox) 100 unit 1X ONCE IM ; Start 04/27/16 at 09:00; Stop 04/27/16 at 09:01; Status UNV Baclofen 10 mg 10 mg Q8HRS PO Last administered on 04/28/16 05:52; Start 04/26 at 22:00; Stop 04/28/16 at 12:06; Status DC Ceftriaxone Sodium/Sodium Chloride (Rocephin/Iv Sodium Chloride 0.9% 50ml) 50 ml @ 100 mls/hr Q24H IV Last administered on 04/28/16 11:01; Start 04/27/16 at 11:00; Stop 04/28/16 at 13:59; Status DC Potassium Chloride (Klor-Con) 20 meq 1X ONCE PO Last administered on 10:09; Start 04/27/16 at 10:30; Stop 04/27/16 at 10:31; Status DC Potassium Chloride (Klor-Con) 20 meq DAILYWBKFT PO Last administered on 08:39; Start 04/28/16 at 08:00; Stop 04/28/16 at 13:59; Status DC Albuterol/ Ipratropium (Duoneb) 3 ml 1X ONCE NEB Last administered on 21:24; Start 04/27/16 at 20:30; Stop 04/27/16 at 20:31; Status DC Albuterol/ Ipratropium (Duoneb) 3 ml PRN QID NEB ; Start 04/27/16 at 20:30; Stop 04/28/16 at 13:59; Status DC Throat Lozenges (Chloraseptic) 1 spray PRN Q2HR PRN PO SORE THROAT; Start 04/28 at 09:45; Stop 04/28/16 at 13:59; Status DC Baclofen (Lioresal) 10 mg Q8HRS PO Last administered on 04/28/16 13:22; Start 04/28/16 at 14:00; Stop 04/28/16 at 14:00; Status DC Active Scripts Active Oxycodone-Acetaminophen 5-325 (Oxycodone Hcl/Acetaminophen) 1 Each Tablet 1 Tab PO PRN Q4HRS PRN Reported Vitamin B-12 (Cyanocobalamin (Vitamin B-12)) 1,000 Mcg Tablet 1 Tab PO DAILY Pravastatin Sodium 10 Mg Tablet 1 Tab PO QHS Metformin Hcl 500 Mg Tablet 1 Tab PO BID Fluoxetine Hcl 20 Mg Tablet 1 Tab PO DAILY Amlodipine Besylate 10 Mg Tablet 10 Mg PO DAILY Vitals/I & O Vital Sign - Last 24 Hours 3/2204/27/16 04/27/16 04/28/16 19:10 20:30 23:23 03:25 Temp 98.4 99.3 98.4 98.4 99.3 98.4 Pulse 93 75 80 Resp 20 20 20 B/P 122/72 109/61 115/57 Pulse Ox 90 90 90 O2 Delivery Nasal Cannula Nasal Cannula Nasal Cannula Nasal Cannula O2 Flow Rate 4.0 4.0 4.0 4.0 04/28/16 04/28/16 04/28/16 04/28/16 05:52 06:57 07:00 07:40 Temp 98.0 98.0 Pulse 68 Resp 18 18 14 B/P 106/58 Pulse Ox 96 O2 Delivery Nasal Cannula Nasal Cannula Nasal Cannula O2 Flow Rate 5.0 4.0 3.0 04/28/16 04/28/16 04/28/16 04/28/16 08:40 08:41 09:45 11:00 Temp 97.6 97.6 Pulse 68 72 Resp 14 B/P 106/58 111/59 Pulse Ox 91 O2 Delivery Nasal Cannula Room Air Nasal Cannula O2 Flow Rate 3.0 4.0 04/28/16 13:22 O2 Delivery Room Air Intake and Output 04/27/16 04/27/16 04/28/16 15:00 23:00 07:00 Output Total 550 ml 500 ml Balance -550 ml -500 ml ALEXANDER DE JESUS MD Apr 28, 2016 15:44
--- NOTE | 2016-04-28 17:56 | PDOC3 ---
Discharge Summary Visit Information Date of Admission: Apr 25, 2016 Date of Discharge: Apr 28, 2016 Admitting Diagnosis: traumatic fracture Final Diagnosis Acute, traumatic, fracture right greater trochanter Hypertension restless leg syndrome s/p CVA, 03/25, rehab for weakness, Leukocytosis, reactive, hypokalemia, UTI BPH, urinary retention - present before admit Problems Medical Problems: (1) Closed fracture of greater trochanter of right femur Status: Acute (2) Femur fracture, right Status: Acute Brief Hospital Course Allergies Allergies Coded Allergies Type Severity Reaction Last Updated Verified iodine Allergy Intermediate 03/18/16 Yes Vital Signs Vital Signs Date Time Temp Pulse Resp B/P Pulse Ox O2 Delivery O2 Flow Rate FiO2 04/28/16 13:22 Room Air 04/28/16 11:00 97.6 72 14 111/59 91 4.0 97.6 Lab Results Laboratory Tests Test 04/27/16 03:33 04/27/16 20:49 25-Hydroxy Vitamin D Total 32.0ng/mL (30.0-100.0) O2 Saturation 91% (92-99) Arterial Blood pH 7.37 (7.35-7.45) Arterial Blood pCO2 at Patient Temp 44mmHg (35-46) Arterial Blood pO2 at Patient Temp 59mmHg (65-108) Arterial Blood HCO3 25mmol/L (21-28) Arterial Blood Base Excess -1mmol/L (-3-3) Laboratory Tests Test 04/27/16 20:49 O2 Saturation 91% (92-99) Arterial Blood pH 7.37 (7.35-7.45) Arterial Blood pCO2 at Patient Temp 44mmHg (35-46) Arterial Blood pO2 at Patient Temp 59mmHg (65-108) Arterial Blood HCO3 25mmol/L (21-28) Arterial Blood Base Excess -1mmol/L (-3-3) Brief Hospital Course Mr. Engel is a 71 old male who fell out of a wheelchair on the evening of 04/27/2016 and complained of pain in his right hip. 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 Oyer Discharge Information Condition at Discharge: Improved Follow Up: Weeks Disposition/Orders: D/C to Another Facility ([facility]) Scheduled Amlodipine Besylate (Amlodipine Besylate) 10 MG PO DAILY (Reported) Cyanocobalamin (Vitamin B-12) (Vitamin B-12) 1 TAB PO DAILY (Reported) Fluoxetine Hcl (Fluoxetine Hcl) 1 TAB PO DAILY (Reported) Metformin Hcl (Metformin Hcl) 1 TAB PO BID (Reported) Pravastatin Sodium (Pravastatin Sodium) 1 TAB PO QHS (Reported) Scheduled PRN Oxycodone Hcl/Acetaminophen (Oxycodone-Acetaminophen 5-325) 1 TAB PO PRN Q4HRS PRN PRN PAIN Patient Instructions Patient Instructions time > 30min JOSÉ JASMINE MD Apr 28, 2016 17:56
== END 2016-04-28 13:59 | DRG 536 ==
LOC: ER 20:08 → 4 NORTH 22:30
PROVIDERS: ADMIT Internal Medicine; ATTEND Internal Medicine
DX: S72.114A Nondisplaced fracture of greater trochanter of right femur, initial encounter for closed fracture (principal); N39.0 Urinary tract infection, site not specified; G81.11 Spastic hemiplegia affecting right dominant side; E78.5 Hyperlipidemia, unspecified; E87.6 Hypokalemia; G25.81 Restless legs syndrome; I10 Essential (primary) hypertension; I71.4 Abdominal aortic aneurysm, without rupture; N40.1 Benign prostatic hyperplasia with lower urinary tract symptoms; R33.8 Other retention of urine; Z82.3 Family history of stroke; W05.0XXA Fall from non-moving wheelchair, initial encounter; Y93.89 Activity, other specified; Y92.89 Other specified places as the place of occurrence of the external cause; Y99.8 Other external cause status; Z86.73 Personal history of transient ischemic attack (TIA), and cerebral infarction without residual deficits; Z91.041 Radiographic dye allergy status; Z87.730 Personal history of (corrected) cleft lip and palate; Z99.3 Dependence on wheelchair
CPT/HCPCS: 36415; 36600; 70450; 71010; 72192; 73502; 80048; 81001; 82306; 82805; 83735; 85027; 87086; 87186; 87641; 94640; 96374; J0696; J2405; J3010; J7060; J7620; 99285-25

== ENCOUNTER 2016-06-29 08:35 | Inpatient (IN) | payer MEDICARE, OTHER ==
[2016-06-29] VITALS (11 sets, daily range): BP systolic 92–172; BP diastolic 49–75
[~2016-06-29] VITALS: Ht 177.8 cm; Wt 73.5 kg
[~2016-06-29 08:35] MED LIST changes: +OXYC1TAB7 PO
[2016-06-29] MEDS ORDERED: traMADol 50 MG TABLET PO ONE (09:00)
--- NOTE | 2016-06-29 09:19 | RAD ---
Indication pain associated with a fall. AP and frog leg views of the right hip were obtained. There is a lucency best demonstrated on the frog leg view in the intertrochanteric area and there is suggested cortical disruption at the base of the femoral neck. On the AP view there is some suggested impaction. A fracture is felt most likely but it is not fully characterized on plain film. CT should be considered for additional evaluation and characterization. IMPRESSION: Probable right hip fracture not optimally characterized on plain film. CT should be considered for additional evaluation
--- NOTE | 2016-06-29 09:20 | RAD ---
Indication pain associated with a fall. The right femur was evaluated. AP and lateral views were obtained. The hip was also imaged and is the subject of a separate dictation. The distal femur and femoral diaphysis appear normal. No fracture or bony abnormality is seen
--- NOTE | 2016-06-29 09:31 | PHYS DOC ---
Past Medical History Past Medical History: CVA, Other Additional Past Medical Histor: Metformin for prediabetes, restless leg syndrome, hypertension Past Surgical History: No Surgical History Additional Past Surgical Histo: cleft palate repair, R HIP SURGERY Alcohol Use: Rarely Drug Use: Marijuana Adult General Chief Complaint Chief Complaint: MECHANICAL FALL HPI HPI Patient is a 71 year old male who presents by EMS from assisted living facility for right mid and proximal thigh pain after trip and fall that occurred shortly prior to arrival. Pain is constant, achy and spasm-like. He caught his walker on a doorway and fell to the right hip. He denies other injury. He denies head injury, neck pain, headache, nausea or vomiting, dizziness, chest pain, abdominal pain, back pain. He denies new numbness, tingling, weakness. Review of Systems Review of Systems Constitutional: Denies fever or chills [] Eyes: Denies change in visual acuity, redness, or eye pain [] HENT: Denies nasal congestion or sore throat [] Respiratory: Denies cough or shortness of breath [] Cardiovascular: No additional information not addressed in HPI [] GI: Denies abdominal pain, nausea, vomiting, bloody stools or diarrhea [] : Denies dysuria or hematuria [] Musculoskeletal: Denies back pain [] Integument: Denies rash or skin lesions [] Neurologic: Denies headache, focal weakness or sensory changes [] Endocrine: Denies polyuria or polydipsia [] Current Medications Current Medications Current Medications Medications (Trade) Dose Ordered Sig/[facility] Start Time Stop Time Status Last Admin Dose Admin Acetaminophen (Tylenol) 650 mg PRN Q4HRS PRN 06/29/16 10:15 06/30/16 10:14 Fentanyl Citrate (Fentanyl 2ml Vial) 50 mcg PRN Q2HR PRN 06/29/16 10:00 Ondansetron HCl (Zofran) 4 mg PRN Q8HRS PRN 06/29/16 10:15 06/30/16 10:14 Sodium Chloride 1,000 ml @ 75 mls/hr [id number] 06/29/16 10:06 06/30/16 10:05 Tramadol HCl (Ultram) 50 mg 1X ONCE 06/29/16 09:00 06/29/16 09:01 DC Allergies Allergies Allergies Coded Allergies Type Severity Reaction Last Updated Verified iodine Allergy Intermediate 03/18/16 Yes Physical Exam Physical Exam Constitutional: Well developed, well nourished, no acute distress, non-toxic appearance. [] HENT: Normocephalic, atraumatic, bilateral external ears normal, oropharynx moist, nose normal. [] Eyes: PERRLA, EOMI. [] Neck: Normal range of motion, supple. [] Cardiovascular:Heart rate regular rhythm [] Lungs & Thorax: Bilateral breath sounds clear to auscultation [] Abdomen: Bowel sounds normal, soft, no tenderness. [] Skin: Warm, dry, no erythema, no rash. [] Back: No tenderness, no CVA tenderness. [] Extremities: RLE with no obvious deformity or discoloration; skin closed; Can flex/ex hip with pain, but has pain with rotation at hip so is very limited; Knee full rom, ankle df/pf, toes df/pf; SILT stuart/sa/sp/dp/tib distributions; dp and pt pulses equal bilaterally Neurologic: Alert and oriented X 3, normal motor function, normal sensory function, no focal deficits noted. [] Psychologic: Affect normal, judgement normal, mood normal. [] Current Patient Data Vital Signs Vital Signs Date Time Temp Pulse Resp B/P (MAP) Pulse Ox O2 Delivery O2 Flow Rate FiO2 06/29/16 08:35 98.0 77 18 158/70 (99) 92 Room Air 98.0 EKG EKG EKG as interpreted by me as sinus bradycardia, rate 59, no ST-T changes, no ectopy Radiology/Procedures Radiology/Procedures X-ray right hip and femur as interpreted by me with possible fracture through trochanter femoral neck, otherwise nonacute Chest xray as interpreted by me with no acute cardiopulmonary disease process CT pelvis without contrast IMPRESSION: Traumatic intertrochanteric right hip fracture 3.6 cm infrarenal abdominal aortic aneurysm partially visualized DICTATED and SIGNED BY: JAISON HAYWOOD MD DATE: 06/29/16 1004 Course & Med Decision Making Course & Med Decision Making Pertinent Labs and Imaging studies reviewed. (See chart for details) His hip fracture without any other identifiable injuries or complaints. He will be admitted for further orthopedic management. Phone call placed to Dr. Rodriguez, orthopedics, for consult. Discussed case with Dr. Dumont, who will admit. Jame Disclaimer Dragon Disclaimer This electronic medical record was generated, in whole or in part, using a voice recognition dictation system. Departure Departure Impression: Primary Impression: Closed intertrochanteric fracture of right hip Disposition: ADMITTED INPATIENT Condition: STABLE Referrals: NO PCP (PCP) Problem Qualifiers Primary Impression: Closed intertrochanteric fracture of right hip Encounter type: initial encounter Qualified Codes: S72.141A - Displaced intertrochanteric fracture of right femur, initial encounter for closed fracture Shane PURI MD June 29, 2016 09:30
--- NOTE | 2016-06-29 10:11 | RAD ---
Portable chest, 06/29/2016: History: Preop evaluation, hip surgery Comparison is made to a study from 04/27/2016. The heart size is normal. There is mild tortuosity of the thoracic aorta. The pulmonary vascularity is normal. No pulmonary infiltrate is seen. There is no evidence of pleural fluid. IMPRESSION: No acute cardiopulmonary abnormality is detected.
--- NOTE | 2016-06-29 10:12 | RAD ---
Indication pain. Fall. Axial images through the pelvis were obtained and reformatted in the coronal and sagittal planes. Note is made of the plain film examination just prior to the CT suggesting a right hip fracture. There is an intertrochanteric hip fracture on the right. The greater trochanter is slightly displaced. The abdominal aorta is partially visualized. There is a 3.6 cm infrarenal abdominal aortic aneurysm. There is a small left inguinal hernia containing only fat and appearing uncomplicated. The prostate is mildly enlarged IMPRESSION: Traumatic intertrochanteric right hip fracture 3.6 cm infrarenal abdominal aortic aneurysm partially visualized PQRS Compliance Statement: One or more of the following individualized dose reduction techniques were utilized for this examination: 1. Automated exposure control 2. Adjustment of the mA and/or kV according to patient size 3. Use of iterative reconstruction technique
[2016-06-29] MEDS ORDERED: ACETAMINOPHEN 325 MG TABLET. PO PRN (10:15)
[2016-06-29] MEDS ORDERED: ONDANSETRON PF 4 MG/2 ML VIAL. IV PRN ×2 (10:15→11:30)
[2016-06-29] MEDS: IV NORMAL SALINE 1000ML BAG 1,000 ML IV SCH ×2 (10:25→13:04)
[2016-06-29] MEDS: fentaNYL PF VIAL 100 MCG/2 ML VIAL IV PRN ×5 (10:26→22:16)
[2016-06-29 10:41] LABS: BASO # 0.1 x10^3/uL (0.0-0.2); BASO % 1 % (0-3); EOS % 0 % (0-3); HEMATOCRIT 39.5 % (39.0-53.0); HEMOGLOBIN 13.1 g/dL (13.0-17.5); LYMPH # 1.5 x10^3/uL (1.0-4.8); LYMPH % 12 % (24-48); MEAN CORPUSCULAR HEMOGLOBIN 29 pg (25-35); MEAN CORPUSCULAR HGB CONC 33 g/dL (31-37); MEAN CORPUSCULAR VOLUME 87 fL (79-100); MONO % 4 % (0-9); NEUT % 83 % (31-73); PLATELET COUNT 325 x10^3/uL (140-400); RED BLOOD COUNT 4.57 x10^6/uL (4.30-5.70); RED CELL DISTRIBUTION WIDTH 14.1 % (11.5-14.5); WHITE BLOOD COUNT 12.7 x10^3/uL (4.0-11.0)
[2016-06-29 10:48] LABS: CALCIUM 8.7 mg/dL (8.5-10.1); GFR 73.2; POTASSIUM 3.6 mmol/L (3.5-5.1)
--- NOTE | 2016-06-29 11:02 | ACF ---
Admission Forms Criteria MUSCULOSKELETAL DISEASE GRG Clinical Indications for Admission to Inpatient Care (Place 'X' for any and all applicable criteria): Hospital admission is needed for appropriate care of the patient because of 1 or more of the following: [X]I. Fracture, dislocation, or other musculoskeletal injury requiring inpatient care(medical) as indicated by 1 or more of the following(4)(5)(6)(7) [ ]a) Vertebral fracture requiring observation for instability or neurologic compromise (8) [ ]b) Compartment syndrome (proven or cannot be ruled out during observation level of care) (9) [ ]c) Limb-threatening injury [ ]d) Major injury requiring inpatient stabilization such as traction initiation or external fixation before internal fixation or closure of complex or open fracture [ ]e) Major injury requiring inpatient treatment after emergency or observation level care (as appropriate) [X]f) Severe pain requiring acute inpatient management [ ]g) Injury with suspicion of abuse or neglect (eg., child, dependent elderly) [ ]II. Newly diagnosed or suspected bone, joint, or orthopedic device infection (e.g., osteomyelitis, septic arthritis) needing 1 or more of the following(1)(2)(3) [ ]a) IV antibiotics that cannot be initiated in other than inpatient setting (e.g., patient too unstable or home infusion not available) [ ]b) Device removal or replacement [ ]c) Bone or soft tissue debridement [ ]d) Joint drainage (drain placement or repetitive aspirations) [ ]III. Severe rheumatologic disease (e.g., systemic lupus erythematosus, rheumatoid arthritis) with complications or comorbidities (Also use Optimal Recovery Care Criteria or General Recovery Criteria as appropriate on the basis of predominant condition), including 1 or more of the following( 10)(11)(12)(13) [ ]a) Severe infection (e.g., HEATING AND AIR CONDITIONING MECHANIC infection, sepsis) (14) [ ]b) Respiratory complications, including 1 or more of the following : [ ]i) Pleural effusion with respiratory compromise [ ]ii) Pulmonary hypertension with congestive failure [ ]iii) Respiratory failure [ ]iv) Pulmonary hemorrhage (15) [ ]c) Hematologic disease, including 1 or more of the following: [ ]i) Coagulopathy with bleeding [ ]ii) Thrombosis with hypercoagulable state [ ]iii) Thrombotic thrombocytopenic purpura [ ]d) Cerebritis with seizures, psychosis, or other severe abnormalities [ ]e) Vertebral destruction with monitoring needed for cervical myelopathy& possible respiratory compromise [ ]f) Exacerbation that requires inpatient treatment (e.g., intravenous immunosuppression) (16) [ ]g) Acute renal failure [ ]h) Cerebritis with seizures, psychosis, Altered mental status, or other neurologic abnormalities [ ]i) Pericardial effusion with tamponade [ ]j) Vertebral destruction, with monitoring needed for cervical myelopathy and possible respiratory compromise [ ]IV. Severe vasculitis with complications or comorbidities (Also use Optimal Recovery Care Criteria General Recovery Criteria as appropriate on the basis of predominant condition), including 1 or more of the following(11)(12)(17)(18)(19)(20) [ ]a) Exacerbation that requires inpatient treatment (e.g., intravenous immunosuppression) (19)(21) [ ]b) Pulmonary hemorrhage (15) [ ]c) HEATING AND AIR CONDITIONING MECHANIC vasculitis with seizures, psychosis, Altered mental status that is severe or persistent, or other severe abnormalities (22) [ ]d) Cerebral infarction [ ]e) Gastrointestinal ischemia [ ]f) Gangrene or threatened amputation [ ]g) Renal failure (16) [ ]h) Other significant complications of vasculitis ( eg., tissue or organ ischemia, organ dysfunction ) [ ]V. Severe myopathy as indicated by 1 or more of the following (28)(29) [ ]a) New onset of airway compromise or inability to swallow [ ]b) Respiratory deterioration with observation needed for impending respiratory failure [ ]c) Exacerbation that requires inpatient treatment (e.g., intravenous immunosuppression) [ ]. Severe crystal gout (arthropathy) indicated by 1 or more of the following (23)(24) [ ]a) Severe pain requiring acute inpatient management [ ]b) Exacerbation that requires inpatient treatment (e.g., intravenous treatment) [ ]VII.Rhabdomyolysis and 1 or more of the following (25)(26)(27) [ ]a) Acute renal failure [ ]b) Need for intravenous hydration after emergency or observation level care (as appropriate) [ ]c) Inability to maintain oral hydration [ ]d) Change in mental status [ ]e) Electrolyte abnormality that remains after emergency or observation level care (as appropriate) [ ]VIII Post amputation complication, as indicated by ANY ONE of the following [ ]a) Infection [ ]b) Dehiscence [ ]c) Myodesis failure [ ]IX. Severe pain requiring acute inpatient management due to musculoskeletal condition [ ]X. Musculoskeletal Disease and ALL of the following: [ ]a) Symptom or finding for which emergency and observation care have failed or are not considered appropriate (Use General Criteria: Observation Care as appropriate) [ ]b) Presence of ANY ONE of the following [ ]i) A General Admission Criteria [ ]ii) A Pediatric General Admission Criteria The original [facility] [employer] content created by [employer] has been revised. The portions of the content which have been revised are identified through the use of italic text or in bold, and [facility] has neither reviewed nor approved the modified material. All other unmodified content is copyright [facility]. Please see references footnoted in the original [facility] edition 2016 Admission Criteria Met?: Yes GA ARENAS June 29, 2016 11:02
[2016-06-29] MEDS ORDERED: IV RINGERS,LACTATED 1000ML 1,000 ML IV SCH (11:29)
[2016-06-29] MEDS ORDERED: MORPHINE SULFATE 2 MG/ML DISP.SYRIN. IV PRN (11:30)
[2016-06-29] MEDS ORDERED: PROCHLORPERAZINE 10 MG/2 ML VIAL. IV PRN (11:30)
[2016-06-29] MEDS ORDERED: LIDOCAINE 1% 1 ML SYRINGE. ID PRN (11:30)
[2016-06-29] MEDS ORDERED: HYDROmorphone 2 MG/ML VIAL IV PRN (11:30)
[2016-06-29] MEDS ORDERED: fentaNYL PF VIAL 100 MCG/2 ML VIAL IV PRN ×2 (11:30)
--- NOTE | 2016-06-29 12:12 | EKG ---
[facility] [address] [place] [address] Test Date: 2016-06-29 Test Time: 10:09:21 Pat Name: OBI CANELA Department: Room: 434 1 Gender: M Critical Systems Technician: : 1945 Requested By: Shane PURI Order Number: [id number] Reading MD: Olimpia Hernandez Measurements Intervals Outlook Rate: 59 P: MS: QRS: 2 QRSD: 94 T: 64 QT: 436 QTc: 432 Interpretive Statements SINUS RHYTHM LOW LIMB LEAD VOLTAGE RI6.01 Unconfirmed report No previous ECG available for comparison Electronically Signed On 07-03-2016 14:29:03 CDT by Olimpia Hernandez
[2016-06-29] MEDS ORDERED: DEXTROSE 50% 25 GM / 50ML DISP.SYRIN. IV PRN (13:30)
[2016-06-29 14:15] LABS: INR 1.2 (0.8-1.1); PROTHROMBIN TIME PATIENT 14.6 SEC (11.7-14.0)
[2016-06-29] MEDS ORDERED: PROPOFOL 20 ML IV ONE (17:07)
[2016-06-29] MEDS ORDERED: LIDOCAINE 2% PF Vial for OR 5 ML VIAL. ONE (17:07)
[2016-06-29] MEDS ORDERED: fentaNYL PF VIAL 250 MCG/5 ML VIAL ONE (17:07)
[2016-06-29] MEDS ORDERED: BUPIVAC MPF-EPI 0.5%-1:200000 30 ML VIAL. ONE (17:16)
[2016-06-29] MEDS ORDERED: BUPIVACAINE-EPI 0.25%-1:200000 MPF 30 ML VIAL. ONE (17:18)
--- NOTE | 2016-06-29 17:35 | HP ---
ADMIT DATE: 06/29/2016 CHIEF COMPLAINT: Mechanical fall with right hip pain. HISTORY OF PRESENT ILLNESS: The patient is a pleasant 71-year-old male who fell. He presents with right hip pain rated at 7 out of 10, worse with movement, better with sitting still. We checked imaging. He has got a right intertrochanteric hip fracture. The patient has been admitted. We will consult Orthopedics. He is going to Surgery probably today. PAST MEDICAL HISTORY: Previous stroke, previous hip fracture, diabetes, restless leg, hypertension, and cleft palate. ALLERGIES: None. FAMILY HISTORY: Diabetes. SOCIAL HISTORY: Does not drink, smoke, or take drugs. MEDICATIONS: Reviewed. Please refer to the MRAD. REVIEW OF SYSTEMS: GENERAL: No history of weight change, weakness, or fevers. SKIN: No bruising, hair changes, or rashes. EYES: No blurred, double, or loss of vision. NOSE AND THROAT: No history of nosebleeds, hoarseness, or sore throat. HEART: No history of palpitations, chest pain, or shortness of breath on exertion. LUNGS: Denies cough, hemoptysis, wheezing, or shortness of breath. GASTROINTESTINAL: Denies changes in appetite, nausea, vomiting, diarrhea, or constipation. GENITOURINARY: No history of frequency, urgency, hesitancy, or nocturia. NEUROLOGIC: Denies history of numbness, tingling, tremor, or weakness. PSYCHIATRIC: No history of panic, anxiety, or depression. ENDOCRINE: No history of heat or cold intolerance, polyuria, or polydipsia. EXTREMITIES: He complains of right hip pain. PHYSICAL EXAMINATION: VITAL SIGNS: Temperature afebrile, pulse 67, respirations 18, and blood pressure 144/90. GENERAL: He is alert, cooperative. HEART: Normal S1, S2. LUNGS: Clear. ABDOMEN: Soft, positive bowel sounds. EXTREMITIES: The right lower extremity is externally rotated. ENDOCRINE: No thyromegaly. LYMPHATICS: No cervical nodes. HEMATOPOIETIC: No bruising. ASSESSMENT AND PLAN: Fall with right hip fracture. The patient has been admitted. We will consult Orthopedics. I suspect he is going to Surgery today. Postoperatively, he is going to need Physical Therapy, Occupational Therapy, Wound Care, and Prison evaluation. We will continue his home medicines, IV hydration, and p.r.n. narcotics. EVAN FINE DO DR: KORI/antonio JOB#: [id number] / [id number]
--- NOTE | 2016-06-29 17:39 | PDOC2 ---
CONSULT Date of Consult Date of Consult DATE: 06/29/16 TIME: 10:30 Reason for Consult Reason for Consult: right hip fracture Referring Physician Referring Physician: Dr. Santiago Identification/Chief Complaint Chief Complaint right hip pain Source Source: Chart review, Patient History of Present Illness Reason for Visit: Mr. Engel is a 71 year old male patient who presented to the ED this morning after a fall. He was at rehab for recovery from a CVA on 03/31/16 and returned to his residence at [facility] last week. He was walking back from breakfast, with his walker, when he suddenly lost balance and fell onto his right hip. He denies hitting his head or lightheadedness. Dr. Rodriguez and I previously saw him in April for a nondisplaced greater trochanter fracture that was treated nonoperatively. Past Medical History Cardiovascular: HTN, Hyperlipidemia CENTRAL NERVOUS SYSTEM: CVA (03/31/16) Endocrine: Other (pre-diabetes treated with Metformin) Past Surgical History Past Surgical History cleft palate repair Past Surgical History: No pertinent history Family History Family History: Stroke Social History No ([facility]) ALCOHOL: none Drugs: None Lives: Intermediate Current Problem List Problem List Problems Medical Problems: (1) Closed intertrochanteric fracture of right hip Status: Acute Current Medications Current Medications Current Medications Tramadol HCl (Ultram) 50 mg 1X ONCE PO Last administered on 06/29/16 10:30; Start 06/29/16 at 09:00; Stop 06/29/16 at 09:01; Status DC Fentanyl Citrate (Fentanyl 2ml Vial) 50 mcg PRN Q2HR PRN IV pain Last administered on 06/29/16 15:19; Start 06/29/16 at 10:00 Ondansetron HCl (Zofran) 4 mg PRN Q8HRS PRN IV NAUSEA/VOMITING; Start 06/29/16 at 10:15; Stop 06/30/16 at 10:14 Sodium Chloride 1,000 ml @ 75 mls/hr [id number] IV Last administered on 13:04; Start 06/29/16 at 10:06; Stop 06/30/16 at 10:05 Acetaminophen (Tylenol) 650 mg PRN Q4HRS PRN PO FEVER; Start 06/29/16 at 10:15 ; Stop 06/30/16 at 10:14 Lorazepam (Ativan) 1 mg 1X ONCE IV ; Start 06/29/16 at 11:15; Stop 06/29/16 at 11:16; Status DC Ondansetron HCl (Zofran) 4 mg PRN Q6HRS PRN IV NAUSEA/VOMITING; Start 06/29/16 at 11:30; Stop 06/30/16 at 11:29 Fentanyl Citrate (Fentanyl 2ml Vial) 25 mcg PRN Q5MIN PRN IV MILD PAIN; Start 06/29/16 at 11:30; Stop 06/30/16 at 11:29 Fentanyl Citrate (Fentanyl 2ml Vial) 50 mcg PRN Q5MIN PRN IV MODERATE PAIN; Start 06/29/16 at 11:30; Stop 06/30/16 at 11:29 Morphine Sulfate 1 mg PRN Q10MIN PRN IV SEVERE PAIN; Start 06/29/16 at 11:30; Stop 06/30/16 at 11:29 Ringer's Solution 1,000 ml @ 0 mls/hr Q0M IV ; Start 06/29/16 at 11:29; Stop at 23:28 Lidocaine HCl 2 ml PRN 1X PRN ID PRIOR TO IV START; Start 06/29/16 at 11:30; Stop 06/30/16 at 11:29 Hydromorphone HCl (Dilaudid) 0.5 mg PRN Q10MIN PRN IV SEV PAIN, Second choice; Start 06/29/16 at 11:30; Stop 06/30/16 at 11:29 Prochlorperazine Edisylate (Compazine) 5 mg PACU PRN PRN IV NAUSEA, MRX1; Start 06/29/16 at 11:30; Stop 06/30/16 at 11:29 Amlodipine Besylate (Norvasc) 10 mg DAILY PO ; Start 06/30/16 at 09:00 Cyanocobalamin (Vitamin B-12) 1,000 mcg DAILY PO ; Start 06/30/16 at 09:00 Fluoxetine HCl (PROzac) 20 mg DAILY PO ; Start 06/30/16 at 09:00 Atorvastatin Calcium (Lipitor) 5 mg QHS PO ; Start 06/29/16 at 21:00 Dextrose (Dextrose 50%-Water Syringe) 12.5 gm PRN Q15MIN PRN IV SEE COMMENTS; Start 06/29/16 at 13:30 Fentanyl Citrate (Fentanyl 5ml Vial) 250 mcg STK-MED ONCE .ROUTE ; Start at 17:07; Stop 06/29/16 at 17:08; Status DC Propofol 20 ml @ As Directed STK-MED ONCE IV ; Start 06/29/16 at 17:07; Stop at 17:08; Status DC Lidocaine HCl (Lidocaine Pf 2% Vial) 5 ml STK-MED ONCE .ROUTE ; Start 06/29/16 at 17:07; Stop 06/29/16 at 17:08; Status DC Bupivacaine HCl/ Epinephrine Bitart (Sensorcain-Mpf Epi 0.5%-1:907516) 30 ml STK -MED ONCE .ROUTE ; Start 06/29/16 at 17:16; Stop 06/29/16 at 17:17; Status DC Bupivacaine HCl/ Epinephrine Bitart (Sensorcaine-Epi 0.25%-1:224224 Mpf) 30 ml STK-MED ONCE .ROUTE ; Start 06/29/16 at 17:18; Stop 06/29/16 at 17:19; Status DC Cefazolin Sodium/ Dextrose 50 ml @ 100 mls/hr 1X PREOP PRN IV SEE COMMENTS; Start 06/29/16 at 17:30 Ropivacaine 53.3 ml/Epinephrine HCl 0.6 mg/ Morphine Sulfate 5 mg/Sodium Chloride 100 ml @ 100 mls/hr 1X PERIOP ONCE INT ART ; Start 06/29/16 at 18:00 ; Stop 06/29/16 at 18:59 Active Scripts Active Reported Vitamin B-12 (Cyanocobalamin (Vitamin B-12)) 1,000 Mcg Tablet 1 Tab PO DAILY Pravastatin Sodium 10 Mg Tablet 1 Tab PO QHS Metformin Hcl 500 Mg Tablet 1 Tab PO BID Fluoxetine Hcl 20 Mg Tablet 1 Tab PO DAILY Amlodipine Besylate 10 Mg Tablet 10 Mg PO DAILY Allergies Allergies: Coded Allergies: iodine (Verified Allergy, Intermediate, 03/18/16) Physical Exam General: Alert, Oriented X3, Cooperative, No acute distress HEENT: Atraumatic, EOMI Lungs: Normal air movement Heart: Regular rate Abdomen: Soft Skin: No rashes, No breakdown, No significant lesion Neuro: Normal speech, Sensation intact Psych/Mental Status: Mental status NL, Mood NL MUSCULOSKELETAL: Other (No abrasions, lesion, or ecchymosis over right hip. Tenderness to palpation over fracture. He has his knee held in a flexed position , due to muscle spasms he says. He is able to fully extend knee, without pain. Hip ROM is painful. Calf soft and nontender with a negative Andrés's sign. Good dorsiflexion and plantarflexion. Peripheral pulses and light touch sensation intact.) Vitals VITALS Vital Signs Date Time Temp Pulse Resp B/P (MAP) Pulse Ox O2 Delivery O2 Flow Rate FiO2 06/29/16 16:42 Room Air 06/29/16 15:00 98.3 60 20 172/75 (107) 97 98.3 Labs Labs Laboratory Tests Test 06/29/16 10:29 06/29/16 12:35 06/29/16 13:35 White Blood Count 12.7 x10^3/uL (4.0-11.0) Red Blood Count 4.57 x10^6/uL (4.30-5.70) Hemoglobin 13.1 g/dL (13.0-17.5) Hematocrit 39.5 % (39.0-53.0) Mean Corpuscular Volume 87 fL (79-100) Mean Corpuscular Hemoglobin 29 pg (25-35) Mean Corpuscular Hemoglobin Concent 33 g/dL (31-37) Red Cell Distribution Width 14.1 % (11.5-14.5) Platelet Count 325 x10^3/uL (140-400) Neutrophils (%) (Auto) 83 % (31-73) Lymphocytes (%) (Auto) 12 % (24-48) Monocytes (%) (Auto) 4 % (0-9) Eosinophils (%) (Auto) 0 % (0-3) Basophils (%) (Auto) 1 % (0-3) Neutrophils # (Auto) 10.6 x10^3uL (1.8-7.7) Lymphocytes # (Auto) 1.5 x10^3/uL (1.0-4.8) Monocytes # (Auto) 0.5 x10^3/uL (0.0-1.1) Eosinophils # (Auto) 0.0 x10^3/uL (0.0-0.7) Basophils # (Auto) 0.1 x10^3/uL (0.0-0.2) Sodium Level 145 mmol/L (136-145) Potassium Level 3.6 mmol/L (3.5-5.1) Chloride Level 109 mmol/L (98-107) Carbon Dioxide Level 28 mmol/L (21-32) Anion Gap 8 (6-14) Blood Urea Nitrogen 9 mg/dL (8-26) Creatinine 1.0 mg/dL (0.7-1.3) Estimated GFR (Cockcroft-Gault) 73.2 Glucose Level 98 mg/dL (70-99) Calcium Level 8.7 mg/dL (8.5-10.1) Glucose (Fingerstick) 86 mg/dL (70-99) Prothrombin Time 14.6 SEC (11.7-14.0) Prothromb Time International Ratio 1.2 (0.8-1.1) Activated Partial Thromboplast Time 35 SEC (24-38) Laboratory Tests Test 06/29/16 10:29 06/29/16 12:35 06/29/16 13:35 White Blood Count 12.7 x10^3/uL (4.0-11.0) Red Blood Count 4.57 x10^6/uL (4.30-5.70) Hemoglobin 13.1 g/dL (13.0-17.5) Hematocrit 39.5 % (39.0-53.0) Mean Corpuscular Volume 87 fL (79-100) Mean Corpuscular Hemoglobin 29 pg (25-35) Mean Corpuscular Hemoglobin Concent 33 g/dL (31-37) Red Cell Distribution Width 14.1 % (11.5-14.5) Platelet Count 325 x10^3/uL (140-400) Neutrophils (%) (Auto) 83 % (31-73) Lymphocytes (%) (Auto) 12 % (24-48) Monocytes (%) (Auto) 4 % (0-9) Eosinophils (%) (Auto) 0 % (0-3) Basophils (%) (Auto) 1 % (0-3) Neutrophils # (Auto) 10.6 x10^3uL (1.8-7.7) Lymphocytes # (Auto) 1.5 x10^3/uL (1.0-4.8) Monocytes # (Auto) 0.5 x10^3/uL (0.0-1.1) Eosinophils # (Auto) 0.0 x10^3/uL (0.0-0.7) Basophils # (Auto) 0.1 x10^3/uL (0.0-0.2) Sodium Level 145 mmol/L (136-145) Potassium Level 3.6 mmol/L (3.5-5.1) Chloride Level 109 mmol/L (98-107) Carbon Dioxide Level 28 mmol/L (21-32) Anion Gap 8 (6-14) Blood Urea Nitrogen 9 mg/dL (8-26) Creatinine 1.0 mg/dL (0.7-1.3) Estimated GFR (Cockcroft-Gault) 73.2 Glucose Level 98 mg/dL (70-99) Calcium Level 8.7 mg/dL (8.5-10.1) Glucose (Fingerstick) 86 mg/dL (70-99) Prothrombin Time 14.6 SEC (11.7-14.0) Prothromb Time International Ratio 1.2 (0.8-1.1) Activated Partial Thromboplast Time 35 SEC (24-38) Images Images Right hip x-rays and CT reviewed and reveals a nondisplaced intertrochanteric femur fracture. Assessment/Plan Assessment/Plan Treatment options were discussed with the patient and his daughter. Dr. Rodriguez recommended right hip intramedullary nailing. Risks of surgery were discussed with the patient, which include bleeding, infection, blood clots, hardware failure, and any other surgical or anesthetic complications. Surgical procedure was explained to patient and daughter. All of their questions were answered and the patient agrees to proceed. *The patient was seen and examined in the ED this morning at 1030. JAVI PHAM June 29, 2016 17:39
[2016-06-29] MEDS ORDERED: PHENYLEPHRINE in 0.9% NACL PF 1 MG/10 ML DISP.SYRIN. IV ONE (17:51)
[2016-06-29] MEDS ORDERED: [UNRECOGNIZED DRUG - REMARK] INT ART ONE ×4 (18:00)
[2016-06-29] MEDS ORDERED: SEVOFLURANE 61 TO 120 MINUTES. IH ONE (18:36)
[2016-06-29] MEDS ORDERED: ONDANSETRON PF 4 MG/2 ML VIAL. ONE (18:39)
[2016-06-29] MEDS ORDERED: DEXAMETHASONE SOD PHOS 20 MG/5 ML VIAL. ONE (18:39)
[2016-06-29] MEDS ORDERED: ePHEDrine PF IN SALINE 50 MG/5 ML DISP.SYRIN IV ONE (18:43)
--- NOTE | 2016-06-29 19:14 | PDOC4 ---
Operative Note Operative Note Date of Procedure: June 29, 2016 Pre-Op Diagnosis: closed right intertrochanteric hip fracture Post-Op Diagnosis: closed right intertrochanteric hip fracture Procedure/Anesthesia: Treatment of intertrochanteric right femur fracture with intramedullary implant (CPT 44019) Surgeon: Obi Rodriguez MD [employer]: Shweta Ness PA-C Anesthesia Type: General EBL: 350 mL Specimens Obtained: none Complications: None Implant Company: [employer] INDICATION FOR PROCEDURE: The patient is a 71 year-old, who fell, sustaining a right hip fracture. The patient and I discussed the risks, benefits and alternatives of treatment. The alternative for treatment is bedrest until the fracture feels well, which is generally not well tolerated due to the risks of bedsores, blood clots, pneumonia and deconditioning. I recommended intramedullary nailing, and I talked to him about the potential risks of this including risks of bleeding, infection, blood clots, malunion, nonunion or other potential surgical or anesthetic complications. All of his questions were answered about surgery and he desired to proceed. A written consent was obtained. PROCEDURE IN DETAIL: The patient was identified in the preoperative holding area. The correct right hip was marked by me. The patient was taken to the operating room, where a general anesthetic was used. Preoperative antibiotics were given intravenously. The HANA table was used and the well leg was placed in a padded lithotomy leg vasques while the foot of the fractured right leg was placed in a traction foot boot. A time-out procedure was performed. The image intensifier was used, and a preliminary radiographic performed and the fracture site confirmed. The hip area was prepped in sterile fashion with ChloraPrep solution and a sterile barrier Ioban hip drape was used. An incision was made over the superior aspect of the greater trochanter. The image intensifier C-arm was used throughout the procedure, and all of the images were interpreted intra-operatively, by me. A guide pin was placed at the tip of the greater trochanter, and an entry reamer was used. The intramedullary nail was attached to a guide and then was placed down the canal, and positioned using the image intensifier. A second incision was now used over the lower part of the greater trochanter, to place a guide pin through the guide and the sleeves, in the center-center position of the femoral head, and the guide wire was measured. The tunnel for the lag screw was reamed. The lag screw was placed through the nail using the guide. A proximal locking screw was now placed to lock the lag screw. A distal cross lock screw was placed using the triple sleeve device through the guide. Screw position was confirmed with the image intensifier. Satisfactory reduction and fixation was confirmed using image intensifier views in multiple planes. Copious irrigation was used and the incision was now closed in layers by Ms. Ness with #2 Vicryl, 2-0 Vicryl and donovan. A periarticular injection was used with ropivacaine, epinephrine, and morphine. A bulky sterile dressing was applied. The patient was gently transferred from the fracture table back to a hospital bed. There were no apparent complications. OBI RODRIGUEZ MD June 29, 2016 19:14
[2016-06-29] MEDS ORDERED: ATORVASTATIN CALCIUM 10 MG TABLET. PO SCH (21:00)
[2016-06-29] MEDS: oxyCODONE/APAP 7.5/325 1 TAB TABLET PO PRN (23:03)
[2016-06-29] MEDS: diazePAM 5 MG TABLET PO PRN (23:55)
[2016-06-30] MEDS ORDERED: rOPINIRole 1 MG TABLET. PO SCH (01:00)
[2016-06-30] MEDS: fentaNYL PF VIAL 100 MCG/2 ML VIAL IV PRN ×4 (01:19→23:44)
[2016-06-30 03:00] VITALS: BP 104/62
[2016-06-30] MEDS: oxyCODONE/APAP 7.5/325 1 TAB TABLET PO PRN ×5 (03:02→21:30)
[2016-06-30 07:51] VITALS: BP 94/49
[2016-06-30] MEDS: CYANOCOBALAMIN (VITAMIN B-12) 1,000 MCG TABLET. PO SCH (08:00)
[2016-06-30] MEDS: FLUoxetine HCL 20 MG CAPSULE PO SCH (08:00)
[2016-06-30] MEDS: diazePAM 5 MG TABLET PO PRN ×2 (08:03→16:37)
[2016-06-30] MEDS ORDERED: amLODIPine BESYLATE 10 MG TABLET PO SCH (09:00)
[2016-06-30] MEDS ORDERED: DEXTROSE 50% 25 GM / 50ML DISP.SYRIN. IV PRN ×2 (09:45→11:00)
[2016-06-30] MEDS ORDERED: SENN-37 PO (10:02)
[2016-06-30] MEDS ORDERED: POLY17PO29 PO (10:02)
[2016-06-30] MEDS ORDERED: TAMS0.4C2 PO (10:02)
[2016-06-30] MEDS ORDERED: ATOR10TA60 PO (10:02)
[2016-06-30] MEDS ORDERED: ACET500T68 PO (10:02)
[2016-06-30] MEDS ORDERED: FEXO180T16 PO (10:02)
[2016-06-30] MEDS ORDERED: ASPI325T8 PO (10:02)
[2016-06-30] MEDS ORDERED: BACL10TA PO (10:02)
[2016-06-30] MEDS ORDERED: DOCU100C28 PO (10:02)
[2016-06-30] MEDS ORDERED: IPRA3AMP NEB (10:02)
[2016-06-30] MEDS ORDERED: ROPI0.5T PO (10:02)
[2016-06-30] MEDS ORDERED: CLOP75TA PO (10:02)
--- NOTE | 2016-06-30 10:57 | PDOC ---
PROGRESS NOTES Chief Complaint Chief Complaint 1. s./p R hip sx (06/29- POD # 1 2. RLS, chronic 3. [facility] resident 4., HTN, now HYPOtensive History of Present Illness History of Present Illness COmplains of R leg shaking Asks for his RLS med HOme mar not correct No labs today post op RN concerned about DVT prophy PT on ASA 81 and plavix at home PLAN: Resume correct home meds LOvenox 30 SQ PT/OT CHe[facility] labs today HOLD NOrvasc Dw pt, rn and SW Vitals Vitals Vital Signs Date Time Temp Pulse Resp B/P (MAP) Pulse Ox O2 Delivery O2 Flow Rate FiO2 06/30/16 09:00 Nasal Cannula 06/30/16 08:04 60 96/49 06/30/16 07:51 97.3 18 93 4.0 97.3 Physical Exam General: Alert, Oriented X3, Cooperative, No acute distress Heart: Regular rate Lungs: Clear Abdomen: Soft Skin: No rashes, No breakdown, No significant lesion Labs LABS Laboratory Tests Test 06/29/16 12:35 06/29/16 13:00 06/29/16 13:35 06/29/16 19:10 Glucose (Fingerstick) 86 mg/dL (70-99) 117 mg/dL (70-99) Nasal Screen MRSA (PCR) Negative (Negative) Prothrombin Time 14.6 SEC (11.7-14.0) Prothromb Time International Ratio 1.2 (0.8-1.1) Activated Partial Thromboplast Time 35 SEC (24-38) Test 06/30/16 07:39 Glucose (Fingerstick) 131 mg/dL (70-99) Review of Systems Review of Systems R leg shakes, R leg pain, no n/v/d Assessment and Plan Assessmemt and Plan Problems Medical Problems: (1) Closed intertrochanteric fracture of right hip Status: Acute Problems: Comment Review of Relevant I have reviewed the following items sandro (where applicable) has been applied. Labs Laboratory Tests Test 06/29/16 10:29 06/29/16 12:35 06/29/16 13:00 06/29/16 13:35 White Blood Count 12.7 x10^3/uL (4.0-11.0) Red Blood Count 4.57 x10^6/uL (4.30-5.70) Hemoglobin 13.1 g/dL (13.0-17.5) Hematocrit 39.5 % (39.0-53.0) Mean Corpuscular Volume 87 fL (79-100) Mean Corpuscular Hemoglobin 29 pg (25-35) Mean Corpuscular Hemoglobin Concent 33 g/dL (31-37) Red Cell Distribution Width 14.1 % (11.5-14.5) Platelet Count 325 x10^3/uL (140-400) Neutrophils (%) (Auto) 83 % (31-73) Lymphocytes (%) (Auto) 12 % (24-48) Monocytes (%) (Auto) 4 % (0-9) Eosinophils (%) (Auto) 0 % (0-3) Basophils (%) (Auto) 1 % (0-3) Neutrophils # (Auto) 10.6 x10^3uL (1.8-7.7) Lymphocytes # (Auto) 1.5 x10^3/uL (1.0-4.8) Monocytes # (Auto) 0.5 x10^3/uL (0.0-1.1) Eosinophils # (Auto) 0.0 x10^3/uL (0.0-0.7) Basophils # (Auto) 0.1 x10^3/uL (0.0-0.2) Sodium Level 145 mmol/L (136-145) Potassium Level 3.6 mmol/L (3.5-5.1) Chloride Level 109 mmol/L (98-107) Carbon Dioxide Level 28 mmol/L (21-32) Anion Gap 8 (6-14) Blood Urea Nitrogen 9 mg/dL (8-26) Creatinine 1.0 mg/dL (0.7-1.3) Estimated GFR (Cockcroft-Gault) 73.2 Glucose Level 98 mg/dL (70-99) Calcium Level 8.7 mg/dL (8.5-10.1) Glucose (Fingerstick) 86 mg/dL (70-99) Nasal Screen MRSA (PCR) Negative (Negative) Prothrombin Time 14.6 SEC (11.7-14.0) Prothromb Time International Ratio 1.2 (0.8-1.1) Activated Partial Thromboplast Time 35 SEC (24-38) Test 06/29/16 19:10 06/30/16 07:39 Glucose (Fingerstick) 117 mg/dL (70-99) 131 mg/dL (70-99) Laboratory Tests Test 06/29/16 12:35 06/29/16 13:00 06/29/16 13:35 06/29/16 19:10 Glucose (Fingerstick) 86 mg/dL (70-99) 117 mg/dL (70-99) Nasal Screen MRSA (PCR) Negative (Negative) Prothrombin Time 14.6 SEC (11.7-14.0) Prothromb Time International Ratio 1.2 (0.8-1.1) Activated Partial Thromboplast Time 35 SEC (24-38) Test 06/30/16 07:39 Glucose (Fingerstick) 131 mg/dL (70-99) Medications Current Medications Tramadol HCl (Ultram) 50 mg 1X ONCE PO Last administered on 06/29/16 10:30; Start 06/29/16 at 09:00; Stop 06/29/16 at 09:01; Status DC Fentanyl Citrate (Fentanyl 2ml Vial) 50 mcg PRN Q2HR PRN IV pain Last administered on 06/30/16 05:56; Start 06/29/16 at 10:00 Ondansetron HCl (Zofran) 4 mg PRN Q8HRS PRN IV NAUSEA/VOMITING; Start 06/29/16 at 10:15; Stop 06/30/16 at 10:14; Status DC Sodium Chloride 1,000 ml @ 75 mls/hr [id number] IV Last administered on 13:04; Start 06/29/16 at 10:06; Stop 06/30/16 at 10:05; Status DC Acetaminophen (Tylenol) 650 mg PRN Q4HRS PRN PO FEVER; Start 06/29/16 at 10:15 ; Stop 06/30/16 at 10:14; Status DC Lorazepam (Ativan) 1 mg 1X ONCE IV ; Start 06/29/16 at 11:15; Stop 06/29/16 at 11:16; Status DC Ondansetron HCl (Zofran) 4 mg PRN Q6HRS PRN IV NAUSEA/VOMITING; Start 06/29/16 at 11:30; Stop 06/30/16 at 11:29 Fentanyl Citrate (Fentanyl 2ml Vial) 25 mcg PRN Q5MIN PRN IV MILD PAIN; Start 06/29/16 at 11:30; Stop 06/30/16 at 11:29 Fentanyl Citrate (Fentanyl 2ml Vial) 50 mcg PRN Q5MIN PRN IV MODERATE PAIN Last administered on 06/29/16 19:42; Start 06/29/16 at 11:30; Stop 06/30/16 at 11:29 Morphine Sulfate 1 mg PRN Q10MIN PRN IV SEVERE PAIN; Start 06/29/16 at 11:30; Stop 06/30/16 at 11:29 Ringer's Solution 1,000 ml @ 0 mls/hr Q0M IV ; Start 06/29/16 at 11:29; Stop at 23:28; Status DC Lidocaine HCl 2 ml PRN 1X PRN ID PRIOR TO IV START; Start 06/29/16 at 11:30; Stop 06/30/16 at 11:29 Hydromorphone HCl (Dilaudid) 0.5 mg PRN Q10MIN PRN IV SEV PAIN, Second choice; Start 06/29/16 at 11:30; Stop 06/30/16 at 11:29 Prochlorperazine Edisylate (Compazine) 5 mg PACU PRN PRN IV NAUSEA, MRX1; Start 06/29/16 at 11:30; Stop 06/30/16 at 11:29 Amlodipine Besylate (Norvasc) 10 mg DAILY PO ; Start 06/30/16 at 09:00 Cyanocobalamin (Vitamin B-12) 1,000 mcg DAILY PO Last administered on 08:00; Start 06/30/16 at 09:00 Fluoxetine HCl (PROzac) 20 mg DAILY PO Last administered on 06/30/16 08:00; Start 06/30/16 at 09:00 Atorvastatin Calcium (Lipitor) 5 mg QHS PO ; Start 06/29/16 at 21:00 Dextrose (Dextrose 50%-Water Syringe) 12.5 gm PRN Q15MIN PRN IV SEE COMMENTS; Start 06/29/16 at 13:30 Fentanyl Citrate (Fentanyl 5ml Vial) 250 mcg STK-MED ONCE .ROUTE ; Start at 17:07; Stop 06/29/16 at 17:08; Status DC Propofol 20 ml @ As Directed STK-MED ONCE IV ; Start 06/29/16 at 17:07; Stop at 17:08; Status DC Lidocaine HCl (Lidocaine Pf 2% Vial) 5 ml STK-MED ONCE .ROUTE ; Start 06/29/16 at 17:07; Stop 06/29/16 at 17:08; Status DC Bupivacaine HCl/ Epinephrine Bitart (Sensorcain-Mpf Epi 0.5%-1:669501) 30 ml STK -MED ONCE .ROUTE ; Start 06/29/16 at 17:16; Stop 06/29/16 at 17:17; Status DC Bupivacaine HCl/ Epinephrine Bitart (Sensorcaine-Epi 0.25%-1:815723 Mpf) 30 ml STK-MED ONCE .ROUTE ; Start 06/29/16 at 17:18; Stop 06/29/16 at 17:19; Status DC Cefazolin Sodium/ Dextrose 50 ml @ 100 mls/hr 1X PREOP PRN IV SEE COMMENTS Last administered on 06/29/16 17:51; Start 06/29/16 at 17:30 Ropivacaine 53.3 ml/Epinephrine HCl 0.6 mg/ Morphine Sulfate 5 mg/Sodium Chloride 100 ml @ 100 mls/hr 1X PERIOP ONCE INT ART Last administered on 06/29t 18:29; Start 06/29/16 at 18:00; Stop 06/29/16 at 18:59; Status DC Phenylephrine HCl 1 mg STK-MED ONCE IV ; Start 06/29/16 at 17:51; Stop 06/29/16 at 17:52; Status DC Sevoflurane (Ultane) 60 ml STK-MED ONCE IH ; Start 06/29/16 at 18:36; Stop 06/29 at 18:37; Status DC Dexamethasone Sodium Phosphate (Decadron) 20 mg STK-MED ONCE .ROUTE ; Start at 18:39; Stop 06/29/16 at 18:40; Status DC Ondansetron HCl (Zofran) 4 mg STK-MED ONCE .ROUTE ; Start 06/29/16 at 18:39; Stop 06/29/16 at 18:40; Status DC Ephedrine Sulfate 50 mg STK-MED ONCE IV ; Start 06/29/16 at 18:43; Stop at 18:44; Status DC Oxycodone/ Acetaminophen (Percocet 7.5/ 325) 1 tab PRN Q4HRS PRN PO SEVERE PAIN Last administered on 06/30/16 07:59; Start 06/29/16 at 23:00 Diazepam (Valium) 5 mg PRN Q8HRS PRN PO ANXIETY Last administered on 06/30/16 08:03; Start 06/30/16 at 00:00 Ropinirole HCl (Requip) 0.5 mg HS PO Last administered on 06/30/16 00:37; Start 06/30/16 at 01:00 Insulin Aspart (NovoLOG) 0-9 UNITS TIDWMEALS SQ ; Start 06/30/16 at 12:00 Dextrose (Dextrose 50%-Water Syringe) 12.5 gm PRN Q15MIN PRN IV SEE COMMENTS; Start 06/30/16 at 09:45 Acetaminophen (Tylenol) 500 mg PRN Q6HRS PRN PO PAIN; Start 06/30/16 at 11:00 Aspirin (Guy Aspirin) 325 mg DAILY PO ; Start 07/01/16 at 09:00; Status UNV Atorvastatin Calcium (Lipitor) 5 mg DAILY PO ; Start 07/01/16 at 09:00; Status UNV Baclofen (Lioresal) 10 mg TID PO ; Start 06/30/16 at 14:00; Status UNV Clopidogrel Bisulfate (Plavix) 75 mg DAILY PO ; Start 07/01/16 at 09:00; Status UNV Docusate Sodium (Colace) 100 mg DAILY PO ; Start 07/01/16 at 09:00; Status UNV Albuterol/ Ipratropium (Duoneb) 3 ml QID PRN NEB SHORTNESS OF BREATH; Start at 11:00; Status UNV Metformin HCl (Glucophage) 500 mg BID PO ; Start 06/30/16 at 21:00; Status UNV Polyethylene Glycol (miraLAX PACKET) 17 gm QMWF PO ; Start 07/01/16 at 16:00; Status UNV Senna/Docusate Sodium (Senna Plus) 2 tab BID PO ; Start 06/30/16 at 21:00; Status UNV Tamsulosin HCl (Flomax) 0.4 mg HS PO ; Start 06/30/16 at 21:00; Status UNV Non-Formulary Medication 1 tab DAILY PO ; Start 07/01/16 at 09:00; Status UNV Non-Formulary Medication 1 tab QHS PO ; Start 06/30/16 at 21:00; Status UNV Active Scripts Active Reported Duoneb 0.5-3(2.5) Mg/3 Ml (Albuterol/Ipratropium) 3 Ml Ampul.neb 3 Ml NEB QID PRN Acetaminophen 500 Mg Tablet 1 Tab PO Q6HRS PRN Baclofen 10 Mg Tablet 1 Tab PO TID Senokot-S Tablet (Sennosides/Docusate Sodium) 1 Each Tablet 2 Tab PO BID Tamsulosin Hcl 0.4 Mg Cap.er.24h 1 Cap PO HS Requip (Ropinirole Hcl) 0.5 Mg Tablet 1 Tab PO QHS Miralax (Polyethylene Glycol 3350) 17 Gm Powd.pack 1 Packet PO QMWF Fexofenadine Hcl 180 Mg Tablet 1 Tab PO DAILY Docusate Sodium 100 Mg Capsule 1 Cap PO DAILY Clopidogrel (Clopidogrel Bisulfate) 75 Mg Tablet 1 Tab PO DAILY Aspirin 325 Mg Tablet 1 Tab PO DAILY Atorvastatin Calcium 10 Mg Tablet 0.5 Tab PO DAILY Vitamin B-12 (Cyanocobalamin (Vitamin B-12)) 1,000 Mcg Tablet 1 Tab PO DAILY Metformin Hcl 500 Mg Tablet 1 Tab PO BID Fluoxetine Hcl 20 Mg Tablet 1 Tab PO DAILY Amlodipine Besylate 10 Mg Tablet 5 Mg PO DAILY Vitals/I & O Vital Sign - Last 24 Hours 06/29/16 06/29/16 06/29/16 06/29/16 12:00 12:32 13:05 15:00 Temp 97.5 98.3 97.5 98.3 Pulse 76 60 Resp 22 20 B/P (MAP) 135/73 (93) 172/75 (107) Pulse Ox 94 97 O2 Delivery Room Air Room Air Room Air Room Air 06/29/16 06/29/16 06/29/16 06/29/16 15:19 19:00 19:06 19:06 Temp 98.3 98.3 Pulse 60 Resp B/P (MAP) 104/49 Pulse Ox 97 O2 Delivery Room Air Room Air Room Air 06/29/16 06/29/16 06/29/16 06/29/16 19:15 19:21 19:36 19:42 Temp 98.3 98.3 98.3 98.3 98.3 98.3 Pulse 88 99 99 Resp 24 15 15 15 B/P (MAP) 104/49 107/53 106/54 Pulse Ox 99 97 97 95 O2 Delivery Simple Mask Simple Mask Nasal Cannula Nasal Cannula O2 Flow Rate 10 10 2 2.0 06/29/16 06/29/16 06/29/16 06/29/16 20:10 20:12 20:25 20:30 Temp 96.8 96.8 Pulse 91 82 Resp 20 18 20 B/P (MAP) 101/54 (70) 96/49 (65) Pulse Ox 89 92 92 O2 Delivery Nasal Cannula Nasal Cannula Nasal Cannula Nasal Cannula O2 Flow Rate 2.0 3.0 2.0 2.0 06/29/16 06/29/16 06/29/16 06/29/16 20:40 20:55 21:10 21:40 Pulse 79 81 78 78 Resp 20 20 20 20 B/P (MAP) 102/51 (68) 92/56 (68) 93/57 (69) 98/59 (72) Pulse Ox 93 77 89 89 O2 Delivery Nasal Cannula Nasal Cannula Nasal Cannula Nasal Cannula O2 Flow Rate 2.0 3.0 3.0 3.0 06/29/16 06/29/16 06/29/16 06/29/16 22:10 22:16 22:20 22:40 Pulse 89 88 Resp 20 20 B/P (MAP) 108/63 (78) 105/66 (79) Pulse Ox 88 92 88 O2 Delivery Nasal Cannula Nasal Cannula Nasal Cannula Nasal Cannula O2 Flow Rate 3.0 2.0 2.0 3.0 06/30/16 06/30/16 06/30/16 06/30/16 01:19 03:00 03:02 03:54 Temp 97.5 97.5 Pulse 78 Resp 18 20 B/P (MAP) 104/62 (76) Pulse Ox 92 88 O2 Delivery Nasal Cannula Nasal Cannula Nasal Cannula Nasal Cannula O2 Flow Rate 2.0 2.0 2.0 2.0 06/30/16 06/30/16 06/30/16 06/30/16 04:11 05:56 06:44 07:40 Resp 18 O2 Delivery Nasal Cannula Nasal Cannula Nasal Cannula O2 Flow Rate 2.0 2.0 2.0 4.0 06/30/16 06/30/16 06/30/16 06/30/16 07:51 07:59 08:04 09:00 Temp 97.3 97.3 Pulse 61 60 Resp 18 B/P (MAP) 94/49 (64) 96/49 Pulse Ox 93 O2 Delivery Nasal Cannula Nasal Cannula Nasal Cannula O2 Flow Rate 4.0 Intake and Output 06/29/16 06/29/16 06/30/16 15:00 23:00 07:00 Intake Total 1750 ml 50 ml Output Total 1425 ml 1150 ml Balance 325 ml -1100 ml JORGE HOLLINS MD June 30, 2016 10:57
[2016-06-30 11:00] VITALS: BP 86/47
[2016-06-30] MEDS ORDERED: ALBUTEROL SULFATE 2.5 MG/3 ML NEBU. NEB PRN (11:00)
[2016-06-30] MEDS ORDERED: ACETAMINOPHEN 500 MG TABLET PO PRN (11:00)
[2016-06-30 11:18] LABS: BASO % 0 % (0-3); EOS % 0 % (0-3); HEMATOCRIT 30.2 % (39.0-53.0); HEMOGLOBIN 10.4 g/dL (13.0-17.5); LYMPH # 1.5 x10^3/uL (1.0-4.8); LYMPH % 10 % (24-48); MEAN CORPUSCULAR HEMOGLOBIN 29 pg (25-35); MEAN CORPUSCULAR HGB CONC 34 g/dL (31-37); MEAN CORPUSCULAR VOLUME 85 fL (79-100); MONO % 6 % (0-9); NEUT % 84 % (31-73); PLATELET COUNT 245 x10^3/uL (140-400); RED BLOOD COUNT 3.54 x10^6/uL (4.30-5.70); RED CELL DISTRIBUTION WIDTH 14.2 % (11.5-14.5); WHITE BLOOD COUNT 15.4 x10^3/uL (4.0-11.0)
[2016-06-30 11:38] LABS: CALCIUM 8.4 mg/dL (8.5-10.1); CREATININE 0.7 mg/dL (0.7-1.3); GFR 110.5; POTASSIUM 3.5 mmol/L (3.5-5.1)
[2016-06-30] MEDS ORDERED: INSULIN ASPART 300 UNITS/3 ML INSULN.PEN SQ SCH (12:00)
[2016-06-30] MEDS: ASPIRIN 325 MG TABLET PO SCH (12:07)
[2016-06-30] MEDS: CLOPIDOGREL BISULFATE 75 MG TABLET PO SCH (12:07)
[2016-06-30] MEDS: CETIRIZINE HCL 10 MG TABLET. PO SCH (12:08)
[2016-06-30] MEDS: INSULIN ASPART 300 UNITS/3 ML INSULN.PEN SQ SCH ×2 (12:08→16:40)
[2016-06-30] MEDS: SENNOSIDES/DOCUSATE 8.6/50MG TABLET. PO SCH ×2 (12:10→21:30)
[2016-06-30] MEDS: DOCUSATE SODIUM 100 MG CAPSULE. PO SCH (12:10)
[2016-06-30] MEDS: BACLOFEN 10 MG TABLET. PO SCH ×2 (12:52→21:30)
[2016-06-30 15:00] VITALS: BP 100/56
[2016-06-30] MEDS ORDERED: ENOXAPARIN 30 MG/0.3 ML SYRINGE. SQ SCH (16:00)
[2016-06-30] MEDS: metFORMIN 500 MG TABLET PO SCH (16:37)
[2016-06-30] MEDS: ENOXAPARIN 40 MG/0.4 ML SYRINGE. SQ SCH (16:39)
--- NOTE | 2016-06-30 18:20 | PDOC ---
PROGRESS NOTES Subjective Subjective Muscle spasms are better today. Objective Vital Signs Vital Signs Date Time Temp Pulse Resp B/P (MAP) Pulse Ox O2 Delivery O2 Flow Rate FiO2 06/30/16 16:38 Nasal Cannula 06/30/16 15:00 98.3 52 18 100/56 (71) 95 4.0 98.3 Physical Exam Lying in bed eating dinner. Right knee is held in flexed position. Pain with passive range of motion of hip. Calf soft and NT with negative Andrés's sign. Good dorsiflexion and plantarflexion. light touch sensation and peripheral pulses intact. Labs Laboratory Tests Test 06/29/16 10:29 06/29/16 12:35 06/29/16 13:00 06/29/16 13:35 White Blood Count 12.7 x10^3/uL (4.0-11.0) Red Blood Count 4.57 x10^6/uL (4.30-5.70) Hemoglobin 13.1 g/dL (13.0-17.5) Hematocrit 39.5 % (39.0-53.0) Mean Corpuscular Volume 87 fL (79-100) Mean Corpuscular Hemoglobin 29 pg (25-35) Mean Corpuscular Hemoglobin Concent 33 g/dL (31-37) Red Cell Distribution Width 14.1 % (11.5-14.5) Platelet Count 325 x10^3/uL (140-400) Neutrophils (%) (Auto) 83 % (31-73) Lymphocytes (%) (Auto) 12 % (24-48) Monocytes (%) (Auto) 4 % (0-9) Eosinophils (%) (Auto) 0 % (0-3) Basophils (%) (Auto) 1 % (0-3) Neutrophils # (Auto) 10.6 x10^3uL (1.8-7.7) Lymphocytes # (Auto) 1.5 x10^3/uL (1.0-4.8) Monocytes # (Auto) 0.5 x10^3/uL (0.0-1.1) Eosinophils # (Auto) 0.0 x10^3/uL (0.0-0.7) Basophils # (Auto) 0.1 x10^3/uL (0.0-0.2) Sodium Level 145 mmol/L (136-145) Potassium Level 3.6 mmol/L (3.5-5.1) Chloride Level 109 mmol/L (98-107) Carbon Dioxide Level 28 mmol/L (21-32) Anion Gap 8 (6-14) Blood Urea Nitrogen 9 mg/dL (8-26) Creatinine 1.0 mg/dL (0.7-1.3) Estimated GFR (Cockcroft-Gault) 73.2 Glucose Level 98 mg/dL (70-99) Calcium Level 8.7 mg/dL (8.5-10.1) Glucose (Fingerstick) 86 mg/dL (70-99) Nasal Screen MRSA (PCR) Negative (Negative) Prothrombin Time 14.6 SEC (11.7-14.0) Prothromb Time International Ratio 1.2 (0.8-1.1) Activated Partial Thromboplast Time 35 SEC (24-38) Test 06/29/16 19:10 06/30/16 07:39 06/30/16 11:05 06/30/16 11:23 Glucose (Fingerstick) 117 mg/dL (70-99) 131 mg/dL (70-99) 106 mg/dL (70-99) White Blood Count 15.4 x10^3/uL (4.0-11.0) Red Blood Count 3.54 x10^6/uL (4.30-5.70) Hemoglobin 10.4 g/dL (13.0-17.5) Hematocrit 30.2 % (39.0-53.0) Mean Corpuscular Volume 85 fL (79-100) Mean Corpuscular Hemoglobin 29 pg (25-35) Mean Corpuscular Hemoglobin Concent 34 g/dL (31-37) Red Cell Distribution Width 14.2 % (11.5-14.5) Platelet Count 245 x10^3/uL (140-400) Neutrophils (%) (Auto) 84 % (31-73) Lymphocytes (%) (Auto) 10 % (24-48) Monocytes (%) (Auto) 6 % (0-9) Eosinophils (%) (Auto) 0 % (0-3) Basophils (%) (Auto) 0 % (0-3) Neutrophils # (Auto) 12.9 x10^3uL (1.8-7.7) Lymphocytes # (Auto) 1.5 x10^3/uL (1.0-4.8) Monocytes # (Auto) 1.0 x10^3/uL (0.0-1.1) Eosinophils # (Auto) 0.0 x10^3/uL (0.0-0.7) Basophils # (Auto) 0.0 x10^3/uL (0.0-0.2) Sodium Level 141 mmol/L (136-145) Potassium Level 3.5 mmol/L (3.5-5.1) Chloride Level 106 mmol/L (98-107) Carbon Dioxide Level 28 mmol/L (21-32) Anion Gap 7 (6-14) Blood Urea Nitrogen 13 mg/dL (8-26) Creatinine 0.7 mg/dL (0.7-1.3) Estimated GFR (Cockcroft-Gault) 110.5 Glucose Level 115 mg/dL (70-99) Calcium Level 8.4 mg/dL (8.5-10.1) Test 06/30/16 16:19 Glucose (Fingerstick) 86 mg/dL (70-99) Laboratory Tests Test 06/29/16 19:10 06/30/16 07:39 06/30/16 11:05 06/30/16 11:23 Glucose (Fingerstick) 117 mg/dL (70-99) 131 mg/dL (70-99) 106 mg/dL (70-99) White Blood Count 15.4 x10^3/uL (4.0-11.0) Red Blood Count 3.54 x10^6/uL (4.30-5.70) Hemoglobin 10.4 g/dL (13.0-17.5) Hematocrit 30.2 % (39.0-53.0) Mean Corpuscular Volume 85 fL (79-100) Mean Corpuscular Hemoglobin 29 pg (25-35) Mean Corpuscular Hemoglobin Concent 34 g/dL (31-37) Red Cell Distribution Width 14.2 % (11.5-14.5) Platelet Count 245 x10^3/uL (140-400) Neutrophils (%) (Auto) 84 % (31-73) Lymphocytes (%) (Auto) 10 % (24-48) Monocytes (%) (Auto) 6 % (0-9) Eosinophils (%) (Auto) 0 % (0-3) Basophils (%) (Auto) 0 % (0-3) Neutrophils # (Auto) 12.9 x10^3uL (1.8-7.7) Lymphocytes # (Auto) 1.5 x10^3/uL (1.0-4.8) Monocytes # (Auto) 1.0 x10^3/uL (0.0-1.1) Eosinophils # (Auto) 0.0 x10^3/uL (0.0-0.7) Basophils # (Auto) 0.0 x10^3/uL (0.0-0.2) Sodium Level 141 mmol/L (136-145) Potassium Level 3.5 mmol/L (3.5-5.1) Chloride Level 106 mmol/L (98-107) Carbon Dioxide Level 28 mmol/L (21-32) Anion Gap 7 (6-14) Blood Urea Nitrogen 13 mg/dL (8-26) Creatinine 0.7 mg/dL (0.7-1.3) Estimated GFR (Cockcroft-Gault) 110.5 Glucose Level 115 mg/dL (70-99) Calcium Level 8.4 mg/dL (8.5-10.1) Test 06/30/16 16:19 Glucose (Fingerstick) 86 mg/dL (70-99) Assessment Assessment POD #1 right femoral IM nail Problems: Plan Plan of Care Continue DVT ppx and therapy. June WBAT with walker. PT/OT. JAVI PHAM June 30, 2016 18:20
[2016-06-30 19:20] VITALS: BP 103/50
[2016-06-30] MEDS: TAMSULOSIN 0.4 MG CAP.ER.24H. PO SCH (21:29)
[2016-06-30] MEDS: rOPINIRole 0.25 MG TABLET. PO SCH (21:33)
[2016-06-30 22:54] VITALS: BP 100/55
[2016-07-01] MEDS: diazePAM 5 MG TABLET PO PRN ×3 (00:47→22:44)
[2016-07-01] MEDS: oxyCODONE/APAP 7.5/325 1 TAB TABLET PO PRN ×5 (02:24→21:49)
[2016-07-01 03:29] VITALS: BP 97/47
[2016-07-01 07:00] VITALS: BP 113/55
[2016-07-01] MEDS: metFORMIN 500 MG TABLET PO SCH ×2 (07:51→17:08)
[2016-07-01] MEDS: CYANOCOBALAMIN (VITAMIN B-12) 1,000 MCG TABLET. PO SCH (07:51)
[2016-07-01] MEDS: CLOPIDOGREL BISULFATE 75 MG TABLET PO SCH (07:51)
[2016-07-01] MEDS: ASPIRIN 325 MG TABLET PO SCH (07:51)
[2016-07-01] MEDS: FLUoxetine HCL 20 MG CAPSULE PO SCH (07:51)
[2016-07-01] MEDS: BACLOFEN 10 MG TABLET. PO SCH ×3 (07:51→20:30)
[2016-07-01] MEDS: DOCUSATE SODIUM 100 MG CAPSULE. PO SCH (07:55)
[2016-07-01] MEDS: CETIRIZINE HCL 10 MG TABLET. PO SCH (07:56)
[2016-07-01] MEDS: SENNOSIDES/DOCUSATE 8.6/50MG TABLET. PO SCH ×2 (07:56→21:00)
[2016-07-01] MEDS: INSULIN ASPART 300 UNITS/3 ML INSULN.PEN SQ SCH ×3 (07:58→16:52)
[2016-07-01] MEDS ORDERED: ATORVASTATIN CALCIUM 10 MG TABLET. PO SCH (09:00)
--- NOTE | 2016-07-01 09:33 | PDOC ---
PROGRESS NOTES Chief Complaint Chief Complaint 1. s./p R hip sx (06/29- POD # 2 2. RLS, chronic 3. [facility] resident 4., HTN, now HYPOtensive History of Present Illness History of Present Illness Muscle cramps better NOt anymore hypotensive PAin under control Dw SW - [facility] Pt asking where Still has yanez PLAN: Dc yane[facility] Vitals Vitals Vital Signs Date Time Temp Pulse Resp B/P (MAP) Pulse Ox O2 Delivery O2 Flow Rate FiO2 07/01/16 08:53 Nasal Cannula 07/01/16 07:00 98.5 71 18 113/55 (74) 93 2.0 98.5 Physical Exam General: Alert, Oriented X3, Cooperative, No acute distress Heart: Regular rate Lungs: Clear Abdomen: Soft Skin: No rashes, No breakdown, No significant lesion Labs LABS Laboratory Tests Test 06/30/16 11:05 06/30/16 11:23 06/30/16 16:19 06/30/16 20:35 White Blood Count 15.4 x10^3/uL (4.0-11.0) Red Blood Count 3.54 x10^6/uL (4.30-5.70) Hemoglobin 10.4 g/dL (13.0-17.5) Hematocrit 30.2 % (39.0-53.0) Mean Corpuscular Volume 85 fL (79-100) Mean Corpuscular Hemoglobin 29 pg (25-35) Mean Corpuscular Hemoglobin Concent 34 g/dL (31-37) Red Cell Distribution Width 14.2 % (11.5-14.5) Platelet Count 245 x10^3/uL (140-400) Neutrophils (%) (Auto) 84 % (31-73) Lymphocytes (%) (Auto) 10 % (24-48) Monocytes (%) (Auto) 6 % (0-9) Eosinophils (%) (Auto) 0 % (0-3) Basophils (%) (Auto) 0 % (0-3) Neutrophils # (Auto) 12.9 x10^3uL (1.8-7.7) Lymphocytes # (Auto) 1.5 x10^3/uL (1.0-4.8) Monocytes # (Auto) 1.0 x10^3/uL (0.0-1.1) Eosinophils # (Auto) 0.0 x10^3/uL (0.0-0.7) Basophils # (Auto) 0.0 x10^3/uL (0.0-0.2) Sodium Level 141 mmol/L (136-145) Potassium Level 3.5 mmol/L (3.5-5.1) Chloride Level 106 mmol/L (98-107) Carbon Dioxide Level 28 mmol/L (21-32) Anion Gap 7 (6-14) Blood Urea Nitrogen 13 mg/dL (8-26) Creatinine 0.7 mg/dL (0.7-1.3) Estimated GFR (Cockcroft-Gault) 110.5 Glucose Level 115 mg/dL (70-99) Calcium Level 8.4 mg/dL (8.5-10.1) Glucose (Fingerstick) 106 mg/dL (70-99) 86 mg/dL (70-99) 133 mg/dL (70-99) Test 07/01/16 07:16 Glucose (Fingerstick) 108 mg/dL (70-99) Review of Systems Review of Systems some RLE pain, no cp, soa, n.,v.d Assessment and Plan Assessmemt and Plan Problems Medical Problems: (1) Closed intertrochanteric fracture of right hip Status: Acute Problems: Comment Review of Relevant I have reviewed the following items sandro (where applicable) has been applied. Labs Laboratory Tests Test 06/29/16 10:29 06/29/16 12:35 06/29/16 13:00 06/29/16 13:35 White Blood Count 12.7 x10^3/uL (4.0-11.0) Red Blood Count 4.57 x10^6/uL (4.30-5.70) Hemoglobin 13.1 g/dL (13.0-17.5) Hematocrit 39.5 % (39.0-53.0) Mean Corpuscular Volume 87 fL (79-100) Mean Corpuscular Hemoglobin 29 pg (25-35) Mean Corpuscular Hemoglobin Concent 33 g/dL (31-37) Red Cell Distribution Width 14.1 % (11.5-14.5) Platelet Count 325 x10^3/uL (140-400) Neutrophils (%) (Auto) 83 % (31-73) Lymphocytes (%) (Auto) 12 % (24-48) Monocytes (%) (Auto) 4 % (0-9) Eosinophils (%) (Auto) 0 % (0-3) Basophils (%) (Auto) 1 % (0-3) Neutrophils # (Auto) 10.6 x10^3uL (1.8-7.7) Lymphocytes # (Auto) 1.5 x10^3/uL (1.0-4.8) Monocytes # (Auto) 0.5 x10^3/uL (0.0-1.1) Eosinophils # (Auto) 0.0 x10^3/uL (0.0-0.7) Basophils # (Auto) 0.1 x10^3/uL (0.0-0.2) Sodium Level 145 mmol/L (136-145) Potassium Level 3.6 mmol/L (3.5-5.1) Chloride Level 109 mmol/L (98-107) Carbon Dioxide Level 28 mmol/L (21-32) Anion Gap 8 (6-14) Blood Urea Nitrogen 9 mg/dL (8-26) Creatinine 1.0 mg/dL (0.7-1.3) Estimated GFR (Cockcroft-Gault) 73.2 Glucose Level 98 mg/dL (70-99) Calcium Level 8.7 mg/dL (8.5-10.1) Glucose (Fingerstick) 86 mg/dL (70-99) Nasal Screen MRSA (PCR) Negative (Negative) Prothrombin Time 14.6 SEC (11.7-14.0) Prothromb Time International Ratio 1.2 (0.8-1.1) Activated Partial Thromboplast Time 35 SEC (24-38) Test 06/29/16 19:10 06/30/16 07:39 06/30/16 11:05 06/30/16 11:23 Glucose (Fingerstick) 117 mg/dL (70-99) 131 mg/dL (70-99) 106 mg/dL (70-99) White Blood Count 15.4 x10^3/uL (4.0-11.0) Red Blood Count 3.54 x10^6/uL (4.30-5.70) Hemoglobin 10.4 g/dL (13.0-17.5) Hematocrit 30.2 % (39.0-53.0) Mean Corpuscular Volume 85 fL (79-100) Mean Corpuscular Hemoglobin 29 pg (25-35) Mean Corpuscular Hemoglobin Concent 34 g/dL (31-37) Red Cell Distribution Width 14.2 % (11.5-14.5) Platelet Count 245 x10^3/uL (140-400) Neutrophils (%) (Auto) 84 % (31-73) Lymphocytes (%) (Auto) 10 % (24-48) Monocytes (%) (Auto) 6 % (0-9) Eosinophils (%) (Auto) 0 % (0-3) Basophils (%) (Auto) 0 % (0-3) Neutrophils # (Auto) 12.9 x10^3uL (1.8-7.7) Lymphocytes # (Auto) 1.5 x10^3/uL (1.0-4.8) Monocytes # (Auto) 1.0 x10^3/uL (0.0-1.1) Eosinophils # (Auto) 0.0 x10^3/uL (0.0-0.7) Basophils # (Auto) 0.0 x10^3/uL (0.0-0.2) Sodium Level 141 mmol/L (136-145) Potassium Level 3.5 mmol/L (3.5-5.1) Chloride Level 106 mmol/L (98-107) Carbon Dioxide Level 28 mmol/L (21-32) Anion Gap 7 (6-14) Blood Urea Nitrogen 13 mg/dL (8-26) Creatinine 0.7 mg/dL (0.7-1.3) Estimated GFR (Cockcroft-Gault) 110.5 Glucose Level 115 mg/dL (70-99) Calcium Level 8.4 mg/dL (8.5-10.1) Test 06/30/16 16:19 06/30/16 20:35 07/01/16 07:16 Glucose (Fingerstick) 86 mg/dL (70-99) 133 mg/dL (70-99) 108 mg/dL (70-99) Laboratory Tests Test 06/30/16 11:05 06/30/16 11:23 06/30/16 16:19 06/30/16 20:35 White Blood Count 15.4 x10^3/uL (4.0-11.0) Red Blood Count 3.54 x10^6/uL (4.30-5.70) Hemoglobin 10.4 g/dL (13.0-17.5) Hematocrit 30.2 % (39.0-53.0) Mean Corpuscular Volume 85 fL (79-100) Mean Corpuscular Hemoglobin 29 pg (25-35) Mean Corpuscular Hemoglobin Concent 34 g/dL (31-37) Red Cell Distribution Width 14.2 % (11.5-14.5) Platelet Count 245 x10^3/uL (140-400) Neutrophils (%) (Auto) 84 % (31-73) Lymphocytes (%) (Auto) 10 % (24-48) Monocytes (%) (Auto) 6 % (0-9) Eosinophils (%) (Auto) 0 % (0-3) Basophils (%) (Auto) 0 % (0-3) Neutrophils # (Auto) 12.9 x10^3uL (1.8-7.7) Lymphocytes # (Auto) 1.5 x10^3/uL (1.0-4.8) Monocytes # (Auto) 1.0 x10^3/uL (0.0-1.1) Eosinophils # (Auto) 0.0 x10^3/uL (0.0-0.7) Basophils # (Auto) 0.0 x10^3/uL (0.0-0.2) Sodium Level 141 mmol/L (136-145) Potassium Level 3.5 mmol/L (3.5-5.1) Chloride Level 106 mmol/L (98-107) Carbon Dioxide Level 28 mmol/L (21-32) Anion Gap 7 (6-14) Blood Urea Nitrogen 13 mg/dL (8-26) Creatinine 0.7 mg/dL (0.7-1.3) Estimated GFR (Cockcroft-Gault) 110.5 Glucose Level 115 mg/dL (70-99) Calcium Level 8.4 mg/dL (8.5-10.1) Glucose (Fingerstick) 106 mg/dL (70-99) 86 mg/dL (70-99) 133 mg/dL (70-99) Test 07/01/16 07:16 Glucose (Fingerstick) 108 mg/dL (70-99) Medications Current Medications Tramadol HCl (Ultram) 50 mg 1X ONCE PO Last administered on 06/29/16 10:30; Start 06/29/16 at 09:00; Stop 06/29/16 at 09:01; Status DC Fentanyl Citrate (Fentanyl 2ml Vial) 50 mcg PRN Q2HR PRN IV pain Last administered on 06/30/16 23:44; Start 06/29/16 at 10:00 Ondansetron HCl (Zofran) 4 mg PRN Q8HRS PRN IV NAUSEA/VOMITING; Start 06/29/16 at 10:15; Stop 06/30/16 at 10:14; Status DC Sodium Chloride 1,000 ml @ 75 mls/hr [id number] IV Last administered on 13:04; Start 06/29/16 at 10:06; Stop 06/30/16 at 10:05; Status DC Acetaminophen (Tylenol) 650 mg PRN Q4HRS PRN PO FEVER; Start 06/29/16 at 10:15 ; Stop 06/30/16 at 10:14; Status DC Lorazepam (Ativan) 1 mg 1X ONCE IV ; Start 06/29/16 at 11:15; Stop 06/29/16 at 11:16; Status DC Ondansetron HCl (Zofran) 4 mg PRN Q6HRS PRN IV NAUSEA/VOMITING; Start 06/29/16 at 11:30; Stop 06/30/16 at 11:29; Status DC Fentanyl Citrate (Fentanyl 2ml Vial) 25 mcg PRN Q5MIN PRN IV MILD PAIN; Start 06/29/16 at 11:30; Stop 06/30/16 at 11:29; Status DC Fentanyl Citrate (Fentanyl 2ml Vial) 50 mcg PRN Q5MIN PRN IV MODERATE PAIN Last administered on 06/29/16 19:42; Start 06/29/16 at 11:30; Stop 06/30/16 at 11:29; Status DC Morphine Sulfate 1 mg PRN Q10MIN PRN IV SEVERE PAIN; Start 06/29/16 at 11:30; Stop 06/30/16 at 11:29; Status DC Ringer's Solution 1,000 ml @ 0 mls/hr Q0M IV ; Start 06/29/16 at 11:29; Stop at 23:28; Status DC Lidocaine HCl 2 ml PRN 1X PRN ID PRIOR TO IV START; Start 06/29/16 at 11:30; Stop 06/30/16 at 11:29; Status DC Hydromorphone HCl (Dilaudid) 0.5 mg PRN Q10MIN PRN IV SEV PAIN, Second choice; Start 06/29/16 at 11:30; Stop 06/30/16 at 11:29; Status DC Prochlorperazine Edisylate (Compazine) 5 mg PACU PRN PRN IV NAUSEA, MRX1; Start 06/29/16 at 11:30; Stop 06/30/16 at 11:29; Status DC Amlodipine Besylate (Norvasc) 10 mg DAILY PO ; Start 06/30/16 at 09:00; Stop at 11:10; Status DC Cyanocobalamin (Vitamin B-12) 1,000 mcg DAILY PO Last administered on 07:51; Start 06/30/16 at 09:00 Fluoxetine HCl (PROzac) 20 mg DAILY PO Last administered on 07/01/16t 07:51; Start 06/30/16 at 09:00 Atorvastatin Calcium (Lipitor) 5 mg QHS PO ; Start 06/29/16 at 21:00; Stop 06/30 at 11:10; Status DC Dextrose (Dextrose 50%-Water Syringe) 12.5 gm PRN Q15MIN PRN IV SEE COMMENTS; Start 06/29/16 at 13:30; Status Cancel Fentanyl Citrate (Fentanyl 5ml Vial) 250 mcg STK-MED ONCE .ROUTE ; Start at 17:07; Stop 06/29/16 at 17:08; Status DC Propofol 20 ml @ As Directed STK-MED ONCE IV ; Start 06/29/16 at 17:07; Stop at 17:08; Status DC Lidocaine HCl (Lidocaine Pf 2% Vial) 5 ml STK-MED ONCE .ROUTE ; Start 06/29/16 at 17:07; Stop 06/29/16 at 17:08; Status DC Bupivacaine HCl/ Epinephrine Bitart (Sensorcain-Mpf Epi 0.5%-1:[id number]) 30 ml STK -MED ONCE .ROUTE ; Start 06/29/16 at 17:16; Stop 06/29/16 at 17:17; Status DC Bupivacaine HCl/ Epinephrine Bitart (Sensorcaine-Epi 0.25%-1:750668 Mpf) 30 ml STK-MED ONCE .ROUTE ; Start 06/29/16 at 17:18; Stop 06/29/16 at 17:19; Status DC Cefazolin Sodium/ Dextrose 50 ml @ 100 mls/hr 1X PREOP PRN IV SEE COMMENTS Last administered on 06/29/16 17:51; Start 06/29/16 at 17:30 Ropivacaine 53.3 ml/Epinephrine HCl 0.6 mg/ Morphine Sulfate 5 mg/Sodium Chloride 100 ml @ 100 mls/hr 1X PERIOP ONCE INT ART Last administered on 06/29 18:29; Start 06/29/16 at 18:00; Stop 06/29/16 at 18:59; Status DC Phenylephrine HCl 1 mg STK-MED ONCE IV ; Start 06/29/16 at 17:51; Stop 06/29/16 at 17:52; Status DC Sevoflurane (Ultane) 60 ml STK-MED ONCE IH ; Start 06/29/16 at 18:36; Stop 06/29 at 18:37; Status DC Dexamethasone Sodium Phosphate (Decadron) 20 mg STK-MED ONCE .ROUTE ; Start at 18:39; Stop 06/29/16 at 18:40; Status DC Ondansetron HCl (Zofran) 4 mg STK-MED ONCE .ROUTE ; Start 06/29/16 at 18:39; Stop 06/29/16 at 18:40; Status DC Ephedrine Sulfate 50 mg STK-MED ONCE IV ; Start 06/29/16 at 18:43; Stop at 18:44; Status DC Oxycodone/ Acetaminophen (Percocet 7.5/ 325) 1 tab PRN Q4HRS PRN PO SEVERE PAIN Last administered on 07/01/16 07:53; Start 06/29/16 at 23:00 Diazepam (Valium) 5 mg PRN Q8HRS PRN PO ANXIETY Last administered on 07/01/16 00:47; Start 06/30/16 at 00:00 Ropinirole HCl (Requip) 0.5 mg HS PO Last administered on 06/30/16 00:37; Start 06/30/16 at 01:00; Stop 06/30/16 at 11:10; Status DC Insulin Aspart (NovoLOG) 0-9 UNITS TIDWMEALS SQ ; Start 06/30/16 at 12:00 Dextrose (Dextrose 50%-Water Syringe) 12.5 gm PRN Q15MIN PRN IV SEE COMMENTS; Start 06/30/16 at 09:45 Acetaminophen (Tylenol) 500 mg PRN Q6HRS PRN PO PAIN; Start 06/30/16 at 11:00 Aspirin (Guy Aspirin) 325 mg DAILY PO Last administered on 07/01/16 07:51; Start 06/30/16 at 11:30 Atorvastatin Calcium (Lipitor) 5 mg DAILY PO ; Start 07/01/16 at 09:00; Status UNV Baclofen (Lioresal) 10 mg TID PO Last administered on 07/01/16 07:51; Start at 14:00 Clopidogrel Bisulfate (Plavix) 75 mg DAILY08 PO Last administered on 07/01/16 07:51; Start 06/30/16 at 11:00 Docusate Sodium (Colace) 100 mg DAILY PO ; Start 06/30/16 at 11:30 Albuterol Sulfate (Ventolin Neb Soln) 2.5 mg PRN QID PRN NEB SHORTNESS OF BREATH; Start 06/30/16 at 11:00 Metformin HCl (Glucophage) 500 mg BIDWMEALS PO Last administered on 07/01/16 07:51; Start 06/30/16 at 17:00 Polyethylene Glycol (miraLAX PACKET) 17 gm QMWF PO ; Start 07/01/16 at 16:00 Senna/Docusate Sodium (Senna Plus) 2 tab BID PO Last administered on 06/30/16 21:30; Start 06/30/16 at 11:30 Tamsulosin HCl (Flomax) 0.4 mg HS PO Last administered on 06/30/16 21:29; Start 06/30/16 at 21:00 Cetirizine HCl (ZyrTEC) 10 mg DAILY PO ; Start 06/30/16 at 12:00 Ropinirole HCl (Requip) 0.5 mg QHS PO Last administered on 06/30/16 21:33; Start 06/30/16 at 21:00 Insulin Aspart (NovoLOG) 0-9 UNITS TIDWMEALS SQ ; Start 06/30/16 at 12:00; Status UNV Dextrose (Dextrose 50%-Water Syringe) 12.5 gm PRN Q15MIN PRN IV SEE COMMENTS; Start 06/30/16 at 11:00; Status UNV Enoxaparin Sodium (Lovenox 30mg Syringe) 30 mg DAILY16 SQ ; Start 06/30/16 at 16 :00; Stop 06/30/16 at 16:00; Status DC Enoxaparin Sodium (Lovenox 40mg Syringe) 40 mg DAILY16 SQ Last administered on 06/30/16 16:39; Start 06/30/16 at 16:00 Active Scripts Active Reported Duoneb 0.5-3(2.5) Mg/3 Ml (Albuterol/Ipratropium) 3 Ml Ampul.neb 3 Ml NEB QID PRN Acetaminophen 500 Mg Tablet 1 Tab PO Q6HRS PRN Baclofen 10 Mg Tablet 1 Tab PO TID Senokot-S Tablet (Sennosides/Docusate Sodium) 1 Each Tablet 2 Tab PO BID Tamsulosin Hcl 0.4 Mg Cap.er.24h 1 Cap PO HS Requip (Ropinirole Hcl) 0.5 Mg Tablet 1 Tab PO QHS Miralax (Polyethylene Glycol 3350) 17 Gm Powd.pack 1 Packet PO QMWF Fexofenadine Hcl 180 Mg Tablet 1 Tab PO DAILY Docusate Sodium 100 Mg Capsule 1 Cap PO DAILY Clopidogrel (Clopidogrel Bisulfate) 75 Mg Tablet 1 Tab PO DAILY Aspirin 325 Mg Tablet 1 Tab PO DAILY Atorvastatin Calcium 10 Mg Tablet 0.5 Tab PO DAILY Vitamin B-12 (Cyanocobalamin (Vitamin B-12)) 1,000 Mcg Tablet 1 Tab PO DAILY Metformin Hcl 500 Mg Tablet 1 Tab PO BID Fluoxetine Hcl 20 Mg Tablet 1 Tab PO DAILY Amlodipine Besylate 10 Mg Tablet 5 Mg PO DAILY Vitals/I & O Vital Sign - Last 24 Hours 06/30/16 06/30/16 06/30/16 06/30/16 11:00 12:07 15:00 16:38 Temp 98.0 98.3 98.0 98.3 Pulse 66 52 Resp 18 18 B/P (MAP) 86/47 (60) 100/56 (71) Pulse Ox 94 95 O2 Delivery Nasal Cannula Nasal Cannula Nasal Cannula Nasal Cannula O2 Flow Rate 4.0 4.0 06/30/16 06/30/16 06/30/16 06/30/16 19:20 20:00 22:54 23:44 Temp 98.0 98.7 98.0 98.7 Pulse 72 76 Resp 20 18 18 B/P (MAP) 103/50 (67) 100/55 (70) Pulse Ox 90 91 O2 Delivery Nasal Cannula Nasal Cannula Nasal Cannula Room Air O2 Flow Rate 2.0 2.0 2.0 07/01/16 07/01/16 07/01/16 07/01/16 01:37 03:29 07:00 07:53 Temp 97.6 98.5 97.6 98.5 Pulse 68 71 Resp 18 18 18 B/P (MAP) 97/47 (64) 113/55 (74) Pulse Ox 92 93 O2 Delivery Nasal Cannula Nasal Cannula Nasal Cannula O2 Flow Rate 2.0 2.0 07/01/16 08:53 O2 Delivery Nasal Cannula Intake and Output 06/30/16 06/30/16 07/01/16 15:00 23:00 07:00 Intake Total 0 ml Output Total 225 ml Balance -225 ml 0 ml JORGE HOLLINS MD July 01, 2016 09:33
[2016-07-01 11:00] VITALS: BP 106/58
[2016-07-01] MEDS: fentaNYL PF VIAL 100 MCG/2 ML VIAL IV PRN ×2 (14:04→18:21)
--- NOTE | 2016-07-01 14:18 | PDOC ---
PROGRESS NOTES Subjective Subjective Better today. Objective Vital Signs Vital Signs Date Time Temp Pulse Resp B/P (MAP) Pulse Ox O2 Delivery O2 Flow Rate FiO2 07/01/16 14:04 Nasal Cannula 07/01/16 11:00 98.3 67 20 106/58 (74) 95 2.0 98.3 Physical Exam Sitting up in recliner eating lunch. Dressing intact. Able to extend knee better today. Calf soft and NT with negative Andrés's. Good df/pf with no sign of neurovascular injury. Peripheral pulses and light touch sensation intact. Labs Laboratory Tests Test 06/29/16 19:10 06/30/16 07:39 06/30/16 11:05 06/30/16 11:23 Glucose (Fingerstick) 117 mg/dL (70-99) 131 mg/dL (70-99) 106 mg/dL (70-99) White Blood Count 15.4 x10^3/uL (4.0-11.0) Red Blood Count 3.54 x10^6/uL (4.30-5.70) Hemoglobin 10.4 g/dL (13.0-17.5) Hematocrit 30.2 % (39.0-53.0) Mean Corpuscular Volume 85 fL (79-100) Mean Corpuscular Hemoglobin 29 pg (25-35) Mean Corpuscular Hemoglobin Concent 34 g/dL (31-37) Red Cell Distribution Width 14.2 % (11.5-14.5) Platelet Count 245 x10^3/uL (140-400) Neutrophils (%) (Auto) 84 % (31-73) Lymphocytes (%) (Auto) 10 % (24-48) Monocytes (%) (Auto) 6 % (0-9) Eosinophils (%) (Auto) 0 % (0-3) Basophils (%) (Auto) 0 % (0-3) Neutrophils # (Auto) 12.9 x10^3uL (1.8-7.7) Lymphocytes # (Auto) 1.5 x10^3/uL (1.0-4.8) Monocytes # (Auto) 1.0 x10^3/uL (0.0-1.1) Eosinophils # (Auto) 0.0 x10^3/uL (0.0-0.7) Basophils # (Auto) 0.0 x10^3/uL (0.0-0.2) Sodium Level 141 mmol/L (136-145) Potassium Level 3.5 mmol/L (3.5-5.1) Chloride Level 106 mmol/L (98-107) Carbon Dioxide Level 28 mmol/L (21-32) Anion Gap 7 (6-14) Blood Urea Nitrogen 13 mg/dL (8-26) Creatinine 0.7 mg/dL (0.7-1.3) Estimated GFR (Cockcroft-Gault) 110.5 Glucose Level 115 mg/dL (70-99) Calcium Level 8.4 mg/dL (8.5-10.1) Test 06/30/16 16:19 06/30/16 20:35 07/01/16 07:16 07/01/16 11:17 Glucose (Fingerstick) 86 mg/dL (70-99) 133 mg/dL (70-99) 108 mg/dL (70-99) 88 mg/dL (70-99) Laboratory Tests Test 06/30/16 16:19 06/30/16 20:35 07/01/16 07:16 07/01/16 11:17 Glucose (Fingerstick) 86 mg/dL (70-99) 133 mg/dL (70-99) 108 mg/dL (70-99) 88 mg/dL (70-99) Assessment Assessment POD #2 right hip IM nail Problems: Plan Plan of Care Continue POC including therapy and DVT ppx. Change dressing to Aquacel today. Plan for discharge [facility] tomorrow. JAVI PHAM July 01, 2016 14:18
[2016-07-01 15:00] VITALS: BP 116/50
[2016-07-01] MEDS ORDERED: POLYETHYLENE GLYCOL 3350 17 GM PACKET. PO SCH (16:00)
[2016-07-01] MEDS: ENOXAPARIN 40 MG/0.4 ML SYRINGE. SQ SCH (17:08)
[2016-07-01 19:20] VITALS: BP 110/62
[2016-07-01] MEDS: TAMSULOSIN 0.4 MG CAP.ER.24H. PO SCH (20:29)
[2016-07-01] MEDS: rOPINIRole 0.25 MG TABLET. PO SCH (20:30)
[2016-07-01 23:21] VITALS: BP 112/65
[2016-07-02 03:25] VITALS: BP 118/68
[2016-07-02] MEDS: oxyCODONE/APAP 7.5/325 1 TAB TABLET PO PRN ×3 (04:53→13:52)
[2016-07-02 07:00] VITALS: BP 135/62
[2016-07-02] MEDS: INSULIN ASPART 300 UNITS/3 ML INSULN.PEN SQ SCH ×2 (08:00→11:31)
[2016-07-02] MEDS: ASPIRIN 325 MG TABLET PO SCH (08:22)
[2016-07-02] MEDS: metFORMIN 500 MG TABLET PO SCH (08:22)
[2016-07-02] MEDS: CLOPIDOGREL BISULFATE 75 MG TABLET PO SCH (08:22)
[2016-07-02] MEDS: SENNOSIDES/DOCUSATE 8.6/50MG TABLET. PO SCH (08:22)
[2016-07-02] MEDS: FLUoxetine HCL 20 MG CAPSULE PO SCH (08:22)
[2016-07-02] MEDS: CYANOCOBALAMIN (VITAMIN B-12) 1,000 MCG TABLET. PO SCH (08:22)
[2016-07-02] MEDS: CETIRIZINE HCL 10 MG TABLET. PO SCH (08:22)
[2016-07-02] MEDS: diazePAM 5 MG TABLET PO PRN (08:23)
[2016-07-02] MEDS: BACLOFEN 10 MG TABLET. PO SCH ×2 (08:23→13:52)
[2016-07-02] MEDS: DOCUSATE SODIUM 100 MG CAPSULE. PO SCH (08:23)
[2016-07-02 11:00] VITALS: BP 109/67
--- NOTE | 2016-07-02 12:51 | PDOC ---
PROGRESS NOTES Subjective Subjective Problems overnight: none Objective Vital Signs Vital Signs Date Time Temp Pulse Resp B/P (MAP) Pulse Ox O2 Delivery O2 Flow Rate FiO2 07/02/16 11:00 98.1 72 20 109/67 (81) 94 Nasal Cannula 2.0 98.1 Physical Exam sitting in bed comfortably. Calves soft NT. Labs Laboratory Tests Test 06/30/16 16:19 06/30/16 20:35 07/01/16 07:16 07/01/16 11:17 Glucose (Fingerstick) 86 mg/dL (70-99) 133 mg/dL (70-99) 108 mg/dL (70-99) 88 mg/dL (70-99) Test 07/01/16 16:06 07/01/16 21:18 07/02/16 07:37 07/02/16 11:05 Glucose (Fingerstick) 92 mg/dL (70-99) 108 mg/dL (70-99) 96 mg/dL (70-99) 89 mg/dL (70-99) Laboratory Tests Test 07/01/16 16:06 07/01/16 21:18 07/02/16 07:37 07/02/16 11:05 Glucose (Fingerstick) 92 mg/dL (70-99) 108 mg/dL (70-99) 96 mg/dL (70-99) 89 mg/dL (70-99) Assessment Assessment doing well postop fracture surgery Problems: Plan Plan of Care discharge planning. office follow up. Continue DVT prophylaxis. OBI CAMEJO MD July 02, 2016 12:51
--- NOTE | 2016-07-02 13:06 | PDOC ---
PROGRESS NOTES Chief Complaint Chief Complaint 1. s./p R hip sx (06/29- POD # 3 2. RLS, chronic 3. SNU resident 4., HTN, now HYPOtensive History of Present Illness History of Present Illness Patient in this am in NAD. Understands that he can be D/C to [facility] today (07/02/16) per Ortho' s recommendation. Vitals Vitals Vital Signs Date Time Temp Pulse Resp B/P (MAP) Pulse Ox O2 Delivery O2 Flow Rate FiO2 07/02/16 11:00 98.1 72 20 109/67 (81) 94 Nasal Cannula 2.0 98.1 Physical Exam General: Alert, Oriented X3, Cooperative, No acute distress Heart: Regular rate, Normal S1, Normal S2 Lungs: Clear Abdomen: Soft, No hepatosplenomegaly Extremities: No clubbing, No cyanosis Skin: No rashes, No breakdown, No significant lesion Labs LABS Laboratory Tests Test 07/01/16 16:06 07/01/16 21:18 07/02/16 07:37 07/02/16 11:05 Glucose (Fingerstick) 92 mg/dL (70-99) 108 mg/dL (70-99) 96 mg/dL (70-99) 89 mg/dL (70-99) Review of Systems Review of Systems No rashes No JVD No MANCERA/blurry vision Assessment and Plan Assessmemt and Plan Problems Medical Problems: (1) Closed intertrochanteric fracture of right hip Status: Acute 2. RLS, chronic 3. SNU resident 4., HTN, now HYPOtensive Plan: -Continue current medications and adjust accordingly as needed. -Continue DVT prophylaxis. -Continue specialty consultation. -Continue PT/OT. -D/C to [facility] when all specialties agree. Problems: Comment Review of Relevant I have reviewed the following items sandro (where applicable) has been applied. Labs Laboratory Tests Test 06/30/16 16:19 06/30/16 20:35 07/01/16 07:16 07/01/16 11:17 Glucose (Fingerstick) 86 mg/dL (70-99) 133 mg/dL (70-99) 108 mg/dL (70-99) 88 mg/dL (70-99) Test 07/01/16 16:06 07/01/16 21:18 07/02/16 07:37 07/02/16 11:05 Glucose (Fingerstick) 92 mg/dL (70-99) 108 mg/dL (70-99) 96 mg/dL (70-99) 89 mg/dL (70-99) Laboratory Tests Test 07/01/16 16:06 07/01/16 21:18 07/02/16 07:37 07/02/16 11:05 Glucose (Fingerstick) 92 mg/dL (70-99) 108 mg/dL (70-99) 96 mg/dL (70-99) 89 mg/dL (70-99) Medications Current Medications Tramadol HCl (Ultram) 50 mg 1X ONCE PO Last administered on 06/29/16 10:30; Start 06/29/16 at 09:00; Stop 06/29/16 at 09:01; Status DC Fentanyl Citrate (Fentanyl 2ml Vial) 50 mcg PRN Q2HR PRN IV pain Last administered on 07/01/16 18:21; Start 06/29/16 at 10:00 Ondansetron HCl (Zofran) 4 mg PRN Q8HRS PRN IV NAUSEA/VOMITING; Start 06/29/16 at 10:15; Stop 06/30/16 at 10:14; Status DC Sodium Chloride 1,000 ml @ 75 mls/hr [id number] IV Last administered on 13:04; Start 06/29/16 at 10:06; Stop 06/30/16 at 10:05; Status DC Acetaminophen (Tylenol) 650 mg PRN Q4HRS PRN PO FEVER; Start 06/29/16 at 10:15 ; Stop 06/30/16 at 10:14; Status DC Lorazepam (Ativan) 1 mg 1X ONCE IV ; Start 06/29/16 at 11:15; Stop 06/29/16 at 11:16; Status DC Ondansetron HCl (Zofran) 4 mg PRN Q6HRS PRN IV NAUSEA/VOMITING; Start 06/29/16 at 11:30; Stop 06/30/16 at 11:29; Status DC Fentanyl Citrate (Fentanyl 2ml Vial) 25 mcg PRN Q5MIN PRN IV MILD PAIN; Start 06/29/16 at 11:30; Stop 06/30/16 at 11:29; Status DC Fentanyl Citrate (Fentanyl 2ml Vial) 50 mcg PRN Q5MIN PRN IV MODERATE PAIN Last administered on 06/29/16 19:42; Start 06/29/16 at 11:30; Stop 06/30/16 at 11:29; Status DC Morphine Sulfate 1 mg PRN Q10MIN PRN IV SEVERE PAIN; Start 06/29/16 at 11:30; Stop 06/30/16 at 11:29; Status DC Ringer's Solution 1,000 ml @ 0 mls/hr Q0M IV ; Start 06/29/16 at 11:29; Stop at 23:28; Status DC Lidocaine HCl 2 ml PRN 1X PRN ID PRIOR TO IV START; Start 06/29/16 at 11:30; Stop 06/30/16 at 11:29; Status DC Hydromorphone HCl (Dilaudid) 0.5 mg PRN Q10MIN PRN IV SEV PAIN, Second choice; Start 06/29/16 at 11:30; Stop 06/30/16 at 11:29; Status DC Prochlorperazine Edisylate (Compazine) 5 mg PACU PRN PRN IV NAUSEA, MRX1; Start 06/29/16 at 11:30; Stop 06/30/16 at 11:29; Status DC Amlodipine Besylate (Norvasc) 10 mg DAILY PO ; Start 06/30/16 at 09:00; Stop at 11:10; Status DC Cyanocobalamin (Vitamin B-12) 1,000 mcg DAILY PO Last administered on 08:22; Start 06/30/16 at 09:00 Fluoxetine HCl (PROzac) 20 mg DAILY PO Last administered on 07/02/16 08:22; Start 06/30/16 at 09:00 Atorvastatin Calcium (Lipitor) 5 mg QHS PO ; Start 06/29/16 at 21:00; Stop 06/30 at 11:10; Status DC Dextrose (Dextrose 50%-Water Syringe) 12.5 gm PRN Q15MIN PRN IV SEE COMMENTS; Start 06/29/16 at 13:30; Status Cancel Fentanyl Citrate (Fentanyl 5ml Vial) 250 mcg STK-MED ONCE .ROUTE ; Start at 17:07; Stop 06/29/16 at 17:08; Status DC Propofol 20 ml @ As Directed STK-MED ONCE IV ; Start 06/29/16 at 17:07; Stop at 17:08; Status DC Lidocaine HCl (Lidocaine Pf 2% Vial) 5 ml STK-MED ONCE .ROUTE ; Start 06/29/16 at 17:07; Stop 06/29/16 at 17:08; Status DC Bupivacaine HCl/ Epinephrine Bitart (Sensorcain-Mpf Epi 0.5%-1:[id number]) 30 ml STK -MED ONCE .ROUTE ; Start 06/29/16 at 17:16; Stop 06/29/16 at 17:17; Status DC Bupivacaine HCl/ Epinephrine Bitart (Sensorcaine-Epi 0.25%-1:[id number] Mpf) 30 ml STK-MED ONCE .ROUTE ; Start 06/29/16 at 17:18; Stop 06/29/16 at 17:19; Status DC Cefazolin Sodium/ Dextrose 50 ml @ 100 mls/hr 1X PREOP PRN IV SEE COMMENTS Last administered on 06/29/16 17:51; Start 06/29/16 at 17:30; Stop 07/01/16 at 11:19; Status DC Ropivacaine 53.3 ml/Epinephrine HCl 0.6 mg/ Morphine Sulfate 5 mg/Sodium Chloride 100 ml @ 100 mls/hr 1X PERIOP ONCE INT ART Last administered on 06/29 18:29; Start 06/29/16 at 18:00; Stop 06/29/16 at 18:59; Status DC Phenylephrine HCl 1 mg STK-MED ONCE IV ; Start 06/29/16 at 17:51; Stop 06/29/16 at 17:52; Status DC Sevoflurane (Ultane) 60 ml STK-MED ONCE IH ; Start 06/29/16 at 18:36; Stop 06/29 at 18:37; Status DC Dexamethasone Sodium Phosphate (Decadron) 20 mg STK-MED ONCE .ROUTE ; Start at 18:39; Stop 06/29/16 at 18:40; Status DC Ondansetron HCl (Zofran) 4 mg STK-MED ONCE .ROUTE ; Start 06/29/16 at 18:39; Stop 06/29/16 at 18:40; Status DC Ephedrine Sulfate 50 mg STK-MED ONCE IV ; Start 06/29/16 at 18:43; Stop at 18:44; Status DC Oxycodone/ Acetaminophen (Percocet 7.5/ 325) 1 tab PRN Q4HRS PRN PO SEVERE PAIN Last administered on 07/02/16 08:33; Start 06/29/16 at 23:00 Diazepam (Valium) 5 mg PRN Q8HRS PRN PO ANXIETY Last administered on 07/02/16 08:23; Start 06/30/16 at 00:00 Ropinirole HCl (Requip) 0.5 mg HS PO Last administered on 06/30/16 00:37; Start 06/30/16 at 01:00; Stop 06/30/16 at 11:10; Status DC Insulin Aspart (NovoLOG) 0-9 UNITS TIDWMEALS SQ ; Start 06/30/16 at 12:00 Dextrose (Dextrose 50%-Water Syringe) 12.5 gm PRN Q15MIN PRN IV SEE COMMENTS; Start 06/30/16 at 09:45 Acetaminophen (Tylenol) 500 mg PRN Q6HRS PRN PO PAIN; Start 06/30/16 at 11:00 Aspirin (Guy Aspirin) 325 mg DAILY PO Last administered on 07/02/16 08:22; Start 06/30/16 at 11:30 Atorvastatin Calcium (Lipitor) 5 mg DAILY PO ; Start 07/01/16 at 09:00; Status UNV Baclofen (Lioresal) 10 mg TID PO Last administered on 07/02/16 08:23; Start at 14:00 Clopidogrel Bisulfate (Plavix) 75 mg DAILY08 PO Last administered on 07/02/16 08:22; Start 06/30/16 at 11:00 Docusate Sodium (Colace) 100 mg DAILY PO Last administered on 07/02/16 08:23; Start 06/30/16 at 11:30 Albuterol Sulfate (Ventolin Neb Soln) 2.5 mg PRN QID PRN NEB SHORTNESS OF BREATH; Start 06/30/16 at 11:00 Metformin HCl (Glucophage) 500 mg BIDWMEALS PO Last administered on 07/02/16 08:22; Start 06/30/16 at 17:00 Polyethylene Glycol (miraLAX PACKET) 17 gm QMWF PO ; Start 07/01/16 at 16:00 Senna/Docusate Sodium (Senna Plus) 2 tab BID PO Last administered on 07/02/16 08:22; Start 06/30/16 at 11:30 Tamsulosin HCl (Flomax) 0.4 mg HS PO Last administered on 07/01/16 20:29; Start 06/30/16 at 21:00 Cetirizine HCl (ZyrTEC) 10 mg DAILY PO Last administered on 07/02/16 08:22; Start 06/30/16 at 12:00 Ropinirole HCl (Requip) 0.5 mg QHS PO Last administered on 07/01/16 20:30; Start 06/30/16 at 21:00 Insulin Aspart (NovoLOG) 0-9 UNITS TIDWMEALS SQ ; Start 06/30/16 at 12:00; Status UNV Dextrose (Dextrose 50%-Water Syringe) 12.5 gm PRN Q15MIN PRN IV SEE COMMENTS; Start 06/30/16 at 11:00; Status UNV Enoxaparin Sodium (Lovenox 30mg Syringe) 30 mg DAILY16 SQ ; Start 06/30/16 at 16 :00; Stop 06/30/16 at 16:00; Status DC Enoxaparin Sodium (Lovenox 40mg Syringe) 40 mg DAILY16 SQ Last administered on 07/01/16 17:08; Start 06/30/16 at 16:00 Active Scripts Active Reported Duoneb 0.5-3(2.5) Mg/3 Ml (Albuterol/Ipratropium) 3 Ml Ampul.neb 3 Ml NEB QID PRN Acetaminophen 500 Mg Tablet 1 Tab PO Q6HRS PRN Baclofen 10 Mg Tablet 1 Tab PO TID Senokot-S Tablet (Sennosides/Docusate Sodium) 1 Each Tablet 2 Tab PO BID Tamsulosin Hcl 0.4 Mg Cap.er.24h 1 Cap PO HS Requip (Ropinirole Hcl) 0.5 Mg Tablet 1 Tab PO QHS Miralax (Polyethylene Glycol 3350) 17 Gm Powd.pack 1 Packet PO QMWF Fexofenadine Hcl 180 Mg Tablet 1 Tab PO DAILY Docusate Sodium 100 Mg Capsule 1 Cap PO DAILY Clopidogrel (Clopidogrel Bisulfate) 75 Mg Tablet 1 Tab PO DAILY Aspirin 325 Mg Tablet 1 Tab PO DAILY Atorvastatin Calcium 10 Mg Tablet 0.5 Tab PO DAILY Vitamin B-12 (Cyanocobalamin (Vitamin B-12)) 1,000 Mcg Tablet 1 Tab PO DAILY Metformin Hcl 500 Mg Tablet 1 Tab PO BID Fluoxetine Hcl 20 Mg Tablet 1 Tab PO DAILY Amlodipine Besylate 10 Mg Tablet 5 Mg PO DAILY Vitals/I & O Vital Sign - Last 24 Hours 07/01/16 07/01/16 07/01/16 07/01/16 14:04 15:00 17:51 18:21 Temp 98.2 98.2 Pulse 70 Resp 18 B/P (MAP) 116/50 (72) Pulse Ox 94 O2 Delivery Nasal Cannula Nasal Cannula Nasal Cannula Nasal Cannula O2 Flow Rate 2.0 07/01/16 07/01/16 07/01/16 07/01/16 18:55 19:20 20:20 21:49 Temp 98.7 98.7 Pulse 69 Resp 18 B/P (MAP) 110/62 (78) Pulse Ox 95 95 95 O2 Delivery Nasal Cannula Nasal Cannula Nasal Cannula Nasal Cannula O2 Flow Rate 2.0 2.0 2.0 2.0 07/01/16 07/02/16 07/02/16 07/02/16 23:21 03:25 04:53 05:55 Temp 98.6 98.5 98.6 98.5 Pulse 73 66 Resp 18 20 B/P (MAP) 112/65 (81) 118/68 (85) Pulse Ox 93 92 92 92 O2 Delivery Nasal Cannula Room Air Nasal Cannula O2 Flow Rate 2.0 2.0 2.0 07/02/16 07/02/16 07/02/16 07/02/16 07:00 08:00 08:33 09:30 Temp 98.4 98.4 Pulse 71 Resp 20 18 18 B/P (MAP) 135/62 (86) Pulse Ox 90 O2 Delivery Nasal Cannula Nasal Cannula Nasal Cannula Nasal Cannula O2 Flow Rate 2.0 2.0 2.0 2.0 07/02/16 11:00 Temp 98.1 98.1 Pulse 72 Resp 20 B/P (MAP) 109/67 (81) Pulse Ox 94 O2 Delivery Nasal Cannula O2 Flow Rate 2.0 Intake and Output 07/01/16 07/01/16 07/02/16 15:00 23:00 07:00 Intake Total 120 ml 540 ml Output Total 800 ml 250 ml Balance 120 ml -800 ml 290 ml EVAN FINE III DO July 02, 2016 13:06
--- NOTE | 2016-07-09 22:20 | DS ---
DATE OF DISCHARGE: 07/02/2016 ADMISSION DIAGNOSIS: Right femur fracture. DISCHARGE DIAGNOSIS: Postoperative open reduction and internal fixation. HOSPITAL COURSE: The patient is a pleasant 71-year-old male presented with a right femur fracture. He was admitted. We consulted Orthopedics. He was taken for ORIF. Postoperatively, did well. We will discharge to Skilled. DISPOSITION: Skilled. ACTIVITY: As tolerated. DIET: Low sodium. MEDICATIONS: Please see the MRAD. TOTAL TIME: 39 minutes. EVAN FINE DO DR: KORI/antonio JOB#: [id number] / [id number]
== END 2016-07-02 13:45 | DRG 481 ==
LOC: ER 08:35 → 4 NORTH 10:00
PROVIDERS: ADMIT Internal Medicine; ATTEND Internal Medicine
PROC: 0QS606Z Reposition Right Upper Femur with Intramedullary Internal Fixation Device, Open Approach (ICD-10-PCS; principal; 2016-06-29 15:00)
DX: S72.141A Displaced intertrochanteric fracture of right femur, initial encounter for closed fracture (principal); R65.10 Systemic inflammatory response syndrome (SIRS) of non-infectious origin without acute organ dysfunction; E11.9 Type 2 diabetes mellitus without complications; E78.5 Hyperlipidemia, unspecified; G25.81 Restless legs syndrome; I10 Essential (primary) hypertension; I71.4 Abdominal aortic aneurysm, without rupture; I95.9 Hypotension, unspecified; W01.0XXA Fall on same level from slipping, tripping and stumbling without subsequent striking against object, initial encounter; F12.90 Cannabis use, unspecified, uncomplicated; Z82.3 Family history of stroke; Z83.3 Family history of diabetes mellitus; Z86.73 Personal history of transient ischemic attack (TIA), and cerebral infarction without residual deficits; Z87.730 Personal history of (corrected) cleft lip and palate; Z87.81 Personal history of (healed) traumatic fracture; Y92.89 Other specified places as the place of occurrence of the external cause; Z91.041 Radiographic dye allergy status; Y93.89 Activity, other specified; Y99.8 Other external cause status
CPT/HCPCS: 36415; 71010; 72192; 73502; 73552; 76000; 80048; 82962; 85027; 85610; 85730; 86850; 86900; 86901; 87641; 93005; 94250; A4215; C1713; C1887; J0171; J0690; J1100; J1650; J1815; J2270; J2370; J2405; J2704; J2795; J3010; J3490; J7030; 97116; 97530; 97535; 99285-25

== ENCOUNTER → 2018-01-23 | Outpatient (CLI) | payer MEDICARE, OTHER ==
[~2018-01-23] MED LIST changes: +ACET500T68 PO; -AMLO10TA2 PO; +AMLO10TA6 PO; +ASPI325T8 PO; +ATOR10TA60 PO; +BACL10TA PO; +CLOP75TA PO; +DOCU100C28 PO; +FEXO180T16 PO; +IPRA3AMP29 NEB; +METF500T16 PO; -METF500T4 PO; +POLY17PO29 PO; +ROPI0.5T PO; +SENN-37 PO; +TAMS0.4C2 PO
--- NOTE | 2018-01-23 17:41 | RAD ---
Bilateral lower extremity venous doppler ultrasound History: Bilateral lower extremity edema Comparison: None Findings: Multiple grayscale, color, and duplex spectral analysis sonographic images were acquired of the bilateral lower extremity veins to evaluate for the presence of DVT. There is normal phasicity. Normal compression, color-flow, and augmentation is demonstrated from the bilateral common femoral to the popliteal veins. There is normal color flow of the proximal greater saphenous and profunda femoris veins. There is normal color flow of segments of the calf veins. Impression: 1. There is no evidence of deep venous thrombosis from the bilateral common femoral to popliteal veins. Electronically signed by: Rusty Brand MD (01/23/2018 5:38 PM) [id number]
== END | disposition home or self-care (01) ==
LOC: US 14:59
PROVIDERS: ATTEND Psychiatry & Neurology Neurology
DX: R60.0 Localized edema (principal)
CPT/HCPCS: 93970

== ENCOUNTER 2018-04-15 15:10 | Emergency (ER) | payer MEDICARE, MEDICAID ==
[~2018-04-15] VITALS: Ht 177.8 cm; Wt 79.4 kg
[~2018-04-15 15:10] MED LIST changes: -AMLO10TA6 PO; +AMLO10TA8 PO
--- NOTE | 2018-04-15 15:31 | PHYS DOC ---
Past Medical History Past Medical History: CVA, Other Additional Past Medical Histor: Metformin for prediabetes, restless leg syndrome, hypertension Past Surgical History: No Surgical History Additional Past Surgical Histo: cleft palate repair, R HIP SURGERY Alcohol Use: Rarely Drug Use: Marijuana Adult General Chief Complaint Chief Complaint: MECHANICAL FALL HPI HPI Patient is a 72 year old male who presents with right frontal head injury. Patient was sitting in his wheelchair which was not locked when he bent forward to retrieve something from the ground. He sustained abrasion to the right for head. The facility he resides requests that he be evaluated given that he is on clopidogrel. Patient denies any syncope. Denies any loss of consciousness. Denies any significant head or neck pain.[] Review of Systems Review of Systems Constitutional: Denies fever or chills [] Eyes: Denies change in visual acuity, redness, or eye pain [] HENT: Denies nasal congestion or sore throat [] Respiratory: Denies cough or shortness of breath [] Cardiovascular: No chest pain or palpitations[] GI: Denies abdominal pain, nausea, vomiting, bloody stools or diarrhea [] : Denies dysuria or hematuria [] Musculoskeletal: Denies back pain or joint pain [] Integument: Denies rash or skin lesions, abrasion right frontal region as noted in the history of present illness [] Neurologic: Denies headache, focal weakness or sensory changes [] Endocrine: Denies polyuria or polydipsia [] All other systems were reviewed and found to be within normal limits, except as documented in this note. Allergies Allergies Allergies Coded Allergies Type Severity Reaction Last Updated Verified iodine Allergy Intermediate 06/29/16 Yes Physical Exam Physical Exam Constitutional: Well developed, well nourished, no acute distress, non-toxic appearance. [] HENT: Normocephalic, abrasion right frontal region, no step-off, no crepitus, bilateral external ears normal, TMs are clearno blood no fluid, oropharynx moist, no oral exudates, nose normal. [] Eyes: PERRLA, EOMI, conjunctiva normal, no discharge. [] Neck: Normal range of motion, no tenderness, supple, no stridor. [] Cardiovascular:Heart rate regular rhythm, no murmur [] Lungs & Thorax: Bilateral breath sounds clear to auscultation [] Abdomen: Bowel sounds normal, soft, no tenderness, no masses, no pulsatile masses. [] Skin: Warm, dry, no erythema, no rash. [] Back: No tenderness, no CVA tenderness. [] Extremities: No tenderness, no cyanosis, no clubbing, ROM intact, no edema. [] Neurologic: Alert and oriented X 3, normal motor function, normal sensory function, no focal deficits noted. [] Psychologic: Affect normal, judgement normal, mood normal. [] Current Patient Data Vital Signs Vital Signs Date Time Temp Pulse Resp B/P (MAP) Pulse Ox O2 Delivery O2 Flow Rate FiO2 04/15/18 15:11 98.6 81 20 156/70 (98) 87 Room Air 98.6 EKG EKG [] Radiology/Procedures Radiology/Procedures CT brain without contrast, CT cervical spine without contrast. HISTORY: Fall with right frontal head injury CT scan of brain was done without contrast. There is an old cerebellar infarct with encephalomalacia on the right. There are old bilateral occipital infarcts with encephalomalacia. There is no intracranial hemorrhage or subdural hematoma. There is an old left parietal CVA with encephalomalacia. Ventricles are normal in size. There is no mass or shift of the midline. There is mucosal thickening bilaterally in the maxillary sinuses. A skull fracture is not identified. IMPRESSION: 1. Old cerebral infarcts with encephalomalacia. 2. No intracranial hemorrhage or acute finding. 3. Mucosal thickening in the maxillary sinuses. End impression CT cervical spine Axial CT images were obtained to the cervical spine. Sagittal and coronal reconstructed images were reviewed. There is no acute fracture. Thyroid is homogeneous. There is marked degenerative changes and hypertrophic spurring in the cervical spine. There is spinal stenosis at C3-4 and C4-5. There is foraminal stenosis at C3-4 and C4-5. IMPRESSION: 1. Degenerative changes in the cervical spine. 2. No acute fracture.[] Course & Med Decision Making Course & Med Decision Making Pertinent Labs and Imaging studies reviewed. (See chart for details) ED course patient arrived, was placed in bed, and tolerated exam well. He was transported to and from [place] with any Patients. After return CT findings, these were discussed with the patient who voiced understanding. All questions were answered. He was discharged in improved condition. Medical decision making: There is no evidence of this being a syncopal episode, no evidence of intracranial mass or bleed., No evidence of cervical spine fracture[] Dragon Disclaimer Dragon Disclaimer This electronic medical record was generated, in whole or in part, using a voice recognition dictation system. Departure Departure Impression: Primary Impression: Closed head injury Additional Impression: Facial abrasion Disposition: 01 HOME, SELF-CARE Condition: IMPROVED Referrals: ABHISHEK LILLY (PCP) Follow-up in 2 days Patient Instructions: Abrasions, Head Injury, Adult Additional Instructions: Follow-up with your regular doctor in 2 days. Return to the ER if change in behavior, nausea or vomiting, or any other concerns. Problem Qualifiers Primary Impression: Closed head injury Encounter type: initial encounter Qualified Codes: S09.90XA - Unspecified injury of head, initial encounter Additional Impression: Facial abrasion Encounter type: initial encounter Qualified Codes: S00.81XA - Abrasion of other part of head, initial encounter EDMOND GONZALEZ DO Apr 15, 2018 15:30
--- NOTE | 2018-04-15 16:18 | RAD ---
CT brain without contrast, CT cervical spine without contrast. HISTORY: Fall with right frontal head injury CT scan of brain was done without contrast. There is an old cerebellar infarct with encephalomalacia on the right. There are old bilateral occipital infarcts with encephalomalacia. There is no intracranial hemorrhage or subdural hematoma. There is an old left parietal CVA with encephalomalacia. Ventricles are normal in size. There is no mass or shift of the midline. There is mucosal thickening bilaterally in the maxillary sinuses. A skull fracture is not identified. IMPRESSION: 1. Old cerebral infarcts with encephalomalacia. 2. No intracranial hemorrhage or acute finding. 3. Mucosal thickening in the maxillary sinuses. End impression CT cervical spine Axial CT images were obtained to the cervical spine. Sagittal and coronal reconstructed images were reviewed. There is no acute fracture. Thyroid is homogeneous. There is marked degenerative changes and hypertrophic spurring in the cervical spine. There is spinal stenosis at C3-4 and C4-5. There is foraminal stenosis at C3-4 and C4-5. IMPRESSION: 1. Degenerative changes in the cervical spine. 2. No acute fracture. Electronically signed by: James Ramirez MD (04/15/2018 4:15 PM) [facility]
[2018-04-15 16:43] VITALS: BP 143/67
== END 2018-04-15 18:00 | disposition home or self-care (01) ==
LOC: ER 15:10
DX: S00.81XA Abrasion of other part of head, initial encounter (principal); M48.02 Spinal stenosis, cervical region; I10 Essential (primary) hypertension; Z91.041 Radiographic dye allergy status; W05.0XXA Fall from non-moving wheelchair, initial encounter; Y93.89 Activity, other specified; Y92.89 Other specified places as the place of occurrence of the external cause; Y99.8 Other external cause status
CPT/HCPCS: 70450; 72125; 99284

== ENCOUNTER → 2018-11-23 | Outpatient (CLI) | payer MEDICARE, MEDICAID ==
[~2018-11-23] MED LIST changes: +CYAN-25 PO; -CYAN10005 PO
--- NOTE | 2018-11-23 16:02 | RAD ---
Right lower extremity venous duplex study 11/23/2018 3:59 PM Clinical History: Right lower extremity pain and swelling Technique: Using a combination of real time ultrasound imaging and color-flow and pulse Doppler imaging techniques, including spectral analysis, graded compression and augmentation, duplex evaluation of the deep venous system of the right lower extremity was performed. Multiple images were obtained. Findings: There is no sonographic evidence of deep venous thrombosis involving the visualized deep venous structures of the right lower extremity Impression: No evidence of deep venous thrombosis involving the right lower extremity Electronically signed by: Sarthak Salinas MD (11/23/2018 3:59 PM) [id number]
== END | disposition home or self-care (01) ==
LOC: US 14:36
PROVIDERS: ATTEND Psychiatry & Neurology Neurology
DX: I82.401 Acute embolism and thrombosis of unspecified deep veins of right lower extremity (principal); M79.89 Other specified soft tissue disorders
CPT/HCPCS: 93971

== ENCOUNTER 2018-12-28 19:25 | Emergency (ER) | payer OTHER, MEDICAID ==
[~2018-12-28] VITALS: Ht 175.3 cm; Wt 79.4 kg
[2018-12-28] MEDS ORDERED: LIDOCAINE WITH 8.4% SOD BICARB 3 ML DISP.SYRIN. INJ ONE (19:45)
[2018-12-28] MEDS ORDERED: DIPHTH,PERTUSS(ACELL),TET TOX 0.5 ML DISP.SYRIN. VAX IM ONE (20:15)
--- NOTE | 2018-12-28 20:43 | RAD ---
CT HEAD AND CERVICAL SPINE WO, CT MAXILLOFACIAL WO CONTRAST Date: 12/28/2018 7:44 PM Clinical Indication: Head and neck pain after falling, on Plavix Comparison: CT head 04/15/2018. Technique: 5 mm axial tomographic images were obtained of the head without contrast. These were viewed on brain and bone windows. Axial helical images of the face were obtained without contrast. Axial and coronal reconstruction was performed. CT imaging of the cervical spine was performed without contrast. Coronal and sagittal reformatted images were performed. One or more of the following dose reduction techniques were utilized: Automated exposure control (AEC), Adjustment of mA and/or kV according to patient size, Use of iterative reconstruction technique such as ASiR, CT scan done according to ALARA and image gently/image wisely CT HEAD FINDINGS: Mild generalized cerebral and cerebellar volume loss. Mild nonspecific periventricular hypoattenuation, most commonly seen with chronic small vessel ischemic disease. Moderate areas of right greater than left cerebellar and occipital lobe encephalomalacia. Small left frontal encephalomalacia. Chronic left caudate head and thalamic lacunar infarcts. No intra- or extra-axial mass or fluid collection. No acute hemorrhage. The ventricles are normal in size, shape, and morphology. The oneal-white matter junction is normal. The basilar cisterns are patent. The mastoid air cells are clear. No aggressive osseous lesion or fracture. Right frontal scalp swelling. CT FACE FINDINGS: Acute nondisplaced right nasal fracture and mildly depressed left nasal fracture. Right greater than left maxillary sinus fluid. Right parasagittal cleft palate. The orbits are normal. The globes are intact. Poor dentition with multiple missing teeth and periapical lucencies around [address] CERVICAL BY FINDINGS: The cervical spine is normally aligned. No acute fracture. No aggressive lytic or blastic osseous lesions. Mild to moderate multilevel degenerative disc space height loss. Multilevel mild spinal canal stenosis secondary to disc protrusions and marginal osteophytes. Multilevel mild and moderate neuroforaminal narrowing secondary to uncovertebral arthrosis. Multilevel mild and moderate facet arthrosis. The thyroid gland is normal. No cervical lymphadenopathy. Bilateral carotid atherosclerosis. The visualized aerodigestive tract is normal. The visualized portions of the lungs are clear. Impression: 1. Acute nondisplaced right nasal fracture and mildly depressed left nasal fracture. 2. No acute intracranial process. Right frontal scalp swelling. 3. No acute osseous abnormality of the cervical spine. 4. Multifocal encephalomalacia and chronic lacunar infarcts as above. Electronically signed by: Rusty Lee MD (12/28/2018 8:40 PM) [facility]
[2018-12-28] MEDS ORDERED: AMOX1TAB61 PO (23:54)
--- NOTE | 2018-12-28 23:56 | PHYS DOC ---
Past Medical History Past Medical History: CVA, Hypertension, Other Additional Past Medical Histor: RLS (BELINDA ESTEBAN APRN) Past Surgical History: No Surgical History, Other Additional Past Surgical Histo: cleft palate repair, R HIP SURGERY (BELINDA ESTEBAN APRN) Additional Information: QUIT 2 YEARS AGO Alcohol Use: Rarely Drug Use: Marijuana (BELINDA ESTEBAN APRN) Attending Signature I have participated in the care of this patient and I have reviewed and agree with all pertinent clinical information above including history, exam, and recommendations. (MOLLY CALDERON MD) Adult General Chief Complaint Chief Complaint: LACERATION/AVULSION HPI HPI Patient is a 73 year old male who presents to the ED today to be evaluated for nose laceration, patient was sitting in a wheelchair, he reports he fell asleep and fell face forward. Patient states he did not pass out. Denies any neck pain. (BELINDA ESTEBAN APRN) Review of Systems Review of Systems Constitutional: Denies fever or chills [] Eyes: Denies change in visual acuity, redness, or eye pain [] HENT: Reports nose laceration. Denies nasal congestion or sore throat [] Respiratory: Denies cough or shortness of breath [] Cardiovascular: No additional information not addressed in HPI [] GI: Denies abdominal pain, nausea, vomiting, bloody stools or diarrhea [] : Denies dysuria or hematuria [] Musculoskeletal: Denies back pain or joint pain [] Integument: Denies rash or skin lesions [] Neurologic: Denies headache, focal weakness or sensory changes [] All other systems were reviewed and found to be within normal limits, except as documented in this note. (BELINDA ESTEBAN APRN) Current Medications Current Medications Current Medications Medications (Trade) Dose Ordered Sig/John Start Time Stop Time Status Last Admin Dose Admin Diphtheria/ Tetanus/Acell Pertussis (Boostrix) 0.5 ml ONCE ONCE 12/28/18 20:15 12/28/18 20:16 DC 12/28/18 20:15 0.5 ML Lidocaine HCl (Buffered Lidocaine 1%) 9 ml 1X ONCE 12/28/18 19:45 12/28/18 19:49 DC 12/28/18 19:45 9 ML (MOLLY CALDERON MD) Allergies Allergies Allergies Coded Allergies Type Severity Reaction Last Updated Verified iodine Allergy Intermediate 06/29/16 Yes (MOLLY CALDERON MD) Physical Exam Physical Exam Constitutional: Well developed, well nourished, no acute distress, non-toxic appearance. [] HENT: Normocephalic, bilateral external ears normal, oropharynx moist, no oral exudates, Anterior nose appears deformed. There is a laceration in the middle of the nasal bridge approximately 6 cm long. Laceration is not cutting through the nose. No nose bleeding. Eyes: PERRLA, EOMI, conjunctiva normal, no discharge. [] Neck: Normal range of motion, no tenderness, supple, no stridor. [] Cardiovascular:Heart rate regular rhythm, no murmur [] Lungs & Thorax: Bilateral breath sounds clear to auscultation [] Abdomen: Bowel sounds normal, soft, no tenderness, no masses, no pulsatile masses. [] Skin: Warm, dry, no erythema, no rash. [] Back: No tenderness, no CVA tenderness. [] Extremities: No tenderness, no cyanosis, no clubbing, ROM intact, no edema. [] Neurologic: Alert and oriented X 3, normal motor function, normal sensory function, no focal deficits noted. Cranial nerves II through XII intact Psychologic: Affect normal, judgement normal, mood normal. [] (BELINDA ESTEBAN APRN) Current Patient Data Vital Signs Vital Signs Date Time Temp Pulse Resp B/P (MAP) Pulse Ox O2 Delivery O2 Flow Rate FiO2 12/29/18 00:25 68 18 137/65 (89) 93 Room Air 12/28/18 19:30 98.3 98.3 (MOLLY CADLERON MD) EKG EKG [] (BELINDA ESTEBAN APRN) Radiology/Procedures Radiology/Procedures []PROCEDURE: CT HEAD AND CERVICAL SPINE WO CT HEAD AND CERVICAL SPINE WO, CT MAXILLOFACIAL WO CONTRAST Date: 12/28/2018 7:44 PM Clinical Indication: Head and neck pain after falling, on Plavix Comparison: CT head 04/15/2018. Technique: 5 mm axial tomographic images were obtained of the head without contrast. These were viewed on brain and bone windows. Axial helical images of the face were obtained without contrast. Axial and coronal reconstruction was performed. CT imaging of the cervical spine was performed without contrast. Coronal and sagittal reformatted images were performed. One or more of the following dose reduction techniques were utilized: Automated exposure control (AEC), Adjustment of mA and/or kV according to patient size, Use of iterative reconstruction technique such as ASiR, CT scan done according to ALARA and image gently/image wisely CT HEAD FINDINGS: Mild generalized cerebral and cerebellar volume loss. Mild nonspecific periventricular hypoattenuation, most commonly seen with chronic small vessel ischemic disease. Moderate areas of right greater than left cerebellar and occipital lobe encephalomalacia. Small left frontal encephalomalacia. Chronic left caudate head and thalamic lacunar infarcts. No intra- or extra-axial mass or fluid collection. No acute hemorrhage. The ventricles are normal in size, shape, and morphology. The oneal-white matter junction is normal. The basilar cisterns are patent. The mastoid air cells are clear. No aggressive osseous lesion or fracture. Right frontal scalp swelling. CT FACE FINDINGS: Acute nondisplaced right nasal fracture and mildly depressed left nasal fracture. Right greater than left maxillary sinus fluid. Right parasagittal cleft palate. The orbits are normal. The globes are intact. Poor dentition with multiple missing teeth and periapical lucencies around [address] CERVICAL BY FINDINGS: The cervical spine is normally aligned. No acute fracture. No aggressive lytic or blastic osseous lesions. Mild to moderate multilevel degenerative disc space height loss. Multilevel mild spinal canal stenosis secondary to disc protrusions and marginal osteophytes. Multilevel mild and moderate neuroforaminal narrowing secondary to uncovertebral arthrosis. Multilevel mild and moderate facet arthrosis. The thyroid gland is normal. No cervical lymphadenopathy. Bilateral carotid atherosclerosis. The visualized aerodigestive tract is normal. The visualized portions of the lungs are clear. Impression: 1. Acute nondisplaced right nasal fracture and mildly depressed left nasal fracture. 2. No acute intracranial process. Right frontal scalp swelling. 3. No acute osseous abnormality of the cervical spine. 4. Multifocal encephalomalacia and chronic lacunar infarcts as above. Electronically signed by: Eleazar Lee MD (12/28/2018 8:40 PM) [facility] DICTATED and SIGNED BY: ELEAZAR LEE MD DATE: 12/28/182039 Laceration/Wound Repair Wound Location: Nasal bone Wound's Depth, Shape: Vertical Wound Length (cm): Approximately 4 cm Wound Explored: clean Irrigated w/ Saline (ccs): 20 Betadine Prep?: Yes Anesthesia: 1% buffered lidocaine Volume Anesthetic (ccs): 3 mL Wound Repaired With: Dissolvable gut Suture Size/Type: 5.0/interrupted sutures Number of Sutures: 8 Progress : Wound was left open to air (BELINDA ESTEBAN APRN) Course & Med Decision Making Course & Med Decision Making Pertinent Labs and Imaging studies reviewed. (See chart for details) This is a 73-year-old male patient who presents to the ED today with nasal laceration after falling off his wheelchair. Tetanus was updated. CT of the head is negative for any acute findings, CT of the cervical spine is negative. CT of maxillofacial was noted for -Acute nondisplaced right nasal fracture and mildly depressed left nasal fracture. Laceration over the nasal bridge was repaired by me as noted in procedures. Patient was discharged back home. Instructed to follow-up with the plastic surgeon at [facility]. Discharged on Augmentin. (BELINDA ESTEBAN APRN) Dragon Disclaimer Dragon Disclaimer This electronic medical record was generated, in whole or in part, using a voice recognition dictation system. (BELINDA ESTEBAN APRN) Departure Departure Impression: Primary Impression: Fall Additional Impressions: Nasal bone fracture Laceration of nose Disposition: 01 HOME, SELF-CARE Condition: STABLE Referrals: ABHISHEK LILLY (PCP) Please contact any plastic surgeon of your choice Or [facility] and follow-up for the nasal bone fracture Patient Instructions: Nasal Fracture, [id number] Additional Instructions: You were evaluated in the emergency room and noted to have a nondisplaced right nasal bone fracture please contact any plastic surgeon at [facility] or any plastic surgeon of your choice and follow-up. Please complete the prescribed antibiotics. You have dissolvable stitches, keep the area clean and dry. Scripts Amoxicillin/Potassium Clav (AUGMENTIN 875-125 TABLET) 1 Each Tablet 1 TAB PO BID for 10 Days, #20 TAB 0 Refills Prov: BELINDA ESTEBAN APRN 12/28/18 Problem Qualifiers Primary Impression: Fall Encounter type: initial encounter Qualified Codes: W19.XXXA - Unspecified fall, initial encounter Additional Impressions: Nasal bone fracture Encounter type: initial encounter Fracture type: open Qualified Codes: S02.2XXB - Fracture of nasal bones, initial encounter for open fracture Laceration of nose Encounter type: initial encounter Qualified Codes: S01.21XA - Laceration without foreign body of nose, initial encounter BELINDA ESTEBAN APRN Dec 28, 2018 23:56 MOLLY CALDERON MD Dec 29, 2018 04:31
[2018-12-29 00:25] VITALS: BP 137/65
== END 2018-12-29 00:30 | disposition home or self-care (01) ==
LOC: ER 19:25
DX: S02.2XXA Fracture of nasal bones, initial encounter for closed fracture (principal); I10 Essential (primary) hypertension; Z86.73 Personal history of transient ischemic attack (TIA), and cerebral infarction without residual deficits; Z87.891 Personal history of nicotine dependence; Z88.8 Allergy status to other drugs, medicaments and biological substances; W05.0XXA Fall from non-moving wheelchair, initial encounter; Y93.89 Activity, other specified; Y92.89 Other specified places as the place of occurrence of the external cause; Y99.8 Other external cause status
CPT/HCPCS: 12013; 70450; 70486; 72125; 90471; 90715; 99284

== ENCOUNTER → 2019-02-11 | Outpatient (CLI) | payer MEDICAID, OTHER ==
[~2019-02-11] MED LIST changes: +AMOX1TAB61 PO
--- NOTE | 2019-02-11 17:45 | KCIC ---
Examination: CT CHEST WO CONTRAST History: Abnormal chest x-ray. Smoked for 60 years. Quit smoking 2 years ago. Comparison/Correlation: 04/27/2016 AP view of the chest Findings: Axial images of the chest were obtained without contrast. Sagittal and coronal reformatted images were provided. Tracheobronchial tree is unremarkable for the patient's age. No enlarged thoracic lymph nodes. Calcified left hilar lymph node is present. No pleural or pericardial effusion. No infiltrate. Left posterior basilar pulmonary nodule measuring up to 0.5 cm diameter is present. This alternatively may represent 2 adjacent pulmonary nodules. This finding is noted on image 55 of series 6. Punctate nodule at the anterior right mid thoracic level near the pleural effusions present on axial image 22 of series 6. Proximal left anterior descending coronary arterial distribution calcification is present. Bony structures are unremarkable other than old left rib fractures. Partially visualized upper abdomen is unremarkable. Impression: No suspicious pulmonary nodule or mass lesion. No suspicious infiltrates. Interval follow-up CT in 1 year to assess the left lung basilar pulmonary nodule may be performed if clinically desired to assess stability. PQRS Compliance Statement: One or more of the following individualized dose reduction techniques were utilized for this examination: 1. Automated exposure control 2. Adjustment of the mA and/or kV according to patient size 3. Use of iterative reconstruction technique Electronically signed by: Bandar Camara MD (02/11/2019 5:42 PM) [facility] [place]
== END | disposition home or self-care (01) ==
LOC: KCIC CT 09:13
PROVIDERS: ATTEND Internal Medicine Pulmonary Disease
DX: R91.8 Other nonspecific abnormal finding of lung field (principal); I10 Essential (primary) hypertension; Z79.01 Long term (current) use of anticoagulants; Z87.891 Personal history of nicotine dependence
CPT/HCPCS: 71250

== ENCOUNTER 2020-06-12 13:35 | Emergency (ER) | payer OTHER, MEDICAID ==
[~2020-06-12] VITALS: Ht 180.3 cm; Wt 96.8 kg
[~2020-06-12 13:35] MED LIST changes: +AMLO-187 PO; -AMLO10TA8 PO; +PSYL3.4P PO
--- NOTE | 2020-06-12 13:54 | PHYS DOC ---
Past Medical History Past Medical History: CVA, Hypertension, Other Additional Past Medical Histor: RLS Past Surgical History: No Surgical History, Other Additional Past Surgical Histo: cleft palate repair, R HIP SURGERY Smoking Status: Never Smoker Alcohol Use: Occasionally Drug Use: Marijuana General Adult EDM: Chief Complaint: Urinary retention HPI: HPI: 75-year-old male presenting with urinary retention from facility. He had some mild nonradiating suprapubic abdominal pain after not urinating for about 24 hours. He denies any fever vomiting chest pain shortness of breath. Review of systems negative for chest pain abdominal pain fevers chills dysuria. All other review of systems negative. Heart Score: C/O Chest Pain: No Risk Factors: Risk Factors: DM, Current or recent (<one month) smoker, HTN, HLP, family history of CAD, obesity. Risk Scores: Score 0 - 3: 2.5% MACE over next 6 weeks - Discharge Home Score 4 - 6: 20.3% MACE over next 6 weeks - Admit for Clinical Observation Score 7 - 10: 72.7% MACE over next 6 weeks - Early Invasive Strategies Allergies: Allergies: Allergies Coded Allergies Type Severity Reaction Last Updated Verified iodine Allergy Intermediate 06/29/16 Yes Physical Exam: PE: Constitutional: Well developed, well nourished, no acute distress, non-toxic appearance. [] HENT: Normocephalic, atraumatic, bilateral external ears normal, oropharynx moist, no oral exudates, nose normal. [] Eyes: PERRLA, EOMI, conjunctiva normal, no discharge. [] Neck: Normal range of motion, no tenderness, supple, no stridor. [] Cardiovascular:Heart rate regular rhythm, no murmur [] Lungs & Thorax: Bilateral breath sounds clear to auscultation [] Abdomen: Bowel sounds normal, soft, no tenderness, no masses, no pulsatile masses. [] No rebound tenderness or guarding. Negative [place]'s point. Negative Menendez sign Skin: Warm, dry, no erythema, no rash. [] Back: No tenderness, no CVA tenderness. [] Extremities: No tenderness, no cyanosis, no clubbing, ROM intact, no edema. [] Neurologic: Alert and oriented X 3, normal motor function, normal sensory function, no focal deficits noted. [] Psychologic: Affect normal, judgement normal, mood normal. [] EKG: EKG: [] Radiology/Procedures: Radiology/Procedures: [] Course & Med Decision Making: Course & Med Decision Making Pertinent Labs and Imaging studies reviewed. (See chart for details) [] 75-year-old male presenting with urinary retention. We were able to place a Gomez which relieve the patient's symptoms. He feels much better after the Gomez placement. Urine shows trace leuk esterase with a few bacteria. We will discharge with oral antibiotics to refer to urology within 3 to 5 days for further evaluation treatment and care. Dragon Disclaimer: Dragon Disclaimer: This electronic medical record was generated, in whole or in part, using a voice recognition dictation system. Departure Departure Impression: Primary Impression: Urinary retention Additional Impression: UTI (urinary tract infection) Disposition: HOME / SELF CARE / HOMELESS Condition: STABLE Referrals: CARLEY CLEVELAND MD (PCP) Patient Instructions: Urinary Retention, Acute, Male Additional Instructions: EMERGENCY DEPARTMENT GENERAL DISCHARGE INSTRUCTIONS Follow-up with your primary physician in 1 to 2 days. Return to the emergency department if you have any new or concerning findings. Thank you for coming to [facility] Emergency Department (ED) today and trusting us with you care. We trust that you had a positive experience in our Emergency Department. If you wish to speak to the department management, you may call the Director at [phone]. Follow up is important in emergency/acute care visits. This condition should be evaluated by your primary care physician and any necessary consulting services for continued management within a few days (1-2) after discharge. Return to the emergency department if you have any new or concerning symptoms including but not limited to fever, chills, nausea, vomiting, intractable pain, any new rashes, chest pain, shortness of breath, uncontrolled bleeding, difficulty breathing, and/or vision loss. 1. Do you have a private Doctor? If you do not have a private doctor, please ask for a resource list of physicians or clinics that may be able to assist you with follow up care. 2. If a lab test or culture has been done and does not come back immediately, your results will be reviewed and you will be notified if you need a change in treatment. 3. Your care today has been supervised by a physician who is specially trained in emergency care. Many problems require more than one evaluation for a complete diagnosis and treatment. We recommend that you schedule your follow up appointment as recommended to ensure complete treatment of you illness or injury. If you are unable to obtain follow up care and continue to have a problem, or if your condition worsens, we recommend that you return to the ED. 4. We are not able to safely determine your condition over the phone nor are we able to give sound medical advice over the phone. For these safety reasons, if you call for medical advice we will ask you to come to the ED for further evaluation. IF YOUR SYMPTOMS WORSEN OR NEW SYMPTOMS DEVELOP, OR YOU HAVE CONCERNS ABOUT YOUR CONDITION; OR IF YOUR CONDITION WORSENS WHILE YOU ARE WAITING FOR YOUR FOLLOW UP APPOINTMENT; EITHER CONTACT YOUR PRIMARY CARE DOCTOR, THE PHYSICIAN WHOSE NAME AND NUMBER YOU WERE GIVEN, OR RETURN TO THE ED IMMEDIATELY. Scripts Cephalexin (KEFLEX) 750 Mg Capsule 1 CAP PO TID for 10 Days, #30 CAP 0 Refills Prov: ABRAN SALAS MD 06/12/20 ABRAN SALAS MD June 12, 2020 13:54
[2020-06-12] MEDS ORDERED: IV NORMAL SALINE 1000ML BAG 1,000 ML IV ONE (14:00)
--- NOTE | 2020-06-12 14:17 | RAD ---
XR CHEST 1V History: Reason: soa / Spl. Instructions: / History: Comparison: June 02, 2020 Findings: No consolidation or pleural effusion. Normal heart size. No pneumothorax. Impression: 1. No acute cardiopulmonary process. Electronically signed by: Wilmer Gruber DO (06/12/2020 2:15 PM) [id number]
[2020-06-12 14:33] LABS: BILIRUBIN,URINE NEGATIVE (NEG); CLARITY,URINE CLEAR; COLOR,URINE YELLOW; NITRITE,URINE NEGATIVE (NEG); PH,URINE 7.5 (<5.0-8.0); PROTEIN,URINE 30 mg/dL (NEG-TRACE)
[2020-06-12 14:34] LABS: BASO # 0.1 x10^3/uL (0.0-0.2); BASO % 1 % (0-3); EOS # 0.1 x10^3/uL (0.0-0.7); EOS % 1 % (0-3); HEMATOCRIT 42.8 % (39.0-53.0); HEMOGLOBIN 13.7 g/dL (13.0-17.5); LYMPH # 1.4 x10^3/uL (1.0-4.8); LYMPH % 13 % (24-48); MEAN CORPUSCULAR HEMOGLOBIN 26 pg (25-35); MEAN CORPUSCULAR HGB CONC 32 g/dL (31-37); MEAN CORPUSCULAR VOLUME 81 fL (79-100); MONO # 0.7 x10^3/uL (0.0-1.1); MONO % 7 % (0-9); NEUT # 8.4 x10^3/uL (1.8-7.7); NEUT % 79 % (31-73); PLATELET COUNT 386 x10^3/uL (140-400); RED CELL DISTRIBUTION WIDTH 16.5 % (11.5-14.5); WHITE BLOOD COUNT 10.6 x10^3/uL (4.0-11.0)
[2020-06-12 14:45] LABS: HYALINE CASTS, URINE FEW /HPF
[2020-06-12 14:46] LABS: WBC,URINE OCC /HPF (0-4)
[2020-06-12 14:47] LABS: AMORPHOUS SEDIMENT,UR PRESENT /HPF; BACTERIA,URINE FEW /HPF (0-FEW)
[2020-06-12 14:54] LABS: CALCIUM 8.5 mg/dL (8.5-10.1); CREATININE 0.9 mg/dL (0.7-1.3); GFR 81.8; POTASSIUM 4.3 mmol/L (3.5-5.1)
[2020-06-12 15:00] LABS: ALBUMIN/GLOBULIN RATIO 0.8 (1.0-1.7); TOTAL BILIRUBIN 0.5 mg/dL (0.2-1.0)
[2020-06-12] MEDS ORDERED: CEPH750C9 PO (15:23)
[2020-06-12 16:20] VITALS: BP 154/81
== END 2020-06-12 16:54 | disposition home or self-care (01) ==
LOC: ER 13:35
DX: N39.0 Urinary tract infection, site not specified (principal); I10 Essential (primary) hypertension; Z86.73 Personal history of transient ischemic attack (TIA), and cerebral infarction without residual deficits; Z88.8 Allergy status to other drugs, medicaments and biological substances
CPT/HCPCS: 36415; 71045; 80053; 81001; 83690; 83880; 84484; 85025; 87086; 99285-25

== ENCOUNTER → 2020-07-20 | Outpatient (CLI) | payer OTHER, MEDICAID ==
[~2020-07-20] MED LIST changes: +CEPH750C9 PO
--- NOTE | 2020-07-20 10:58 | RAD ---
CT THORAX WO INDICATION: MULTIPLE SMALL LUNG NODULES, SMOKER COMPARISON STUDY: 02/11/2019. TECHNIQUE: Unenhanced axial images were obtained through the lungs and upper abdomen. Coronal and sa gittal multiplanar reconstructions were also obtained. PQRS compliance statement: One or more of the following individualized dose reduction techniques were utilized for this examinat ion: 1. Automated exposure control 2. Adjustment of the mA and/or kV according to patient size 3. Use of iterative reconstruction technique FINDINGS: Lungs and Airways: No pulmonary mass or consolidation. Several small pulmonary nodules which remain s table with financial sales representative nodules as follows: Stable right lower lobe 5 mm subpleural nodule (series 3 image 182), stable left lower lobe 5 mm nodule (image 256), and stable middle lobe 4 mm nodule (harinder ge 214). Centrilobular emphysema. Normal central airways. Pleura: The pleural spaces are normal. Heart and Mediastinum: The visualized thyroid gland is normal in size and attenuation. No axillary or supraclavicular lymphadenopathy. No mediastinal, hilar or retrocrural lymphadenopathy. Calcified med iastinal lymph nodes consistent with remote granulomatous disease. Normal cardiac size. No pericardia l effusion. Coronary artery calcifications. The great vessels of the thorax are normal. Abdomen: Right adrenal atrophy. Bones and Soft Tissues: The visualized skeletal structures and soft tissues of the chest wall are wit hin normal limits. IMPRESSION: 1. Small bilateral pulmonary nodules demonstrate greater than 1 year stability and are likely benign. 2. No pulmonary mass or thoracic lymphadenopathy. Electronically signed by: Rusty Lee MD (07/20/2020 10:55 AM) [id number]
== END ==
LOC: CT 09:06
PROVIDERS: ATTEND Internal Medicine Pulmonary Disease
DX: R91.8 Other nonspecific abnormal finding of lung field (principal); F17.200 Nicotine dependence, unspecified, uncomplicated
CPT/HCPCS: 71250

== ENCOUNTER → 2020-07-21 | Outpatient (CLI) | payer OTHER, MEDICAID ==
[~2020-07-21] MED LIST changes: +ZOLPIDEM 5 MG TABLET. PO ONE
--- NOTE | 2020-07-22 08:15 | SLEEP ---
DATE OF STUDY: 07/21/2020 SLEEP STUDY REFERRING PHYSICIAN: Carlton Villanueva MD The patient is a 75-year-old who weighs 185 pounds with a BMI of 26. The patient's Sedgwick score was 10. The patient underwent a split night study performed at [facility]. During the night in study, the patient spent 454 minutes in bed and slept for 334 minutes with a sleep efficiency of 74%. Sleep latency was 7 minutes with a REM latency of 128 minutes. Sleep architecture showed increased stage I sleep, normal stage II sleep, normal N3 sleep and increased REM sleep which was 32% of total sleep time. During the initial diagnostic portion of the study, the patient slept for 69 minutes. During that time, there were 22 obstructive apneas, 1 mixed apnea, 25 central apneas, and 69 hypopneas. The patient's AHI during the diagnostic portion was 102 per hour. Supine AHI was also 102 per hour. The patient did not have REM sleep during the diagnostic portion. Nocturnal oximetry study revealed an average oxygen saturation was 87% with a lowest of 64%. A 67% of the time oxygen saturation remained between 80% and 89%. EKG monitoring revealed no sustained arrhythmias. PLMs were seen at an index of 36 per hour, but none caused EEG arousals. The patient met the criteria for CPAP initiation. It was started at 5 cm water and titrated up to 20 cm of water. The patient was then briefly switched to BiPAP at a pressure of 20/16. Best results were seen at a CPAP pressure of 18 cm of water. At that pressure, the patient slept for 102 minutes. The patient had lateral REM sleep. The patient's AHI was reduced to 4.1 per hour. The patient's oxygen saturations remained above 88% with few saturations in the mid to low 80s. IMPRESSION: 1. Severe obstructive sleep apnea at an AHI of 102 per hour. 2. Moderate periodic limb movements without any significant EEG arousals. 3. Nocturnal hypoxia secondary to obstructive sleep apnea, but not completely resolved on the final CPAP pressure. RECOMMENDATIONS: 1. CPAP at 18 cm of water completely eliminated the patient's sleep apnea and should be used on a nightly basis. 2. The patient should have a full night nocturnal oximetry study at this pressure to assess the need for supplemental oxygen. 3. Avoid BRICK SORTER depressants. 4. Cautioned regarding driving until symptoms of sleep apnea resolve with the use of CPAP. 5. PLMs do not need to be treated unless the patient has symptoms of restless legs during the day. PETRA DR: Ayde TID: [id number] CC: CARLTON VILLANUEVA MD
== END ==
LOC: SLPLAB 19:42
PROVIDERS: ATTEND Internal Medicine Pulmonary Disease
DX: G47.33 Obstructive sleep apnea (adult) (pediatric) (principal); G47.34 Idiopathic sleep related nonobstructive alveolar hypoventilation; G47.61 Periodic limb movement disorder; R06.83 Snoring
CPT/HCPCS: 95810

== ENCOUNTER 2021-01-27 12:56 | Emergency (ER) | payer OTHER, MEDICAID ==
[~2021-01-27] VITALS: Ht 180.3 cm; Wt 77.2 kg
[~2021-01-27 12:56] MED LIST changes: +CYCL10TA19 PO; +DOXY100T PO; +OXYC1TAB15 PO; -ZOLPIDEM 5 MG TABLET. PO ONE
[2021-01-27] MEDS ORDERED: tiZANidine 4 MG TABLET. PO PRN (13:15)
--- NOTE | 2021-01-27 13:31 | PHYS DOC ---
Past Medical History Past Medical History: CVA, Hypertension, Other Additional Past Medical Histor: RLS,URINARY RETENTION Past Surgical History: Other Additional Past Surgical Histo: cleft palate repair, R HIP SURGERY Smoking Status: Former Smoker Alcohol Use: Rarely Drug Use: Marijuana General Adult EDM: Chief Complaint: LOWER EXT PAIN HPI: HPI: Patient is a 75 year old male with history of stroke with right-sided deficits, autonomic dysfunction, leg swelling who presents with 1 week of a severe right leg spasm with contracture. States that he has had his leg locked in a flexed position of the hip and the knee. Complains of pain behind his hamstrings especially with attempted range of motion. This is happened before, but has not been this intense or lasted this long. Has been on cyclobenzaprine and baclofen. Is seen in Dr. Diaz's (neurologist) office by an ENGINE DISPATCHER. Denies any other issues aside from leg cramping/contracture. Review of Systems: Review of Systems: Constitutional: Denies fever or chills. [] Eyes: Denies change in visual acuity. [] HENT: Denies nasal congestion or sore throat. [] Respiratory: Denies cough or shortness of breath. [] Cardiovascular: Denies chest pain or edema. [] GI: Denies abdominal pain, nausea, vomiting, bloody stools or diarrhea. [] : Denies dysuria. [] Musculoskeletal: Reports right leg cramping/contracture Integument: Denies rash. [] Neurologic: Denies headache, focal weakness or sensory changes. [] Endocrine: Denies polyuria or polydipsia. [] Lymphatic: Denies swollen glands. [] Psychiatric: Denies depression or anxiety. [] Heart Score: C/O Chest Pain: No Current Medications: Current Medications Medications (Trade) Dose Ordered Sig/John Start Time Stop Time Status Last Admin Dose Admin Tizanidine HCl (Zanaflex) 2 mg 1X PRN 01/27/21 13:15 Allergies: Allergies: Allergies Coded Allergies Type Severity Reaction Last Updated Verified Iodinated Contrast Media Allergy Intermediate unknown 01/03/21 Yes iodine Allergy Intermediate 06/29/16 Yes Physical Exam: PE: Constitutional: Well developed, well nourished, no acute distress, non-toxic appearance. [] HENT: Normocephalic, atraumatic, bilateral external ears normal, oropharynx moist, no oral exudates, nose normal. [] Eyes: PERRLA, EOMI, conjunctiva normal, no discharge. [] Neck: Normal range of motion, no tenderness, supple, no stridor. [] Cardiovascular:Heart rate regular rhythm, no murmur [] Lungs & Thorax: Bilateral breath sounds clear to auscultation [] Abdomen: Bowel sounds normal, soft, no tenderness, no masses, no pulsatile masses. [] Skin: Warm, dry, no erythema, no rash. [] Back: No tenderness, no CVA tenderness. [] Extremities: Right lower extremity flexed at the hip and knee held in a constant position. Cannot passively range the hip or the knee. When attempted passive range of motion you can feel hamstrings and hip flexors are engaged. Does have some pain/tenderness in those muscle groups when they meet resistance. Dors iflex/plantar flexion of the ankle is intact. Can move toes freely. Neurologic: Alert and oriented X 3, normal motor function. See extremity exam for right lower extremity neuro exam. Remainder of neuro exam is grossly intact. Psychologic: Affect normal, judgement normal, mood normal. [] EKG: EKG: [] Radiology/Procedures: Radiology/Procedures: [] Course & Med Decision Making: Course & Med Decision Making Pertinent Labs and Imaging studies reviewed. (See chart for details) Patient is 75-year-old male with history of CVA with right-sided deficits, muscle spasms who presents with 1 week of severe muscle spasm with contracture. Exam shows a right lower extremity held in flexion at both the hip and the knee consistent with hip flexor and hamstring spasm. We will check electrolytes to ensure no metabolic component. Discussed with Dr. Diaz of neurology, who recommends starting tizanidine in addition to his baclofen and cyclobenzaprine. 1331 Calcium, mag, potassium ok. Will plan on discharge with trial of tizanidine and instruction to f/u with Dr. Diaz's office. [id number] Jame Disclaimer: Jame Disclaimer: This electronic medical record was generated, in whole or in part, using a voice recognition dictation system. Departure Departure Impression: Primary Impression: Muscle spasm Disposition: HOME / SELF CARE / HOMELESS Condition: STABLE Referrals: CARLEY CLEVELAND MD (PCP) ABHISHEK DIAZ MD Schedule a follow-up appointment to discuss your ongoing treatment for muscle spasms. Additional Instructions: I believe this is all due to muscle spasms related to previous stroke. We talked with Dr. Diaz who recommended adding a new medication called tizanidine 2 milligrams twice a day. This can be increased if it is tolerated so please follow-up with Dr. Diaz's office to discuss ongoing care. JAY GARNER MD Jan 27, 2021 13:31
[2021-01-27 14:45] LABS: CALCIUM 8.5 mg/dL (8.5-10.1); CREATININE 0.8 mg/dL (0.7-1.3); GFR 93.7; MAGNESIUM 2.2 mg/dL (1.8-2.4)
[2021-01-27 15:15] VITALS: BP 150/68
== END 2021-01-27 16:34 | disposition home or self-care (01) ==
LOC: ER 12:56
DX: R25.2 Cramp and spasm (principal); I10 Essential (primary) hypertension; Z86.73 Personal history of transient ischemic attack (TIA), and cerebral infarction without residual deficits; Z87.891 Personal history of nicotine dependence; Z91.041 Radiographic dye allergy status; Z88.8 Allergy status to other drugs, medicaments and biological substances
CPT/HCPCS: 36415; 80048; 83735; 99284

== ENCOUNTER 2021-06-01 13:27 | Inpatient (IN) | payer OTHER, MEDICAID ==
[~2021-06-01] VITALS: Ht 177.8 cm; Wt 64.8 kg
[~2021-06-01 13:27] MED LIST changes: +FEXO-213 PO; -FEXO180T16 PO
--- NOTE | 2021-06-01 13:55 | ED.ADGEN ---
Past Medical History Past Medical History: CVA, Hypertension, Other Additional Past Medical Histor: RLS,URINARY RETENTION Past Surgical History: Other Additional Past Surgical Histo: cleft palate repair, R HIP SURGERY Smoking Status: Former Smoker Alcohol Use: Sober Additional Information: REPORT PREVIOUS HEAVY ETOH USE. QUIT "YEARS AGO" Drug Use: Marijuana Social History Narrative: PT REPORTS THAT HE USED TO USE "EVERYTHING" BUT HAS BEEN SOBER FOR "YEARS" General Adult EDM: Chief Complaint: ALTERED MENTAL STATUS HPI: HPI: Patient is a 76-year-old male who arrives via EMS after an abrupt change in his mental status. Patient is a jail resident as well as DNR and normally is awake and alert to his surroundings. Patient had an abrupt change at roughly around noon today where he was identified as having sonorous respirations and being minimally responsive. Paramedics were contacted and the patient was transported to the emergency department where he is awake and does demonstrate sonorous respirations however when prompted he is able to verbally answer questions appropriately. He denies any pain other than some extremity pain associated with a cramp. The patient states he has not otherwise been ill and is resting comfortably at this time. He is awake, alert and debilitated in his appearance. Review of Systems: Review of Systems: Constitutional: Denies fever or chills. [] Eyes: Denies change in visual acuity. [] HENT: Denies nasal congestion or sore throat. [] Respiratory: Denies cough or shortness of breath. [] Cardiovascular: Denies chest pain or edema. [] GI: Denies abdominal pain, nausea, vomiting, bloody stools or diarrhea. [] : Denies dysuria. [] Musculoskeletal: Reports extremity pain. Denies back pain or joint pain. [] Integument: Denies rash. [] Neurologic: Denies headache, focal weakness or sensory changes. [] Endocrine: Denies polyuria or polydipsia. [] Lymphatic: Denies swollen glands. [] Psychiatric: Denies depression or anxiety. [] Current Medications: Current Medications Medications (Trade) Dose Ordered Sig/John Start Time Stop Time Status Last Admin Dose Admin Acetaminophen (Tylenol) 650 mg PRN Q6HRS PRN 06/01/21 17:00 Acetaminophen/ Hydrocodone Bitart (Lortab 5/325) 2 tab PRN Q4HRS PRN 06/01/21 17:00 Al Hydroxide/Mg Hydroxide (Mylanta Plus Xs) 30 ml PRN Q3HRS PRN 06/01/21 17:00 Calcium Carbonate/ Glycine (Tums) 500 mg PRN Q3HRS PRN 06/01/21 17:00 Ceftriaxone Sodium (Rocephin) 1 gm 1X ONCE 06/01/21 17:30 06/01/21 17:31 DC Heparin Sodium (Porcine) (Heparin Sodium) 5,000 unit Q12HR 06/01/21 21:00 Magnesium Hydroxide (Milk Of Magnesia) 2,400 mg PRN Q12HR PRN 06/01/21 17:00 Ondansetron HCl (Zofran) 4 mg PRN Q6HRS PRN 06/01/21 17:00 Oxycodone/ Acetaminophen (Percocet 5/325) 2 tab PRN Q4HRS PRN 06/01/21 17:00 Sodium Chloride 1,000 ml @ 1,000 mls/hr 1X ONCE 06/01/21 15:15 06/01/21 16:14 DC 06/01/21 15:30 1,000 MLS/HR Vancomycin HCl (Vanco Per Pharmacy) 1 each PRN DAILY PRN 06/01/21 17:15 UNV Vancomycin HCl 1.75 gm/Sodium Chloride 500 ml @ 250 mls/hr 1X ONCE 06/01/21 17:30 06/01/21 19:29 06/01/21 17:24 250 MLS/HR Zolpidem Tartrate (Ambien) 5 mg PRN QHS PRN 06/01/21 17:00 Allergies: Allergies: Allergies Coded Allergies Type Severity Reaction Last Updated Verified Iodinated Contrast Media Allergy Intermediate unknown 01/03/21 Yes iodine Allergy Intermediate 06/29/16 Yes Physical Exam: PE: Constitutional: Patient does appear frail and debilitated. well nourished, non- toxic appearance. [] HENT: Normocephalic, atraumatic, bilateral external ears normal, oropharynx moist, no oral exudates, nose normal. [] Eyes: PERRLA, EOMI, conjunctiva normal, no discharge. [] Neck: Normal range of motion, no tenderness, supple, no stridor. [] Cardiovascular:Heart rate regular rhythm, no murmur [] Lungs & Thorax: Bilateral breath sounds clear to auscultation [] Abdomen: Bowel sounds normal, soft, no tenderness, no masses, no pulsatile masses. [] Skin: Warm, dry, no erythema, no rash. [] Back: No tenderness, no CVA tenderness. [] Extremities: Patient has a contracture of the right lower extremity. No tenderness, no cyanosis, no clubbing, ROM intact, no edema. [] Neurologic: Alert and oriented X 3, normal motor function, normal sensory function, no focal deficits noted. [] Psychologic: Affect normal, judgement normal, mood normal. [] Current Patient Data: Labs: Laboratory Tests Test 06/01/21 14:38 06/01/21 16:10 White Blood Count 25.0 x10^3/uL (4.0-11.0) H Red Blood Count 4.35 x10^6/uL (4.30-5.70) Hemoglobin 11.5 g/dL (13.0-17.5) L Hematocrit 35.5 % (39.0-53.0) L Mean Corpuscular Volume 82 fL (79-100) Mean Corpuscular Hemoglobin 26 pg (25-35) Mean Corpuscular Hemoglobin Concent 32 g/dL (31-37) Red Cell Distribution Width 17.4 % (11.5-14.5) H Platelet Count 329 x10^3/uL (140-400) Neutrophils (%) (Auto) 85 % (31-73) H Lymphocytes (%) (Auto) 8 % (24-48) L Monocytes (%) (Auto) 7 % (0-9) Eosinophils (%) (Auto) 0 % (0-3) Basophils (%) (Auto) 1 % (0-3) Neutrophils # (Auto) 21.2 x10^3/uL (1.8-7.7) H Lymphocytes # (Auto) 1.9 x10^3/uL (1.0-4.8) Monocytes # (Auto) 1.8 x10^3/uL (0.0-1.1) H Eosinophils # (Auto) 0.0 x10^3/uL (0.0-0.7) Basophils # (Auto) 0.2 x10^3/uL (0.0-0.2) Segmented Neutrophils % 52 % (35-66) Band Neutrophils % 25 % (0-9) H Lymphocytes % 10 % (24-48) L Monocytes % 13 % (0-10) H Platelet Estimate Adequate (ADEQUATE) Ovalocytes Occ Najma Cells Present Sodium Level 136 mmol/L (136-145) Potassium Level 4.3 mmol/L (3.5-5.1) Chloride Level 100 mmol/L (98-107) Carbon Dioxide Level 30 mmol/L (21-32) Anion Gap 6 (6-14) Blood Urea Nitrogen 19 mg/dL (8-26) Creatinine 1.0 mg/dL (0.7-1.3) Estimated GFR (Cockcroft-Gault) 72.3 BUN/Creatinine Ratio 19 (6-20) Glucose Level 141 mg/dL (70-99) H Calcium Level 9.1 mg/dL (8.5-10.1) Total Bilirubin 0.8 mg/dL (0.2-1.0) Aspartate Amino Transferase (AST) 11 U/L (15-37) L Alanine Aminotransferase (ALT) 11 U/L (16-63) L Alkaline Phosphatase 73 U/L (46-116) Creatine Kinase 22 U/L (39-308) L Creatine Kinase MB (Mass) < 0.5 ng/mL (0.0-3.6) Creatine Kinase MB Relative Index % (0-4) Troponin I High Sensitivity 7 ng/L (4-75) QJ-Ggo-P-Type Natriuretic Peptide 1959 pg/mL (0-449) H Total Protein 6.8 g/dL (6.4-8.2) Albumin 2.4 g/dL (3.4-5.0) L Albumin/Globulin Ratio 0.5 (1.0-1.7) L Lactic Acid Level 2.0 mmol/L (0.4-2.0) Laboratory Tests 06/01/21 14:38 Laboratory Tests 06/01/21 14:38 Vital Signs: Vital Signs Date Time Temp Pulse Resp B/P (MAP) Pulse Ox O2 Delivery O2 Flow Rate FiO2 06/01/21 17:07 20 06/01/21 15:00 72 117/59 (78) 94 NonRebreather Mask 10.0 06/01/21 13:27 98.8 98.8 EKG: EKG: EKG was obtained at 1328 hrs. reveals a normal sinus rhythm with a ventricular rate of 67 bpm. There is a left ventricular fascicular block with otherwise normal intervals. There are no acute ST/T wave changes to denote acute ischemia. There is no STEMI present. [] Heart Score: C/O Chest Pain: No Risk Factors: Risk Factors: DM, Current or recent (<one month) smoker, HTN, HLP, family history of CAD, obesity. Risk Scores: Score 0 - 3: 2.5% MACE over next 6 weeks - Discharge Home Score 4 - 6: 20.3% MACE over next 6 weeks - Admit for Clinical Observation Score 7 - 10: 72.7% MACE over next 6 weeks - Early Invasive Strategies Radiology/Procedures: Radiology/Procedures: [[facility] [id number] [place] [address] IMAGING REPORT Signed PATIENT: OBI CANELA ACCOUNT: [id number] : 1945 LOCATION: ER AGE: 76 SEX: M EXAM STATUS: PRE ER ORD. PHYSICIAN: FLAVIA SOSA DO REASON: Respiratory distress PROCEDURE: PORTABLE CHEST 1V XR CHEST 1V History: Reason: Respiratory distress / Spl. Instructions: / History: Comparison: June 12, 2020 Findings: Elevation the right hemidiaphragm with adjacent atelectasis. Low lung volumes. Mild diffuse reticular interstitial thickening. Left costophrenic angle not included in the image. No definite pleural effusion. No pneumothorax. Unchanged heart size. Impression: 1. Elevation the right hemidiaphragm with adjacent atelectasis. 2. Mild diffuse reticular interstitial thickening, may relate to chronic interstitial changes. Electronically signed by: Wilmer Gruber DO (06/01/2021 2:06 PM) [id number] DICTATED and SIGNED BY: WILMER GRUBER DO DATE: 06/01/21 1404 ][facility] [address] [place] [address] IMAGING REPORT Signed PATIENT: OBI CANELA ACCOUNT: [id number] : 1945 LOCATION: ER AGE: 76 SEX: M EXAM STATUS: REG ER ORD. PHYSICIAN: FLAVIA SOSA DO REASON: Altered mental status PROCEDURE: CT HEAD WO CONTRAST CT HEAD WITHOUT CONTRAST 06/01/2021 1:54 PM Indication: Altered mental status Comparison: CT head without contrast the 2020 Procedure: Multidetector CT imaging of the head was performed without the administration of contrast. Findings: Redemonstration of encephalomalacia involving the bilateral occipital lobes and bilateral cerebellum. No evidence of acute intracranial hemorrhage is identified.. Low density regions along the left lateral ventricle are similar. No evidence of subacute territorial infarct is identified. No mass effect or midline shift is seen. The basilar cisterns and ventricles have a similar configuration. Motion artifact limits evaluation of osseous structures of the face. Anterior maxillary /nasal deformity again noted, consistent with a cleft palate. No definitive acute osseous abnormality is seen. IMPRESSION: 1. No evidence of acute intracranial abnormality is identified 2. Encephalomalacia involving the bilateral occipital lobes and bilateral cerebellum is similar to comparison study CT DOSING PQRS STATEMENT: One or more of the following individualized dose reduction techniques were utilized for this examination: 1. Automated exposure control 2. Adjustment of the mA and/or kV according to patient size 3. Use of iterative reconstruction technique Electronically signed by: Sarthak Salinas MD (06/01/2021 2:46 PM) [id number] DICTATED and SIGNED BY: SARTHAK SALINAS MD DATE: 06/01/21 1437 Course & Med Decision Making: Course & Med Decision Making Pertinent Labs and Imaging studies reviewed. (See chart for details) The patient is awake and becoming more more clear with respect to his presentation. Patient continues to answer questions appropriately however he does seem to be more awake. Additionally the patient's blood pressure is improved which is likely related to IV fluids. Chemistries are still pending however the patient CBC was returned and shows a leukocytosis. I do believe this may be related to a decubitus/stasis ulcer of his right foot which is attached to the chronic contracture that is his right lower extremity. Patient is chest x-ray does not show any acute disease and he is without rash or lesion elsewhere. Urine is still pending however the patient denies any changes to his habits. He has been interviewed by Dr. Alonso and will be admitted for ongoing medical management. He is nontoxic-appearing and resting comfortably now. He is awaiting transport to the floor. [] Michaelaon Disclaimer: Dragleti Disclaimer: This electronic medical record was generated, in whole or in part, using a voice recognition dictation system. Departure Departure Impression: Primary Impression: Altered mental status Additional Impressions: Decubitus ulcer of right foot Severe sepsis DNR (do not resuscitate) Disposition: ADMITTED INPATIENT Admitting Physician: SEBAS Condition: IMPROVED Referrals: CARLEY CLEVELAND MD (PCP) Critical Care Time Critical care time was 30 minutes exclusive of procedures. Problem Qualifiers FLAVIA SOSA DO Jun 01, 2021 13:55
--- NOTE | 2021-06-01 14:08 | RAD ---
XR CHEST 1V History: Reason: Respiratory distress / Spl. Instructions: / History: Comparison: June 12, 2020 Findings: Elevation the right hemidiaphragm with adjacent atelectasis. Low lung volumes. Mild diffuse reticular interstitial thickening. Left costophrenic angle not included in the image. No definite pleural effu sergio. No pneumothorax. Unchanged heart size. Impression: 1. Elevation the right hemidiaphragm with adjacent atelectasis. 2. Mild diffuse reticular interstitial thickening, may relate to chronic interstitial changes. Electronically signed by: Wilmer Gruber DO (06/01/2021 2:06 PM) [id number]
[2021-06-01 14:48] LABS: BASO # 0.2 x10^3/uL (0.0-0.2); BASO % 1 % (0-3); EOS % 0 % (0-3); HEMATOCRIT 35.5 % (39.0-53.0); HEMOGLOBIN 11.5 g/dL (13.0-17.5); LYMPH # 1.9 x10^3/uL (1.0-4.8); LYMPH % 8 % (24-48); MEAN CORPUSCULAR HEMOGLOBIN 26 pg (25-35); MEAN CORPUSCULAR HGB CONC 32 g/dL (31-37); MEAN CORPUSCULAR VOLUME 82 fL (79-100); MONO # 1.8 x10^3/uL (0.0-1.1); MONO % 7 % (0-9); NEUT # 21.2 x10^3/uL (1.8-7.7); NEUT % 85 % (31-73); PLATELET COUNT 329 x10^3/uL (140-400); RED BLOOD COUNT 4.35 x10^6/uL (4.30-5.70); RED CELL DISTRIBUTION WIDTH 17.4 % (11.5-14.5)
--- NOTE | 2021-06-01 14:48 | RAD ---
CT HEAD WITHOUT CONTRAST 06/01/2021 1:54 PM Indication: Altered mental status Comparison: CT head without contrast the 2020 Procedure: Multidetector CT imaging of the head was performed without the administration of contrast. Findings: Redemonstration of encephalomalacia involving the bilateral occipital lobes and bilateral c erebellum. No evidence of acute intracranial hemorrhage is identified.. Low density regions along the left lateral ventricle are similar. No evidence of subacute territorial infarct is identified. No ma ss effect or midline shift is seen. The basilar cisterns and ventricles have a similar configuration. Motion artifact limits evaluation of osseous structures of the face. Anterior maxillary /nasal defor mity again noted, consistent with a cleft palate. No definitive acute osseous abnormality is seen. IMPRESSION: 1. No evidence of acute intracranial abnormality is identified 2. Encephalomalacia involving the bilateral occipital lobes and bilateral cerebellum is similar to co mparison study CT DOSING PQRS STATEMENT: One or more of the following individualized dose reduction techniques were utilized for this examinat ion: 1. Automated exposure control 2. Adjustment of the mA and/or kV according to patient size 3. Use of iterative reconstruction technique Electronically signed by: Sarthak Salinas MD (06/01/2021 2:46 PM) [id number]
[2021-06-01 15:12] LABS: CALCIUM 9.1 mg/dL (8.5-10.1); GFR 72.3; POTASSIUM 4.3 mmol/L (3.5-5.1)
[2021-06-01] MEDS ORDERED: IV NORMAL SALINE 1000ML BAG 1,000 ML IV ONE (15:15)
[2021-06-01 15:17] LABS: ALBUMIN 2.4 g/dL (3.4-5.0); ALBUMIN/GLOBULIN RATIO 0.5 (1.0-1.7); TOTAL BILIRUBIN 0.8 mg/dL (0.2-1.0); TOTAL PROTEIN 6.8 g/dL (6.4-8.2)
[2021-06-01 15:30] LABS: CREATINE KINASE 22 U/L (39-308)
[2021-06-01] MEDS ORDERED: cefTRIAXone IV Push 1 GM VIAL. IVP ONE ×2 (15:30→17:30)
[2021-06-01 15:54] LABS: % BANDS 25 % (0-9); % LYMPHS 10 % (24-48); % MONOS 13 % (0-10); % SEGS 52 % (35-66); BURR CELLS PRESENT; OVALOCYTES OCC; PLT ESTIMATE ADEQUATE (ADEQUATE)
--- NOTE | 2021-06-01 16:30 | RAD ---
Exam: XR FOOT_RIGHT 2 VIEWS History: Pressure ulcer. Comparison: None. Findings: Decreased osseous mineralization. No acute fracture or dislocation. Mild degenerative changes at the interphalangeal and metatarsophalangeal joints. No aggressive osseous erosive process. No radiopaque foreign body. No subcutaneous emphysema. No focal soft tissue swelling. Impression: 1. Decreased osseous mineralization without acute osseous abnormality in the right foot. Electronically signed by: Abundio Shin MD (06/01/2021 4:28 PM) [id number]
--- NOTE | 2021-06-01 16:52 | PDOC1 ---
History and Physical Date of Admission Date of Admission DATE: 06/01/21 TIME: 16:35 Identification/Chief Complaint Chief Complaint AMS Source Source: Caregiver, Chart review, Patient History of Present Illness History of Present Illness Patient is an 76-year-old male with past medical history CVA, HTN, HLD, and chronic contractures to right lower extremity, who [facility] due to concerns for altered mental status. Per patient's daughter (DPOA), he had a sudden change in mental status today he became minimally responsive and hypoxic. Upon EMS arrival he was placed on nonrebreather due to oxygen saturations in the low 80s. Upon arrival to the ED he was more alert and conversive, appropriately answering questions. Patient's daughter states that he has had a contracted right lower extremity since January secondary to a stroke. He was supposed to see a pain management doctor in the upcoming days. Upon my evaluation in the ED, he does have a pressure ulcer to his right medial heel that is been addressed at his [facility]. Patient has not been able to offload his right foot due to his contracture. Labs in the ER showed WBC 25.0, hemoglobin 11.5, hematocrit 35.4, CBG 141, albumin 2.4, proBNP 1959. Right foot x-ray showed decreased osseous mineralization without acute osseous abnormality in the right foot. Patient will be admitted for further medical management. Past Medical History Cardiovascular: HTN, Hyperlipidemia CENTRAL NERVOUS SYSTEM: CVA Endocrine: Other Past Surgical History Past Surgical History Right hip surgery Family History Family History: Diabetes, Hypertension, Stroke Social History Smoke: Quit ALCOHOL: none Drugs: None Current Medications Current Medications Current Medications Sodium Chloride 1,000 ml @ 1,000 mls/hr 1X ONCE IV Last administered on 06/01/21at 15:30; Start 06/01/21 at 15:15; Stop 06/01/21 at 16:14; Status DC Ceftriaxone Sodium (Rocephin) 1 gm 1X ONCE IVP Last administered on 06/01/21at 15:30; Start 06/01/21 at 15:30; Stop 06/01/21 at 15:31; Status DC Active Scripts Active Percocet 5-325 Mg Tablet (Oxycodone/Acetaminophen) 1 Each Tablet 1 Tab PO PRN Q4HRS PRN 7 Days Cyclobenzaprine Hcl 10 Mg Tablet 10 Mg PO PRN Q6HRS PRN 30 Days Doxycycline Hyclate 100 Mg Tablet 100 Mg PO BID 10 Days Metamucil Fiber Singles Packet (Psyllium Husk/Aspartame) 3.4 Gm Powd.pack 1 Pkt PO QHS 30 Days Baclofen 10 Mg Tablet 1 Tab PO PRN TID PRN 30 Days Reported Duoneb 0.5-3(2.5) Mg/3 Ml (Albuterol/Ipratropium) 3 Ml Ampul.neb 3 Ml NEB QID PRN Acetaminophen 500 Mg Tablet 1 Tab PO Q6HRS PRN Senokot-S Tablet (Sennosides/Docusate Sodium) 1 Each Tablet 2 Tab PO BID Tamsulosin Hcl 0.4 Mg Cap.er.24h 1 Cap PO HS Requip (Ropinirole Hcl) 0.5 Mg Tablet 1 Tab PO QHS Miralax (Polyethylene Glycol 3350) 17 Gm Powd.pack 1 Packet PO QMWF Fexofenadine Hcl 180 Mg Tablet 1 Tab PO DAILY Docusate Sodium 100 Mg Capsule 1 Cap PO DAILY Clopidogrel (Clopidogrel Bisulfate) 75 Mg Tablet 1 Tab PO DAILY Aspirin 325 Mg Tablet 1 Tab PO DAILY Atorvastatin Calcium 10 Mg Tablet 0.5 Tab PO DAILY Vitamin B-12 (Cyanocobalamin (Vitamin B-12)) 1,000 Mcg Tablet 1 Tab PO DAILY Metformin Hcl 500 Mg Tablet 1 Tab PO BID Fluoxetine Hcl 20 Mg Tablet 1 Tab PO DAILY Amlodipine Besylate 10 Mg Tablet 5 Mg PO DAILY Allergies Allergies: Coded Allergies: Iodinated Contrast Media (Verified Allergy, Intermediate, unknown, 01/03/21) iodine (Verified Allergy, Intermediate, 06/29/16) ROS Review of System GENERAL: No history of weight change, weakness or fevers. SKIN: No bruising, hair changes or rashes. EYES: No blurred, double or loss of vision. NOSE AND THROAT: No history of nosebleeds, hoarseness or sore throat. HEART: Denies chest pain, denies palpitations. LUNGS: Denies cough, hemoptysis, wheezing or shortness of breath. GASTROINTESTINAL: Denies nausea, vomiting, abdominal pain. GENITOURINARY: Denies dysuria, frequency, urgency, hematuria. NEUROLOGIC: Denies history of numbness, tingling, tremor or weakness. PSYCHIATRIC: Denies anxiety, denies depression. ENDOCRINE: No history of heat or cold intolerance, polyuria or polydipsia. EXTREMITIES: Right leg pain and right foot pain Physical Exam Physical Exam General: Alert, Oriented X, Cooperative, No acute distress HEENT: PERRLA, EOMI Lungs: Bibasilar Rales, expiratory wheezing Heart: RRR, no murmurs Cardiovascular: S1, S2 Abdomen: Normal bowel sounds, Soft, No tenderness Extremities: Right lower extremity contracted Skin: Right medial foot with 3 x 3 cm area of skin breakdown which probes to hard mass that feels like bone. Actively bleeding from pressure ulcer. Neuro: Normal speech, Normal tone, Sensation intact Psych/Mental Status: Mental status NL, Mood NL Vitals Vitals Vital Signs Date Time Temp Pulse Resp B/P (MAP) Pulse Ox O2 Delivery O2 Flow Rate FiO2 06/01/21 15:00 72 18 117/59 (78) 94 NonRebreather Mask 10.0 06/01/21 13:27 98.8 98.8 Labs Labs Laboratory Tests Test 06/01/21 14:38 White Blood Count 25.0 x10^3/uL (4.0-11.0) Red Blood Count 4.35 x10^6/uL (4.30-5.70) Hemoglobin 11.5 g/dL (13.0-17.5) Hematocrit 35.5 % (39.0-53.0) Mean Corpuscular Volume 82 fL (79-100) Mean Corpuscular Hemoglobin 26 pg (25-35) Mean Corpuscular Hemoglobin Concent 32 g/dL (31-37) Red Cell Distribution Width 17.4 % (11.5-14.5) Platelet Count 329 x10^3/uL (140-400) Neutrophils (%) (Auto) 85 % (31-73) Lymphocytes (%) (Auto) 8 % (24-48) Monocytes (%) (Auto) 7 % (0-9) Eosinophils (%) (Auto) 0 % (0-3) Basophils (%) (Auto) 1 % (0-3) Neutrophils # (Auto) 21.2 x10^3/uL (1.8-7.7) Lymphocytes # (Auto) 1.9 x10^3/uL (1.0-4.8) Monocytes # (Auto) 1.8 x10^3/uL (0.0-1.1) Eosinophils # (Auto) 0.0 x10^3/uL (0.0-0.7) Basophils # (Auto) 0.2 x10^3/uL (0.0-0.2) Segmented Neutrophils % 52 % (35-66) Band Neutrophils % 25 % (0-9) Lymphocytes % 10 % (24-48) Monocytes % 13 % (0-10) Platelet Estimate Adequate (ADEQUATE) Ovalocytes Occ [place] Cells Present Sodium Level 136 mmol/L (136-145) Potassium Level 4.3 mmol/L (3.5-5.1) Chloride Level 100 mmol/L (98-107) Carbon Dioxide Level 30 mmol/L (21-32) Anion Gap 6 (6-14) Blood Urea Nitrogen 19 mg/dL (8-26) Creatinine 1.0 mg/dL (0.7-1.3) Estimated GFR (Cockcroft-Gault) 72.3 BUN/Creatinine Ratio 19 (6-20) Glucose Level 141 mg/dL (70-99) Calcium Level 9.1 mg/dL (8.5-10.1) Total Bilirubin 0.8 mg/dL (0.2-1.0) Aspartate Amino Transf (AST/SGOT) 11 U/L (15-37) Alkaline Phosphatase 73 U/L (46-116) Creatine Kinase 22 U/L (39-308) Creatine Kinase MB (Mass) < 0.5 ng/mL (0.0-3.6) Creatine Kinase MB Relative Index % (0-4) Troponin I High Sensitivity 7 ng/L (4-75) PL-Eic-R-Type Natriuretic Peptide 1959 pg/mL (0-449) Total Protein 6.8 g/dL (6.4-8.2) Albumin 2.4 g/dL (3.4-5.0) Albumin/Globulin Ratio 0.5 (1.0-1.7) Laboratory Tests Test 06/01/21 14:38 White Blood Count 25.0 x10^3/uL (4.0-11.0) Red Blood Count 4.35 x10^6/uL (4.30-5.70) Hemoglobin 11.5 g/dL (13.0-17.5) Hematocrit 35.5 % (39.0-53.0) Mean Corpuscular Volume 82 fL (79-100) Mean Corpuscular Hemoglobin 26 pg (25-35) Mean Corpuscular Hemoglobin Concent 32 g/dL (31-37) Red Cell Distribution Width 17.4 % (11.5-14.5) Platelet Count 329 x10^3/uL (140-400) Neutrophils (%) (Auto) 85 % (31-73) Lymphocytes (%) (Auto) 8 % (24-48) Monocytes (%) (Auto) 7 % (0-9) Eosinophils (%) (Auto) 0 % (0-3) Basophils (%) (Auto) 1 % (0-3) Neutrophils # (Auto) 21.2 x10^3/uL (1.8-7.7) Lymphocytes # (Auto) 1.9 x10^3/uL (1.0-4.8) Monocytes # (Auto) 1.8 x10^3/uL (0.0-1.1) Eosinophils # (Auto) 0.0 x10^3/uL (0.0-0.7) Basophils # (Auto) 0.2 x10^3/uL (0.0-0.2) Segmented Neutrophils % 52 % (35-66) Band Neutrophils % 25 % (0-9) Lymphocytes % 10 % (24-48) Monocytes % 13 % (0-10) Platelet Estimate Adequate (ADEQUATE) Ovalocytes Occ [place] Cells Present Sodium Level 136 mmol/L (136-145) Potassium Level 4.3 mmol/L (3.5-5.1) Chloride Level 100 mmol/L (98-107) Carbon Dioxide Level 30 mmol/L (21-32) Anion Gap 6 (6-14) Blood Urea Nitrogen 19 mg/dL (8-26) Creatinine 1.0 mg/dL (0.7-1.3) Estimated GFR (Cockcroft-Gault) 72.3 BUN/Creatinine Ratio 19 (6-20) Glucose Level 141 mg/dL (70-99) Calcium Level 9.1 mg/dL (8.5-10.1) Total Bilirubin 0.8 mg/dL (0.2-1.0) Aspartate Amino Transf (AST/SGOT) 11 U/L (15-37) Alkaline Phosphatase 73 U/L (46-116) Creatine Kinase 22 U/L (39-308) Creatine Kinase MB (Mass) < 0.5 ng/mL (0.0-3.6) Creatine Kinase MB Relative Index % (0-4) Troponin I High Sensitivity 7 ng/L (4-75) ZY-Hxx-Y-Type Natriuretic Peptide 1959 pg/mL (0-449) Total Protein 6.8 g/dL (6.4-8.2) Albumin 2.4 g/dL (3.4-5.0) Albumin/Globulin Ratio 0.5 (1.0-1.7) Images Images PATIENT: OBI CANELA ACCOUNT: [id number] : 1945 LOCATION: ER AGE: 76 SEX: M EXAM STATUS: REG ER ORD. PHYSICIAN: FLAVIA SOSA DO REASON: Pressure ulcer Ap and Obliqe only unable to get lat view pt contracted PROCEDURE: FOOT RIGHT 2V Exam: XR FOOT_RIGHT 2 VIEWS History: Pressure ulcer. Comparison: None. Findings: Decreased osseous mineralization. No acute fracture or dislocation. Mild degenerative changes at the interphalangeal and metatarsophalangeal joints. No aggressive osseous erosive process. No radiopaque foreign body. No subcutaneous emphysema. No focal soft tissue swelling. Impression: 1. Decreased osseous mineralization without acute osseous abnormality in the right foot. VTE Prophylaxis Ordered VTE Prophylaxis Devices: Yes VTE Pharmacological Prophylaxi: No Assessment/Plan Assessment/Plan Sepsis Suspected osteomyelitis Acute respiratory failure with hypoxia Diastolic CHF exacerbation History tobacco abuse Severe malnutrition Plan: Will need patient with orthopedic surgery and ID consult I am able to probe down to what I feel is the bone in his right foot. MRI would be a better picture for osteomyelitis. Patient received Rocephin in the ED. We will also cover with vancomycin. Will consult cardiology for his diastolic CHF Echocardiogram on 03/18/2016 showed an EF of 60%, with grade 1 diastolic dysfunction, PAP 34 mmHg. Consult wound care to right foot Pain management Resume home medications FEN - Cardiac diet PPX - Heparin DNR/surrogate decision maker is his daughter (Vangie Burdick) Dispo - inpatient for above Justifications for Admission Other Justification HARSHA BARBOZA MD Jun 01, 2021 16:52
[2021-06-01] MEDS ORDERED: ZOLPIDEM 5 MG TABLET. PO PRN (17:00)
[2021-06-01] MEDS ORDERED: ONDANSETRON PF 4 MG/2 ML VIAL. IVP PRN ×2 (17:00→17:45)
[2021-06-01] MEDS ORDERED: ACETAMINOPHEN 325 MG TABLET. PO PRN (17:00)
[2021-06-01] MEDS ORDERED: oxyCODONE/APAP 5/325 1 TAB TABLET PO PRN (17:00)
[2021-06-01] MEDS ORDERED: CALCIUM CARBONATE 500 MG TAB.CHEW PO PRN (17:00)
[2021-06-01] MEDS ORDERED: MAGNESIUM HYDROXIDE 2,400 MG/30 ML ORAL.SUSP. PO PRN (17:00)
[2021-06-01] MEDS ORDERED: MAG HYDROX/ALUMINUM HYD/SIMETH 30 ML ORAL.SUSP PO PRN (17:00)
[2021-06-01] MEDS ORDERED: VANCOMYCIN 1.75 GM in IV NORMAL SALINE 500ML BAG 500 ML IV ONE (17:30)
[2021-06-01] MEDS ORDERED: HYDROcodone/APAP 5/325MG 1 TAB TABLET PO ONE (17:30)
[2021-06-01] MEDS ORDERED: MORPHINE SULFATE 4 MG/ML INJ. IVP PRN (17:45)
[2021-06-01] MEDS: VANCOMYCIN PER PHARMACY MC PRN (19:21)
--- NOTE | 2021-06-01 19:22 | NUR ---
Pharmacy Vancomycin Dosing Note S:Consulted to monitor and dose vancomycin started 06/01/21. O:OBI CANELA is a 76 year old M with Osteomyelitis Height: 5 feet, 10 inches Weight: 67.5 kg [place] Body Weight: 73.00 Adjusted Body Weight: 70.80 Dosing Weight: Actual Other Antibiotics: LABS: Last BUN: 19 Last Creatinine: 1 Creatinine Clearance: 58 mL/min Last WBC: 25 Last Procalcitonin: Tmax (past 24 hours): 98.8 Last dose given 06/01/21 at 1724 Vancomycin Dosing: Loading Dose: 1750 mg x1 Dosing Weight: Actual Target Trough: 15-20 A: Based on: weight and renal function P: 1. Begin Vancomycin 1000 mg IV q18h 2. Follow up Trough level on 06/03/21 at 0500 3. Pharmacy will continue to monitor, follow and adjust therapy as needed. Wilma Paul [facility], 06/01/21 [id number]
[2021-06-01] MEDS: HYDROcodone/APAP 5/325MG 1 TAB TABLET PO PRN (20:10)
[2021-06-02] MEDS: HEPARIN for SUB-Q USE 5,000 UNIT/ML VIAL. SQ SCH ×3 (00:29→21:02)
[2021-06-02 03:03] VITALS: BP 112/69
[2021-06-02] MEDS ORDERED: OXYC5TAB2 PO (03:14)
[2021-06-02] MEDS ORDERED: DIAZ2TAB3 PO (03:14)
[2021-06-02] MEDS ORDERED: TIZA-75 PO ×2 (03:14→04:26)
[2021-06-02] MEDS ORDERED: GABA300C9 PO (03:14)
[2021-06-02] MEDS ORDERED: ACET1TAB56 PO (03:14)
[2021-06-02] MEDS ORDERED: PSYL660P18 PO (03:14)
[2021-06-02] MEDS ORDERED: ROPI0.254 PO (03:14)
[2021-06-02] MEDS ORDERED: TIZA2CAP PO (04:26)
[2021-06-02] MEDS ORDERED: BACL10TA PO (04:31)
[2021-06-02] MEDS ORDERED: AMLO-186 PO (04:31)
[2021-06-02] MEDS ORDERED: ACET325T21 PO (04:38)
[2021-06-02] MEDS ORDERED: MENT118G TP (04:47)
[2021-06-02] MEDS ORDERED: LORA10TA3 PO (04:47)
[2021-06-02] MEDS ORDERED: TRAM50TA PO (04:47)
[2021-06-02] MEDS ORDERED: COLL30OI TP (04:47)
[2021-06-02] MEDS ORDERED: POLY17PO29 PO (04:47)
[2021-06-02] MEDS ORDERED: TRAZ-118 PO (04:47)
[2021-06-02] MEDS ORDERED: ONDA-84 PO (04:47)
[2021-06-02] MEDS ORDERED: MULT-245 PO (04:47)
[2021-06-02] MEDS ORDERED: GLUC1KIT IM (04:47)
[2021-06-02] MEDS: BACLOFEN 10 MG TABLET. PO SCH ×3 (06:07→20:53)
[2021-06-02] MEDS: tiZANidine 4 MG TABLET. PO SCH ×3 (06:07→20:53)
[2021-06-02 07:00] VITALS: BP 101/50
[2021-06-02 07:53] LABS: BASO # 0.1 x10^3/uL (0.0-0.2); BASO % 1 % (0-3); EOS % 0 % (0-3); HEMATOCRIT 33.4 % (39.0-53.0); HEMOGLOBIN 10.6 g/dL (13.0-17.5); LYMPH # 1.5 x10^3/uL (1.0-4.8); LYMPH % 10 % (24-48); MEAN CORPUSCULAR HEMOGLOBIN 26 pg (25-35); MEAN CORPUSCULAR HGB CONC 32 g/dL (31-37); MEAN CORPUSCULAR VOLUME 82 fL (79-100); MONO # 0.8 x10^3/uL (0.0-1.1); MONO % 5 % (0-9); NEUT # 12.4 x10^3/uL (1.8-7.7); NEUT % 84 % (31-73); PLATELET COUNT 307 x10^3/uL (140-400); RED BLOOD COUNT 4.09 x10^6/uL (4.30-5.70); RED CELL DISTRIBUTION WIDTH 17.4 % (11.5-14.5); WHITE BLOOD COUNT 14.9 x10^3/uL (4.0-11.0)
[2021-06-02 08:44] LABS: C-REACTIVE PROTEIN 226.2 mg/L (0-3.3); CALCIUM 8.9 mg/dL (8.5-10.1); CREATININE 0.8 mg/dL (0.7-1.3); GFR 93.5; POTASSIUM 3.9 mmol/L (3.5-5.1)
[2021-06-02] MEDS ORDERED: tiZANidine 4 MG TABLET. PO SCH (09:00)
[2021-06-02] MEDS ORDERED: BACLOFEN 10 MG TABLET. PO SCH (09:00)
[2021-06-02 11:00] VITALS: BP 111/50
[2021-06-02] MEDS ORDERED: VANCOMYCIN 1 GM in IV NORMAL SALINE 250ML 250 ML IV SCH (11:30)
--- NOTE | 2021-06-02 11:56 | PDOC2 ---
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 He resides in a [facility] home facility. He was noted with sonorous respiration and not responding well which has not resolved. He is basically bed and WC bound. Chronic O2 use as he reports. He is a poor historian and could not tell me how he end up in the hospital and he is AOx3. Denies any chest pain or SOA. PAST MEDICAL HISTORY Cardiovascular: HTN, Syncope, Hyperlipidemia Pulmonary: No pertinent hx CENTRAL NERVOUS SYSTEM: CVA, Other (RLS) GI: Constipation Heme/Onc: B12 deficiency Musculoskeletal: Osteoarthritis ENT: Allergic Rhinitis Renal/: Benign prostatic enlarg. Endocrine: Diabetes PAST SURGICAL HISTORY Past Surgical History: Other (cleft hip repair; right ORIF hip) FAMILY HISTORY Family History: Stroke SOCIAL HISTORY Smoke: Quit ALCOHOL: other (quit) Drugs: None Lives: [facility] CURRENT MEDICATIONS CURRENT MEDICATIONS Current Medications Medications (Trade) Dose Ordered Sig/John Route PRN Reason Start Time Stop Time Status Last Admin Dose Admin Sodium Chloride 1,000 ml @ 1,000 mls/hr 1X ONCE IV 06/01/21 15:15 06/01/21 16:14 DC 06/01/21 15:30 Ceftriaxone Sodium (Rocephin) 1 gm 1X ONCE IVP 06/01/21 15:30 06/01/21 15:31 DC 06/01/21 15:30 Acetaminophen/ Hydrocodone Bitart (Lortab 5/325) 1 tab 1X ONCE PO 06/01/21 17:30 06/01/21 17:31 DC 06/01/21 17:07 Acetaminophen/ Hydrocodone Bitart (Lortab 5/325) 1 tab PRN Q4HRS PRN PO MILD PAIN 1-3 06/01/21 17:00 06/01/21 20:10 Oxycodone/ Acetaminophen (Percocet 5/325) 1 tab PRN Q4HRS PRN PO MILD PAIN, 2ND CHOICE 06/01/21 17:00 06/02/21 03:14 Heparin Sodium (Porcine) (Heparin Sodium) 5,000 unit Q12HR SQ 06/01/21 21:00 06/02/21 09:22 Vancomycin HCl (Vanco Per Pharmacy) 1 each PRN DAILY PRN MC SEE COMMENTS 06/01/21 17:15 06/01/21 19:21 Vancomycin HCl 1.75 gm/Sodium Chloride 500 ml @ 250 mls/hr 1X ONCE IV 06/01/21 17:30 06/01/21 19:29 DC 06/01/21 17:24 Morphine Sulfate (Morphine Sulfate) 4 mg PRN Q2HR PRN IVP PAIN 06/01/21 17:45 06/02/21 17:44 06/02/21 02:27 Vancomycin HCl 1 gm/Sodium Chloride 250 ml @ 250 mls/hr Q18H IV 06/02/21 11:30 06/02/21 11:07 Baclofen (Lioresal) 20 mg TID PO 06/02/21 06:00 06/02/21 06:07 Tizanidine HCl (Zanaflex) 4 mg TID PO 06/02/21 06:00 06/02/21 06:07 ALLERGIES ALLERGIES: Coded Allergies: Iodinated Contrast Media (Verified Allergy, Intermediate, 06/02/21) iodine (Verified Allergy, Intermediate, 06/29/16) PHYSICAL EXAM General: Alert, Oriented X3, Cooperative, No acute distress HEENT: Atraumatic, Mucous membr. moist/pink Lungs: Other (diminished) Heart: Regular rate (SR), Other (distant heart sounds) Abdomen: Soft Extremities: No cyanosis, No edema Skin: No breakdown Neuro: Normal speech, Sensation intact Psych/Mental Status: Mental status NL, Mood NL MUSCULOSKELETAL: Osteoarthritic changes both hands VITALS/I&O VITALS/I&O: Vital Signs Date Time Temp Pulse Resp B/P (MAP) Pulse Ox O2 Delivery O2 Flow Rate FiO2 06/02/21 11:00 97.6 60 18 111/50 (70) 96 97.6 06/02/21 08:30 Nasal Cannula 5.0 I & O 06/01/21 06/01/21 06/02/21 15:00 23:00 07:00 Output Total 0 ml Balance 0 ml LABS Lab: Laboratory Tests Test 06/01/21 14:38 06/01/21 16:10 06/02/21 06:50 White Blood Count 25.0 x10^3/uL (4.0-11.0) H 14.9 x10^3/uL (4.0-11.0) H Red Blood Count 4.35 x10^6/uL (4.30-5.70) 4.09 x10^6/uL (4.30-5.70) L Hemoglobin 11.5 g/dL (13.0-17.5) L 10.6 g/dL (13.0-17.5) L Hematocrit 35.5 % (39.0-53.0) L 33.4 % (39.0-53.0) L Mean Corpuscular Volume 82 fL (79-100) 82 fL (79-100) Mean Corpuscular Hemoglobin 26 pg (25-35) 26 pg (25-35) Mean Corpuscular Hemoglobin Concent 32 g/dL (31-37) 32 g/dL (31-37) Red Cell Distribution Width 17.4 % (11.5-14.5) H 17.4 % (11.5-14.5) H Platelet Count 329 x10^3/uL (140-400) 307 x10^3/uL (140-400) Neutrophils (%) (Auto) 85 % (31-73) H 84 % (31-73) H Lymphocytes (%) (Auto) 8 % (24-48) L 10 % (24-48) L Monocytes (%) (Auto) 7 % (0-9) 5 % (0-9) Eosinophils (%) (Auto) 0 % (0-3) 0 % (0-3) Basophils (%) (Auto) 1 % (0-3) 1 % (0-3) Neutrophils # (Auto) 21.2 x10^3/uL (1.8-7.7) H 12.4 x10^3/uL (1.8-7.7) H Lymphocytes # (Auto) 1.9 x10^3/uL (1.0-4.8) 1.5 x10^3/uL (1.0-4.8) Monocytes # (Auto) 1.8 x10^3/uL (0.0-1.1) H 0.8 x10^3/uL (0.0-1.1) Eosinophils # (Auto) 0.0 x10^3/uL (0.0-0.7) 0.0 x10^3/uL (0.0-0.7) Basophils # (Auto) 0.2 x10^3/uL (0.0-0.2) 0.1 x10^3/uL (0.0-0.2) Segmented Neutrophils % 52 % (35-66) Band Neutrophils % 25 % (0-9) H Lymphocytes % 10 % (24-48) L Monocytes % 13 % (0-10) H Platelet Estimate Adequate (ADEQUATE) Ovalocytes Occ [place] Cells Present Sodium Level 136 mmol/L (136-145) 137 mmol/L (136-145) Potassium Level 4.3 mmol/L (3.5-5.1) 3.9 mmol/L (3.5-5.1) Chloride Level 100 mmol/L (98-107) 101 mmol/L (98-107) Carbon Dioxide Level 30 mmol/L (21-32) 30 mmol/L (21-32) Anion Gap 6 (6-14) 6 (6-14) Blood Urea Nitrogen 19 mg/dL (8-26) 18 mg/dL (8-26) Creatinine 1.0 mg/dL (0.7-1.3) 0.8 mg/dL (0.7-1.3) Estimated GFR (Cockcroft-Gault) 72.3 93.5 BUN/Creatinine Ratio 19 (6-20) Glucose Level 141 mg/dL (70-99) H 79 mg/dL (70-99) Calcium Level 9.1 mg/dL (8.5-10.1) 8.9 mg/dL (8.5-10.1) Total Bilirubin 0.8 mg/dL (0.2-1.0) Aspartate Amino Transferase (AST) 11 U/L (15-37) L Alanine Aminotransferase (ALT) 11 U/L (16-63) L Alkaline Phosphatase 73 U/L (46-116) Creatine Kinase 22 U/L (39-308) L Creatine Kinase MB (Mass) < 0.5 ng/mL (0.0-3.6) Creatine Kinase MB Relative Index % (0-4) Troponin I High Sensitivity 7 ng/L (4-75) RX-Iaw-C-Type Natriuretic Peptide 1959 pg/mL (0-449) H Total Protein 6.8 g/dL (6.4-8.2) Albumin 2.4 g/dL (3.4-5.0) L Albumin/Globulin Ratio 0.5 (1.0-1.7) L Lactic Acid Level 2.0 mmol/L (0.4-2.0) C-Reactive Protein, Quantitative 226.2 mg/L (0-3.3) H Laboratory Tests 06/01/21 14:38 06/02/21 06:50 Laboratory Tests 06/01/21 14:38 06/02/21 06:50 ECHOCARDIOGRAM ECHOCARDIOGRAM <Conclusion> The left ventricular systolic function is normal and the ejection fraction is within normal range. The Ejection Fraction is 60%. There is mild concentric left ventricular hypertrophy. Transmitral Doppler flow pattern is Grade I-abnormal relaxation pattern. The left atrium is mildly dilated. The right atrium size is normal. The aortic valve is calcified but opens well. Doppler and Color-flow revealed trace mitral regurgitation. The mitral valve is calcified but opens well. Doppler and Color Flow revealed trace tricuspid regurgitation. There is mild pulmonary hypertension. The PA pressure was estimated at 34 mmHg. Doppler and Color Flow revealed trace pulmonic valvular regurgitation. The ascending aorta is mildly dilated at 3.4 cm. There is no evidence of significant pericardial effusion. DATE: 03/21/161855 ASSESSMENT/PLAN ASSESSMENT/PLAN 1. Encephalopathy: mentation back to baseline 2. Acute on chronic respiratory failure: reported O2 dependent at [facility] home. Improved. ILD? 3. HTN: controlled 4. Possible sepsis suspected for osteomyelitis 5. HLP 6. Suspect chronic diastolic CHF: presently clinically appears compensated 7. Debility: WC/bed bound 8. Hx of CVA Recommendations 1. Obtain UA, Antibiotic per PCP 2. No diuretic needed at this time 3. Will obtain TTE 4. Continue secondary prevention measures including plavix SIM ROGER MD 06/02/211848: CARDIAC CONSULT ASSESSMENT/PLAN ASSESSMENT/PLAN Patient seen and examined. Agree with BELT KNIFE FEEDER's assessment and plan Clinical picture not consistent with congestive heart failure - no need for diuretics at this time Continue antibiotics per IM Check 2D echo to assess LVF Thank you for your consultation MADAY HENNESSY APRN Jun 02, 2021 11:56 SIM ROGER MD Jun 02, 2021 18:49
--- NOTE | 2021-06-02 12:43 | PDOC ---
[facility] [facility] PROGRESS NOTE Date of Service DOS: DATE: 06/02/21 TIME: 12:42 Chief Complaint Chief Complaint Assessment/Plan Sepsis Suspected osteomyelitis Acute respiratory failure with hypoxia Diastolic CHF exacerbation History tobacco abuse Severe malnutrition Plan: Pending orthopedic surgery and ID evaluation I am able to probe down to what I feel is the bone in his right foot. MRI would be a better picture for osteomyelitis. Patient received Rocephin in the ED. We will also cover with vancomycin. Will consult cardiology for his diastolic CHF Echocardiogram on 03/18/2016 showed an EF of 60%, with grade 1 diastolic dysfunction, PAP 34 mmHg. Consult wound care to right foot Pain management Resume home medications FEN - Cardiac diet PPX - Heparin DNR/surrogate decision maker is his daughter (Vangie Burdick) Dispo - inpatient for above History of Present Illness History of Present Illness 76-year-old male with past medical history CVA, HTN, HLD, and chronic contractures to right lower extremity, who [facility] due to concerns for altered mental status. Per patient's daughter (ABBY), he had a sudden change in mental status today he became minimally responsive and hypoxic. Upon EMS arrival he was placed on nonrebreather due to oxygen saturations in the low 80s. Upon arrival to the ED he was more alert and conversive, appropriately answering questions. Patient's daughter states that he has had a contracted right lower extremity since January secondary to a stroke. He was supposed to see a pain management doctor in the upcoming days. Upon my evaluation in the ED, he does have a pressure ulcer to his right medial heel that is been addressed [facility]. Patient has not been able to offload his right foot due to his contracture. Labs in the ER showed WBC 25.0, hemoglobin 11.5, hematocrit 35.4, CBG 141, albumin 2.4, proBNP 1959. Right foot x-ray showed decreased osseous mineralization without acute osseous abnormality in the right foot. Patient will be admitted for further medical management. 06/02/2021 No acute events overnight. Patient seen examined bedside. Resting comfortably. Confused. Demented. Pending cardiology, orthopedic and infectious disease evaluation. Continue the IV antibiotics. Pending TTE. Patient's chart, labs, images were reviewed and discussed with RN Vitals/I&O Vitals/I&O: Vital Signs Date Time Temp Pulse Resp B/P (MAP) Pulse Ox O2 Delivery O2 Flow Rate FiO2 06/02/21 11:00 97.6 60 18 111/50 (70) 96 97.6 06/02/21 08:30 Nasal Cannula 5.0 I & O 06/01/21 06/01/21 06/02/21 15:00 23:00 07:00 Output Total 0 ml Balance 0 ml Physical Exam General: Alert Heart: Regular rate Lungs: Clear Abdomen: Normal bowel sounds Extremities: No clubbing Labs Labs: Laboratory Tests Test 06/01/21 14:38 06/01/21 16:10 06/02/21 06:50 White Blood Count 25.0 x10^3/uL (4.0-11.0) 14.9 x10^3/uL (4.0-11.0) Red Blood Count 4.35 x10^6/uL (4.30-5.70) 4.09 x10^6/uL (4.30-5.70) Hemoglobin 11.5 g/dL (13.0-17.5) 10.6 g/dL (13.0-17.5) Hematocrit 35.5 % (39.0-53.0) 33.4 % (39.0-53.0) Mean Corpuscular Volume 82 fL (79-100) 82 fL (79-100) Mean Corpuscular Hemoglobin 26 pg (25-35) 26 pg (25-35) Mean Corpuscular Hemoglobin Concent 32 g/dL (31-37) 32 g/dL (31-37) Red Cell Distribution Width 17.4 % (11.5-14.5) 17.4 % (11.5-14.5) Platelet Count 329 x10^3/uL (140-400) 307 x10^3/uL (140-400) Neutrophils (%) (Auto) 85 % (31-73) 84 % (31-73) Lymphocytes (%) (Auto) 8 % (24-48) 10 % (24-48) Monocytes (%) (Auto) 7 % (0-9) 5 % (0-9) Eosinophils (%) (Auto) 0 % (0-3) 0 % (0-3) Basophils (%) (Auto) 1 % (0-3) 1 % (0-3) Neutrophils # (Auto) 21.2 x10^3/uL (1.8-7.7) 12.4 x10^3/uL (1.8-7.7) Lymphocytes # (Auto) 1.9 x10^3/uL (1.0-4.8) 1.5 x10^3/uL (1.0-4.8) Monocytes # (Auto) 1.8 x10^3/uL (0.0-1.1) 0.8 x10^3/uL (0.0-1.1) Eosinophils # (Auto) 0.0 x10^3/uL (0.0-0.7) 0.0 x10^3/uL (0.0-0.7) Basophils # (Auto) 0.2 x10^3/uL (0.0-0.2) 0.1 x10^3/uL (0.0-0.2) Segmented Neutrophils % 52 % (35-66) Band Neutrophils % 25 % (0-9) Lymphocytes % 10 % (24-48) Monocytes % 13 % (0-10) Platelet Estimate Adequate (ADEQUATE) Ovalocytes Occ Najma Cells Present Sodium Level 136 mmol/L (136-145) 137 mmol/L (136-145) Potassium Level 4.3 mmol/L (3.5-5.1) 3.9 mmol/L (3.5-5.1) Chloride Level 100 mmol/L (98-107) 101 mmol/L (98-107) Carbon Dioxide Level 30 mmol/L (21-32) 30 mmol/L (21-32) Anion Gap 6 (6-14) 6 (6-14) Blood Urea Nitrogen 19 mg/dL (8-26) 18 mg/dL (8-26) Creatinine 1.0 mg/dL (0.7-1.3) 0.8 mg/dL (0.7-1.3) Estimated GFR (Cockcroft-Gault) 72.3 93.5 BUN/Creatinine Ratio 19 (6-20) Glucose Level 141 mg/dL (70-99) 79 mg/dL (70-99) Calcium Level 9.1 mg/dL (8.5-10.1) 8.9 mg/dL (8.5-10.1) Total Bilirubin 0.8 mg/dL (0.2-1.0) Aspartate Amino Transf (AST/SGOT) 11 U/L (15-37) Alanine Aminotransferase (ALT/SGPT) 11 U/L (16-63) Alkaline Phosphatase 73 U/L (46-116) Creatine Kinase 22 U/L (39-308) Creatine Kinase MB (Mass) < 0.5 ng/mL (0.0-3.6) Creatine Kinase MB Relative Index % (0-4) Troponin I High Sensitivity 7 ng/L (4-75) CY-Bbo-X-Type Natriuretic Peptide 1959 pg/mL (0-449) Total Protein 6.8 g/dL (6.4-8.2) Albumin 2.4 g/dL (3.4-5.0) Albumin/Globulin Ratio 0.5 (1.0-1.7) Lactic Acid Level 2.0 mmol/L (0.4-2.0) C-Reactive Protein, Quantitative 226.2 mg/L (0-3.3) Assessment and Plan Assessmemt and Plan Problems Medical Problems: (1) Altered mental status Status: Acute (2) Decubitus ulcer of right foot Status: Acute (3) DNR (do not resuscitate) Status: Acute (4) Severe sepsis Status: Acute Comment Review of Relevant I have reviewed the following items sandro (where applicable) has been applied. Medications: Current Medications Medications (Trade) Dose Ordered Sig/John Route PRN Reason Start Time Stop Time Status Last Admin Dose Admin Sodium Chloride 1,000 ml @ 1,000 mls/hr 1X ONCE IV 06/01/21 15:15 06/01/21 16:14 DC 06/01/21 15:30 Ceftriaxone Sodium (Rocephin) 1 gm 1X ONCE IVP 06/01/21 15:30 06/01/21 15:31 DC 06/01/21 15:30 Acetaminophen/ Hydrocodone Bitart (Lortab 5/325) 1 tab 1X ONCE PO 06/01/21 17:30 06/01/21 17:31 DC 06/01/21 17:07 Acetaminophen/ Hydrocodone Bitart (Lortab 5/325) 1 tab PRN Q4HRS PRN PO MILD PAIN 1-3 06/01/21 17:00 06/01/21 20:10 Oxycodone/ Acetaminophen (Percocet 5/325) 1 tab PRN Q4HRS PRN PO MILD PAIN, 2ND CHOICE 06/01/21 17:00 06/02/21 03:14 Heparin Sodium (Porcine) (Heparin Sodium) 5,000 unit Q12HR SQ 06/01/21 21:00 06/02/21 09:22 Vancomycin HCl (Vanco Per Pharmacy) 1 each PRN DAILY PRN MC SEE COMMENTS 06/01/21 17:15 06/01/21 19:21 Vancomycin HCl 1.75 gm/Sodium Chloride 500 ml @ 250 mls/hr 1X ONCE IV 06/01/21 17:30 06/01/21 19:29 DC 06/01/21 17:24 Morphine Sulfate (Morphine Sulfate) 4 mg PRN Q2HR PRN IVP PAIN 06/01/21 17:45 06/02/21 17:44 06/02/21 02:27 Vancomycin HCl 1 gm/Sodium Chloride 250 ml @ 250 mls/hr Q18H IV 06/02/21 11:30 06/02/21 11:07 Baclofen (Lioresal) 20 mg TID PO 06/02/21 06:00 06/02/21 06:07 Tizanidine HCl (Zanaflex) 4 mg TID PO 06/02/21 06:00 06/02/21 06:07 Justifications for Admission Other Justification JAYNE ARZATE MD Jun 02, 2021 12:43
[2021-06-02] MEDS: CLOPIDOGREL BISULFATE 75 MG TABLET PO SCH (14:56)
[2021-06-02 15:00] VITALS: BP 90/46
[2021-06-02] MEDS: VANCOMYCIN PER PHARMACY MC PRN (15:27)
--- NOTE | 2021-06-02 15:27 | NUR ---
BRIEF VANCOMYCIN DOSING NOTE Patient is receiving vancomycin 1g IV q18hrs for osteomyelitis. Today's SCr has improved to 0.8 with an eCrCl of 65 ml/min. Due to patient's indication, will initiate the following: Plan: 1. Change regimen to vancomycin 1g IV q 12hrs. 2. Adj trough to 06/03 @ 1030. 3. Order SCr for 06/03 Anastasia Reynoso. D.
--- NOTE | 2021-06-02 17:05 | NUR ---
Wound/Ostomy Care Wound Type/Assessment: WC consult for right foot wound. 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 Cleansed wound and redressed. Patient is awaiting ortho consult Treatment Recommendations/Plan: [place] with betadine and cover with foam, Change every 2-3 days Education provided: PU prevention, pt refused offloading boot of any kind Offloading surface/device: FLoat heels and keep turned to offload plantar foot as it is contracted to his buttock Recommended Referrals/Tests: ortho and ID consults pending Discharge Recommendations for dressings: see above
[2021-06-02] MEDS: PIPERACILLIN/TAZOBACTAM 3.375 GM in IV NORMAL SALINE 50ML 50 ML IV SCH (17:54)
[2021-06-02 19:00] VITALS: BP 102/51
[2021-06-02] MEDS: ATORVASTATIN CALCIUM 10 MG TABLET. PO SCH (20:53)
[2021-06-02] MEDS: LACTOBACILLUS RHAMNOSUS GG 1 CAPSULE. PO SCH (20:53)
--- NOTE | 2021-06-02 21:11 | CONS ---
DATE OF CONSULTATION: 06/02/2021 REQUESTING PHYSICIAN: Dr. Alonso. REASON FOR CONSULTATION: Right calcaneal wound and acute change in mental status. HISTORY OF PRESENT ILLNESS: This is a 76-year-old gentleman who is a prison resident with CVA and contracture, who was brought in because of the change in mental status. The patient was also found to have right calcaneal wound, necrotic. The patient has leukocytosis. The patient's mental status has improved that he is alert, awake, able to communicate and he says he is feeling pretty good. He is on vancomycin and he received a dose of ceftriaxone. The patient denies any nausea, vomiting, diarrhea, chest pain, shortness of breath or abdominal pain. The patient has not been able to straighten out the right leg for 3 years, he says. He cannot tell how long he has the wound on the right calcaneum. PAST MEDICAL HISTORY: Positive for CVA, hypertension, hyperlipidemia and contractures. SOCIAL HISTORY: Negative for smoking, alcohol or drug use. ALLERGIES: No known drug allergies. CURRENT MEDICATIONS: Reviewed. REVIEW OF SYSTEMS: As in HPI. All other systems reviewed are negative. PHYSICAL EXAMINATION: GENERAL: Alert, oriented gentleman, not in distress. VITAL SIGNS: Stable, afebrile. HEENT: NAD. NECK: Supple, no JVP, no lymphadenopathy. LUNGS: Clear. HEART: S1, S2, regular. ABDOMEN: Soft, nontender, no organomegaly. EXTREMITIES: Left lower extremity is normal. Right lower extremity is contracted, unable to straighten out and at the bottom of the right calcaneal medial area, there is a necrotic wound. NEUROLOGIC: The patient is alert, awake, able to communicate appropriately with CVA and contractures as I mentioned. LABORATORY DATA: White count is 25,000 on admission, now down to 14.9. BUN and creatinine is normal. Foot x-ray is unremarkable. CT head is unremarkable. IMPRESSION: 1. Encephalopathy, which is improved. 2. Leukocytosis. 3. Right calcaneal wound, the depth cannot be judged right now. 4. Cerebrovascular accident. 5. Hypertension. RECOMMENDATIONS: Continue vancomycin and add Zosyn, supportive care. May need CT or MRI of the right foot and we will go from there. Thank you very much, Dr. Alonso, for giving me opportunity to participate in this patient's care. SRD/CARRIE DR: Isaac TID: [id number]
[2021-06-02 23:14] VITALS: BP 81/43
[2021-06-02] MEDS: VANCOMYCIN 1 GM in IV NORMAL SALINE 250ML 250 ML IV SCH (23:17)
[2021-06-03] VITALS (7 sets, daily range): BP systolic 97–140; BP diastolic 52–65
[2021-06-03] MEDS: PIPERACILLIN/TAZOBACTAM 3.375 GM in IV NORMAL SALINE 50ML 50 ML IV SCH ×4 (00:52→18:11)
[2021-06-03 06:07] LABS: CREATININE 0.6 mg/dL (0.7-1.3); GFR 130.3
[2021-06-03] MEDS ORDERED: IV NORMAL SALINE 250ML 250 ML IV ONE (08:45)
--- NOTE | 2021-06-03 10:19 | EKG ---
[facility] [address] [place] [address] Test Date: 2021-06-01 Test Time: 13:28:49 Pat Name: OBI CANELA Department: Room: [facility] Gender: M Drama Director: : 1945 Requested By: FLAVIA SOSA Order Number: [id number] Reading MD: Dusty Flor Measurements Intervals [place] Rate: 67 P: 56 IN: 156 QRS: -48 QRSD: 94 T: 43 QT: 428 QTc: 455 Interpretive Statements SINUS RHYTHM LOW LIMB LEAD VOLTAGE LEFT ANTERIOR FASCICULAR BLOCK QRS(T) CONTOUR ABNORMALITY CONSIDER ANTEROSEPTAL MYOCARDIAL DAMAGE Electronically Signed On 06-04-2021 18:29:45 CDT by Dusty Flor
[2021-06-03] MEDS: LACTOBACILLUS RHAMNOSUS GG 1 CAPSULE. PO SCH ×2 (10:36→21:31)
[2021-06-03] MEDS: CLOPIDOGREL BISULFATE 75 MG TABLET PO SCH (10:36)
[2021-06-03] MEDS: tiZANidine 4 MG TABLET. PO SCH ×3 (10:36→21:31)
[2021-06-03] MEDS: BACLOFEN 10 MG TABLET. PO SCH ×3 (10:36→21:32)
[2021-06-03] MEDS: HEPARIN for SUB-Q USE 5,000 UNIT/ML VIAL. SQ SCH ×2 (10:37→21:40)
[2021-06-03 11:11] LABS: BARBITURATES NEG (NEG); BENZODIAZEPINES POS (NEG); CANNABINOIDS NEG (NEG); COCAINE NEG (NEG); METHADONE NEG (NEG); OPIATES POS (NEG); PHENCYCLIDINE NEG (NEG)
[2021-06-03 11:12] LABS: AMPHETAMINE/METHAMPHETAMINE NEG (NEG)
[2021-06-03 11:23] LABS: VANC TR 14.7 mcg/mL (10.0-20.0)
--- NOTE | 2021-06-03 11:23 | PDOC ---
MADAY HENNESSY PAPER COUNTER 06/03/21 1123: CARDIO Progress Notes Date and Time Date of Service 06/03/2021 Time of Evaluation 1120 Subjective Subjective: No Chest Pain, No shortness of breath, No Palpitations Vitals Vitals Vital Signs Date Time Temp Pulse Resp B/P (MAP) Pulse Ox O2 Delivery O2 Flow Rate FiO2 06/03/21 10:50 98.0 80 18 112/62 (79) 90 Nasal Cannula 5.0 98.0 Weight Weight [ ] Input and Output Intake and Output Intake and Output 06/03/21 07:00 Intake Total 650 ml Balance 650 ml IV Total 650 ml # Voids 6 Laboratory Labs Laboratory Tests Test 06/03/21 04:15 06/03/21 10:15 Creatinine 0.6 mg/dL (0.7-1.3) Estimated GFR (Cockcroft-Gault) 130.3 Urine Opiates Screen Pos (NEG) Urine Methadone Screen Neg (NEG) Urine Barbiturates Neg (NEG) Urine Phencyclidine Screen Neg (NEG) Urine Amphetamine/Methamphetamine Neg (NEG) Urine Benzodiazepines Screen Pos (NEG) Urine Cocaine Screen Neg (NEG) Urine Cannabinoids Screen Neg (NEG) Urine Ethyl Alcohol Neg (NEG) Microbiology Micro Microbiology 06/01/21 Blood Culture - Preliminary, Resulted NO GROWTH AFTER 1 DAY Physical Exam HEENT: Neck Supple W Full Motion Chest: Symmetric LUNGS: Clear to Auscultation Heart: RRR (SR) Abdomen: Soft N/T Extremities: No Calf Tenderness, Other (right foot wound) Neurology: alert, oriented, follow commands Assessment Assessment 1. Encephalopathy: mentation back to baseline 2. Acute on chronic respiratory failure: reported [facility] dependent [facility]. Im proved. ILD? 3. HTN: controlled 4. Right plantar ulcer: ID and ortho following 5. HLP 6. Suspect chronic combined diastolic/systolic CHF: presently clinically appears compensated 7. Debility: WC/bed bound 8. Hx of CVA 9. Possible UTI: defer to PCP Recommendations 1. Antibiotic per ID 2. No diuretic needed at this time 3. TTE pending 4. Continue secondary prevention measures including plavix Justicifation of Admission Dx: Justifications for Admission: Justification of Admission Dx: Yes Chronic Renal Failure: Encephalopathy SIM ROGER MD 06/03/21 1543: CARDIO Progress Notes Assessment Assessment Patient seen and examined. Agree with UNMANNED EQUIPMENT OPERATOR's assessment and plan Clinical picture not consistent with congestive heart failure - no need for diuretics at this time Continue antibiotics per IM 2D echo showed LVEF 50%. MADAY HENNESSY APRN Jun 03, 2021 11:23 SIM ROGER MD Jun 03, 2021 15:43
[2021-06-03] MEDS: VANCOMYCIN PER PHARMACY MC PRN (11:27)
--- NOTE | 2021-06-03 11:37 | NUR ---
Pharmacy Vancomycin Dosing Note S: Consulted to monitor and dose vancomycin started 06/01/21. O: OBI CANELA is a 76 year old M with Osteomyelitis Other Antibiotics: ZOSYN 3.375G IV Q6HRS LABS: Last BUN: 18 Last Creatinine: 0.6 Creatinine Clearance: 65 mL/min Last WBC: 14.9 Last Procalcitonin: - Tmax (past 24 hours): 98.8 Microbiology: BLOOD CX PENDING Drug Levels: Last Trough level: 14.7 on 06/03/21 at 1049 Last dose given 06/02/21 at 2317 Vancomycin Dosing: Dosing Weight: Actual Target Trough: 15-20 A: Based on: THERAPEUTIC TROUGH P: 1. Continue Vancomycin 1000 mg IV q12h 2. Follow up Trough level IN 2-3 DAYS 3. Pharmacy will continue to monitor, follow and adjust therapy as needed. MAYCOL WALTON RPH, 06/03/21 1138
[2021-06-03 11:51] LABS: BACTERIA,URINE FEW /HPF (0-FEW); RBC,URINE OCC /HPF (0-2); WBC,URINE >40 /HPF (0-4)
--- NOTE | 2021-06-03 12:12 | PDOC ---
[employer] [facility] PROGRESS NOTE Date of Service DOS: DATE: 06/03/21 TIME: 12:11 Chief Complaint Chief Complaint Assessment/Plan Sepsis Suspected osteomyelitis Acute respiratory failure with hypoxia Diastolic CHF exacerbation History tobacco abuse Severe malnutrition Plan: Pending orthopedic surgery and ID evaluation I am able to probe down to what I feel is the bone in his right foot. MRI would be a better picture for osteomyelitis. Patient received Rocephin in the ED. We will also cover with vancomycin. Will consult cardiology for his diastolic CHF Echocardiogram on 03/18/2016 showed an EF of 60%, with grade 1 diastolic dysfunction, PAP 34 mmHg. Consult wound care to right foot Pain management Resume home medications FEN - Cardiac diet PPX - Heparin DNR/surrogate decision maker is his daughter (Vangie Burdick) Dispo - inpatient for above History of Present Illness History of Present Illness 76-year-old male with past medical history CVA, HTN, HLD, and chronic contractures to right lower extremity, who presents from his assisted due to concerns for altered mental status. Per patient's daughter (ABBY), he had a sudden change in mental status today he became minimally responsive and hypoxic. Upon EMS arrival he was placed on nonrebreather due to oxygen saturations in the low 80s. Upon arrival to the ED he was more alert and conversive, appropriately answering questions. Patient's daughter states that he has had a contracted right lower extremity since January secondary to a stroke. He was supposed to see a pain management doctor in the upcoming days. Upon my evaluation in the ED, he does have a pressure ulcer to his right medial heel that is been addressed at his assisted. Patient has not been able to offload his right foot due to his contracture. Labs in the ER showed WBC 25.0, hemoglobin 11.5, hematocrit 35.4, CBG 141, albumin 2.4, proBNP 1959. Right foot x-ray showed decreased osseous mineralization without acute osseous abnormality in the right foot. Patient will be admitted for further medical management. 06/02/2021 No acute events overnight. Patient seen examined bedside. Resting comfortably. Confused. Demented. Pending cardiology, orthopedic and infectious disease evaluation. Continue the IV antibiotics. Pending TTE. Patient's chart, labs, images were reviewed and discussed with RN 06/03/2021 No acute events overnight. Patient seen examined bedside. Tolerating breakfast. Blood pressures low in the 80s systolic. 250 NS bolus given this morning. Blood pressures improved to systolics of 120s. Still pending podiatry evaluation. Will likely need CT or MRI imaging of the extremity. Appreciate ID recommendations, continue IV vancomycin and Zosyn. Patient's chart, labs, images were reviewed and discussed with RN Vitals/I&O Vitals/I&O: Vital Signs Date Time Temp Pulse Resp B/P (MAP) Pulse Ox O2 Delivery O2 Flow Rate FiO2 06/03/21 10:50 98.0 80 18 112/62 (79) 90 Nasal Cannula 5.0 98.0 I & O 06/02/21 06/02/21 06/03/21 15:00 23:00 07:00 Intake Total 250 ml 50 ml 350 ml Balance 250 ml 50 ml 350 ml Physical Exam General: Alert, Oriented X3, Cooperative, No acute distress Heart: Regular rate (SR), Other (distant heart sounds) Lungs: Clear Abdomen: Soft Extremities: No cyanosis, No edema Skin: No breakdown Labs Labs: Laboratory Tests Test 06/03/21 04:15 06/03/21 10:15 06/03/21 10:49 Creatinine 0.6 mg/dL (0.7-1.3) Estimated GFR (Cockcroft-Gault) 130.3 Urine Collection Type U cath Urine Color (Auto) Light yellow Urine Turbidity Hazy Urine pH (Auto) 6.0 (<5.0-8.0) Urine Specific [place] 1.011 (1.000-1.030) Urine Protein (Auto) Negative mg/dL (Negative) Urine Glucose (Auto)(UA) Negative mg/dL (Negative) Urine Ketones (Auto) 40 mg/dL (Negative) Urine Blood (Auto) Negative (Negative) Urine Nitrite Negative (Negative) Urine Bilirubin (Auto) Negative (Negative) Urine Urobilinogen (Auto) Normal mg/dL (Normal) Urine Leukocyte Esterase (Auto) Large (Negative) Urine RBC Occ /HPF (0-2) Urine WBC >40 /HPF (0-4) Urine Squamous Epithelial Cells Occ /LPF Urine Bacteria Few /HPF (0-FEW) Urine Mucus Slight /LPF Urine Opiates Screen Pos (NEG) Urine Methadone Screen Neg (NEG) Urine Barbiturates Neg (NEG) Urine Phencyclidine Screen Neg (NEG) Urine Amphetamine/Methamphetamine Neg (NEG) Urine Benzodiazepines Screen Pos (NEG) Urine Cocaine Screen Neg (NEG) Urine Cannabinoids Screen Neg (NEG) Urine Ethyl Alcohol Neg (NEG) Vancomycin Level Trough 14.7 mcg/mL (10.0-20.0) Vancomycin Last Dose Date 06/02/21 Vancomycin Last Dose Time 2300 Assessment and Plan Assessmemt and Plan Problems Medical Problems: (1) Altered mental status Status: Acute (2) Decubitus ulcer of right foot Status: Acute (3) DNR (do not resuscitate) Status: Acute (4) Severe sepsis Status: Acute Comment Review of Relevant I have reviewed the following items sandro (where applicable) has been applied. Medications: Current Medications Medications (Trade) Dose Ordered Sig/John Route PRN Reason Start Time Stop Time Status Last Admin Dose Admin Vancomycin HCl (Vancomycin Trough Level) 1 each 1X ONCE MC 06/03/21 10:30 06/03/21 10:31 DC 06/03/21 10:30 Piperacillin Sod/ Tazobactam Sod 3.375 gm/Sodium Chloride 50 ml @ 100 mls/hr Q6HRS IV 06/02/21 18:00 06/03/21 06:10 Clopidogrel Bisulfate (Plavix) 75 mg DAILYWBKFT PO 06/02/21 15:00 06/03/21 10:36 Atorvastatin Calcium (Lipitor) 10 mg QHS PO 06/02/21 21:00 06/02/21 20:53 Vancomycin HCl 1 gm/Sodium Chloride 250 ml @ 250 mls/hr Q12H IV 06/02/21 23:00 06/02/21 23:17 Lactobacillus Rhamnosus (Culturelle) 1 cap BID PO 06/02/21 21:00 06/03/21 10:36 Sodium Chloride 250 ml @ 250 mls/hr 1X ONCE IV 06/03/21 08:45 06/03/21 09:44 DC 06/03/21 10:36 Justifications for Admission Other Justification JAYNE ARZATE MD Jun 03, 2021 12:12
--- NOTE | 2021-06-03 12:35 | NUR ---
SS following for discharge planning. SS reviewed pt chart and discussed with pt RN. Pt is LTC resident from [facility], ; fax [phone]. Pt is currently requiring oxygen at five liters nasal canula. COVID19 negative. ID and Cardiology following. Pt on IV Vancomycin and IV Zosyn. SS will continue to follow for discharge planning.
[2021-06-03] MEDS: VANCOMYCIN 1 GM in IV NORMAL SALINE 250ML 250 ML IV SCH ×2 (12:41→23:06)
--- NOTE | 2021-06-03 13:34 | PDOC ---
Infectious Disease Note Subjective Subjective Patient is feeling good has no complaints ROS ROS No nausea vomiting diarrhea chest pain shortness of breath Vital Sign Vital Signs Vital Signs Date Time Temp Pulse Resp B/P (MAP) Pulse Ox O2 Delivery O2 Flow Rate FiO2 06/03/21 10:50 98.0 80 18 112/62 (79) 90 Nasal Cannula 5.0 98.0 Physical Exam PHYSICAL EXAM GENERAL: Alert, oriented gentleman, not in distress. VITAL SIGNS: Stable, afebrile. HEENT: NAD. NECK: Supple, no JVP, no lymphadenopathy. LUNGS: Clear. HEART: S1, S2, regular. ABDOMEN: Soft, nontender, no organomegaly. EXTREMITIES: Left lower extremity is normal. Right lower extremity is contracted, unable to straighten out and at the bottom of the right calcaneal medial area, there is a necrotic wound. NEUROLOGIC: The patient is alert, awake, able to communicate appropriately with CVA and contractures as I mentioned. Labs Lab Laboratory Tests Test 06/03/21 04:15 06/03/21 10:15 06/03/21 10:49 Creatinine 0.6 mg/dL (0.7-1.3) Estimated GFR (Cockcroft-Gault) 130.3 Urine Collection Type U cath Urine Color (Auto) Light yellow Urine Turbidity Hazy Urine pH (Auto) 6.0 (<5.0-8.0) Urine Specific [place] 1.011 (1.000-1.030) Urine Protein (Auto) Negative mg/dL (Negative) Urine Glucose (Auto)(UA) Negative mg/dL (Negative) Urine Ketones (Auto) 40 mg/dL (Negative) Urine Blood (Auto) Negative (Negative) Urine Nitrite Negative (Negative) Urine Bilirubin (Auto) Negative (Negative) Urine Urobilinogen (Auto) Normal mg/dL (Normal) Urine Leukocyte Esterase (Auto) Large (Negative) Urine RBC Occ /HPF (0-2) Urine WBC >40 /HPF (0-4) Urine Squamous Epithelial Cells Occ /LPF Urine Bacteria Few /HPF (0-FEW) Urine Mucus Slight /LPF Urine Opiates Screen Pos (NEG) Urine Methadone Screen Neg (NEG) Urine Barbiturates Neg (NEG) Urine Phencyclidine Screen Neg (NEG) Urine Amphetamine/Methamphetamine Neg (NEG) Urine Benzodiazepines Screen Pos (NEG) Urine Cocaine Screen Neg (NEG) Urine Cannabinoids Screen Neg (NEG) Urine Ethyl Alcohol Neg (NEG) Vancomycin Level Trough 14.7 mcg/mL (10.0-20.0) Vancomycin Last Dose Date 06/02/21 Vancomycin Last Dose Time 2300 Micro Microbiology 06/01/21 Blood Culture - Preliminary, Resulted NO GROWTH AFTER 1 DAY Objective Assessment IMPRESSION: 1. Encephalopathy, which is improved. 2. Leukocytosis. 3. Right calcaneal wound, the depth cannot be judged right now. 4. Cerebrovascular accident. 5. Hypertension. Plan Plan of Care Patient needs high AKA. The wound is not going to heal has exposed tendon and the way his contractures are he would be much better off with a AKA and have a much better life patient is initially reluctant but he agreed although I do not know how reliable he is we may have to talk to his daughter Meanwhile continue antibiotic JOEL MELARA MD Jun 03, 2021 13:34
--- NOTE | 2021-06-03 13:43 | PDOC2 ---
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 Upon admission, patient also found with leukocytosis and an ulcer localized to the right plantar forefoot with u nknown duration. Patient was then treated with vancomycin and Zosyn empirically. X-ray was insignificant for soft tissue emphysema or cortical interruption although the view was limited given the right lower extremity contracture. Wound care team was consulted for local dressing change. At bedside, patient was not able to provide much meaningful history, or evolution of the ulceration. Patient's baseline activity, ambulation status is unknown. Patient is a [facility] resident, DNR status. Past Medical History Cardiovascular: HTN, Syncope, Hyperlipidemia Pulmonary: No pertinent hx CENTRAL NERVOUS SYSTEM: CVA, Other (RLS) GI: Constipation Heme/Onc: B12 deficiency Musculoskeletal: Osteoarthritis ENT: Allergic Rhinitis Renal/: Benign prostatic enlarg. Endocrine: Diabetes Past Surgical History Past Surgical History: Other (cleft hip repair; right ORIF hip) Family History Family History: Stroke Social History Quit ALCOHOL: other (quit) Drugs: None Lives: [facility] Current Problem List Problem List Problems Medical Problems: (1) Altered mental status Status: Acute (2) Decubitus ulcer of right foot Status: Acute (3) DNR (do not resuscitate) Status: Acute (4) Severe sepsis Status: Acute Current Medications Current Medications Current Medications Sodium Chloride 1,000 ml @ 1,000 mls/hr 1X ONCE IV Last administered on 06/01/21at 15:30; Start 06/01/21 at 15:15; Stop 06/01/21 at 16:14; Status DC Ceftriaxone Sodium (Rocephin) 1 gm 1X ONCE IVP Last administered on 06/01/21at 15:30; Start 06/01/21 at 15:30; Stop 06/01/21 at 15:31; Status DC Acetaminophen/ Hydrocodone Bitart (Lortab 5/325) 1 tab 1X ONCE PO Last admi nistered on 06/01/21at 17:07; Start 06/01/21 at 17:30; Stop 06/01/21 at 17:31; Status DC Ondansetron HCl (Zofran) 4 mg PRN Q6HRS PRN IVP NAUSEA/VOMITING; Start 06/01/21 at 17:00 Al Hydroxide/Mg Hydroxide (Mylanta Plus Xs) 30 ml PRN Q3HRS PRN PO HEARTBURN / GAS; Start 06/01/21 at 17:00 Calcium Carbonate/ Glycine (Tums) 500 mg PRN Q3HRS PRN PO UPSET STOMACH; Start 06/01/21 at 17:00 Zolpidem Tartrate (Ambien) 5 mg PRN QHS PRN PO INSOMNIA, MAY REPEAT IN 1HR; Start 06/01/21 at 17:00 Acetaminophen/ Hydrocodone Bitart (Lortab 5/325) 1 tab PRN Q4HRS PRN PO MILD PAIN 1-3 Last administered on 06/01/21at 20:10; Start 06/01/21 at 17:00 Acetaminophen/ Hydrocodone Bitart (Lortab 5/325) 2 tab PRN Q4HRS PRN PO MODERATE PAIN, SEVERE PAIN; Start 06/01/21 at 17:00 Oxycodone/ Acetaminophen (Percocet 5/325) 1 tab PRN Q4HRS PRN PO MILD PAIN, 2ND CHOICE Last administered on 06/02/21at 03:14; Start 06/01/21 at 17:00 Oxycodone/ Acetaminophen (Percocet 5/325) 2 tab PRN Q4HRS PRN PO MODERATE PAIN, SEVERE PAIN; Start 06/01/21 at 17:00 Acetaminophen (Tylenol) 650 mg PRN Q6HRS PRN PO Headaches, Temp > 101.5F; Start 06/01/21 at 17:00 Magnesium Hydroxide (Milk Of Magnesia) 2,400 mg PRN Q12HR PRN PO CONSTIPATION; Start 06/01/21 at 17:00 Heparin Sodium (Porcine) (Heparin Sodium) 5,000 unit Q12HR SQ Last administered on 06/03/21at 10:37; Start 06/01/21 at 21:00 Vancomycin HCl (Vanco Per Pharmacy) 1 each PRN DAILY PRN MC SEE COMMENTS Last administered on 06/03/21at 11:27; Start 06/01/21 at 17:15 Vancomycin HCl 1.75 gm/Sodium Chloride 500 ml @ 250 mls/hr 1X ONCE IV Last administered on 06/01/21at 17:24; Start 06/01/21 at 17:30; Stop 06/01/21 at 19:29; Status DC Ceftriaxone Sodium (Rocephin) 1 gm 1X ONCE IVP ; Start 06/01/21 at 17:30; Stop 06/01/21 at 17:31; Status DC Ondansetron HCl (Zofran) 4 mg PRN Q8HRS PRN IVP NAUSEA/VOMITING; Start 06/01/21 at 17:45; Stop 06/02/21 at 13:12; Status DC Morphine Sulfate (Morphine Sulfate) 4 mg PRN Q2HR PRN IVP PAIN Last administered on 06/02/21at 02:27; Start 06/01/21 at 17:45; Stop 06/02/21 at 17:4 4; Status DC Vancomycin HCl 1 gm/Sodium Chloride 250 ml @ 250 mls/hr Q18H IV Last administered on 06/02/21at 11:07; Start 06/02/21 at 11:30; Stop 06/02/21 at 15:24; Status DC Vancomycin HCl (Vancomycin Trough Level) 1 each 1X ONCE MC Last administered on 06/03/21at 10:30; Start 06/03/21 at 10:30; Stop 06/03/21 at 10:31; Status DC Baclofen (Lioresal) 20 mg TID PO ; Start 06/02/21 at 09:00; Stop 06/02/21 at 05:45; Status DC Tizanidine HCl (Zanaflex) 4 mg TID PO ; Start 06/02/21 at 09:00; Stop 06/02/21 a t 05:45; Status DC Baclofen (Lioresal) 20 mg TID PO Last administered on 06/03/21at 10:36; Start 06/02/21 at 06:00 Tizanidine HCl (Zanaflex) 4 mg TID PO Last administered on 06/03/21at 10:36; Start 06/02/21 at 06:00 Piperacillin Sod/ Tazobactam Sod 3.375 gm/Sodium Chloride 50 ml @ 100 mls/hr Q6HRS IV Last administered on 06/03/21at 06:10; Start 06/02/21 at 18:00 Clopidogrel Bisulfate (Plavix) 75 mg DAILYWBKFT PO Last administered on 06/03/21at 10:36; Start 06/02/21 at 15:00 Atorvastatin Calcium (Lipitor) 10 mg QHS PO Last administered on 06/02/21at 20:53; Start 06/02/21 at 21:00 Vancomycin HCl 1 gm/Sodium Chloride 250 ml @ 250 mls/hr Q12H IV Last administered on 06/03/21at 12:41; Start 06/02/21 at 23:00 Lactobacillus Rhamnosus (Culturelle) 1 cap BID PO Last administered on 06/03/21at 10:36; Start 06/02/21 at 21:00 Sodium Chloride 250 ml @ 250 mls/hr 1X ONCE IV Last administered on 06/03/21at 10:36; Start 06/03/21 at 08:45; Stop 06/03/21 at 09:44; Status DC Active Scripts Active Reported Biofreeze (Menthol) 118 Ml Gel..ml. 1 Ly TP QID PRN 7 Days Trazodone Hcl 50 Mg Tablet 1 Tab PO QHS PRN Miralax (Polyethylene Glycol 3350) 17 Gm Powd.pack 1 Packet PO DAILY 2 Days dissolve in water Loratadine 10 Mg Tablet 1 Tab PO DAILY Ondansetron Hcl 4 Mg Tablet 1 Tab PO PRN Q6HRS Tramadol Hcl 50 Mg Tablet 50 Mg PO Q12HR PRN Glucagon Emergency Kit (Glucagon,Human Recombinant) 1 Mg Kit 1 Mg IM PRN Multi Vitamin Daily (Multivitamin) 1 Each Tablet 1 Tab PO DAILY 30 Days Santyl Ointment (Collagenase) 30 Gm Oint...g. 1 Ly TP DAILY 30 Days Acetaminophen 325 Mg Tablet 2 Tab PO PRN Q6HRS PRN 30 Days Baclofen 10 Mg Tablet 2 Tab PO TID Amlodipine Besylate 5 Mg Tablet 5 Mg PO DAILY Tizanidine Hcl 4 Mg Tablet 1 Tab PO TID Tizanidine Hcl 2 Mg Capsule 2 Mg PO BID PRN Gabapentin 300 Mg Capsule 2 Cap PO TID Diazepam 2 Mg Tablet 1 Tab PO BID Acetaminophen-Cod #3 Tablet (Acetaminophen/Codeine Phosphate) 1 Each Tablet 1 Tab PO Q6HRS PRN Ropinirole Hcl 0.25 Mg Tablet 2 Tab PO HS Tamsulosin Hcl 0.4 Mg Cap.er.24h 1 Cap PO HS Clopidogrel (Clopidogrel Bisulfate) 75 Mg Tablet 1 Tab PO DAILY Aspirin 325 Mg Tablet 1 Tab PO DAILY Atorvastatin Calcium 10 Mg Tablet 1 Tab PO DAILY Vitamin B-12 (Cyanocobalamin (Vitamin B-12)) 1,000 Mcg Tablet 1 Tab PO DAILY Metformin Hcl 500 Mg Tablet 1 Tab PO BID Fluoxetine Hcl 20 Mg Tablet 1 Tab PO DAILY Allergies Allergies: Coded Allergies: Iodinated Contrast Media (Verified Allergy, Intermediate, 06/02/21) iodine (Verified Allergy, Intermediate, 06/29/16) ROS Review of System CONSTITUTIONAL: No fever. No chills. No dizziness. No weakness. CARDIOVASCULAR: No chest pain. No palpitations. No lower extremity edema. RESPIRATORY: No shortness of breath, cough, pain with respiration. No hemoptysis. No dyspnea. GASTROINTESTINAL: Normal appetite. No nausea, vomiting, diarrhea. GENITOURINARY: No frequency, urgency, nocturia. No hematuria or dysuria. MUSCULOSKELETAL: No arthralgias or myalgias. INTEGUMENTARY: Refer to HPI NEUROLOGIC: No numbness or tingling of the extremities. No weakness. PSYCHIATRIC: No confusion. ENDOCRINE: No fatigue. No weakness. HEMATOLOGICAL: No bleeding. No petechiae. No bruising. ALLERGIES: No asthma. No urticaria Physical Exam Physical Exam General: Pleasant without apparent distress, AOx3 Right lower extremity focused Dermatology: -Upon dressing removal, a full thickness circular lesion was noted at plantar medial aspect of first metatarsal head, measures 3 x 4 cm. The flexor tendon is exposed, the wound is also probe deep. There is no active bleeding, fluctuance or proximal streaking. The wound base is fibrotic without any granulation. Vascular: -DP/PT are faintly palpable -Foot is warm to touch with CFT less than 3 seconds x 5 Neurology: -Light touch sensation diminished to the level of digits 1 through 5 MSK: -[+] TTP at first medial and plantar metatarsal head and sesamoids -Passive first MTPJ range of motion with stiff without any crepitus or significant pain -Rigid contracture at the hip and knee where the right medial foot is predisposed to pressure at rest -Able to move digits -Calf is soft and nontender Vitals VITALS Vital Signs Date Time Temp Pulse Resp B/P (MAP) Pulse Ox O2 Delivery O2 Flow Rate FiO2 06/03/21 10:50 98.0 80 18 112/62 (79) 90 Nasal Cannula 5.0 98.0 Labs Labs Laboratory Tests Test 06/01/21 14:38 06/01/21 16:10 06/01/21 16:12 06/02/21 06:50 White Blood Count 25.0 x10^3/uL (4.0-11.0) 14.9 x10^3/uL (4.0-11.0) Red Blood Count 4.35 x10^6/uL (4.30-5.70) 4.09 x10^6/uL (4.30-5.70) Hemoglobin 11.5 g/dL (13.0-17.5) 10.6 g/dL (13.0-17.5) Hematocrit 35.5 % (39.0-53.0) 33.4 % (39.0-53.0) Mean Corpuscular Volume 82 fL (79-100) 82 fL (79-100) Mean Corpuscular Hemoglobin 26 pg (25-35) 26 pg (25-35) Mean Corpuscular Hemoglobin Concent 32 g/dL (31-37) 32 g/dL (31-37) Red Cell Distribution Width 17.4 % (11.5-14.5) 17.4 % (11.5-14.5) Platelet Count 329 x10^3/uL (140-400) 307 x10^3/uL (140-400) Neutrophils (%) (Auto) 85 % (31-73) 84 % (31-73) Lymphocytes (%) (Auto) 8 % (24-48) 10 % (24-48) Monocytes (%) (Auto) 7 % (0-9) 5 % (0-9) Eosinophils (%) (Auto) 0 % (0-3) 0 % (0-3) Basophils (%) (Auto) 1 % (0-3) 1 % (0-3) Neutrophils # (Auto) 21.2 x10^3/uL (1.8-7.7) 12.4 x10^3/uL (1.8-7.7) Lymphocytes # (Auto) 1.9 x10^3/uL (1.0-4.8) 1.5 x10^3/uL (1.0-4.8) Monocytes # (Auto) 1.8 x10^3/uL (0.0-1.1) 0.8 x10^3/uL (0.0-1.1) Eosinophils # (Auto) 0.0 x10^3/uL (0.0-0.7) 0.0 x10^3/uL (0.0-0.7) Basophils # (Auto) 0.2 x10^3/uL (0.0-0.2) 0.1 x10^3/uL (0.0-0.2) Segmented Neutrophils % 52 % (35-66) Band Neutrophils % 25 % (0-9) Lymphocytes % 10 % (24-48) Monocytes % 13 % (0-10) Platelet Estimate Adequate (ADEQUATE) Ovalocytes Occ Najma Cells Present Sodium Level 136 mmol/L (136-145) 137 mmol/L (136-145) Potassium Level 4.3 mmol/L (3.5-5.1) 3.9 mmol/L (3.5-5.1) Chloride Level 100 mmol/L (98-107) 101 mmol/L (98-107) Carbon Dioxide Level 30 mmol/L (21-32) 30 mmol/L (21-32) Anion Gap 6 (6-14) 6 (6-14) Blood Urea Nitrogen 19 mg/dL (8-26) 18 mg/dL (8-26) Creatinine 1.0 mg/dL (0.7-1.3) 0.8 mg/dL (0.7-1.3) Estimated GFR (Cockcroft-Gault) 72.3 93.5 BUN/Creatinine Ratio 19 (6-20) Glucose Level 141 mg/dL (70-99) 79 mg/dL (70-99) Calcium Level 9.1 mg/dL (8.5-10.1) 8.9 mg/dL (8.5-10.1) Total Bilirubin 0.8 mg/dL (0.2-1.0) Aspartate Amino Transf (AST/SGOT) 11 U/L (15-37) Alanine Aminotransferase (ALT/SGPT) 11 U/L (16-63) Alkaline Phosphatase 73 U/L (46-116) Creatine Kinase 22 U/L (39-308) Creatine Kinase MB (Mass) < 0.5 ng/mL (0.0-3.6) Creatine Kinase MB Relative Index % (0-4) Troponin I High Sensitivity 7 ng/L (4-75) SA-Spp-M-Type Natriuretic Peptide 1959 pg/mL (0-449) Total Protein 6.8 g/dL (6.4-8.2) Albumin 2.4 g/dL (3.4-5.0) Albumin/Globulin Ratio 0.5 (1.0-1.7) Lactic Acid Level 2.0 mmol/L (0.4-2.0) Coronavirus (COVID-19)(PCR) Not detected (NOT DETECTD) C-Reactive Protein, Quantitative 226.2 mg/L (0-3.3) Test 06/03/21 04:15 06/03/21 10:15 06/03/21 10:49 Creatinine 0.6 mg/dL (0.7-1.3) Estimated GFR (Cockcroft-Gault) 130.3 Urine Collection Type U cath Urine Color (Auto) Light yellow Urine Turbidity Hazy Urine pH (Auto) 6.0 (<5.0-8.0) Urine Specific [place] 1.011 (1.000-1.030) Urine Protein (Auto) Negative mg/dL (Negative) Urine Glucose (Auto)(UA) Negative mg/dL (Negative) Urine Ketones (Auto) 40 mg/dL (Negative) Urine Blood (Auto) Negative (Negative) Urine Nitrite Negative (Negative) Urine Bilirubin (Auto) Negative (Negative) Urine Urobilinogen (Auto) Normal mg/dL (Normal) Urine Leukocyte Esterase (Auto) Large (Negative) Urine RBC Occ /HPF (0-2) Urine WBC >40 /HPF (0-4) Urine Squamous Epithelial Cells Occ /LPF Urine Bacteria Few /HPF (0-FEW) Urine Mucus Slight /LPF Urine Opiates Screen Pos (NEG) Urine Methadone Screen Neg (NEG) Urine Barbiturates Neg (NEG) Urine Phencyclidine Screen Neg (NEG) Urine Amphetamine/Methamphetamine Neg (NEG) Urine Benzodiazepines Screen Pos (NEG) Urine Cocaine Screen Neg (NEG) Urine Cannabinoids Screen Neg (NEG) Urine Ethyl Alcohol Neg (NEG) Vancomycin Level Trough 14.7 mcg/mL (10.0-20.0) Vancomycin Last Dose Date 06/02/21 Vancomycin Last Dose Time 2300 Laboratory Tests Test 06/03/21 04:15 06/03/21 10:15 06/03/21 10:49 Creatinine 0.6 mg/dL (0.7-1.3) Estimated GFR (Cockcroft-Gault) 130.3 Urine Collection Type U cath Urine Color (Auto) Light yellow Urine Turbidity Hazy Urine pH (Auto) 6.0 (<5.0-8.0) Urine Specific [place] 1.011 (1.000-1.030) Urine Protein (Auto) Negative mg/dL (Negative) Urine Glucose (Auto)(UA) Negative mg/dL (Negative) Urine Ketones (Auto) 40 mg/dL (Negative) Urine Blood (Auto) Negative (Negative) Urine Nitrite Negative (Negative) Urine Bilirubin (Auto) Negative (Negative) Urine Urobilinogen (Auto) Normal mg/dL (Normal) Urine Leukocyte Esterase (Auto) Large (Negative) Urine RBC Occ /HPF (0-2) Urine WBC >40 /HPF (0-4) Urine Squamous Epithelial Cells Occ /LPF Urine Bacteria Few /HPF (0-FEW) Urine Mucus Slight /LPF Urine Opiates Screen Pos (NEG) Urine Methadone Screen Neg (NEG) Urine Barbiturates Neg (NEG) Urine Phencyclidine Screen Neg (NEG) Urine Amphetamine/Methamphetamine Neg (NEG) Urine Benzodiazepines Screen Pos (NEG) Urine Cocaine Screen Neg (NEG) Urine Cannabinoids Screen Neg (NEG) Urine Ethyl Alcohol Neg (NEG) Vancomycin Level Trough 14.7 mcg/mL (10.0-20.0) Vancomycin Last Dose Date 06/02/21 Vancomycin Last Dose Time 2300 Assessment/Plan Assessment/Plan Right medial plantar first metatarsal head ulcer, complicated with exposed tendon, probe deep concerning for deep tissue infection Leukocytosis Altered mental status, improved but unable to provide meaningful history -Clinically, the wound concerns for flexor tenosynovitis, deep tissue abscess and possible osteomyelitis. X-ray was limited due to the right lower extremity contracture without any significant remarks of osteolytic changes or soft tissue emphysema. Currently, patient is on Vanco and Zosyn for broad-spectrum suppression therapy but may not be adequate to heal the wound. -Blood culture: no growth to date -WBC is downtrending but still elevated -Please offload the pressure/ulcer area with Prevalon boot, per tolerance. Reposition patient every 2 hours to avoid decubitus ulcer -Antibiotic therapy: Currently on Vanco and Zosyn, ID is on board Dispo: The wound is unlikely to heal given the amount of flexor tendon exposure, size of the wound and the challenges with mechanical offloading in the setting of right lower extremity contracture. However, patient is not a prime candidate for surgical intervention and carries a DNR are status. My plan is to talk to family, Vangie, patient's power of ip attorney? I will discuss with her the risks and benefits of conservative care including possible worsening infection and sepsis versus surgical source control, likely partial first reputation versus TMA, pending arterial inflow status and soft tissue envelope. DAVID HYDE DPM Jun 03, 2021 13:43
[2021-06-03] MEDS: oxyCODONE/APAP 5/325 1 TAB TABLET PO PRN (14:15)
--- NOTE | 2021-06-03 15:42 | CARD ---
MR#: [id number] Date of Study: 06/03/2021 Ordering Physician: MADAY HENNESSY, Referring Physician: MADAY HENNESSY Tech: Wilma Dotson [facility] APPROVED REPORT EXAM: Two-dimensional and M-mode echocardiogram with Doppler and color Doppler. Other Information Quality : Technically LimitedHR: 68bpm Rhythm : NSR INDICATION Cardiac Disease: CAD RISK FACTORS Hypertension Hyperlipidemia Diabetes 2D DIMENSIONS Left Atrium(2D)4.2 (1.6-4.0cm)IVSd1.2 (0.7-1.1cm) Aortic Root(2D)3.5 (2.0-3.7cm)LVDd5.0 (3.9-5.9cm) LVOT Diameter2.4 (1.8-2.4cm)PWd1.2 (0.7-1.1cm) LVDs2.8 (2.5-4.0cm)FS (%) 44.1 % SV89.7 mlLVEF(%)75.1 (>50%) Aortic Valve AoV Peak Parrish.113.9cm/[place] Peak GR.5.2mmHg Mitral Valve MV E Figfcqgk78.9cm/sMV DECEL YMWA2bh TDI Lateral E' P. V8.50cm/sMedial E' P. V4.89cm/s E/Lateral E'6.9E/Medial E'12.0 LEFT VENTRICLE The left ventricle is normal size. There is mild concentric left ventricular hypertrophy. The left ve ntricle systolic function is borderline normal. The ejection fraction is estimated at 50%. No regiona l wall motion abnormalities. Transmitral Doppler flow pattern is Grade I-abnormal relaxation pattern. RIGHT VENTRICLE The right ventricle is normal size. There is normal right ventricular wall thickness. The right ventr icular systolic function is normal. ATRIA The left atrium size is normal. The right atrium size is normal. The interatrial septum is intact wit h no evidence for an atrial septal defect or patent foramen ovale as noted on 2-D or Doppler imaging. AORTIC VALVE The aortic valve is normal in structure and function. Doppler and Color Flow revealed no significant aortic regurgitation. There is no significant aortic valvular stenosis. MITRAL VALVE The mitral valve is normal in structure and function. There is no evidence of mitral valve prolapse. There is no mitral valve stenosis. Doppler and Color-flow revealed mild mitral regurgitation. TRICUSPID VALVE The tricuspid valve is normal in structure and function. Doppler and Color Flow revealed trace tricus pid regurgitation. There is no tricuspid valve stenosis. PULMONIC VALVE The pulmonary valve is normal in structure and function. Doppler and Color Flow revealed no pulmonic valvular regurgitation. GREAT VESSELS The aortic root is normal in size. The ascending aorta is normal in size. Due to poor image quality, the IVC could not be assessed. PERICARDIAL EFFUSION There is no evidence of significant pericardial effusion. Critical Notification Critical Value: No <Conclusion> The left ventricle systolic function is borderline normal. The ejection fraction is estimated at 50%. Transmitral Doppler flow pattern is Grade I-abnormal relaxation pattern. Mild mitral regurgitation. Trace tricuspid regurgitation. There is no evidence of significant pericardial effusion. Signed by : Oliverio Beauchamp, Electronically Approved : 06/03/2021 15:41:57
[2021-06-03] MEDS: MULTIVITAMIN with MINERAL TABLET. PO SCH (21:31)
[2021-06-03] MEDS: ATORVASTATIN CALCIUM 10 MG TABLET. PO SCH (21:32)
[2021-06-04] MEDS: PIPERACILLIN/TAZOBACTAM 3.375 GM in IV NORMAL SALINE 50ML 50 ML IV SCH ×4 (00:19→17:40)
[2021-06-04 03:00] VITALS: BP 136/70
[2021-06-04] MEDS: HYDROcodone/APAP 5/325MG 1 TAB TABLET PO PRN (04:04)
[2021-06-04 07:00] VITALS: BP 108/59
[2021-06-04] MEDS: CLOPIDOGREL BISULFATE 75 MG TABLET PO SCH (08:28)
[2021-06-04 08:47] LABS: CREATININE 0.7 mg/dL (0.7-1.3); GFR 109.1
--- NOTE | 2021-06-04 09:18 | NUR ---
Wound/Ostomy Care Wound Type/Assessment: Patient seen per wound care for follow up. See wound assessment. 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 there is no surgical intervention planned at this time. Wound cleansed and assessed. Patient is contracted and in significant amount of pain with movement. Treatment Recommendations/Plan: Recommendations to switch to Hydrofera Blue ready transfer to wound and cover with foam dressing. Change every 2-3 days. Dressing applied and patient does have significant pain in this wound. Aquacel foams applied to bilateral heels for prevention, they are reddened but remain blanchable. Education provided: Patient educated on PU prevention, pt refused offloading boot of any kind at this time. Offloading surface/device: Float heels and keep turned to offload plantar foot as much as possible. Patient refused to turn to side at this time and requested to be on back. It is hard to offload this right plantar foot as it is contracted to his buttock, and due to his pain this is the most comfortable positron for him. Recommended Referrals/Tests: ortho and ID consults have been completed. No surgical intervention at this time. Wound care is also following. Discharge Recommendations for dressings: Dressing change instructions left in room as well extra hydrofera blue for next dressing changes. Bed lowered and call light in reach. Wound care will follow on 06/09/21.
[2021-06-04] MEDS: tiZANidine 4 MG TABLET. PO SCH ×3 (09:54→22:02)
[2021-06-04] MEDS: MULTIVITAMIN with MINERAL TABLET. PO SCH (09:54)
[2021-06-04] MEDS: BACLOFEN 10 MG TABLET. PO SCH ×3 (09:54→22:02)
[2021-06-04] MEDS: LACTOBACILLUS RHAMNOSUS GG 1 CAPSULE. PO SCH ×2 (09:54→22:03)
[2021-06-04] MEDS: HEPARIN for SUB-Q USE 5,000 UNIT/ML VIAL. SQ SCH ×2 (10:00→22:09)
--- NOTE | 2021-06-04 10:33 | PDOC ---
MADAY HNENESSY ASSISTANT [employer] MANAGER 06/04/21 1033: CARDIO Progress Notes Date and Time Date of Service 06/04/2021 Time of Evaluation 1015 Subjective Subjective: No Chest Pain, No shortness of breath, No Palpitations Vitals Vitals Vital Signs Date Time Temp Pulse Resp B/P (MAP) Pulse Ox O2 Delivery O2 Flow Rate FiO2 06/04/21 08:25 Nasal Cannula 5.0 06/04/21 07:00 98.1 83 20 108/59 (75) 91 98.1 Weight Weight [ ] Input and Output Intake and Output Intake and Output 06/04/21 07:00 Intake Total 1140 ml Balance 1140 ml Intake Oral 840 ml IV Total 300 ml # Voids 3 Laboratory Labs Laboratory Tests Test 06/03/21 10:49 06/04/21 06:20 Vancomycin Level Trough 14.7 mcg/mL (10.0-20.0) Vancomycin Last Dose Date 06/02/21 Vancomycin Last Dose Time 2300 Creatinine 0.7 mg/dL (0.7-1.3) Estimated GFR (Cockcroft-Gault) 109.1 Microbiology Micro Microbiology 06/01/21 Blood Culture - Preliminary, Resulted NO GROWTH AFTER 2 DAYS Physical Exam HEENT: Neck Supple W Full Motion Chest: Symmetric LUNGS: Clear to Auscultation Heart: RRR (SR) Abdomen: Soft N/T Extremities: No Calf Tenderness, Other (right foot wound) Neurology: alert, oriented, follow commands Assessment Assessment 1. Encephalopathy: mentation back to baseline 2. Acute on chronic respiratory failure: reported O2 dependent at [facility]. Improved. ILD? 3. HTN: controlled 4. Right plantar ulcer: ID and ortho following 5. HLP 6. Chronic CHF HFpEF: presently clinically appears compensated 7. Debility: WC/bed bound 8. Hx of CVA 9. Possible UTI: defer to PCP Recommendations 1. Antibiotic per ID 2. No diuretic needed at this time 3. Continue secondary prevention measures including plavix Justicifation of Admission Dx: Justifications for Admission: Justification of Admission Dx: Yes Chronic Renal Failure: Encephalopathy SIM ROGER MD 06/04/21 1222: CARDIO Progress Notes Assessment Assessment Patient seen and examined. Agree with SERICULTURIST's assessment and plan Chronic diastolic heart failure well compensated 2D echo showed LVEF 50%. Continue antibiotics per IM MADAY HENNESSY ASSIST[employer] MANAGER Jun 04, 2021 10:33 SIM ROGER MD Jun 04, 2021 12:22
[2021-06-04 11:00] VITALS: BP 106/56
[2021-06-04] MEDS: VANCOMYCIN PER PHARMACY MC PRN (11:00)
[2021-06-04] MEDS: VANCOMYCIN 1 GM in IV NORMAL SALINE 250ML 250 ML IV SCH ×2 (11:12→23:24)
--- NOTE | 2021-06-04 12:02 | PDOC ---
[facility] PROGRESS NOTE Date of Service DOS: DATE: 06/04/21 TIME: 11:54 Chief Complaint Chief Complaint Assessment/Plan Sepsis Suspected osteomyelitis with tendon exposed on the right foot Severe contracture of the right lower extremity Possible ortho consult for tendon release. Will consult vascular surgery if patient and daughter wishes to proceed with limb salvage, possible TMA vs BKA. Will need peripheral vascular studies done. Acute respiratory failure with hypoxia Diastolic CHF exacerbation History tobacco abuse Severe malnutrition Plan: Pending orthopedic surgery and ID evaluation I am able to probe down to what I feel is the bone in his right foot. MRI would be a better picture for osteomyelitis. Patient received Rocephin in the ED. We will also cover with vancomycin. Will consult cardiology for his diastolic CHF Echocardiogram on 03/18/2016 showed an EF of 60%, with grade 1 diastolic dysfunction, PAP 34 mmHg. Consult wound care to right foot Pain management Resume home medications FEN - Cardiac diet PPX - Heparin DNR/surrogate decision maker is his daughter (Vangie Burdick) Dispo - inpatient for above History of Present Illness History of Present Illness 76-year-old male with past medical history CVA, HTN, HLD, and chronic contractures to right lower extremity, [facility] to concerns for altered mental status. Per patient's daughter (ABBY), he had a sudden change in mental status today he became minimally responsive and hypoxic. Upon EMS arrival he was placed on nonrebreather due to oxygen saturations in the low 80s. Upon arrival to the ED he was more alert and conversive, appropriately answering questions. Patient's daughter states that he has had a contracted right lower extremity since January secondary to a stroke. He was supposed to see a pain management doctor in the upcoming days. Upon my evaluation in the ED, he does have a pressure ulcer to his right medial heel that is been addressed [facility]. Patient has not been able to offload his right foot due to his contracture. Labs in the ER showed WBC 25.0, hemoglobin 11.5, hematocrit 35.4, CBG 141, albumin 2.4, proBNP 1959. Right foot x-ray showed decreased osseous mineralization without acute osseous abnormality in the right foot. Patient will be admitted for further medical management. 06/02/2021 No acute events overnight. Patient seen examined bedside. Resting comfortably. Confused. Demented. Pending cardiology, orthopedic and infectious disease evaluation. Continue the IV antibiotics. Pending TTE. Patient's chart, labs, images were reviewed and discussed with RN 06/03/2021 No acute events overnight. Patient seen examined bedside. Tolerating breakfast. Blood pressures low in the 80s systolic. 250 NS bolus given this morning. Blood pressures improved to systolics of 120s. Still pending podiatry evaluation. Will likely need CT or MRI imaging of the extremity. Appreciate ID recommendations, continue IV vancomycin and Zosyn. Patient's chart, labs, images were reviewed and discussed with RN 06/04/2021 No acute events overnight. Patient seen examined bedside. Patient currently is not in any discomfort. Discussed goals of care with him. Patient wishes to preserve much of his extremity is much as possible. He is amenable to an amputation of his foot but does not want an AKA. When attempting to move his right lower extremity he does have pain moving his leg on his own. His c ontracture is very severe but he has no pain when he is resting without movement. Patient is able to move his left lower extremity without problems. In addition to my E/M visit, advance care planning done with A total time of 20 minutes was spent from 930 to 950 face to face in discussion regarding the patient's goals of care, CODE STATUS. Vitals/I&O Vitals/I&O: Vital Signs Date Time Temp Pulse Resp B/P (MAP) Pulse Ox O2 Delivery O2 Flow Rate FiO2 06/04/21 11:00 98.0 54 21 106/56 (73) 92 Nasal Cannula 5.0 98.0 I & O 06/03/21 06/03/21 06/04/21 15:00 23:00 07:00 Intake Total 480 ml 240 ml 420 ml Balance 480 ml 240 ml 420 ml Physical Exam Physical Exam: GENERAL: Alert, oriented gentleman, not in distress. VITAL SIGNS: Stable, afebrile. HEENT: NAD. NECK: Supple, no JVP, no lymphadenopathy. LUNGS: Clear. HEART: S1, S2, regular. ABDOMEN: Soft, nontender, no organomegaly. EXTREMITIES: Left lower extremity is normal. Right lower extremity is contracted, unable to straighten out and at the bottom of the right calcaneal medial area, there is a necrotic wound. NEUROLOGIC: The patient is alert, awake, able to communicate appropriately with CVA and contractures as I mentioned. General: Alert, Oriented X3, Cooperative, No acute distress Heart: Regular rate (SR), Other (distant heart sounds) Lungs: Clear Abdomen: Soft Extremities: No cyanosis, No edema Skin: No breakdown Labs Labs: Laboratory Tests Test 06/04/21 06:20 Creatinine 0.7 mg/dL (0.7-1.3) Estimated GFR (Cockcroft-Gault) 109.1 Assessment and Plan Assessmemt and Plan Problems Medical Problems: (1) Altered mental status Status: Acute (2) Decubitus ulcer of right foot Status: Acute (3) DNR (do not resuscitate) Status: Acute (4) Severe sepsis Status: Acute Comment Review of Relevant I have reviewed the following items sandro (where applicable) has been applied. Medications: Current Medications Medications (Trade) Dose Ordered Sig/John Route PRN Reason Start Time Stop Time Status Last Admin Dose Admin Multivitamins (Thera M Plus) 1 tab DAILY PO 06/03/21 19:30 06/04/21 09:54 Justifications for Admission Other Justification JAYNE ARZATE MD Jun 04, 2021 12:02
--- NOTE | 2021-06-04 14:03 | PDOC ---
Infectious Disease Note Subjective Subjective Patient is feeling good has no complaints ROS ROS no n/v/d/ Vital Sign Vital Signs Vital Signs Date Time Temp Pulse Resp B/P (MAP) Pulse Ox O2 Delivery O2 Flow Rate FiO2 06/04/21 11:00 98.0 54 21 106/56 (73) 92 Nasal Cannula 5.0 98.0 Physical Exam PHYSICAL EXAM GENERAL: Alert, oriented gentleman, not in distress. VITAL SIGNS: Stable, afebrile. HEENT: NAD. NECK: Supple, no JVP, no lymphadenopathy. LUNGS: Clear. HEART: S1, S2, regular. ABDOMEN: Soft, nontender, no organomegaly. EXTREMITIES: Left lower extremity is normal. Right lower extremity is contracted, unable to straighten out and at the bottom of the right calcaneal medial area, there is a necrotic wound. NEUROLOGIC: The patient is alert, awake, able to communicate appropriately with CVA and contractures as I mentioned. Labs Lab Laboratory Tests Test 06/04/21 06:20 Creatinine 0.7 mg/dL (0.7-1.3) Estimated GFR (Cockcroft-Gault) 109.1 Micro Microbiology 06/01/21 Blood Culture - Preliminary, Resulted NO GROWTH AFTER 1 DAY Objective Assessment IMPRESSION: 1. Encephalopathy, which is improved. 2. Leukocytosis. 3. Right calcaneal wound, the depth cannot be judged right now. 4. Cerebrovascular accident. 5. Hypertension. Plan Plan of Care Patient needs high AKA. The wound is not going to heal has exposed tendon and the way his contractures are he would be much better off with a AKA and have a much better life patient is initially reluctant but he agreed although I do not know how reliable he is we may have to talk to his daughter Meanwhile continue antibiotic JOEL MELARA MD Jun 04, 2021 14:02
[2021-06-04 15:00] VITALS: BP 100/47
[2021-06-04 19:00] VITALS: BP 128/64
[2021-06-04] MEDS: ATORVASTATIN CALCIUM 10 MG TABLET. PO SCH (22:03)
[2021-06-04 23:00] VITALS: BP 135/72
[2021-06-05] MEDS: PIPERACILLIN/TAZOBACTAM 3.375 GM in IV NORMAL SALINE 50ML 50 ML IV SCH ×4 (00:44→17:45)
[2021-06-05 03:16] VITALS: BP 147/69
[2021-06-05] MEDS: HYDROcodone/APAP 5/325MG 1 TAB TABLET PO PRN ×3 (06:03→15:17)
[2021-06-05 07:00] VITALS: BP 129/74
[2021-06-05] MEDS: MULTIVITAMIN with MINERAL TABLET. PO SCH (09:01)
[2021-06-05] MEDS: BACLOFEN 10 MG TABLET. PO SCH ×3 (09:01→20:30)
[2021-06-05] MEDS: LACTOBACILLUS RHAMNOSUS GG 1 CAPSULE. PO SCH ×2 (09:01→20:30)
[2021-06-05] MEDS: CLOPIDOGREL BISULFATE 75 MG TABLET PO SCH (09:01)
[2021-06-05] MEDS: tiZANidine 4 MG TABLET. PO SCH ×3 (09:01→20:30)
[2021-06-05] MEDS: HEPARIN for SUB-Q USE 5,000 UNIT/ML VIAL. SQ SCH ×2 (09:04→20:38)
[2021-06-05] MEDS: VANCOMYCIN 1 GM in IV NORMAL SALINE 250ML 250 ML IV SCH ×2 (10:41→23:35)
--- NOTE | 2021-06-05 10:42 | PDOC2 ---
CONSULT Date of Service Date of Service DATE: 06/05/21 TIME: 10:36 Reason for Consult Reason for Consult: Right foot wound with exposed tendon and sepsis Referring Physician Referring Physician: Dr. Avina Identification/Chief Complaint Chief Complaint Right foot wound with exposed tendon and sepsis Source Source: Chart review, Patient History of Present Illness Reason for Visit: Mr. Nicolas Fritz is a 76-year-old male with a prior CVA resulting in right lower extremity contracture. He has developed a foot wound on the plantar aspect of the right foot at the heel as well as on the dorsal aspect of the right foot near the right metatarsal head. He presented with signs and symptoms of sepsis with a leukocytosis. He has been on antibiotic therapy for this. However there is exposed tendon within the wound and he has a nonfunctional right lower extremity. He was evaluated by the infectious disease doctors who felt that he would benefit from amputation. He is unsure whether he would like to proceed with amputation at this time. Past Medical History Cardiovascular: HTN, Syncope, Hyperlipidemia Pulmonary: No pertinent hx CENTRAL NERVOUS SYSTEM: CVA, Other (RLS) GI: Constipation Heme/Onc: B12 deficiency Musculoskeletal: Osteoarthritis ENT: Allergic Rhinitis Renal/: Benign prostatic enlarg. Endocrine: Diabetes Past Surgical History Past Surgical History: Other (cleft hip repair; right ORIF hip) Family History Family History: Stroke Social History Quit ALCOHOL: other (quit) Drugs: None Lives: Senior Living Current Problem List Problem List Problems Medical Problems: (1) Altered mental status Status: Acute (2) Decubitus ulcer of right foot Status: Acute (3) DNR (do not resuscitate) Status: Acute (4) Severe sepsis Status: Acute Current Medications Current Medications Current Medications Sodium Chloride 1,000 ml @ 1,000 mls/hr 1X ONCE IV Last administered on 06/01/21at 15:30; Start 06/01/21 at 15:15; Stop 06/01/21 at 16:14; Status DC Ceftriaxone Sodium (Rocephin) 1 gm 1X ONCE IVP Last administered on 06/01/21at 15:30; Start 06/01/21 at 15:30; Stop 06/01/21 at 15:31; Status DC Acetaminophen/ Hydrocodone Bitart (Lortab 5/325) 1 tab 1X ONCE PO Last administered on 06/01/21at 17:07; Start 06/01/21 at 17:30; Stop 06/01/21 at 17:31; Status DC Ondansetron HCl (Zofran) 4 mg PRN Q6HRS PRN IVP NAUSEA/VOMITING; Start 06/01/21 at 17:00 Al Hydroxide/Mg Hydroxide (Mylanta Plus Xs) 30 ml PRN Q3HRS PRN PO HEARTBURN / GAS; Start 06/01/21 at 17:00 Calcium Carbonate/ Glycine (Tums) 500 mg PRN Q3HRS PRN PO UPSET STOMACH; Start 06/01/21 at 17:00 Zolpidem Tartrate (Ambien) 5 mg PRN QHS PRN PO INSOMNIA, MAY REPEAT IN 1HR; Start 06/01/21 at 17:00 Acetaminophen/ Hydrocodone Bitart (Lortab 5/325) 1 tab PRN Q4HRS PRN PO MILD PAIN 1-3 Last administered on 06/05/21at 06:03; Start 06/01/21 at 17:00 Acetaminophen/ Hydrocodone Bitart (Lortab 5/325) 2 tab PRN Q4HRS PRN PO MODERATE PAIN, SEVERE PAIN Last administered on 06/05/21at 10:06; Start 06/01/21 at 17:00 Oxycodone/ Acetaminophen (Percocet 5/325) 1 tab PRN Q4HRS PRN PO MILD PAIN, 2ND CHOICE Last administered on 06/02/21at 03:14; Start 06/01/21 at 17:00 Oxycodone/ Acetaminophen (Percocet 5/325) 2 tab PRN Q4HRS PRN PO MOD-SEVERE PAIN, 2ND CHOICE Last administered on 06/03/21at 14:15; Start 06/01/21 at 17:00 Acetaminophen (Tylenol) 650 mg PRN Q6HRS PRN PO Headaches, Temp > 101.5F; Start 06/01/21 at 17:00 Magnesium Hydroxide (Milk Of Magnesia) 2,400 mg PRN Q12HR PRN PO CONSTIPATION; Start 06/01/21 at 17:00 Heparin Sodium (Porcine) (Heparin Sodium) 5,000 unit Q12HR SQ Last administered on 06/05/21at 09:04; Start 06/01/21 at 21:00 Vancomycin HCl (Vanco Per Pharmacy) 1 each PRN DAILY PRN MC SEE COMMENTS Last administered on 06/04/21at 11:00; Start 06/01/21 at 17:15 Vancomycin HCl 1.75 gm/Sodium Chloride 500 ml @ 250 mls/hr 1X ONCE IV Last administered on 06/01/21at 17:24; Start 06/01/21 at 17:30; Stop 06/01/21 at 19:29; Status DC Ceftriaxone Sodium (Rocephin) 1 gm 1X ONCE IVP ; Start 06/01/21 at 17:30; Stop 06/01/21 at 17:31; Status DC Ondansetron HCl (Zofran) 4 mg PRN Q8HRS PRN IVP NAUSEA/VOMITING; Start 06/01/21 at 17:45; Stop 06/02/21 at 13:12; Status DC Morphine Sulfate (Morphine Sulfate) 4 mg PRN Q2HR PRN IVP PAIN Last administered on 06/02/21at 02:27; Start 06/01/21 at 17:45; Stop 06/02/21 at 17:44; Status DC Vancomycin HCl 1 gm/Sodium Chloride 250 ml @ 250 mls/hr Q18H IV Last administered on 06/02/21at 11:07; Start 06/02/21 at 11:30; Stop 06/02/21 at 15:24; Status DC Vancomycin HCl (Vancomycin Trough Level) 1 each 1X ONCE MC Last administered on 06/03/21at 10:30; Start 06/03/21 at 10:30; Stop 06/03/21 at 10:31; Status DC Baclofen (Lioresal) 20 mg TID PO ; Start 06/02/21 at 09:00; Stop 06/02/21 at 05:45; Status DC Tizanidine HCl (Zanaflex) 4 mg TID PO ; Start 06/02/21 at 09:00; Stop 06/02/21 at 05:45; Status DC Baclofen (Lioresal) 20 mg TID PO Last administered on 06/05/21at 09:01; Start 06/02/21 at 06:00 Tizanidine HCl (Zanaflex) 4 mg TID PO Last administered on 06/05/21at 09:01; Start 06/02/21 at 06:00 Piperacillin Sod/ Tazobactam Sod 3.375 gm/Sodium Chloride 50 ml @ 100 mls/hr Q6HRS IV Last administered on 06/05/21at 06:02; Start 06/02/21 at 18:00 Clopidogrel Bisulfate (Plavix) 75 mg DAILYWBKFT PO Last administered on 06/05/21at 09:01; Start 06/02/21 at 15:00 Atorvastatin Calcium (Lipitor) 10 mg QHS PO Last administered on 06/04/21at 22:03; Start 06/02/21 at 21:00 Vancomycin HCl 1 gm/Sodium Chloride 250 ml @ 250 mls/hr Q12H IV Last administered on 06/04/21at 23:24; Start 06/02/21 at 23:00 Lactobacillus Rhamnosus (Culturelle) 1 cap BID PO Last administered on 06/05/21at 09:01; Start 06/02/21 at 21:00 Sodium Chloride 250 ml @ 250 mls/hr 1X ONCE IV Last administered on 06/03/21at 10:36; Start 06/03/21 at 08:45; Stop 06/03/21 at 09:44; Status DC Vancomycin HCl (Vancomycin Trough Level) 1 each 1X ONCE MC ; Start 06/06/21 at 10:30; Stop 06/06/21 at 10:31 Multivitamins (Thera M Plus) 1 tab DAILY PO Last administered on 06/05/21at 09:01; Start 06/03/21 at 19:30 Active Scripts Active Reported Biofreeze (Menthol) 118 Ml Gel..ml. 1 Ly TP QID PRN 7 Days Trazodone Hcl 50 Mg Tablet 1 Tab PO QHS PRN Miralax (Polyethylene Glycol 3350) 17 Gm Powd.pack 1 Packet PO DAILY 2 Days dissolve in water Loratadine 10 Mg Tablet 1 Tab PO DAILY Ondansetron Hcl 4 Mg Tablet 1 Tab PO PRN Q6HRS Tramadol Hcl 50 Mg Tablet 50 Mg PO Q12HR PRN Glucagon Emergency Kit (Glucagon,Human Recombinant) 1 Mg Kit 1 Mg IM PRN Multi Vitamin Daily (Multivitamin) 1 Each Tablet 1 Tab PO DAILY 30 Days Santyl Ointment (Collagenase) 30 Gm Oint...g. 1 Ly TP DAILY 30 Days Acetaminophen 325 Mg Tablet 2 Tab PO PRN Q6HRS PRN 30 Days Baclofen 10 Mg Tablet 2 Tab PO TID Amlodipine Besylate 5 Mg Tablet 5 Mg PO DAILY Tizanidine Hcl 4 Mg Tablet 1 Tab PO TID Tizanidine Hcl 2 Mg Capsule 2 Mg PO BID PRN Gabapentin 300 Mg Capsule 2 Cap PO TID Diazepam 2 Mg Tablet 1 Tab PO BID Acetaminophen-Cod #3 Tablet (Acetaminophen/Codeine Phosphate) 1 Each Tablet 1 Tab PO Q6HRS PRN Ropinirole Hcl 0.25 Mg Tablet 2 Tab PO HS Tamsulosin Hcl 0.4 Mg Cap.er.24h 1 Cap PO HS Clopidogrel (Clopidogrel Bisulfate) 75 Mg Tablet 1 Tab PO DAILY Aspirin 325 Mg Tablet 1 Tab PO DAILY Atorvastatin Calcium 10 Mg Tablet 1 Tab PO DAILY Vitamin B-12 (Cyanocobalamin (Vitamin B-12)) 1,000 Mcg Tablet 1 Tab PO DAILY Metformin Hcl 500 Mg Tablet 1 Tab PO BID Fluoxetine Hcl 20 Mg Tablet 1 Tab PO DAILY Allergies Allergies: Coded Allergies: Iodinated Contrast Media (Verified Allergy, Intermediate, 06/02/21) iodine (Verified Allergy, Intermediate, 06/29/16) ROS General: No: Chills, Night Sweats, Fatigue, Malaise, Appetite, Other Respiratory: No: Cough, Hemoptysis, Orthopnea, Pleuritic Pain, Shortness of breath, SOB with excertion, Sputum Changes, Stridor, Tachypnea, Wheezing, Other Cardiovascular: No Chest Pain, No Palpitations, No Orthopnea, No Paroxysmal Noc. Dyspnea, No Edema, No Lt Headedness, No Other Gastrointestinal: No Nausea, No Vomiting, No Abdominal Pain, No Diarrhea, No Constipation, No Melena, No Hematochezia, No Other Neurological: Yes Other (Right hemiplegia) Skin: Yes Other (Wound to right foot) Physical Exam General: Alert, No acute distress Lungs: Normal air movement Heart: Regular rate Abdomen: Soft, No tenderness Extremities: Other (Flexion contracture of the right hip and right knee, contracture of the bilateral arms at the elbow) Skin: Other (Difficult to assess right heel wound given contracture, moderate surrounding erythema, wound at right first metatarsal head with exposed tendon) Vitals VITALS Vital Signs Date Time Temp Pulse Resp B/P (MAP) Pulse Ox O2 Delivery O2 Flow Rate FiO2 06/05/21 10:06 20 95 Nasal Cannula 5.0 06/05/21 07:00 98.1 68 129/74 (92) 98.1 Labs Labs Laboratory Tests Test 06/03/21 10:49 06/04/21 06:20 Vancomycin Level Trough 14.7 mcg/mL (10.0-20.0) Vancomycin Last Dose Date 06/02/21 Vancomycin Last Dose Time 2300 Creatinine 0.7 mg/dL (0.7-1.3) Estimated GFR (Cockcroft-Gault) 109.1 Assessment/Plan Assessment/Plan Mr. Cooper is a 76-year-old male with a prior CVA resulting in right lower extremity flexion contracture at the hip and the knee. He has a wound to the right heel as well as the medial forefoot at the right first metatarsal head. There is report of exposed tendon at the heel, though I am unable to evaluated given the patient's contracture and his current positioning. His wound at the right first metatarsal head does appear to have exposed tendon, though again it is difficult to evaluate this given the patient's positioning and contracture. His leukocytosis has responded to antibiotic therapy appropriately. However, there is concern that this wound will not heal and that he will ultimately require amputation. The patient is willing to consider this, but has not made a decision as to whether or not he would like to proceed. He would like the opportunity to discuss this with his daughter. We will reevaluate him on Monday to determine whether he is wanting to proceed with surgery. Continue antibiotics in the interim. DO ROSALIE Mcdaniel KARA M DO Jun 05, 2021 10:42
--- NOTE | 2021-06-05 10:53 | PDOC ---
CARDIOLOGY PROGRESS NOTE SUBJECTIVE: Patient continues to report right leg pain. He denies any chest pain or dyspnea OBJECTIVE: Vital Signs/I&O: Vital Signs Date Time Temp Pulse Resp B/P (MAP) Pulse Ox O2 Delivery O2 Flow Rate FiO2 06/05/21 10:06 20 95 Nasal Cannula 5.0 06/05/21 07:00 98.1 68 129/74 (92) 98.1 I & O 06/04/21 06/04/21 06/05/21 15:00 23:00 07:00 Intake Total 300 ml 50 ml Balance 300 ml 50 ml Objective: Cardiac examination is unremarkable Lungs are clear to auscultation anteriorly No significant lower extremity edema Right lower extremity contracture CURRENT MEDICATIONS: Medications reviewed ASSESSMENT: 1. Encephalopathy: mentation back to baseline 2. Acute on chronic respiratory failure: [place] [facility] [place] Improved. ILD? 3. HTN: controlled 4. Right plantar ulcer: ID and ortho following 5. HLP 6. Chronic CHF HFpEF: presently clinically appears compensated 7. Debility: WC/bed bound 8. Hx of CVA 9. Possible UTI: defer to PCP PLAN: 1. Continue current medical therapy. No further cardiovascular testing necessary. Supportive care. Justicifation of Admission Dx: Justifications for Admission: Justification of Admission Dx: Yes Chronic Renal Failure: Encephalopathy FARHAN COX MD Jun 05, 2021 10:53
[2021-06-05 11:00] VITALS: BP 123/68
--- NOTE | 2021-06-05 11:16 | PDOC ---
[facility] PROGRESS NOTE Date of Service DOS: DATE: 06/05/21 TIME: 11:14 Chief Complaint Chief Complaint Assessment/Plan Sepsis Suspected osteomyelitis with tendon exposed on the right foot Severe contracture of the right lower extremitywill likely need AKA. Will consult vascular surgery if patient and daughter wishes to proceed with limb salvage, possible TMA vs BKA. Will need peripheral vascular studies done. Acute respiratory failure with hypoxia Diastolic CHF exacerbation History tobacco abuse Severe malnutrition Plan: Pending orthopedic surgery and ID evaluation I am able to probe down to what I feel is the bone in his right foot. MRI would be a better picture for osteomyelitis. Patient received Rocephin in the ED. We will also cover with vancomycin. Echocardiogram on 03/18/2016 showed an EF of 60%, with grade 1 diastolic dysfunction, PAP 34 mmHg. 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 Per patient's daughter (ABBY), he had a sudden change in mental status today he became minimally responsive and hypoxic. Upon EMS arrival he was placed on nonrebreather due to oxygen saturations in the low 80s. Upon arrival to the ED he was more alert and conversive, ap propriately answering questions. Patient's daughter states that he has had a contracted right lower extremity since January secondary to a stroke. He was supposed to see a pain management doctor in the upcoming days. Upon my evaluation in the ED, he does have a pressure ulcer to his right medial heel that is been addressed at his retirement. Patient has not been able to offl oad his right foot due to his contracture. Labs in the ER showed WBC 25.0, hemoglobin 11.5, hematocrit 35.4, CBG 141, albumin 2.4, proBNP 1959. Right foot x-ray showed decreased osseous mineralization without acute osseous abnormality in the right foot. Patient will be admitted for further medical management. 06/02/2021 No acute events overnight. Patient seen examined bedside. Resting comfortably. Confused. Demented. Pending cardiology, orthopedic and infectious disease evaluation. Continue the IV antibiotics. Pending TTE. Patient's chart, labs, images were reviewed and discussed with RN 06/03/2021 No acute events overnight. Patient seen examined bedside. Tolerating breakfast. Blood pressures low in the 80s systolic. 250 NS bolus given this mo rning. Blood pressures improved to systolics of 120s. Still pending podiatry evaluation. Will likely need CT or MRI imaging of the extremity. Appreciate ID recommendations, continue IV vancomycin and Zosyn. Patient's chart, labs, images were reviewed and discussed with RN 06/04/2021 No acute events overnight. Patient seen examined bedside. Patient currently is not in any discomfort. Discussed goals of care with him. Patient wishes to preserve much of his extremity is much as possible. He is amenable to an amputation of his foot but does not want an AKA. When attempting to move his right lower extremity he does have pain moving his leg on his own. His contracture is very severe but he has no pain when he is resting without movement. Patient is able to move his left lower extremity without problems. In addition to my E/M visit, advance care planning done with A total time of 20 minutes was spent from 930 to 950 face to face in discussion regarding the patient's goals of care, CODE STATUS. 06/05/2021 No acute events overnight. Patient seen examined bedside. AF and VSS still having discomfort with moving his right lower extremity due to his contracture. Vascular surgery has evaluated him and have recommended amputation. Patient would like time to discuss with his daughter to determine the right course of action. We will continue IV antibiotics through the weekend and reevaluation vascular surgery on Monday. Patient's chart, labs, images were reviewed and discussed with RN Vitals/I&O Vitals/I&O: Vital Signs Date Time Temp Pulse Resp B/P (MAP) Pulse Ox O2 Delivery O2 Flow Rate FiO2 06/05/21 10:06 20 95 Nasal Cannula 5.0 06/05/21 07:00 98.1 68 129/74 (92) 98.1 I & O 0 06/04/21 06/04/21 06/05/21 15:00 23:00 07:00 Intake Total 300 ml 50 ml Balance 300 ml 50 ml Physical Exam Physical Exam: GENERAL: Alert, oriented gentleman, not in distress. VITAL SIGNS: Stable, afebrile. HEENT: NAD. NECK: Supple, no JVP, no lymphadenopathy. LUNGS: Clear. HEART: S1, S2, regular. ABDOMEN: Soft, nontender, no organomegaly. EXTREMITIES: Left lower extremity is normal. Right lower extremity is contracted, unable to straighten out and at the bottom of the right calcaneal medial area, there is a necrotic wound. NEUROLOGIC: The patient is alert, awake, able to communicate appropriately with CVA and contractures as I mentioned. General: Alert, No acute distress Heart: Regular rate Lungs: Clear Abdomen: Soft, No tenderness Extremities: Other Skin: Other Assessment and Plan Assessmemt and Plan Problems Medical Problems: (1) Altered mental status Status: Acute (2) Decubitus ulcer of right foot Status: Acute (3) DNR (do not resuscitate) Status: Acute (4) Severe sepsis Status: Acute Comment Review of Relevant I have reviewed the following items sandro (where applicable) has been applied. Justifications for Admission Other Justification JAYNE ARZATE MD Jun 05, 2021 11:16
[2021-06-05] MEDS: VANCOMYCIN PER PHARMACY MC PRN (14:11)
[2021-06-05 15:00] VITALS: BP 119/62
--- NOTE | 2021-06-05 15:57 | PDOC ---
Infectious Disease Note Subjective: Subjective Patient is feeling good has no complaints Vital Signs: Vital Signs Vital Signs Date Time Temp Pulse Resp B/P (MAP) Pulse Ox O2 Delivery O2 Flow Rate FiO2 06/05/21 15:17 18 93 Nasal Cannula 5.0 06/05/21 15:00 97.9 70 119/62 (81) 97.9 Physical Exam: PHYSICAL EXAM GENERAL: Alert, oriented gentleman, not in distress. VITAL SIGNS: Stable, afebrile. HEENT: NAD. NECK: Supple, no JVP, no lymphadenopathy. LUNGS: Clear. HEART: S1, S2, regular. ABDOMEN: Soft, nontender, no organomegaly. EXTREMITIES: Left lower extremity is normal. Right lower extremity is contracted, unable to straighten out and at the bottom of the right calcaneal medial area, there is a necrotic wound. NEUROLOGIC: The patient is alert, awake, able to communicate appropriately with CVA and contractures as I mentioned. Medications: Inpatient Meds: Medications reviewed. Objective: Assessment: 1. Encephalopathy, which is improved. 2. Leukocytosis. 3. Right calcaneal wound, the depth cannot be judged right now. 4. Cerebrovascular accident. 5. Hypertension. Plan: Plan of Care Continue antibiotics Patient needs high AKA. The wound is not going to heal as he has exposed tendon and the way his contractures are he would be much better off with a AKA and have a much better life . Patient was initially reluctant but he agreed although whether he really understands the consequences is difficult to assess at this time. team may want to discuss about this with his daughter. ATA MELARA MD Jun 05, 2021 15:57
[2021-06-05 19:00] VITALS: BP 129/63
[2021-06-05] MEDS: ATORVASTATIN CALCIUM 10 MG TABLET. PO SCH (20:30)
--- NOTE | 2021-06-05 21:33 | NUR ---
Day shift Addendum: 06/05/21 at 2133 by JAVI ELLISON LPN LPN Amended: Links added.
[2021-06-05 23:23] VITALS: BP 123/60
[2021-06-06] MEDS: PIPERACILLIN/TAZOBACTAM 3.375 GM in IV NORMAL SALINE 50ML 50 ML IV SCH ×5 (00:22→23:20)
[2021-06-06 03:19] VITALS: BP 140/80
[2021-06-06] MEDS: HYDROcodone/APAP 5/325MG 1 TAB TABLET PO PRN ×3 (04:07→20:11)
[2021-06-06 07:00] VITALS: BP 125/79
--- NOTE | 2021-06-06 07:29 | PDOC ---
Provider Note Date of Service: DATE: 06/06/21 TIME: 07:26 Provider Note Provider Note No acute events. Denies complaints other than right lower extremity discomfort. General: Alert, no acute distress CV: Regular rate and rhythm Lungs: Nonlabored respirations Extremities: Right lower extremity with flexion contracture at the right hip and knee, stable appearance of the right heel and first metatarsal head wounds Vascular: Palpable right DP, popliteal, femoral pulse 76-year-old male with history of CVA and right lower extremity contracture now with nonhealing wounds of the right foot. I discussed right [id number] amputation with Mr. Engel again today. He is unsure whether he would like to proceed with surgery still at this time. He would like the opportunity to discuss this with his daughter. He will attempt to call her today. I will also call her today to discuss her recommendations. Tanvi Spencer DO Justicifation of Admission Dx: Justifications for Admission: Justification of Admission Dx: Yes Chronic Renal Failure: Encephalopathy TANVI SPENCER DO June 06, 2021 07:29
[2021-06-06] MEDS: MULTIVITAMIN with MINERAL TABLET. PO SCH (08:33)
[2021-06-06] MEDS: tiZANidine 4 MG TABLET. PO SCH ×3 (08:33→19:52)
[2021-06-06] MEDS: CLOPIDOGREL BISULFATE 75 MG TABLET PO SCH (08:34)
[2021-06-06] MEDS: LACTOBACILLUS RHAMNOSUS GG 1 CAPSULE. PO SCH ×2 (08:34→19:52)
[2021-06-06] MEDS: HEPARIN for SUB-Q USE 5,000 UNIT/ML VIAL. SQ SCH ×2 (08:41→20:14)
[2021-06-06] MEDS: VANCOMYCIN 1 GM in IV NORMAL SALINE 250ML 250 ML IV SCH (10:35)
[2021-06-06] MEDS: BACLOFEN 10 MG TABLET. PO SCH ×3 (10:35→19:52)
[2021-06-06 11:00] VITALS: BP 140/66
--- NOTE | 2021-06-06 11:11 | PDOC ---
[facility] PROGRESS NOTE Date of Service DOS: DATE: 06/06/21 TIME: 11:10 Chief Complaint Chief Complaint Assessment/Plan Sepsis Suspected osteomyelitis with tendon exposed on the right foot Severe contracture of the right lower extremitywill likely need AKA. Will consult vascular surgery if patient and daughter wishes to proceed with limb salvage, possible TMA vs BKA. Will need peripheral vascular studies done. Acute respiratory failure with hypoxia Diastolic CHF exacerbation History tobacco abuse Severe malnutrition Plan: Pending orthopedic surgery and ID evaluation I am able to probe down to what I feel is the bone in his right foot. MRI would be a better picture for osteomyelitis. Patient received Rocephin in the ED. We will also cover with vancomycin. Echocardiogram on 03/18/2016 showed an EF of 60%, with grade 1 diastolic dysfunction, PAP 34 mmHg. Pain management Resume home medications PT OT FEN - Cardiac diet PPX - Heparin DNR/surrogate decision maker is his daughter (Vangie Burdick) Dispo - inpatient for above History of Present Illness History of Present Illness 76-year-old male with past medical history CVA, HTN, HLD, and chronic contrac tures to right lower extremity, who [facility] due to concerns for altered mental status. Per patient's daughter (ABBY), he had a sudden change in mental status today he became minimally responsive and hypoxic. Upon EMS arrival he was placed on nonrebreather due to oxygen saturations in the low 80s. Upon arrival to the ED he was more alert and conversive, juan c ropriately answering questions. Patient's daughter states that he has had a contracted right lower extremity since January secondary to a stroke. He was supposed to see a pain management doctor in the upcoming days. Upon my evaluation in the ED, he does have a pressure ulcer to his right medial heel that is been addressed at his jail. Patient has not been able to offlo ad his right foot due to his contracture. Labs in the ER showed WBC 25.0, hemoglobin 11.5, hematocrit 35.4, CBG 141, albumin 2.4, proBNP 1959. Right foot x-ray showed decreased osseous mineralization without acute osseous abnormality in the right foot. Patient will be admitted for further medical management. 06/02/2021 No acute events overnight. Patient seen examined bedside. Resting comfortably. Confused. Demented. Pending cardiology, orthopedic and infectious disease evaluation. Continue the IV antibiotics. Pending TTE. Patient's chart, labs, images were reviewed and discussed with RN 06/03/2021 No acute events overnight. Patient seen examined bedside. Tolerating breakfast. Blood pressures low in the 80s systolic. 250 NS bolus given this morning. Blood pressures improved to systolics of 120s. Still pending podiatry evaluation. Will likely need CT or MRI imaging of the extremity. Appreciate ID recommendations, continue IV vancomycin and Zosyn. Patient's chart, labs, images were reviewed and discussed with RN 06/04/2021 No acute events overnight. Patient seen examined bedside. Patient currently is not in any discomfort. Discussed goals of care with him. Patient wishes to preserve much of his extremity is much as possible. He is amenable to an amputation of his foot but does not want an AKA. When attempting to move his right lower extremity he does have pain moving his leg on his own. His contracture is very severe but he has no pain when he is resting without movement. Patient is able to move his left lower extremity without problems. In addition to my E/M visit, advance care planning done with A total time of 20 minutes was spent from 930 to 950 face to face in discussion regarding the patient's goals of care, CODE STATUS. 06/05/2021 No acute events overnight. Patient seen examined bedside. AF and VSS still having discomfort with moving his right lower extremity due to his contracture. Vascular surgery has evaluated him and have recommended amputation. Patient would like time to discuss with his daughter to determine the right course of action. We will continue IV antibiotics through the weekend and reevaluation vascular surgery on Monday. Patient's chart, labs, images were reviewed and discussed with RN 06/06/2021 No acute events overnight. Patient seen examined bedside. AF and VSS. Saturating 94% on 5 L nasal cannula. Pain only when moving his right lower extremity. Otherwise pain is well controlled. Tolerating diet. Pending plan from vascular surgery. Patient has briefly spoken with his daughter but has not made a final decision on his course of action with his contracted right lower extremity. Patient's chart, labs, images were reviewed and discussed with RN Vitals/I&O Vitals/I&O: Vital Signs Date Time Temp Pulse Resp B/P (MAP) Pulse Ox O2 Delivery O2 Flow Rate FiO2 06/06/21 09:04 20 94 Nasal Cannula 5.0 06/06/21 07:00 97.9 61 125/79 (94) 97.9 I & O 06/05/21 06/05/21 06/06/21 15:00 23:00 07:00 Intake Total 360 ml 560 ml Balance 360 ml 560 ml Physical Exam Physical Exam: GENERAL: Alert, oriented gentleman, not in distress. VITAL SIGNS: Stable, afebrile. HEENT: NAD. NECK: Supple, no JVP, no lymphadenopathy. LUNGS: Clear. HEART: S1, S2, regular. ABDOMEN: Soft, nontender, no organomegaly. EXTREMITIES: Left lower extremity is normal. Right lower extremity is contracted, unable to straighten out and at the bottom of the right calcaneal medial area, there is a necrotic wound. NEUROLOGIC: The patient is alert, awake, able to communicate appropriately with CVA and contractures as I mentioned. General: Alert, No acute distress Heart: Regular rate Lungs: Clear Abdomen: Soft, No tenderness Extremities: No clubbing, Other Skin: Other Assessment and Plan Assessmemt and Plan Problems Medical Problems: (1) Altered mental status Status: Acute (2) Decubitus ulcer of right foot Status: Acute (3) DNR (do not resuscitate) Status: Acute (4) Severe sepsis Status: Acute Comment Review of Relevant I have reviewed the following items sandro (where applicable) has been applied. Justifications for Admission Other Justification JAYNE ARZATE MD June 06, 2021 11:11
[2021-06-06 11:52] LABS: CALCIUM 8.7 mg/dL (8.5-10.1); CREATININE 1.1 mg/dL (0.7-1.3); GFR 64.7; POTASSIUM 3.1 mmol/L (3.5-5.1)
[2021-06-06 11:58] LABS: VANC TR 24.8 mcg/mL (10.0-20.0)
--- NOTE | 2021-06-06 12:37 | PDOC ---
Infectious Disease Note Subjective: Subjective Patient resting quietly No new issues per discussion with nursing staff Vital Signs: Vital Signs Vital Signs Date Time Temp Pulse Resp B/P (MAP) Pulse Ox O2 Delivery O2 Flow Rate FiO2 06/06/21 11:00 98.1 46 16 140/66 (90) 97 Nasal Cannula 5.0 98.1 Physical Exam: PHYSICAL EXAM GENERAL: Alert, oriented gentleman, not in distress. VITAL SIGNS: Stable, afebrile. HEENT: NAD. NECK: Supple, no JVP, no lymphadenopathy. LUNGS: Clear. HEART: S1, S2, regular. ABDOMEN: Soft, nontender, no organomegaly. EXTREMITIES: Left lower extremity is normal. Right lower extremity is contracted, unable to straighten out and at the bottom of the right calcaneal medial area, there is a necrotic wound. NEUROLOGIC: The patient is alert, awake, able to communicate appropriately with CVA and contractures as I mentioned. Medications: Inpatient Meds: Medications reviewed. Labs: Lab Laboratory Tests Test 06/06/21 10:35 Sodium Level 145 mmol/L (136-145) Potassium Level 3.1 mmol/L (3.5-5.1) Chloride Level 105 mmol/L (98-107) Carbon Dioxide Level 30 mmol/L (21-32) Anion Gap 10 (6-14) Blood Urea Nitrogen 10 mg/dL (8-26) Creatinine 1.1 mg/dL (0.7-1.3) Estimated GFR (Cockcroft-Gault) 64.7 Glucose Level 179 mg/dL (70-99) Calcium Level 8.7 mg/dL (8.5-10.1) Vancomycin Level Trough 24.8 mcg/mL (10.0-20.0) Vancomycin Last Dose Date 06/05/21 Vancomycin Last Dose Time 2300 Objective: Assessment: 1. Encephalopathy, which is improved. 2. Leukocytosis. 3. Right calcaneal wound, the depth cannot be judged right now. 4. Cerebrovascular accident. 5. Hypertension. Plan: Plan of Care Continue antibiotics Patient needs AKA. The wound is not going to heal as he has exposed tendon and the way his contractures are he would be much better off with a AKA and have a much better life . Patient was initially reluctant but he agreed although whether he really understands the consequences is difficult to assess at this time. team may want to discuss about this with his daughter. ATA MELARA MD June 06, 2021 12:37
[2021-06-06] MEDS: VANCOMYCIN PER PHARMACY MC PRN (13:10)
--- NOTE | 2021-06-06 13:13 | NUR ---
Pharmacy Vancomycin Dosing Note S: Consulted to monitor and dose vancomycin started 06/01/21. O: OBI CANELA is a 76 year old M with Osteomyelitis, . Other Antibiotics: ZOSYN 3.375G IV Q6HRS LABS: Creatinine Clearance: 52 mL/min Microbiology: BLOOD CX: NGTD Drug Levels: Last Trough level: 24.8 on 06/06/21 at 1035 Last dose given 06/06/21 at 1035 Dosing Weight: Actual Target Trough: 15-20 A: Based on: SUPRATHERAPEUTIC TROUGH P: 1. Change Vancomycin 1000 mg to IV q18h 2. Follow up Trough level on 06/07/21 at 2230 3. Pharmacy will continue to monitor, follow and adjust therapy as needed. MAYCOL WALTON [facility], 06/06/21 [id number]
[2021-06-06 15:00] VITALS: BP 115/56
[2021-06-06 19:00] VITALS: BP 120/70
[2021-06-06] MEDS: ATORVASTATIN CALCIUM 10 MG TABLET. PO SCH (19:52)
[2021-06-06 23:00] VITALS: BP 134/79
[2021-06-07] VITALS (7 sets, daily range): BP systolic 84–141; BP diastolic 55–80
[2021-06-07] MEDS ORDERED: VANCOMYCIN 1 GM in IV NORMAL SALINE 250ML 250 ML IV SCH (05:00)
[2021-06-07] MEDS: HYDROcodone/APAP 5/325MG 1 TAB TABLET PO PRN ×3 (05:03→17:25)
[2021-06-07] MEDS: PIPERACILLIN/TAZOBACTAM 3.375 GM in IV NORMAL SALINE 50ML 50 ML IV SCH ×4 (06:07→23:34)
[2021-06-07] MEDS: HEPARIN for SUB-Q USE 5,000 UNIT/ML VIAL. SQ SCH ×2 (09:00→21:54)
[2021-06-07] MEDS: MULTIVITAMIN with MINERAL TABLET. PO SCH (09:09)
[2021-06-07] MEDS: tiZANidine 4 MG TABLET. PO SCH ×3 (09:09→22:36)
[2021-06-07] MEDS: LACTOBACILLUS RHAMNOSUS GG 1 CAPSULE. PO SCH ×2 (09:09→22:36)
[2021-06-07] MEDS: BACLOFEN 10 MG TABLET. PO SCH ×3 (09:10→22:36)
[2021-06-07] MEDS: CLOPIDOGREL BISULFATE 75 MG TABLET PO SCH (09:10)
--- NOTE | 2021-06-07 12:11 | PDOC ---
Infectious Disease Note Subjective: Subjective Patient resting quietly Arousable answers only few questions Vital Signs: Vital Signs Vital Signs Date Time Temp Pulse Resp B/P (MAP) Pulse Ox O2 Delivery O2 Flow Rate FiO2 06/07/21 11:00 98.2 65 14 107/67 (80) 89 Nasal Cannula 5.0 98.2 Physical Exam: PHYSICAL EXAM GENERAL: Alert, oriented gentleman, not in distress. VITAL SIGNS: Stable, afebrile. HEENT: NAD. NECK: Supple, no JVP, no lymphadenopathy. LUNGS: Clear. HEART: S1, S2, regular. ABDOMEN: Soft, nontender, no organomegaly. EXTREMITIES: Left lower extremity is normal. Right lower extremity is contracted, unable to straighten out and at the bottom of the right calcaneal medial area, there is a necrotic wound. NEUROLOGIC: The patient is alert, awake, able to communicate appropriately with CVA and contractures as I mentioned. Medications: Inpatient Meds: Medications reviewed. Objective: Assessment: 1. Encephalopathy, which is improved. 2. Leukocytosis. 3. Right calcaneal wound, the depth cannot be judged right now. 4. Cerebrovascular accident. 5. Hypertension. Plan: Plan of Care Continue antibiotics Patient needs AKA. The wound is not going to heal as he has exposed tendon and the way his contractures are he would be much better off with a AKA and have a much better life . Vascular team is following. Patient is trying to decide on the same after discussing with his daughter ATA MELARA MD June 07, 2021 12:11
--- NOTE | 2021-06-07 15:53 | PDOC ---
[facility] PROGRESS NOTE Date of Service DOS: DATE: 06/07/21 TIME: 15:51 Chief Complaint Chief Complaint Assessment/Plan Sepsis Suspected osteomyelitis with tendon exposed on the right foot Severe contracture of the right lower extremitywill likely need AKA. Acute respiratory failure with hypoxia Diastolic CHF exacerbation History tobacco abuse Severe malnutrition Plan: ID, Vascular consulted Patient received Rocephin in the ED. Continue Vanc Zosyn for current Patient still deciding on AKA. Echocardiogram on 03/18/2016 showed an EF of 60%, with grade 1 diastolic dysfunction, PAP 34 mmHg. Pain management Resume home medications PT OT FEN - Cardiac diet PPX - Heparin DNR/surrogate decision maker is his daughter (Vangie Burdick) Dispo - inpatient for above History of Present Illness History of Present Illness 76-year-old male with past medical history CVA, HTN, HLD, and chronic contractures to right lower extremity, who presents from his intermediate due to concerns for altered mental status. Per patient's daughter (ABBY), he had a sudden change in mental status today he became minimally responsive and hypoxic. Upon EMS arrival he was placed on nonrebreather due to oxygen saturations in the low 80s. Upon arrival to the ED he was more alert and conversive, appropriately answering questions. Patient's daughter states that he has had a contracted right lower extremity since January secondary to a stroke. He was supposed to see a pain management doctor in the upcoming days. Upon my evaluation in the ED, he does have a pressure ulcer to his right medial heel that is been addressed at his intermediate. Patient has not been able to offload his right foot due to his contracture. Labs in the ER showed WBC 25.0, hemoglobin 11.5, hematocrit 35.4, CBG 141, albumin 2.4, proBNP 1959. Right foot x-ray showed decreased osseous mineralization without acute osseous abnormality in the right foot. Patient will be admitted for further medical management. 06/02/2021 No acute events overnight. Patient seen examined bedside. Resting comfortably. Confused. Demented. Pending cardiology, orthopedic and infectious disease evaluation. Continue the IV antibiotics. Pending TTE. Patient's chart, labs, images were reviewed and discussed with RN 06/03/2021 No acute events overnight. Patient seen examined bedside. Tolerating breakfast. Blood pressures low in the 80s systolic. 250 NS bolus given this morning. Blood pressures improved to systolics of 120s. Still pending podiatry evaluation. Will likely need CT or MRI imaging of the extremity. Appreciate ID recommendations, continue IV vancomycin and Zosyn. Patient's chart, labs, images were reviewed and discussed with RN 06/04/2021 No acute events overnight. Patient seen examined bedside. Patient currently is not in any discomfort. Discussed goals of care with him. Patient wishes to preserve much of his extremity is much as possible. He is amenable to an amputation of his foot but does not want an AKA. When attempting to move his right lower extremity he does have pain moving his leg on his own. His contracture is very severe but he has no pain when he is resting without movement. Patient is able to move his left lower extremity without problems. In addition to my E/M visit, advance care planning done with A total time of 20 minutes was spent from 930 to 950 face to face in discussion regarding the patient's goals of care, CODE STATUS. 06/05/2021 No acute events overnight. Patient seen examined bedside. AF and VSS still having discomfort with moving his right lower extremity due to his contracture. Vascular surgery has evaluated him and have recommended amputation. Patient would like time to discuss with his daughter to determine the right course of action. We will continue IV antibiotics through the weekend and reevaluation vascular surgery on Monday. Patient's chart, labs, images were reviewed and discussed with RN 06/06/2021 No acute events overnight. Patient seen examined bedside. AF and VSS. Saturating 94% on 5 L nasal cannula. Pain only when moving his right lower extremity. Otherwise pain is well controlled. Tolerating diet. Pending plan from vascular surgery. Patient has briefly spoken with his daughter but has not made a final decision on his course of action with his contracted right lower extremity. Patient's chart, labs, images were reviewed and discussed with RN 5/ Patient evaluated examined at bedside. Resting in bed easily arousable no major complaints. Still debating if he wants undergo AKA or not. Provided him as much information as I could on why it would be beneficial. Continues to think what he wants to do. Informed him do need a decision sooner than later. Discussed with bedside RN. Recommendations from consultants reviewed Vitals/I&O Vitals/I&O: Vital Signs Date Time Temp Pulse Resp B/P (MAP) Pulse Ox O2 Delivery O2 Flow Rate FiO2 06/07/21 11:00 98.2 65 14 107/67 (80) 89 Nasal Cannula 5.0 98.2 I & O 06/06/21 06/06/21 06/07/21 15:00 23:00 07:00 Intake Total 200 ml 300 ml Balance 200 ml 300 ml Physical Exam Physical Exam: GENERAL: Alert, oriented gentleman, not in distress. VITAL SIGNS: Stable, afebrile. HEENT: NAD. NECK: Supple, no JVP, no lymphadenopathy. LUNGS: Clear. HEART: S1, S2, regular. ABDOMEN: Soft, nontender, no organomegaly. EXTREMITIES: Left lower extremity is normal. Right lower extremity is contracted, unable to straighten out and at the bottom of the right calcaneal medial area, there is a necrotic wound. NEUROLOGIC: The patient is alert, awake, able to communicate appropriately with CVA and contractures as I mentioned. General: Alert, No acute distress Heart: Regular rate Lungs: Clear Abdomen: Soft, No tenderness Extremities: No clubbing, Other Skin: Other Assessment and Plan Assessmemt and Plan Problems Medical Problems: (1) Altered mental status Status: Acute (2) Decubitus ulcer of right foot Status: Acute (3) DNR (do not resuscitate) Status: Acute (4) Severe sepsis Status: Acute Comment Review of Relevant I have reviewed the following items sandro (where applicable) has been applied. Medications: Current Medications Medications (Trade) Dose Ordered Sig/John Route PRN Reason Start Time Stop Time Status Last Admin Dose Admin Vancomycin HCl 1 gm/Sodium Chloride 250 ml @ 250 mls/hr Q18H IV 06/07/21 05:00 06/07/21 05:01 Justifications for Admission Other Justification PETER GUTIERREZ MD June 07, 2021 15:53
--- NOTE | 2021-06-07 16:03 | NUR ---
SS following up with discharge planning. SS reviewed pt chart and discussed with pt RN. Pt is currently requiring oxygen at five liters nasal canula. COVID19 negative. Pt on IV Vancomycin and IV Zosyn. Pt is [facility] resident from [facility], ; fax [phone]. Pt needing AKA but is undecided at this time. SS will continue to follow for discharge planning.
--- NOTE | 2021-06-07 21:09 | PDOC ---
Provider Note Date of Service: DATE: 06/07/21 TIME: 20:59 Provider Note Provider Note Followed commands this morning, but difficulty articulating, Extensive conversation with daughter today. lethargic, NAD regular nonlabored respirations RLE with flexion contracture at hip and knee, right foot wounds without worsen ing erythema 76M prior CVA with right sided flexion contracture and non-healing wounds of right heel, 1st met head -Obtained nutrition labs today. albumin is 2.1, prealbumin 12, indicating severe malnutrition. Daughter reports that he has not been eating for several months and has lost approximately 70 pounds. Concern for poor wound healing with amputation in light of this. -Daughter Vangie is DPOA and states that she and the patient were in consensus late last week that they should proceed with AKA. However, she does not want to proceed without his understanding and approval as she does not want him to wake up from surgery and not recall or understand the reason for amputation. She would desire further discussion with him regarding this, but feels strongly that he should proceed. -We have tentatively scheduled for Monday. Will continue discussion with patient and postpone surgery if he has not decided to proceed prior to then. In addition, would strongly recommend aggressive attempts to correct his maln utrition, as a nonhealing wound at an AKA site is a very difficult problem. If possible, would prefer to postpone amputation until his nutritional status is improved. Tanvi Spencer DO Justicifation of Admission Dx: Justifications for Admission: Justification of Admission Dx: Yes Chronic Renal Failure: Encephalopathy TNAVI SPENCER DO June 07, 2021 21:09
[2021-06-07] MEDS: ATORVASTATIN CALCIUM 10 MG TABLET. PO SCH (22:36)
[2021-06-07 22:58] LABS: VANC TR 26.7 mcg/mL (10.0-20.0)
[2021-06-08] MEDS: oxyCODONE/APAP 5/325 1 TAB TABLET PO PRN ×2 (01:08→09:36)
[2021-06-08 03:00] VITALS: BP 125/63
[2021-06-08] MEDS: VANCOMYCIN PER PHARMACY MC PRN ×3 (03:48→20:01)
--- NOTE | 2021-06-08 03:50 | NUR ---
Pharmacy Vancomycin Dosing Note S:Consulted to monitor and dose vancomycin started 06/01/21. O:OBI CANELA is a 76 year old M with Osteomyelitis . Height: 5 feet, 10 inches Weight: 65.5 kg [place] Body Weight: 73.00 Adjusted Body Weight: 70.00 Dosing Weight: Actual Other Antibiotics: ZOSYN 3.375G IV Q6HRS LABS: Last BUN: 10 Last Creatinine: 1.1 Creatinine Clearance: 52 mL/min Last WBC: 14.9 Last Procalcitonin: - Tmax (past 24 hours): 98.1 Microbiology: BLOOD CX: NGTD I/O: 920/6 VOIDS Drug Levels: Last Trough level: 26.7 on 06/07/21 at 2215 Last dose given 06/07/21 at 0501 Vancomycin Dosing: Loading Dose: 1750 mg x1 Dosing Weight: Actual Target Trough: 15-20 A: Based on: SUPRATHERAPEUTIC LEVEL, P: 1. Hold further Vancomycin dosing 2. Follow up Random level on 06/08/21 at 1700 3. Pharmacy will continue to monitor, follow and adjust therapy as needed. ABDULAZIZ GUTIERREZ [facility], 06/08/21 [id number]
[2021-06-08] MEDS: PIPERACILLIN/TAZOBACTAM 3.375 GM in IV NORMAL SALINE 50ML 50 ML IV SCH ×3 (05:41→17:25)
[2021-06-08 07:00] VITALS: BP 127/66
[2021-06-08 08:43] LABS: CALCIUM 9.6 mg/dL (8.5-10.1); CREATININE 1.2 mg/dL (0.7-1.3); GFR 58.6
[2021-06-08] MEDS: HEPARIN for SUB-Q USE 5,000 UNIT/ML VIAL. SQ SCH ×2 (09:00→20:35)
[2021-06-08] MEDS: tiZANidine 4 MG TABLET. PO SCH ×3 (09:13→20:34)
[2021-06-08] MEDS: LACTOBACILLUS RHAMNOSUS GG 1 CAPSULE. PO SCH ×2 (09:13→20:34)
[2021-06-08] MEDS: BACLOFEN 10 MG TABLET. PO SCH ×3 (09:13→20:34)
[2021-06-08] MEDS: MULTIVITAMIN with MINERAL TABLET. PO SCH (09:13)
[2021-06-08] MEDS: CLOPIDOGREL BISULFATE 75 MG TABLET PO SCH (09:15)
--- NOTE | 2021-06-08 09:57 | PDOC ---
SURGICAL PROGRESS NOTE DATE: 06/08/21 TIME: 09:51 Subjective Patient was seen at the bedside this morning. There were no acute events overnight. Per the nursing staff, the patient's appetite continues to be dim inished and his p.o. nutritional intake is poor. Vital Signs Vital Signs Date Time Temp Pulse Resp B/P (MAP) Pulse Ox O2 Delivery O2 Flow Rate FiO2 06/08/21 07:00 97.6 77 18 127/66 (86) 90 Nasal Cannula 5.0 97.6 I&O Intake and Output 06/08/21 07:00 Intake Total 290 ml Balance 290 ml Intake Oral 190 ml IV Total 100 ml # Voids 9 General: Alert, Cooperative Lungs: Clear to auscultation, Normal air movement Heart: Regular rate, Normal S1, Normal S2 Abdomen: Normal bowel sounds, Soft, No tenderness Labs Laboratory Tests Test 06/06/21 10:35 06/07/21 15:15 06/07/21 22:15 06/08/21 05:40 Sodium Level 145 mmol/L (136-145) 148 mmol/L (136-145) Potassium Level 3.1 mmol/L (3.5-5.1) 3.0 mmol/L (3.5-5.1) Chloride Level 105 mmol/L (98-107) 106 mmol/L (98-107) Carbon Dioxide Level 30 mmol/L (21-32) 34 mmol/L (21-32) Anion Gap 10 (6-14) 8 (6-14) Blood Urea Nitrogen 10 mg/dL (8-26) 15 mg/dL (8-26) Creatinine 1.1 mg/dL (0.7-1.3) 1.2 mg/dL (0.7-1.3) Estimated GFR (Cockcroft-Gault) 64.7 58.6 Glucose Level 179 mg/dL (70-99) 99 mg/dL (70-99) Calcium Level 8.7 mg/dL (8.5-10.1) 9.6 mg/dL (8.5-10.1) Vancomycin Level Trough 24.8 mcg/mL (10.0-20.0) 26.7 mcg/mL (10.0-20.0) Vancomycin Last Dose Date 06/05/21 [id number] Vancomycin Last Dose Time 2300 0500 Albumin 2.1 g/dL (3.4-5.0) Prealbumin 11.3 mg/dL (16.0-42.0) Laboratory Tests Test 06/07/21 15:15 06/07/21 22:15 06/08/21 05:40 Albumin 2.1 g/dL (3.4-5.0) Prealbumin 11.3 mg/dL (16.0-42.0) Vancomycin Level Trough 26.7 mcg/mL (10.0-20.0) Vancomycin Last Dose Date Vancomycin Last Dose Time 499 Sodium Level 148 mmol/L (136-145) Potassium Level 3.0 mmol/L (3.5-5.1) Chloride Level 106 mmol/L (98-107) Carbon Dioxide Level 34 mmol/L (21-32) Anion Gap 8 (6-14) Blood Urea Nitrogen 15 mg/dL (8-26) Creatinine 1.2 mg/dL (0.7-1.3) Estimated GFR (Cockcroft-Gault) 58.6 Glucose Level 99 mg/dL (70-99) Calcium Level 9.6 mg/dL (8.5-10.1) Problem List Problems Medical Problems: (1) Altered mental status Status: Acute (2) Decubitus ulcer of right foot Status: Acute (3) DNR (do not resuscitate) Status: Acute (4) Severe sepsis Status: Acute Assessment/Plan Right lower extremity wounds--patient has chronic contracture of the right lower extremity requiring an eventual above-knee amputation. I am not sure that the patient is a good surgical candidate at this point. The patient has severe protein malnutrition and this is unlikely to improve unless more aggressive measures are taken. I attempted to reach the patient's daughter and reached her voicemail. I believe a serious conversation regarding overall quality of life should be had with the care team. One pathway would be for aggressive care which would then require a PEG tube placement for nutritional support and mandatory feeding. Once the patient's nutritional status is improved, surgical therapy could then be entertained. The second pathway would be for comfort care and de-escalation of care. The patient's overall quality of life seems poor and this might be the most humane avenue. Again this is a conversation to be had with his family as I do not think that the patient has decision-making capacity. We have the patient on the surgical schedule tomorrow tentatively for above-knee amputation. I believe a conversation should be had prior to proceeding. Hayley Alcantara DO, FACS Justicifation of Admission Dx: Justifications for Admission: Justification of Admission Dx: Yes Chronic Renal Failure: Encephalopathy HAYLEY ALCANTAAR DO June 08, 2021 09:57
[2021-06-08 11:00] VITALS: BP 121/60
[2021-06-08] MEDS: IV DEXTROSE 5%-LACT RINGERS 1,000 ML IV SCH (11:15)
--- NOTE | 2021-06-08 11:21 | PDOC ---
MADAY HENNESSY KITCHEN ASSISTANT 06/08/21 1121: CARDIO Progress Notes Date and Time Date of Service 06/08/2021 Time of Evaluation 1110 Subjective Subjective: No Chest Pain, No shortness of breath, No Palpitations Vitals Vitals Vital Signs Date Time Temp Pulse Resp B/P (MAP) Pulse Ox O2 Delivery O2 Flow Rate FiO2 06/08/21 08:00 Nasal Cannula 5.0 06/08/21 07:00 97.6 77 18 127/66 (86) 90 97.6 Weight Weight [ ] Input and Output Intake and Output Intake and Output 06/08/21 07:00 Intake Total 290 ml Balance 290 ml Intake Oral 190 ml IV Total 100 ml # Voids 9 Laboratory Labs Laboratory Tests Test 06/07/21 15:15 06/07/21 22:15 06/08/21 05:40 Albumin 2.1 g/dL (3.4-5.0) Prealbumin 11.3 mg/dL (16.0-42.0) Vancomycin Level Trough 26.7 mcg/mL (10.0-20.0) Vancomycin Last Dose Date Vancomycin Last Dose Time 0500 Sodium Level 148 mmol/L (136-145) Potassium Level 3.0 mmol/L (3.5-5.1) Chloride Level 106 mmol/L (98-107) Carbon Dioxide Level 34 mmol/L (21-32) Anion Gap 8 (6-14) Blood Urea Nitrogen 15 mg/dL (8-26) Creatinine 1.2 mg/dL (0.7-1.3) Estimated GFR (Cockcroft-Gault) 58.6 Glucose Level 99 mg/dL (70-99) Calcium Level 9.6 mg/dL (8.5-10.1) Microbiology Micro Microbiology 06/03/21 Urine Culture - Final, Complete 06/01/21 Blood Culture - Final, Complete NO GROWTH AFTER 5 DAYS Physical Exam HEENT: Neck Supple W Full Motion Chest: Symmetric LUNGS: Clear to Auscultation Heart: RRR (SR) Abdomen: Soft N/T Extremities: No Calf Tenderness, Other (right foot wound) Neurology: oriented, follow commands, other (drowsy) Assessment Assessment 1. Encephalopathy: drowsy 2. Acute on chronic respiratory failure: reported O2 dependent at [facility] home. Improved. ILD? 3. HTN: controlled 4. Right plantar ulcer: ID and ortho following. Possible AKA per vascular 5. HLP 6. Chronic CHF HFpEF: presently clinically compensated 7. Debility: WC/bed bound 8. Hx of CVA 9. Possible UTI: defer to PCP Recommendations 1. Antibiotic per ID 2. No diuretic needed at this time 3. Continue secondary prevention measures including plavix Justicifation of Admission Dx: Justifications for Admission: Justification of Admission Dx: Yes Chronic Renal Failure: Encephalopathy SIM ROGER MD 06/09/21 0609: CARDIO Progress Notes Assessment Assessment Patient seen and examined. Agree with EMBOSSING CLERK's assessment and plan Chronic diastolic heart failure well compensated 2D echo showed LVEF 50%. Patient needs right AKA per Vascular surgery team but probably a poor surgical candidate MADAY HENNESSY APRN June 08, 2021 11:21 SIM ROGER MD June 09, 2021 06:09
--- NOTE | 2021-06-08 13:51 | PDOC ---
Infectious Disease Note Subjective: Subjective Patient is resting. I could not arouse him. He does not answer any questions. Got pain medication earlier today. Discussed with nursing staff. P.o. intake is poor. Vital Signs: Vital Signs Vital Signs Date Time Temp Pulse Resp B/P (MAP) Pulse Ox O2 Delivery O2 Flow Rate FiO2 06/08/21 11:00 98.0 73 18 121/60 (80) 90 Nasal Cannula 5.0 98.0 Physical Exam: PHYSICAL EXAM GENERAL: Alert, oriented gentleman, not in distress. VITAL SIGNS: Stable, afebrile. HEENT: NAD. NECK: Supple, no JVP, no lymphadenopathy. LUNGS: Clear. HEART: S1, S2, regular. ABDOMEN: Soft, nontender, no organomegaly. EXTREMITIES: Left lower extremity is normal. Right lower extremity is contracted, unable to straighten out and at the bottom of the right calcaneal medial area, there is a necrotic wound. NEUROLOGIC: The patient is alert, awake, able to communicate appropriately with CVA and contractures as I mentioned. Medications: Inpatient Meds: Medications reviewed. Labs: Lab Laboratory Tests Test 06/07/21 15:15 06/07/21 22:15 06/08/21 05:40 Albumin 2.1 g/dL (3.4-5.0) Prealbumin 11.3 mg/dL (16.0-42.0) Vancomycin Level Trough 26.7 mcg/mL (10.0-20.0) Vancomycin Last Dose Date Vancomycin Last Dose Time 050 Sodium Level 148 mmol/L (136-145) Potassium Level 3.0 mmol/L (3.5-5.1) Chloride Level 106 mmol/L (98-107) Carbon Dioxide Level 34 mmol/L (21-32) Anion Gap 8 (6-14) Blood Urea Nitrogen 15 mg/dL (8-26) Creatinine 1.2 mg/dL (0.7-1.3) Estimated GFR (Cockcroft-Gault) 58.6 Glucose Level 99 mg/dL (70-99) Calcium Level 9.6 mg/dL (8.5-10.1) Objective: Assessment: 1. Encephalopathy, which is improved. 2. Leukocytosis. 3. Right calcaneal wound, the depth cannot be judged right now. 4. Cerebrovascular accident. 5. Hypertension. Plan: Plan of Care Continue antibiotics Patient needs AKA. The wound is not going to heal as he has exposed tendon and the way his c ontractures are he would be much better off with a AKA and have a much better life . Vascular team plans noted Tentative surgery planned for tomorrow ATA MELARA MD June 08, 2021 13:51
[2021-06-08 15:00] VITALS: BP 120/59
--- NOTE | 2021-06-08 16:50 | NUR ---
Pt oxygen saturations approx 75-89% on 5L NC. Simple face mask applied to 10L. Pt constantly yelling out for pain medications. Dr. Ibarra notified, he assessed patient at the bedside and orders received for morphine 4mg x1 NOW and then morphine 2mg IV q2hr PRN thereafter. Awaiting vascular surgery decision after they speak to daughter. Will continue to monitor.
[2021-06-08] MEDS ORDERED: VANCOMYCIN RANDOM LEVEL. MC ONE (17:00)
[2021-06-08] MEDS ORDERED: MORPHINE SULFATE 2 MG/ML INJ. IVP ONE (17:15)
[2021-06-08 19:00] VITALS: BP 163/72
--- NOTE | 2021-06-08 19:59 | NUR ---
Pharmacy Vancomycin Dosing Note S:Consulted to monitor and dose vancomycin started 06/01/21. O:OBI CANELA is a 76 year old M with Osteomyelitis . Height: 5 feet, 10 inches Weight: 64.8 kg [place] Body Weight: 73.00 Adjusted Body Weight: 69.72 Dosing Weight: Actual Other Antibiotics: ZOSYN 3.375G IV Q6HRS LABS: Last BUN: 10 Last Creatinine: 1.1 Creatinine Clearance: 52 mL/min Last WBC: 14.9 Last Procalcitonin: - Tmax (past 24 hours): 98.1 Microbiology: BLOOD CX: NGTD I/O: 920/6 VOIDS Drug Levels: Last Trough level: 19.5 on 06/08/21 at 1833 Last dose given 06/07/21 at 0501 Vancomycin Dosing: Loading Dose: 1750 mg x1 Dosing Weight: Actual Target Trough: 15-20 A: Based on: LEVEL 36HRS AFTER LAST DOSE P: 1. Begin Vancomycin 1000 mg IV q36h 2. Follow up Random level NEEDED 3. Pharmacy will continue to monitor, follow and adjust therapy as needed. DARIEL MIJARES [facility], 06/08/211958
[2021-06-08] MEDS ORDERED: VANCOMYCIN 1 GM in IV NORMAL SALINE 250ML 250 ML IV SCH (20:00)
[2021-06-08] MEDS: ATORVASTATIN CALCIUM 10 MG TABLET. PO SCH (20:34)
[2021-06-08] MEDS: HYDROcodone/APAP 5/325MG 1 TAB TABLET PO PRN (20:35)
--- NOTE | 2021-06-08 21:47 | PDOC ---
[facility] [facility] PROGRESS NOTE Date of Service DOS: DATE: 06/08/21 TIME: 21:45 Chief Complaint Chief Complaint Assessment/Plan Sepsis Suspected osteomyelitis with tendon exposed on the right foot Severe contracture of the right lower extremitywill likely need AKA. Acute respiratory failure with hypoxia Diastolic CHF exacerbation History tobacco abuse Severe malnutrition Plan: ID, Vascular consulted Patient received Rocephin in the ED. Continue Vanc Zosyn for current Patient still deciding on AKA. Echocardiogram on 03/18/2016 showed an EF of 60%, with grade 1 diastolic dysfunction, PAP 34 mmHg. Pain management Resume home medications PT OT FEN - Cardiac diet PPX - Heparin DNR/surrogate decision maker is his daughter (Vangie Burdick) Dispo - inpatient for above History of Present Illness History of Present Illness 76-year-old male with past medical history CVA, HTN, HLD, and chronic contractures to right lower extremity, who presents from his assisted due to concerns for altered mental status. Per patient's daughter (ABBY), he had a sudden change in mental status today he became minimally responsive and hypoxic. Upon EMS arrival he was placed on nonrebreather due to oxygen saturations in the low 80s. Upon arrival to the ED he was more alert and conversive, appropriately answering questions. Patient's daughter states that he has had a contracted right lower extremity since January secondary to a stroke. He was supposed to see a pain management doctor in the upcoming days. Upon my evaluation in the ED, he does have a pressure ulcer to his right medial heel that is been addressed at his assisted. Patient has not been able to offload his right foot due to his contracture. Labs in the ER showed WBC 25.0, hemoglobin 11.5, hematocrit 35.4, CBG 141, albumin 2.4, proBNP 1959. Right foot x-ray showed decreased osseous mineralization without acute osseous abnormality in the right foot. Patient will be admitted for further medical management. 06/02/2021 No acute events overnight. Patient seen examined bedside. Resting comfortably. Confused. Demented. Pending cardiology, orthopedic and infectious disease evaluation. Continue the IV antibiotics. Pending TTE. Patient's chart, labs, images were reviewed and discussed with RN 06/03/2021 No acute events overnight. Patient seen examined bedside. Tolerating breakfast. Blood pressures low in the 80s systolic. 250 NS bolus given this morning. Blood pressures improved to systolics of 120s. Still pending podiatry evaluation. Will likely need CT or MRI imaging of the extremity. Appreciate ID recommendations, continue IV vancomycin and Zosyn. Patient's chart, labs, images were reviewed and discussed with RN 06/04/2021 No acute events overnight. Patient seen examined bedside. Patient currently is not in any discomfort. Discussed goals of care with him. Patient wishes to preserve much of his extremity is much as possible. He is amenable to an amputation of his foot but does not want an AKA. When attempting to move his right lower extremity he does have pain moving his leg on his own. His contracture is very severe but he has no pain when he is resting without movement. Patient is able to move his left lower extremity without problems. In addition to my E/M visit, advance care planning done with A total time of 20 minutes was spent from 930 to 950 face to face in discussion regarding the patient's goals of care, CODE STATUS. 06/05/2021 No acute events overnight. Patient seen examined bedside. AF and VSS still having discomfort with moving his right lower extremity due to his contracture. Vascular surgery has evaluated him and have recommended amputation. Patient would like time to discuss with his daughter to determine the right course of action. We will continue IV antibiotics through the weekend and reevaluation vascular surgery on Monday. Patient's chart, labs, images were reviewed and discussed with RN 06/06/2021 No acute events overnight. Patient seen examined bedside. AF and VSS. Saturating 94% on 5 L nasal cannula. Pain only when moving his right lower extremity. Otherwise pain is well controlled. Tolerating diet. Pending plan from vascular surgery. Patient has briefly spoken with his daughter but has not made a final decision on his course of action with his contracted right lower extremity. Patient's chart, labs, images were reviewed and discussed with RN 06/07 Patient evaluated examined at bedside. Resting in bed easily arousable no major complaints. Still debating if he wants undergo AKA or not. Provided him as much information as I could on why it would be beneficial. Continues to think what he wants to do. Informed him do need a decision sooner than later. Discussed with bedside RN. Recommendations from consultants reviewed / Patient evaluated examined at bedside. Quite a bit more lethargic than yesterday. Not really answering any questions for me today. Unable to reach family member today. We will check a few lab results given his clinical change. Vascular surgery recommendations reviewed agree he will have difficulty with wound healing. No Clinimix available here thus will start on D5 LR. Can consider TPN PEG tube in coming days if needed. ID recommendations reviewed. Tentatively on surgical schedule for tomorrow. Vitals/I&O Vitals/I&O: Vital Signs Date Time Temp Pulse Resp B/P (MAP) Pulse Ox O2 Delivery O2 Flow Rate FiO2 06/08/21 20:35 88 Nasal Cannula 5.0 06/08/21 19:00 101.0 84 18 163/72 (102) 101.0 I & O 06/07/21 06/07/21 06/08/21 14:59 22:59 06:59 Intake Total 50 ml 150 ml 90 ml Balance 50 ml 150 ml 90 ml Physical Exam Physical Exam: GENERAL: Alert, oriented gentleman, not in distress. VITAL SIGNS: Stable, afebrile. HEENT: NAD. NECK: Supple, no JVP, no lymphadenopathy. LUNGS: Clear. HEART: S1, S2, regular. ABDOMEN: Soft, nontender, no organomegaly. EXTREMITIES: Left lower extremity is normal. Right lower extremity is contracted, unable to straighten out and at the bottom of the right calcaneal medial area, there is a necrotic wound. NEUROLOGIC: The patient is alert, awake, able to communicate appropriately with CVA and contractures as I mentioned. General: Alert, Cooperative Heart: Regular rate, Normal S1, Normal S2 Lungs: Clear Abdomen: Normal bowel sounds, Soft, No tenderness Extremities: No clubbing, Other Skin: Other Labs Labs: Laboratory Tests Test 06/07/21 22:15 06/08/21 05:40 06/08/21 18:30 Vancomycin Level Trough 26.7 mcg/mL (10.0-20.0) Vancomycin Last Dose Date Vancomycin Last Dose Time 499 Sodium Level 148 mmol/L (136-145) Potassium Level 3.0 mmol/L (3.5-5.1) Chloride Level 106 mmol/L (98-107) Carbon Dioxide Level 34 mmol/L (21-32) Anion Gap 8 (6-14) Blood Urea Nitrogen 15 mg/dL (8-26) Creatinine 1.2 mg/dL (0.7-1.3) Estimated GFR (Cockcroft-Gault) 58.6 Glucose Level 99 mg/dL (70-99) Calcium Level 9.6 mg/dL (8.5-10.1) Random Vancomycin Level 19.5 mcg/mL Assessment and Plan Assessmemt and Plan Problems Medical Problems: (1) Altered mental status Status: Acute (2) Decubitus ulcer of right foot Status: Acute (3) DNR (do not resuscitate) Status: Acute (4) Severe sepsis Status: Acute Comment Review of Relevant I have reviewed the following items sandro (where applicable) has been applied. Medications: Current Medications Medications (Trade) Dose Ordered Sig/John Route PRN Reason Start Time Stop Time Status Last Admin Dose Admin Vancomycin HCl (Vancomycin Trough Level) 1 each 1X ONCE MC 06/07/21 22:30 06/07/21 22:31 DC 06/07/21 22:30 Dextrose/Lactated Ringer's 1,000 ml @ 75 mls/hr [id number] IV 06/08/21 11:15 06/08/21 11:15 Morphine Sulfate (Morphine Sulfate) 4 mg 1X ONCE IVP 06/08/21 17:15 06/08/21 17:16 DC 06/08/21 17:25 Vancomycin HCl 1 gm/Sodium Chloride 250 ml @ 250 mls/hr Q36H IV 06/08/21 20:00 06/08/21 20:00 Justifications for Admission Other Justification PETER GUTIERREZ MD June 08, 2021 21:47
[2021-06-08 21:52] LABS: BASO # 0.1 x10^3/uL (0.0-0.2); BASO % 1 % (0-3); EOS # 0.1 x10^3/uL (0.0-0.7); EOS % 0 % (0-3); HEMATOCRIT 40.8 % (39.0-53.0); HEMOGLOBIN 12.6 g/dL (13.0-17.5); LYMPH # 1.6 x10^3/uL (1.0-4.8); LYMPH % 11 % (24-48); MEAN CORPUSCULAR HEMOGLOBIN 26 pg (25-35); MEAN CORPUSCULAR HGB CONC 31 g/dL (31-37); MEAN CORPUSCULAR VOLUME 85 fL (79-100); MONO # 0.6 x10^3/uL (0.0-1.1); MONO % 4 % (0-9); NEUT # 13.2 x10^3/uL (1.8-7.7); NEUT % 85 % (31-73); PLATELET COUNT 504 x10^3/uL (140-400); RED BLOOD COUNT 4.81 x10^6/uL (4.30-5.70); RED CELL DISTRIBUTION WIDTH 18.8 % (11.5-14.5); WHITE BLOOD COUNT 15.5 x10^3/uL (4.0-11.0)
[2021-06-08] MEDS: MORPHINE SULFATE 2 MG/ML INJ. IVP PRN (22:12)
[2021-06-08 23:00] VITALS: BP 130/64
[2021-06-08 23:25] LABS: % BANDS 5 % (0-9); % LYMPHS 11 % (24-48); % MONOS 3 % (0-10); % SEGS 81 % (35-66); PLT ESTIMATE INCREASED (ADEQUATE)
[2021-06-08 23:26] LABS: ANISOCYTOSIS SLIGHT; OVALOCYTES FEW
[2021-06-09] MEDS: PIPERACILLIN/TAZOBACTAM 3.375 GM in IV NORMAL SALINE 50ML 50 ML IV SCH ×4 (00:16→16:35)
[2021-06-09] MEDS: IV DEXTROSE 5%-LACT RINGERS 1,000 ML IV SCH ×2 (00:17→16:35)
--- NOTE | 2021-06-09 00:24 | NUR ---
Pt was on 5L NC and 10L simple mask (mouth breather) Was reassessed at this time O2 Sat 100%. Oxygen reduced to 4L NC and 5L simple mask, will continue to monitor.
[2021-06-09 03:00] VITALS: BP 109/51
[2021-06-09 04:17] LABS: CALCIUM 9.1 mg/dL (8.5-10.1); CREATININE 1.3 mg/dL (0.7-1.3); GFR 53.4
[2021-06-09] MEDS ORDERED: fentaNYL PF VIAL 100 MCG/2 ML VIAL IVP PRN ×2 (06:00)
[2021-06-09] MEDS ORDERED: IV RINGERS,LACTATED 1000ML 1,000 ML IV SCH (06:00)
[2021-06-09] MEDS ORDERED: MORPHINE SULFATE 2 MG/ML INJ. IVP PRN (06:00)
[2021-06-09] MEDS ORDERED: PROCHLORPERAZINE 10 MG/2 ML VIAL. IVP PRN (06:00)
[2021-06-09] MEDS ORDERED: HYDROmorphone 2 MG/ML INJ. IVP PRN (06:00)
[2021-06-09] MEDS: MORPHINE SULFATE 2 MG/ML INJ. IVP PRN ×4 (06:33→16:36)
[2021-06-09 07:00] VITALS: BP 106/46
[2021-06-09] MEDS: CLOPIDOGREL BISULFATE 75 MG TABLET PO SCH (08:00)
--- NOTE | 2021-06-09 08:27 | RAD ---
EXAM: XR CHEST 1V 06/08/2021 10:21 PM CLINICAL INDICATION: Shortness of breath, increased oxygen requirement COMPARISON: Chest radiograph 06/01/2021 TECHNIQUE: AP semiupright view of the chest FINDINGS: The heart is normal in size. There is moderate elevation of the right hemidiaphragm, uncha nged. There are increased bilateral interstitial opacities and focal airspace opacities in the mid le ft lung. Mild opacities along the right hemidiaphragm are unchanged. Possible small right pleural eff usion. IMPRESSION: Increased interstitial opacities and focal opacities in the left lung, which could be du e to pneumonia or pulmonary edema. Possible small right pleural effusion. Electronically signed by: Kristin Victoria MD (06/09/2021 8:24 AM) [id number]
[2021-06-09] MEDS: MULTIVITAMIN with MINERAL TABLET. PO SCH (09:00)
[2021-06-09] MEDS: BACLOFEN 10 MG TABLET. PO SCH ×3 (09:00→21:00)
[2021-06-09] MEDS: LACTOBACILLUS RHAMNOSUS GG 1 CAPSULE. PO SCH ×2 (09:00→21:00)
[2021-06-09] MEDS: HEPARIN for SUB-Q USE 5,000 UNIT/ML VIAL. SQ SCH ×2 (09:00→22:44)
[2021-06-09] MEDS: tiZANidine 4 MG TABLET. PO SCH ×3 (09:00→21:00)
--- NOTE | 2021-06-09 09:06 | PDOC ---
Provider Note Date of Service: DATE: 06/09/21 TIME: 08:59 Provider Note Provider Note Vascular Right lower extremity wounds--patient has chronic contracture of the right lower extremity requiring an eventual above-knee amputation. Severe protein malnutrition. Awaiting conversation with family regarding overall quality of life and decision for aggressive versus palliative care. If decision is made for AKA, the patient would benefit from PEG tube placement for nutritional support for wound healing prior to proceding with procedure. Will postpone plans for AKA awaiting decision from family. Dr. Patten attempted to reach the family. Hopefully the Hospitalist will be able to discuss options for care with the family. Justicifation of Admission Dx: Justifications for Admission: Justification of Admission Dx: Yes Chronic Renal Failure: Encephalopathy EBER GOLD CONDUCTOR/BRAKEMAN June 09, 2021 09:06
[2021-06-09 11:00] VITALS: BP 122/64
--- NOTE | 2021-06-09 14:13 | PDOC ---
[facility] [facility] PROGRESS NOTE Date of Service DOS: DATE: 06/09/21 TIME: 14:11 Chief Complaint Chief Complaint Assessment/Plan Sepsis Suspected osteomyelitis with tendon exposed on the right foot Severe contracture of the right lower extremitywill likely need AKA. Acute respiratory failure with hypoxia Diastolic CHF exacerbation History tobacco abuse Severe malnutrition Plan: ID, Vascular consulted Patient received Rocephin in the ED. Continue Vanc Zosyn for current Patient still deciding on AKA. Echocardiogram on 03/18/2016 showed an EF of 60%, with grade 1 diastolic dysfunction, PAP 34 mmHg. Pain management Resume home medications PT OT FEN - Cardiac diet PPX - Heparin DNR/surrogate decision maker is his daughter (Vangie Burdick) Dispo - inpatient for above History of Present Illness History of Present Illness 76-year-old male with past medical history CVA, HTN, HLD, and chronic contractures to right lower extremity, who presents from his long-term due to concerns for altered mental status. Per patient's daughter (ABBY), he had a sudden change in mental status today he became minimally responsive and hypoxic. Upon EMS arrival he was placed on nonrebreather due to oxygen saturations in the low 80s. Upon arrival to the ED he was more alert and conversive, appropriately answering questions. Patient's daughter states that he has had a contracted right lower extremity since January secondary to a stroke. He was supposed to see a pain management doctor in the upcoming days. Upon my evaluation in the ED, he does have a pressure ulcer to his right medial heel that is been addressed at his long-term. Patient has not been able to offload his right foot due to his contracture. Labs in the ER showed WBC 25.0, hemoglobin 11.5, hematocrit 35.4, CBG 141, albumin 2.4, proBNP 1959. Right foot x-ray showed decreased osseous mineralization without acute osseous abnormality in the right foot. Patient will be admitted for further medical management. 06/02/2021 No acute events overnight. Patient seen examined bedside. Resting comfortably. Confused. Demented. Pending cardiology, orthopedic and infectious disease evaluation. Continue the IV antibiotics. Pending TTE. Patient's chart, labs, images were reviewed and discussed with RN 06/03/2021 No acute events overnight. Patient seen examined bedside. Tolerating breakfast. Blood pressures low in the 80s systolic. 250 NS bolus given this morning. Blood pressures improved to systolics of 120s. Still pending podiatry evaluation. Will likely need CT or MRI imaging of the extremity. Appreciate ID recommendations, continue IV vancomycin and Zosyn. Patient's chart, labs, images were reviewed and discussed with RN 06/04/2021 No acute events overnight. Patient seen examined bedside. Patient currently is not in any discomfort. Discussed goals of care with him. Patient wishes to preserve much of his extremity is much as possible. He is amenable to an amputation of his foot but does not want an AKA. When attempting to move his right lower extremity he does have pain moving his leg on his own. His contracture is very severe but he has no pain when he is resting without movement. Patient is able to move his left lower extremity without problems. In addition to my E/M visit, advance care planning done with A total time of 20 minutes was spent from 930 to 950 face to face in discussion regarding the patient's goals of care, CODE STATUS. 06/05/2021 No acute events overnight. Patient seen examined bedside. AF and VSS still having discomfort with moving his right lower extremity due to his contracture. Vascular surgery has evaluated him and have recommended amputation. Patient would like time to discuss with his daughter to determine the right course of action. We will continue IV antibiotics through the weekend and reevaluation vascular surgery on Monday. Patient's chart, labs, images were reviewed and discussed with RN 06/06/2021 No acute events overnight. Patient seen examined bedside. AF and VSS. Saturating 94% on 5 L nasal cannula. Pain only when moving his right lower extremity. Otherwise pain is well controlled. Tolerating diet. Pending plan from vascular surgery. Patient has briefly spoken with his daughter but has not made a final decision on his course of action with his contracted right lower extremity. Patient's chart, labs, images were reviewed and discussed with RN 06/07 Patient evaluated examined at bedside. Resting in bed easily arousable no major complaints. Still debating if he wants undergo AKA or not. Provided him as much information as I could on why it would be beneficial. Continues to think what he wants to do. Informed him do need a decision sooner than later. Discussed with bedside RN. Recommendations from consultants reviewed / Patient evaluated examined at bedside. Quite a bit more lethargic than yesterday. Not really answering any questions for me today. Unable to reach family member today. We will check a few lab results given his clinical change. Vascular surgery recommendations reviewed agree he will have difficulty with wound healing. No Clinimix available here thus will start on D5 LR. Can consider TPN PEG tube in coming days if needed. ID recommendations reviewed. Tentatively on surgical schedule for tomorrow. 06/09 Patient evaluated examined at bedside. For labored respirations clinically worsening. Surgery canceled for this morning. Vascular note saying plan for hospice? After several tries was able to reach DPOA over the phone discussed with her at great length the patient's poor prognosis and limited options moving forward. Eventually we settled on continuing measures for tonight and if no improvement transition to hospice tomorrow. Do not expect there to be any improvement however. Discussed this with bedside RN. 30 minutes advance care planning. Vitals/I&O Vitals/I&O: Vital Signs Date Time Temp Pulse Resp B/P (MAP) Pulse Ox O2 Delivery O2 Flow Rate FiO2 06/09/21 12:48 18 94 Nasal Cannula 6.0 06/09/21 11:00 97.4 61 122/64 (83) 97.4 I & O 06/08/21 06/08/21 06/09/21 15:00 23:00 07:00 Intake Total 50 ml 483 ml 50 ml Balance 50 ml 483 ml 50 ml Physical Exam Physical Exam: GENERAL: Alert, oriented gentleman, not in distress. VITAL SIGNS: Stable, afebrile. HEENT: NAD. NECK: Supple, no JVP, no lymphadenopathy. LUNGS: Clear. HEART: S1, S2, regular. ABDOMEN: Soft, nontender, no organomegaly. EXTREMITIES: Left lower extremity is normal. Right lower extremity is contracted, unable to straighten out and at the bottom of the right calcaneal medial area, there is a necrotic wound. NEUROLOGIC: The patient is alert, awake, able to communicate appropriately with CVA and contractures as I mentioned. General: Alert, Cooperative Heart: Regular rate, Normal S1, Normal S2 Lungs: Clear Abdomen: Normal bowel sounds, Soft, No tenderness Extremities: No clubbing, Other Skin: Other Labs Labs: Laboratory Tests Test 06/08/21 18:30 06/09/21 03:00 Random Vancomycin Level 19.5 mcg/mL Sodium Level 149 mmol/L (136-145) Potassium Level 3.0 mmol/L (3.5-5.1) Chloride Level 110 mmol/L (98-107) Carbon Dioxide Level 34 mmol/L (21-32) Anion Gap 5 (6-14) Blood Urea Nitrogen 18 mg/dL (8-26) Creatinine 1.3 mg/dL (0.7-1.3) Estimated GFR (Cockcroft-Gault) 53.4 Glucose Level 199 mg/dL (70-99) Calcium Level 9.1 mg/dL (8.5-10.1) Assessment and Plan Assessmemt and Plan Problems Medical Problems: (1) Altered mental status Status: Acute (2) Decubitus ulcer of right foot Status: Acute (3) DNR (do not resuscitate) Status: Acute (4) Severe sepsis Status: Acute Comment Review of Relevant I have reviewed the following items sandro (where applicable) has been applied. Medications: Current Medications Medications (Trade) Dose Ordered Sig/John Route PRN Reason Start Time Stop Time Status Last Admin Dose Admin Morphine Sulfate (Morphine Sulfate) 4 mg 1X ONCE IVP 06/08/21 17:15 06/08/21 17:16 DC 06/08/21 17:25 Morphine Sulfate (Morphine Sulfate) 2 mg PRN Q2HR PRN IVP PAIN 06/08/21 17:15 06/09/21 13:25 DC 06/09/21 12:48 Vancomycin HCl 1 gm/Sodium Chloride 250 ml @ 250 mls/hr Q36H IV 06/08/21 20:00 06/08/21 20:00 Lorazepam (Ativan Inj) 2 mg PRN Q4HRS PRN IVP ANXIETY / AGITATION 06/09/21 13:30 06/09/21 13:46 Justifications for Admission Other Justification PETER GUTIERREZ MD June 09, 2021 14:13
--- NOTE | 2021-06-09 14:19 | NUR ---
Patient not being given PO medications at this time due to his unresponsiveness.
--- NOTE | 2021-06-09 14:51 | NUR ---
SS following up with discharge planning. SS reviewed pt chart and discussed with pt RN. Pt is LTC resident from [facility], ; [phone]. Pt on IV Zosyn and IV Vancomycin. COVID19 negative. Pt requiring oxygen at six liters nasal canula. AKA not being performed. Pt's daughter considering hospice at this time. Physician discussed medical status with pt's daughter in length. Per physician, if no improvement by tomorrow will pursue hospice services. SS will continue to follow for discharge planning.
[2021-06-09 15:00] VITALS: BP 141/51
--- NOTE | 2021-06-09 15:06 | PDOC ---
Infectious Disease Note Subjective: Subjective Patient is resting. I could not arouse him. He does not answer any questions Vascular input noted Vital Signs: Vital Signs Vital Signs Date Time Temp Pulse Resp B/P (MAP) Pulse Ox O2 Delivery O2 Flow Rate FiO2 06/09/21 12:48 18 94 Nasal Cannula 6.0 06/09/21 11:00 97.4 61 122/64 (83) 97.4 Physical Exam: PHYSICAL EXAM GENERAL: Patient is drowsy, arousable but does not answer any questions HEENT: No icterus normocephalic, dry mouth NECK: Supple, no JVP, no lymphadenopathy. LUNGS: Clear. HEART: S1, S2, regular. ABDOMEN: Soft, nontender, no organomegaly. EXTREMITIES: Left lower extremity is normal. Right lower extremity dressing in place intact not taken down NEUROLOGI drowsy arousable does not answer any Medications: Inpatient Meds: Medications reviewed. Labs: Lab Laboratory Tests Test 06/08/21 18:30 06/09/21 03:00 Random Vancomycin Level 19.5 mcg/mL Sodium Level 149 mmol/L (136-145) Potassium Level 3.0 mmol/L (3.5-5.1) Chloride Level 110 mmol/L (98-107) Carbon Dioxide Level 34 mmol/L (21-32) Anion Gap 5 (6-14) Blood Urea Nitrogen 18 mg/dL (8-26) Creatinine 1.3 mg/dL (0.7-1.3) Estimated GFR (Cockcroft-Gault) 53.4 Glucose Level 199 mg/dL (70-99) Calcium Level 9.1 mg/dL (8.5-10.1) Objective: Assessment: 1. Encephalopathy, which is improved. 2. Leukocytosis. 3. Right calcaneal wound, the depth cannot be judged right now. 4. Cerebrovascular accident. 5. Hypertension. Plan: Plan of Care Continue antibiotics Patient needs AKA. The wound is not going to heal as he has exposed tendon and the way his contractures are he would be much better off with a AKA and have a much better life . Vascular team plans noted Discussed with nursing staff ATA MELARA MD June 09, 2021 15:06
--- NOTE | 2021-06-09 18:16 | NUR ---
Wound/Ostomy Care Wound Type/Assessment: Patient seen per wound care for follow up. See wound assessment. 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 there is no surgical intervention planned at this time, but is being discussed as well as hospice. Wound cleansed and assessed. Patient is contracted and in significant amount of pain with movement. Treatment Recommendations/Plan: Recommendations to switch to Hydrofera Blue ready transfer to wound and cover with foam dressing. Change every 2-3 days. Dressing applied and patient does have significant pain in this wound. Education provided: Patient educated on PU prevention, pt refused offloading boot of any kind at this time. Offloading surface/device: Float heels and keep turned to offload plantar foot as much as possible. It is hard to offload this right plantar foot as it is contracted to his buttock, and due to his pain this is the most comfortable position for him. Recommended Referrals/Tests: ortho and ID consults have been completed. Wound care is also following. Discharge Recommendations for dressings: Dressing change instructions left in room as well extra hydrofera blue for next dressing changes. Bed lowered and call light in reach. Wound care will follow on 06/17/21.
[2021-06-09 19:00] VITALS: BP 102/44
[2021-06-09] MEDS: ATORVASTATIN CALCIUM 10 MG TABLET. PO SCH (21:00)
[2021-06-09 22:59] VITALS: BP 102/51
[2021-06-10] MEDS: PIPERACILLIN/TAZOBACTAM 3.375 GM in IV NORMAL SALINE 50ML 50 ML IV SCH ×3 (00:28→12:27)
[2021-06-10] MEDS: MORPHINE SULFATE 2 MG/ML INJ. IVP PRN ×4 (02:27→14:01)
[2021-06-10 03:26] VITALS: BP 145/69
[2021-06-10] MEDS: IV DEXTROSE 5%-LACT RINGERS 1,000 ML IV SCH (05:38)
[2021-06-10 07:00] VITALS: BP 138/91
--- NOTE | 2021-06-10 07:12 | NUR ---
Irrigated patient bladder with 60mL Addendum: 06/10/21 at 1925 by BLANCO LAUREN RN Wrong patient
[2021-06-10] MEDS: CLOPIDOGREL BISULFATE 75 MG TABLET PO SCH (08:00)
[2021-06-10] MEDS: MULTIVITAMIN with MINERAL TABLET. PO SCH (09:00)
[2021-06-10] MEDS: BACLOFEN 10 MG TABLET. PO SCH ×2 (09:00→14:00)
[2021-06-10] MEDS: tiZANidine 4 MG TABLET. PO SCH ×2 (09:00→14:00)
[2021-06-10] MEDS: LACTOBACILLUS RHAMNOSUS GG 1 CAPSULE. PO SCH (09:00)
[2021-06-10] MEDS: HEPARIN for SUB-Q USE 5,000 UNIT/ML VIAL. SQ SCH (09:03)
--- NOTE | 2021-06-10 10:34 | NUR ---
SS following up with discharge planning. SS reviewed pt chart and discussed with pt RN. Pt is currently requiring oxygen at five liters nasal canula. COVID19 negative. Pt on IV Zyvox and IV Zosyn. SS spoke with pt's daughter via phone. Pt's daughter agreeable to hospice at this time with no preference of company. Referral sent to [facility], ; fax [phone]. [facility] spoke with daughter and are coming to hospital today to evaluate pt. Pt is [facility] resident from [facility], ; fax [phone]. Clinical updates sent to facility. SS will continue to follow for discharge planning. Addendum: 06/10/21 at 1337 by ANKUR SANCHEZ Pt evaluated by [facility]. Pt did not qualify for [facility] but did qualify for hospice services at the facility. Discharge orders received for hospice and sent to [facility] and [facility]. Hospice and SS have left voice messages for pt's daughter providing updated information and notifying her of discharge orders. Addendum: 06/10/21 at 1527 by ANUKR EMILY SS Pt's daughter returned call acknowledging pt's discharge back to [facility] today. Pt's daughter agreeable to hospice services with [facility] at [facility]. Pt will discharge today and return to [facility] at 1630 via [facility] ambulance, . Pt, pt's RN, and pt's daughter notified.
[2021-06-10 11:00] VITALS: BP 147/69
[2021-06-10] MEDS: POTASSIUM CHLORIDE 10MEQ 100 ML IV SCH ×4 (11:20→16:07)
--- NOTE | 2021-06-10 12:43 | PDOC ---
Infectious Disease Note Subjective: Subjective Patient is resting. Arousable. States he has pain though does not answer all questions low grade fevers d/w RN Vital Signs: Vital Signs Vital Signs Date Time Temp Pulse Resp B/P (MAP) Pulse Ox O2 Delivery O2 Flow Rate FiO2 06/10/21 11:47 16 98 Nasal Cannula 5.0 06/10/21 11:00 99.9 63 147/69 (95) 99.9 Physical Exam: PHYSICAL EXAM GENERAL: Patient is drowsy, arousable on Ventimask HEENT: No icterus normocephalic, dry mouth NECK: Supple, no JVP, no lymphadenopathy. LUNGS: Clear. HEART: S1, S2, regular. ABDOMEN: Soft, nontender, no organomegaly. EXTREMITIES: Left lower extremity is normal. Right lower extremity dressing in place intact not taken down NEUROLOGI drowsy arousable Medications: Inpatient Meds: Medications reviewed. Objective: Assessment: 1. Encephalopathy, which is improved. 2. Leukocytosis. 3. Right calcaneal wound, the depth cannot be judged right now. 4. Cerebrovascular accident. 5. Hypertension. Plan: Plan of Care Continue Zosyn and Z[facility]ox [facility] Vascular input noted Prognosis poor Family is leaning towards comfort measures per discussion with team Discussed with nursing staff ATA MELARA MD June 10, 2021 12:43
--- NOTE | 2021-06-10 12:50 | PDOC ---
[facility] PROGRESS NOTE Date of Service DOS: DATE: 06/10/21 TIME: 12:49 Chief Complaint Chief Complaint Assessment/Plan Sepsis Suspected osteomyelitis with tendon exposed on the right foot Severe contracture of the right lower extremitywill likely need AKA. Acute respiratory failure with hypoxia Diastolic CHF exacerbation History tobacco abuse Severe malnutrition Plan: ID, Vascular consulted Patient received Rocephin in the ED. Continue Vanc Zosyn for current Patient still deciding on AKA. Echocardiogram on 03/18/2016 showed an EF of 60%, with grade 1 diastolic dysfunction, PAP 34 mmHg. Pain management Resume home medications PT OT FEN - Cardiac diet PPX - Heparin DNR/surrogate decision maker is his daughter (Vangie Burdick) Dispo - inpatient for above History of Present Illness History of Present Illness 76-year-old male with past medical history CVA, HTN, HLD, and chronic contractures to right lower extremity, who presents from his skilled nursing due to concerns for altered mental status. Per patient's daughter (ABBY), he had a sudden change in mental status today he became minimally responsive and hypoxic. Upon EMS arrival he was placed on nonrebreather due to oxygen saturations in the low 80s. Upon arrival to the ED he was more alert and conversive, appropriately answering questions. Patient's daughter states that he has had a contracted right lower extremity since January secondary to a stroke. He was supposed to see a pain management doctor in the upcoming days. Upon my evaluation in the ED, he does have a pressure ulcer to his right medial heel that is been addressed at his skilled nursing. Patient has not been able to offload his right foot due to his contracture. Labs in the ER showed WBC 25.0, hemoglobin 11.5, hematocrit 35.4, CBG 141, albumin 2.4, proBNP 1959. Right foot x-ray showed decreased osseous mineralization without acute osseous abnormality in the right foot. Patient will be admitted for further medical management. 06/02/2021 No acute events overnight. Patient seen examined bedside. Resting comfortably. Confused. Demented. Pending cardiology, orthopedic and infectious disease evaluation. Continue the IV antibiotics. Pending TTE. Patient's chart, labs, images were reviewed and discussed with RN 06/03/2021 No acute events overnight. Patient seen examined bedside. Tolerating breakfast. Blood pressures low in the 80s systolic. 250 NS bolus given this morning. Blood pressures improved to systolics of 120s. Still pending podiatry evaluation. Will likely need CT or MRI imaging of the extremity. Appreciate ID recommendations, continue IV vancomycin and Zosyn. Patient's chart, labs, images were reviewed and discussed with RN 06/04/2021 No acute events overnight. Patient seen examined bedside. Patient currently is not in any discomfort. Discussed goals of care with him. Patient wishes to preserve much of his extremity is much as possible. He is amenable to an amputation of his foot but does not want an AKA. When attempting to move his right lower extremity he does have pain moving his leg on his own. His contracture is very severe but he has no pain when he is resting without movement. Patient is able to move his left lower extremity without problems. In addition to my E/M visit, advance care planning done with A total time of 20 minutes was spent from 930 to 950 face to face in discussion regarding the patient's goals of care, CODE STATUS. 06/05/2021 No acute events overnight. Patient seen examined bedside. AF and VSS still having discomfort with moving his right lower extremity due to his contracture. Vascular surgery has evaluated him and have recommended amputation. Patient would like time to discuss with his daughter to determine the right course of action. We will continue IV antibiotics through the weekend and reevaluation vascular surgery on Monday. Patient's chart, labs, images were reviewed and discussed with RN 06/06/2021 No acute events overnight. Patient seen examined bedside. AF and VSS. Saturating 94% on 5 L nasal cannula. Pain only when moving his right lower extremity. Otherwise pain is well controlled. Tolerating diet. Pending plan from vascular surgery. Patient has briefly spoken with his daughter but has not made a final decision on his course of action with his contracted right lower extremity. Patient's chart, labs, images were reviewed and discussed with RN 06/07 Patient evaluated examined at bedside. Resting in bed easily arousable no major complaints. Still debating if he wants undergo AKA or not. Provided him as much information as I could on why it would be beneficial. Continues to think what he wants to do. Informed him do need a decision sooner than later. Discussed with bedside RN. Recommendations from consultants reviewed / Patient evaluated examined at bedside. Quite a bit more lethargic than yesterday. Not really answering any questions for me today. Unable to reach family member today. We will check a few lab results given his clinical change. Vascular surgery recommendations reviewed agree he will have difficulty with wound healing. No Clinimix available here thus will start on D5 LR. Can consider TPN PEG tube in coming days if needed. ID recommendations reviewed. Tentatively on surgical schedule for tomorrow. 06/09 Patient evaluated examined at bedside. For labored respirations clinically worsening. Surgery canceled for this morning. Vascular note saying plan for hospice? After several tries was able to reach DPOA over the phone discussed with her at great length the patient's poor prognosis and limited options moving forward. Eventually we settled on continuing measures for tonight and if no improvement transition to hospice tomorrow. Do not expect there to be any improvement however. Discussed this with bedside RN. 30 minutes advance care planning. 06/10 Patient evaluated examined at bedside. Regularly clinical improvement. Transition to hospice today. Daughter agreeable. Hospice come see patient jose ater this afternoon. Vitals/I&O Vitals/I&O: Vital Signs Date Time Temp Pulse Resp B/P (MAP) Pulse Ox O2 Delivery O2 Flow Rate FiO2 06/10/21 11:47 16 98 Nasal Cannula 5.0 06/10/21 11:00 99.9 63 147/69 (95) 99.9 I & O 06/09/21 06/09/21 06/10/21 15:00 23:00 07:00 Intake Total 1400 ml Balance 1400 ml Physical Exam Physical Exam: GENERAL: Patient is drowsy, arousable but does not answer any questions HEENT: No icterus normocephalic, dry mouth NECK: Supple, no JVP, no lymphadenopathy. LUNGS: Clear. HEART: S1, S2, regular. ABDOMEN: Soft, nontender, no organomegaly. EXTREMITIES: Left lower extremity is normal. Right lower extremity dressing in place intact not taken down NEUROLOGI drowsy arousable does not answer any General: Alert, Cooperative Heart: Regular rate, Normal S1, Normal S2 Lungs: Clear Abdomen: Normal bowel sounds, Soft, No tenderness Extremities: No clubbing, Other Skin: Other Assessment and Plan Assessmemt and Plan Problems Medical Problems: (1) Altered mental status Status: Acute (2) Decubitus ulcer of right foot Status: Acute (3) DNR (do not resuscitate) Status: Acute (4) Severe sepsis Status: Acute Comment Review of Relevant I have reviewed the following items sandro (where applicable) has been applied. Medications: Current Medications Medications (Trade) Dose Ordered Sig/John Route PRN Reason Start Time Stop Time Status Last Admin Dose Admin Lorazepam (Ativan Inj) 2 mg PRN Q4HRS PRN IVP ANXIETY / AGITATION 06/09/21 13:30 06/09/21 13:46 Linezolid/Dextrose 300 ml @ 300 mls/hr Q12HR IV 06/09/21 21:00 06/10/21 08:56 Potassium Chloride/Water 100 ml @ 100 mls/hr Q1H IV 06/10/21 11:00 06/10/21 14:59 06/10/21 11:20 Justifications for Admission Other Justification PETER GUTIERREZ MD June 10, 2021 12:50
--- NOTE | 2021-06-10 13:07 | SNU/HH DC ---
DISCHARGE ORDERS DISCHARGE INFORMATION: DISCHARGE DATE: June 10, 2021 FINAL DIAGNOSIS Problems Medical Problems: (1) Altered mental status Status: Acute (2) Decubitus ulcer of right foot Status: Acute (3) DNR (do not resuscitate) Status: Acute (4) Severe sepsis Status: Acute CONDITION ON DISCHARGE: Stable CODE STATUS: Code Status: DNR/DNI HOSPICE: HOSPICE: Yes HOSPICE EVAL & TREAT: Yes POST DISCHARGE ORDERS: ACTIVITY ORDERS: Activity as tolerated WEIGHT BEARING STATUS: As tolerated BATHING ORDERS: No Tub Bath until see DIET AFTER DISCHARGE: JAQUELIN WOUND/INCISION CARE: Ice to area for comfort CHECKS AFTER DISCHARGE: CHECKS AFTER DISCHARGE: Check blood press - daily, Check blood sugar, ac/hs TREATMENT/EQUIPMENT ORDERS: ADAPTIVE EQUIPMENT NEEDED: None RESPIRATORY EQUIPMENT NEEDED: Oxygen DISCHARGE MEDICATIONS: Home Meds Reported Medications Menthol (BIOFREEZE) 118 Ml Gel..ml., 1 FLO TP QID PRN for PAIN for 7 Days, #118 ML 0 Refills 06/02/21 Trazodone Hcl (TRAZODONE HCL) 50 Mg Tablet, 1 TAB PO QHS PRN for INSOMNIA, #30 TAB 1 Refill 06/02/21 Polyethylene Glycol 3350 (MIRALAX) 17 Gm Powd.pack, 1 PACKET PO DAILY for constipation for 2 Days, #2 PACKET 0 Refills dissolve in water 06/02/21 Loratadine (LORATADINE) 10 Mg Tablet, 1 TAB PO DAILY for allergies, #30 TAB 5 Refills 06/02/21 Ondansetron Hcl (ONDANSETRON HCL) 4 Mg Tablet, 1 TAB PO PRN Q6HRS for nausea, #10 TAB 1 Refill 06/02/21 Tramadol Hcl (TRAMADOL HCL) 50 Mg Tablet, 50 MG PO Q12HR PRN for BREAKTHROUGH PAIN, TAB 06/02/21 Glucagon,Human Recombinant (GLUCAGON EMERGENCY KIT) 1 Mg Kit, 1 MG IM PRN for hypoglycemia, #2 KIT 5 Refills 06/02/21 Multivitamin (MULTI VITAMIN DAILY) 1 Each Tablet, 1 TAB PO DAILY for supplement for 30 Days, #30 TAB 0 Refills 06/02/21 Collagenase Clostridium Hist. (SANTYL OINTMENT) 30 Gm Oint...g., 1 FLO TP DAILY for right foot wound for 30 Days, #90 GM 0 Refills 06/02/21 Acetaminophen (ACETAMINOPHEN) 325 Mg Tablet, 2 TAB PO PRN Q6HRS PRN for pain or fever for 30 Days, #30 TAB 0 Refills 06/02/21 Baclofen (BACLOFEN) 10 Mg Tablet, 2 TAB PO TID for spasms, #90 TAB 2 Refills 06/02/21 Amlodipine Besylate (AMLODIPINE BESYLATE) 5 Mg Tablet, 5 MG PO DAILY for htn, TAB 06/02/21 Tizanidine Hcl (TIZANIDINE HCL) 4 Mg Tablet, 1 TAB PO TID for spasms, #90 TAB 06/02/21 Tizanidine Hcl (TIZANIDINE HCL) 2 Mg Capsule, 2 MG PO BID PRN for MUSCLE SPASMS, CAP 06/02/21 Gabapentin (Gabapentin) 300 Mg Capsule, 2 CAP PO TID for neuropathy 06/02/21 Diazepam (DIAZEPAM) 2 Mg Tablet, 1 TAB PO BID for spasms 06/02/21 Acetaminophen With Codeine (ACETAMINOPHEN-COD #3 TABLET) 1 Each Tablet, 1 TAB PO Q6HRS PRN for PAIN 06/02/21 Ropinirole Hcl (ROPINIROLE HCL) 0.25 Mg Tablet, 2 TAB PO HS for sleep 06/02/21 Tamsulosin Hcl (TAMSULOSIN HCL) 0.4 Mg Cap.er.24h, 1 CAP PO HS, #30 CAP 5 Refills 06/30/16 Clopidogrel Bisulfate (CLOPIDOGREL) 75 Mg Tablet, 1 TAB PO DAILY, #90 TAB 1 Refill 06/30/16 Aspirin (ASPIRIN) 325 Mg Tablet, 1 TAB PO DAILY, #30 TAB 5 Refills 06/30/16 Atorvastatin Calcium (ATORVASTATIN CALCIUM) 10 Mg Tablet, 1 TAB PO DAILY for cholesterol, #30 TAB 5 Refills 06/30/16 Cyanocobalamin (Vitamin B-12) (VITAMIN B-12) 1,000 Mcg Tablet, 1 TAB PO DAILY, #30 TAB 2 Refills 03/18/16 Metformin Hcl (METFORMIN HCL) 500 Mg Tablet, 1 TAB PO BID, #60 TAB 3 Refills 03/18/16 Fluoxetine Hcl (FLUOXETINE HCL) 20 Mg Tablet, 1 TAB PO DAILY, #90 TAB 3 Refills 03/18/16 PETER GUTIERREZ MD June 10, 2021 13:06
--- NOTE | 2021-06-10 14:06 | NUR ---
Patient all oral medications were not administered to patient, due to patient not being able sip out of a straw or a cup. Patient not able to arouse enough to feed or give medications.
[2021-06-10 15:00] VITALS: BP 146/79
[2021-06-10] MEDS ORDERED: ACETAMINOPHEN 650 MG SUPP.RECT. PR PRN (16:15)
--- NOTE | 2021-06-10 19:31 | NUR ---
Discharge Note: Patient discharged back to [facility]. Family agreeable with plans. Patients IV were discontinued without any complications. NO belongings with patient. Report was called to ALIE Mcneill. Patient was transported over to facility via EMS, on 6L nasal canula.
--- NOTE | 2021-06-12 18:47 | PDOC3 ---
[facility]-Discharge Summary Date of Admission: Date of Admission: Jun 01, 2021 Date of Discharge: Date of Discharge: June 10, 2021 Admission Diagnosis: Admitting Diagnosis: sepsis, ams, osteomyelitis Consults: Consults: ID, vasc surg, cardiology Hospital Course: Hospital Course: Chief Complaint Assessment/Plan Sepsis Suspected osteomyelitis with tendon exposed on the right foot Severe contracture of the right lower extremitywill likely need AKA. Acute respiratory failure with hypoxia Diastolic CHF exacerbation History tobacco abuse Severe malnutrition Plan: ID, Vascular consulted Patient received Rocephin in the ED. Continue Vanc Zosyn for current Patient still deciding on AKA. Echocardiogram on 03/18/2016 showed an EF of 60%, with grade 1 diastolic dysfunction, PAP 34 mmHg. Pain management Resume home medications PT OT FEN - Cardiac diet PPX - Heparin DNR/surrogate decision maker is his daughter (Vangie Burdick) Dispo - inpatient for above History of Present Illness History of Present Illness 76-year-old male with past medical history CVA, HTN, HLD, and chronic contractures to right lower extremity, who presents from his half-way due to concerns for altered mental status. Per patient's daughter (ABBY), he had a sudden change in mental status today he became minimally responsive and hypoxic. Upon EMS arrival he was placed on nonrebreather due to oxygen saturations in the low 80s. Upon arrival to the ED he was more alert and conversive, appropriately answering questions. Patient's daughter states that he has had a contracted right lower extremity since January secondary to a stroke. He was supposed to see a pain management doctor in the upcoming days. Upon my evaluation in the ED, he does have a pressure ulcer to his right medial heel that is been addressed at his half-way. Patient has not been able to offload his right foot due to his contracture. Labs in the ER showed WBC 25.0, hemoglobin 11.5, hematocrit 35.4, CBG 141, albumin 2.4, proBNP 1959. Right foot x-ray showed decreased osseous mineralization without acute osseous abnormality in the right foot. Patient will be admitted for further medical management. 06/02/2021 No acute events overnight. Patient seen examined bedside. Resting comfortably. Confused. Demented. Pending cardiology, orthopedic and infectious disease evaluation. Continue the IV antibiotics. Pending TTE. Patient's chart, labs, images were reviewed and discussed with RN 06/03/2021 No acute events overnight. Patient seen examined bedside. Tolerating breakfast. Blood pressures low in the 80s systolic. 250 NS bolus given this morning. Blood pressures improved to systolics of 120s. Still pending podiatry evaluation. Will likely need CT or MRI imaging of the extremity. Appreciate ID recommendations, continue IV vancomycin and Zosyn. Patient's chart, labs, image s were reviewed and discussed with RN 06/04/2021 No acute events overnight. Patient seen examined bedside. Patient currently is not in any discomfort. Discussed goals of care with him. Patient wishes to preserve much of his extremity is much as possible. He is amenable to an amputation of his foot but does not want an AKA. When attempting to move his right lower extremity he does have pain moving his leg on his own. His contracture is very severe but he has no pain when he is resting without movement. Patient is able to move his left lower extremity without problems. In addition to my E/M visit, advance care planning done with A total time of 20 minutes was spent from 930 to 950 face to face in discussion regarding the patient's goals of care, CODE STATUS. 06/05/2021 No acute events overnight. Patient seen examined bedside. AF and VSS still having discomfort with moving his right lower extremity due to his contracture. Vascular surgery has evaluated him and have recommended amputation. Patient wo uld like time to discuss with his daughter to determine the right course of action. We will continue IV antibiotics through the weekend and reevaluation vascular surgery on Monday. Patient's chart, labs, images were reviewed and discussed with RN 06/06/2021 No acute events overnight. Patient seen examined bedside. AF and VSS. Saturating 94% on 5 L nasal cannula. Pain only when moving his right lower extremity. Otherwise pain is well controlled. Tolerating diet. Pending plan from vascular surgery. Patient has briefly spoken with his daughter but has not made a final decision on his course of action with his contracted right lower extremity. Patient's chart, labs, images were reviewed and discussed with RN 5/2 Patient evaluated examined at bedside. Resting in bed easily arousable no major complaints. Still debating if he wants undergo AKA or not. Provided him as much information as I could on why it would be beneficial. Continues to think what he wants to do. Informed him do need a decision sooner than later. Discussed with bedside RN. Recommendations from consultants reviewed 06/08 Patient evaluated examined at bedside. Quite a bit more lethargic than yesterday. Not really answering any questions for me today. Unable to reach family member today. We will check a few lab results given his clinical change. Vascular surgery recommendations reviewed agree he will have difficulty with wound healing. No Clinimix available here thus will start on D5 LR. Can consider TPN PEG tube in coming days if needed. ID recommendations reviewed. Tentatively on surgical schedule for tomorrow. 06/09 Patient evaluated examined at bedside. For labored respirations clinically worsening. Surgery canceled for this morning. Vascular note saying plan for hospice? After several tries was able to reach DPOA over the phone discussed with her at great length the patient's poor prognosis and limited options moving forward. Eventually we settled on continuing measures for tonight and if no improvement transition to hospice tomorrow. Do not expect there to be any improvement however. Discussed this with bedside RN. 30 minutes advance care planning. 06/10 Patient evaluated examined at bedside. Regularly clinical improvement. Transition to hospice today. Daughter agreeable. Hospice come see patient later this afternoon. >30 min spent on d/c. d/c to [facility] on hospice Disposition: Disposition/Orders: D/C to Another Facility Activity: Activity: Resume previous activity Diet: Diet: Regular Medications: Home Meds Reported Medications Menthol (BIOFREEZE) 118 Ml Gel..ml., 1 FLO TP QID PRN for PAIN for 7 Days, #118 ML 0 Refills 06/02/21 Trazodone Hcl (TRAZODONE HCL) 50 Mg Tablet, 1 TAB PO QHS PRN for INSOMNIA, #30 TAB 1 Refill 06/02/21 Polyethylene Glycol 3350 (MIRALAX) 17 Gm Powd.pack, 1 PACKET PO DAILY for constipation for 2 Days, #2 PACKET 0 Refills dissolve in water 06/02/21 Loratadine (LORATADINE) 10 Mg Tablet, 1 TAB PO DAILY for allergies, #30 TAB 5 Re fills 06/02/21 Ondansetron Hcl (ONDANSETRON HCL) 4 Mg Tablet, 1 TAB PO PRN Q6HRS for nausea, #10 TAB 1 Refill 06/02/21 Tramadol Hcl (TRAMADOL HCL) 50 Mg Tablet, 50 MG PO Q12HR PRN for BREAKTHROUGH PAIN, TAB 06/02/21 Glucagon,Human Recombinant (GLUCAGON EMERGENCY KIT) 1 Mg Kit, 1 MG IM PRN for hypoglycemia, #2 KIT 5 Refills 06/02/21 Multivitamin (MULTI VITAMIN DAILY) 1 Each Tablet, 1 TAB PO DAILY for supplement for 30 Days, #30 TAB 0 Refills 06/02/21 Collagenase Clostridium Hist. (SANTYL OINTMENT) 30 Gm Oint...g., 1 FLO TP DAILY for right foot wound for 30 Days, #90 GM 0 Refills 06/02/21 Acetaminophen (ACETAMINOPHEN) 325 Mg Tablet, 2 TAB PO PRN Q6HRS PRN for pain or fever for 30 Days, #30 TAB 0 Refills 06/02/21 Baclofen (BACLOFEN) 10 Mg Tablet, 2 TAB PO TID for spasms, #90 TAB 2 Refills 06/02/21 Amlodipine Besylate (AMLODIPINE BESYLATE) 5 Mg Tablet, 5 MG PO DAILY for htn, TAB 06/02/21 Tizanidine Hcl (TIZANIDINE HCL) 4 Mg Tablet, 1 TAB PO TID for spasms, #90 TAB 06/02/21 Tizanidine Hcl (TIZANIDINE HCL) 2 Mg Capsule, 2 MG PO BID PRN for MUSCLE SPASMS, CAP 06/02/21 Gabapentin (Gabapentin) 300 Mg Capsule, 2 CAP PO TID for neuropathy 06/02/21 Diazepam (DIAZEPAM) 2 Mg Tablet, 1 TAB PO BID for spasms 06/02/21 Acetaminophen With Codeine (ACETAMINOPHEN-COD #3 TABLET) 1 Each Tablet, 1 TAB PO Q6HRS PRN for PAIN 06/02/21 Ropinirole Hcl (ROPINIROLE HCL) 0.25 Mg Tablet, 2 TAB PO HS for sleep 06/02/21 Tamsulosin Hcl (TAMSULOSIN HCL) 0.4 Mg Cap.er.24h, 1 CAP PO HS, #30 CAP 5 Refills 06/30/16 Clopidogrel Bisulfate (CLOPIDOGREL) 75 Mg Tablet, 1 TAB PO DAILY, #90 TAB 1 Refill 06/30/16 Aspirin (ASPIRIN) 325 Mg Tablet, 1 TAB PO DAILY, #30 TAB 5 Refills 06/30/16 Atorvastatin Calcium (ATORVASTATIN CALCIUM) 10 Mg Tablet, 1 TAB PO DAILY for cholesterol, #30 TAB 5 Refills 06/30/16 Cyanocobalamin (Vitamin B-12) (VITAMIN B-12) 1,000 Mcg Tablet, 1 TAB PO DAILY, #30 TAB 2 Refills 03/18/16 Metformin Hcl (METFORMIN HCL) 500 Mg Tablet, 1 TAB PO BID, #60 TAB 3 Refills 03/18/16 Fluoxetine Hcl (FLUOXETINE HCL) 20 Mg Tablet, 1 TAB PO DAILY, #90 TAB 3 Refills 03/18/16 Scheduled Amlodipine Besylate (Amlodipine Besylate), 5 MG PO DAILY, (Reported) Aspirin (Aspirin), 1 TAB PO DAILY, (Reported) Atorvastatin Calcium (Atorvastatin Calcium), 1 TAB PO DAILY, (Reported) Baclofen (Baclofen), 2 TAB PO TID, (Reported) Clopidogrel Bisulfate (Clopidogrel), 1 TAB PO DAILY, (Reported) Collagenase Clostridium Hist. (Santyl Ointment), 1 FLO TP DAILY, (Reported) Cyanocobalamin (Vitamin B-12) (Vitamin B-12), 1 TAB PO DAILY, (Reported) Diazepam (Diazepam), 1 TAB PO BID, (Reported) Fluoxetine Hcl (Fluoxetine Hcl), 1 TAB PO DAILY, (Reported) Gabapentin (Gabapentin), 2 CAP PO TID, (Reported) Glucagon,Human Recombinant (Glucagon Emergency Kit), 1 MG IM PRN, (Reported) Loratadine (Loratadine), 1 TAB PO DAILY, (Reported) Metformin Hcl (Metformin Hcl), 1 TAB PO BID, (Reported) Multivitamin (Multi Vitamin Daily), 1 TAB PO DAILY, (Reported) Ondansetron Hcl (Ondansetron Hcl), 1 TAB PO PRN Q6HRS, (Reported) Polyethylene Glycol 3350 (Miralax), 1 PACKET PO DAILY, (Reported) Ropinirole Hcl (Ropinirole Hcl), 2 TAB PO HS, (Reported) Tamsulosin Hcl (Tamsulosin Hcl), 1 CAP PO HS, (Reported) Tizanidine Hcl (Tizanidine Hcl), 1 TAB PO TID, (Reported) Scheduled PRN Acetaminophen (Acetaminophen), 2 TAB PO PRN Q6HRS PRN for pain or fever, (Reported) Acetaminophen With Codeine (Acetaminophen-Cod #3 Tablet), 1 TAB PO Q6HRS PRN for PAIN, (Reported) Menthol (Biofreeze), 1 FLO TP QID PRN for PAIN, (Reported) Tizanidine Hcl (Tizanidine Hcl), 2 MG PO BID PRN for MUSCLE SPASMS, (Reported) Tramadol Hcl (Tramadol Hcl), 50 MG PO Q12HR PRN for BREAKTHROUGH PAIN, (Reported) Trazodone Hcl (Trazodone Hcl), 1 TAB PO QHS PRN for INSOMNIA, (Reported) Justicifation of Admission Dx: Justifications for Admission: Justification of Admission Dx: Yes Chronic Renal Failure: Encephalopathy PETER GUTIERREZ MD June 12, 2021 18:47
== END 2021-06-10 19:39 | disposition hospice, inpatient (51) | DRG 871 ==
LOC: ER 13:27 → ED HOLD 17:35 → 5 NORTH 22:13
PROVIDERS: ADMIT Family Medicine; ATTEND Family Medicine
DX: A41.9 Sepsis, unspecified organism (principal); I50.33 Acute on chronic diastolic (congestive) heart failure; E43 Unspecified severe protein-calorie malnutrition; J96.21 Acute and chronic respiratory failure with hypoxia; I13.0 Hypertensive heart and chronic kidney disease with heart failure and stage 1 through stage 4 chronic kidney disease, or unspecified chronic kidney disease; J98.11 Atelectasis; M86.8X8 Other osteomyelitis, other site; G93.40 Encephalopathy, unspecified; L89.899 Pressure ulcer of other site, unspecified stage; R65.20 Severe sepsis without septic shock; E11.22 Type 2 diabetes mellitus with diabetic chronic kidney disease; E11.621 Type 2 diabetes mellitus with foot ulcer; E11.69 Type 2 diabetes mellitus with other specified complication; E78.5 Hyperlipidemia, unspecified; F03.90 Unspecified dementia, unspecified severity, without behavioral disturbance, psychotic disturbance, mood disturbance, and anxiety; G25.81 Restless legs syndrome; L97.519 Non-pressure chronic ulcer of other part of right foot with unspecified severity; N18.9 Chronic kidney disease, unspecified; Z51.5 Encounter for palliative care; Z53.9 Procedure and treatment not carried out, unspecified reason; Z66 Do not resuscitate; Z74.01 Bed confinement status; Z82.3 Family history of stroke; Z82.49 Family history of ischemic heart disease and other diseases of the circulatory system; Z83.3 Family history of diabetes mellitus; Z86.73 Personal history of transient ischemic attack (TIA), and cerebral infarction without residual deficits; Z87.730 Personal history of (corrected) cleft lip and palate; Z87.891 Personal history of nicotine dependence; Z99.3 Dependence on wheelchair; Z99.81 Dependence on supplemental oxygen; Z68.20 Body mass index [BMI] 20.0-20.9, adult; Z79.4 Long term (current) use of insulin
CPT/HCPCS: 36415; 70450; 71045; 73620; 80048; 80053; 80202; 80307; 81001; 82040; 82550; 82553; 82565; 83605; 83880; 84134; 84484; 85007; 85025; 86140; 87040; 87086; 93005; 93306; 96374; J0696; J1644; J2020; J2060; J2270; J2543; J3370; J3480; J7030; J7040; J7050; J7121; U0003; 99291-25; C8929; G0378